=== PATIENT | female | born 1960 | race Caucasian/White ===

== ENCOUNTER 2016-05-04 17:03 | Emergency (ER) | payer BC, MEDICARE ==
[~2016-05-04] VITALS: Wt 95.3 kg
[~2016-05-04 17:03] MED LIST: ASPIRIN CHEWABL81 MG PO; ATORVASTATIN CA40 M1 PO; LEVAQUIN750 M1 PO; LEVOTHYROXIN0.075 M1 PO; LIPITOR40 MG PO; NITROSTAT0.4 MG SL; OMEPRAZOLE40 MG PO
[2016-05-04] MEDS ORDERED: FLUOXETINE HCL10 MG PO (17:11)
[2016-05-04 17:41] LABS: BASO % 0.4 % (0.0-1.0); EOS # 0.1 10*3/uL (0.0-0.4); EOS % 1.3 % (1.0-4.0); HEMATOCRIT 45.3 % (37.0-47.0); HEMOGLOBIN 14.7 g/dl (12.0-16.0); LYMPH # 1.7 10*3/uL (1.3-4.4); LYMPH % 23.4 % (27.0-41.0); MEAN CELL VOLUME 84.2 fl (81.0-99.0); MEAN CORPUSCULAR HGB 27.3 pg (27.0-31.0); MEAN CORPUSCULAR HGB CONC 32.5 g/dl (33.0-37.0); MEAN PLATELET VOLUME 10.4 fl (9.6-12.3); MONO # 0.6 10*3/uL (0.1-1.0); MONO % 8.5 % (3.0-9.0); NEUT # 4.9 10*3/uL (2.3-7.9); NEUT % 66.3 % (47.0-73.0); PLATELET COUNT AUTOMATED 257 10*3/uL (130-400); RED BLOOD COUNT 5.38 10*6/uL (4.10-5.10); RED CELL DISTRI WIDTH 13.5 % (0-14.5); WHITE BLOOD COUNT 7.5 10*3/uL (4.8-10.8)
[2016-05-04 18:01] LABS: ALBUMIN 3.7 gm/dl (3.1-4.5); BILIRUBIN, TOTAL 0.9 mg/dl (0.2-1.0); POTASSIUM 3.7 mmol/L (3.5-5.1)
[2016-05-04 19:38] LABS: LA>2 REFLEX 2 HR DRAW NOW
[2016-05-04 20:18] LABS: BILIRUBIN NEGATIVE (NEGATIVE); BLOOD TRACE-INTACT (NEGATIVE); CLARITY CLEAR (CLEAR); COLOR YELLOW (YELLOW); GLUCOSE NEGATIVE (NEGATIVE); KETONE NEGATIVE (NEGATIVE); LEUKO ESTERASE NEGATIVE (NEGATIVE); NITRITE NEGATIVE (NEGATIVE); PROTEIN NEGATIVE (NEGATIVE); UROBILINOGEN 0.2 E.U./dl (0.2-1.0)
[2016-05-04 20:40] LABS: BACTERIA 2+; RBC 0-2 rbc/hpf (0-2); URINE REFLEX COMMENT YES (NO)
[2016-05-04] MEDS ORDERED: BENTYL10 MG PO (20:47)
[2016-05-04] MEDS ORDERED: Zofran4 MG PO (20:47)
[2016-06-16] MEDS ORDERED: ZEGERID1 PK1 PO (08:39)
[2016-06-16] MEDS ORDERED: CLARITIN10 MG PO (12:20)
[2016-06-16] MEDS ORDERED: RANITIDINE HCL150 M1 PO (12:20)
[2016-06-17] MEDS ORDERED: LEVOTHYROXIN0.088 M1 PO ×2 (18:00→18:02)
[2016-06-18] MEDS ORDERED: VITAMIN D50000 I3 PO ×2 (13:59→14:42)
[2016-06-18] MEDS ORDERED: LEVAQUIN500 M2 PO (13:59)
[2016-06-18] MEDS ORDERED: PREDNISONE10 MG PO (13:59)
[2016-06-18] MEDS ORDERED: VENTOLIN H0.09 MG/AC INH (15:00)
== END 2016-05-04 21:02 | disposition home or self-care (01) ==
LOC: ED 17:03
PROVIDERS: Physician Assistant
DX: R11.2 Nausea with vomiting, unspecified (principal); R19.7 Diarrhea, unspecified; Z87.891 Personal history of nicotine dependence; Z90.49 Acquired absence of other specified parts of digestive tract; Z90.710 Acquired absence of both cervix and uterus; Z98.51 Tubal ligation status; Z98.890 Other specified postprocedural states; Z79.82 Long term (current) use of aspirin; Z88.0 Allergy status to penicillin; Z88.6 Allergy status to analgesic agent; Z88.5 Allergy status to narcotic agent

== ENCOUNTER → 2016-07-01 | Outpatient (CLI) | payer BC, MEDICARE ==
[~2016-07-01] MED LIST changes: +BENTYL10 MG PO; +CLARITIN10 MG PO; +FLUOXETINE HCL10 MG PO; +LEVAQUIN500 M2 PO; +LEVOTHYROXIN0.088 M1 PO; +PREDNISONE10 MG PO; +RANITIDINE HCL150 M1 PO; +VENTOLIN H0.09 MG/AC INH; +VITAMIN D50000 I3 PO; +ZEGERID1 PK1 PO; +Zofran4 MG PO
--- NOTE | ~2016-07-01 | PF ---
[place], [place] PULMONARY FUNCTION TEST [id number] UNIT #: [id number] ROOM: DOCTOR: CRESCENCIO LEDEZMA MD,NENA BIRTHDATE: [birth year] DOS: ORDERED BY: Dr. Joe Garcia. HISTORY: The patient recorded as a 56-year-old female, height of 63 inches, weight of 220 pounds with BMI of 39. The testing was done for assessment of symptoms of shortness of breath with nonproductive cough. Past tobacco use was noted, 1 pack of cigarettes per day for the past 35 years with the tobacco cessation noted for last 3 years. SPIROMETRY: Done without bronchodilator shows FVC of 3.42 liters at 105% predicted value normal. FEV1 recorded 2.55 liters, is 100% predicted value normal as well. Ratio of FEV1/FVC recorded as 74%. Flow volume loop was suggestive of mild obstructive airway pattern. LUNG VOLUME: Thoracic gas volume recorded as 87%, residual volume of 109%, total lung capacity 110%. Lung volumes were noted normal. The patient's lung diffusion recorded normal at 94%. The patient's airway resistance, passive conductance was noted normal; however, there was no postbronchodilator test. FINAL IMPRESSION: The patient was noted with normal spirometry, lung volumes, lung diffusion, air resistance, and passive conductance. NENA PRATHER MD CM:PFREPORT:PULMONARY FUNCTION TEST [id number] NENA LEDEZMA MD
== END | disposition home or self-care (01) ==
LOC: CP 10:33
DX: R06.02 Shortness of breath (principal)

== ENCOUNTER 2016-07-06 16:47 | Inpatient (IN) | payer BC, MEDICARE ==
[~2016-07-06] VITALS: Ht 160 cm; Wt 104.1 kg
--- NOTE | ~2016-07-06 | CON ---
[place], [place] REPORT OF CONSULTATION NAME[facility] [id number] UNIT #: [id number] ROOM: 415 DOCTOR: BERNIE WILLAMS MD BIRTHDATE: [birth year] DOS: 07/07/2016 CARDIOLOGY CONSULTATION REASON FOR CONSULTATION: Chest pain. HISTORY OF PRESENT ILLNESS: This patient is a 56-year-old woman who has a long history of atypical chest pain. She did have several admissions in the fall of 2015. A pharmacologic stress test was done on 01/17/2016. She had no EKG changes with the infusion of regadenoson. Perfusion images showed an ejection fraction of 68% and no ischemia. I reviewed the images and I agree with the initial interpretation. The patient states that she has had a long history of gastroesophageal reflux disease and Joe's esophagus. Last March, she did have endoscopy and was told that she has developed some dysplasia. She was recently seen by her poiser who is planning further workup of her gastroesophageal reflux including acid testing. The patient was driving her grandchildren home from school yesterday when she developed a tight sensation in her chest. This progressed and worsened. She pulled the car over, but her symptoms did not becca. She took sublingual nitroglycerin without any benefit. She stated that she developed nausea and vomited. She did not have diaphoresis or dyspnea and denied any palpitations. At that point, her grandson called 911. Emergency medical services arrived and gave her more nitroglycerin and aspirin. These did not relieve the pain to any great degree either; however, the pain did begin to improve, subsequently. It finally resolved on its own after about 45 minutes to an hour. She was brought to the Emergency Room where her electrocardiogram showed no acute changes. Serial cardiac biomarkers have all been normal. She has remained well since admission. PAST MEDICAL HISTORY: Includes: 1. Gastroesophageal reflux disease with Joe's esophagus. 2. 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 3. Hyperlipidemia. 4. Hypothyroidism. 5. Vitamin D deficiency. 6. History of tobacco abuse. The patient has been abstinent for several months. 7. Status post cholecystectomy when the patient was in her teens. 8. History of exploratory laparotomy and hysterectomy. 9. Status post lumpectomy of the right breast. 10. Status post thyroidectomy February 2015. 11. History of tubal ligation. MEDICATIONS PRIOR TO ADMISSION: Albuterol 2 puffs q.i.d. p.r.n., aspirin 81 mg daily, vitamin D 50,000 units weekly, fluoxetine 10 mg daily, levothyroxine 75 mcg daily, omeprazole with sodium bicarbonate (Zegerid) 20 mg daily, ranitidine 150 mg b.i.d. and nitroglycerin sublingually p.r.n. [place], [place] REPORT OF CONSULTATION NAME: ROBEL GARCIA UNIT #: [id number] ROOM: 415 DOCTOR: BERNIE WILLAMS MD BIRTHDATE: [birth year] ALLERGIES: THE PATIENT LISTS ALLERGIES TO PENICILLINS AND HYDROCODONE. FAMILY HISTORY: Her father at age 60 from myocardial infarction. There is a family history of stroke. Her mother has diabetes. REVIEW OF SYSTEMS: The patient denies diplopia or loss of vision. She denies lightheadedness or syncope. She denies focal weakness. She did have nausea and vomiting prior to admission. She denies fevers, chills, sweats or recent weight loss. In fact, she states that she has gained significant weight since her thyroidectomy a year and a half ago. She denies hemoptysis or hematemesis. She is recovering from pneumonia or bronchitis, which she had a month or so ago. She just finished a course of steroids for this. She denies change in bowel or bladder habits. She denies bleeding from any sites including urine and bowel. She denies any hot or swollen joints. She denies any heat or cold intolerance. She denies any polydipsia or polyuria. Denies any skin rashes. The remainder of the review of systems is negative except as noted above. SOCIAL HISTORY: The patient is a former smoker, but has been abstinent for several months. She does not consume alcohol or illegal drugs. PHYSICAL EXAMINATION: GENERAL: The patient is an overweight white female who is awake, alert and oriented. VITAL SIGNS: Pulse is 70 and regular; blood pressure is 120/60. She is afebrile. She weighs 104.1 kilograms with a body mass index of 40.6. HEENT: Normocephalic, atraumatic. Extraocular muscles are intact. Sclerae are clear. Pupils are equal, round and reactive to light. The oral mucosa is moist. Tongue is midline. NECK: Supple. She has no jugular distention. Carotids are full without bruits. She has no neck or supraclavicular masses and no thyromegaly. She does have a well-healed thyroidectomy scar. LUNGS: The respirations are unlabored. Chest is clear to auscultation and percussion. She had no presacral edema or chest wall tenderness. There were no wheezes or rales. CARDIOVASCULAR: Her heart had a regular rhythm without murmurs, rubs or gallops. The PMI was not displaced. There was no precordial heave, lift or thrill. I could not reproduce her pain by palpation of her chest or epigastrium. ABDOMEN: Obese, but otherwise benign, without masses, organomegaly, bruits or tenderness. There was no mass or rebound. EXTREMITIES: Showed no edema. Peripheral pulses were easily palpated in the feet bilaterally. LABORATORY DATA: I reviewed her electrocardiogram; it shows sinus rhythm and was a normal tracing. The patient did have a chest x-ray and CT angiogram of the chest, both of which were unremarkable. CBC shows a hemoglobin of 12.7, hematocrit of 39.8, there are 5700 white cells and 204,000 platelets. INR is 1.2. Sodium is 144, potassium 3.9, chloride 110, CO2 of 26, BUN 10, creatinine 0.94. Fasting sugar 125. Hemoglobin A1c is elevated at 7.3. Serial troponins [place], [place] REPORT OF CONSULTATION NAME: ROBEL GARCIA UNIT #: [id number] ROOM: 415 DOCTOR: BERNIE WILLAMS MD BIRTHDATE: [birth year] have all been unmeasurably low. Vitamin D level is low at 29.3. TSH is normal at 3.8. Total cholesterol is 171; LDL is 88, VLDL 28, HDL 55, triglycerides 140. IMPRESSIONS: 1. Atypical chest pain. The patient's pain came on at rest and was not relieved by nitroglycerin. She did not have any associated electrocardiographic changes and does not show any biochemical evidence for myocardial injury. She did have a stress test within the last 6 months, which was entirely normal. I think the likelihood of cardiac disease in the situation is extremely low. 2. Long history of gastroesophageal reflux with Joe's esophagus. The patient was told that she is having some esophageal dysplasia. 3. History of cigarette abuse. The patient is currently abstinent. 4. Hyperlipidemia, which appears to be well controlled. 6. Obesity. 7. Type 2 diabetes mellitus. PLAN: I do not think any further cardiac workup at this time would be fruitful. The patient does have further GI workup planned and I would proceed with that. Since that does appear to be a more likely cause for her current symptoms. No other cardiac workup is pending at this time. We will remain available to see her as needed. I thank the hospitalist group for asking our advice regarding her care. BERNIE WILLAMS MD CM:CONSTR:REPORT OF CONSULTATION 0859 07/07/16 1336 interface
[2016-07-06 16:49] VITALS: BP 141/81
[2016-07-06 17:13] LABS: BASO % 0.4 % (0.0-1.0); EOS # 0.2 10*3/uL (0.0-0.4); EOS % 2.1 % (1.0-4.0); HEMATOCRIT 39.1 % (37.0-47.0); LYMPH # 2.2 10*3/uL (1.3-4.4); LYMPH % 28.9 % (27.0-41.0); MEAN CELL VOLUME 81.8 fl (81.0-99.0); MEAN CORPUSCULAR HGB 27.2 pg (27.0-31.0); MEAN CORPUSCULAR HGB CONC 33.2 g/dl (33.0-37.0); MONO # 0.7 10*3/uL (0.1-1.0); NEUT # 4.5 10*3/uL (2.3-7.9); NEUT % 59.3 % (47.0-73.0); PLATELET COUNT AUTOMATED 188 10*3/uL (130-400); RED BLOOD COUNT 4.78 10*6/uL (4.10-5.10); RED CELL DISTRI WIDTH 14.4 % (0-14.5); WHITE BLOOD COUNT 7.6 10*3/uL (4.8-10.8)
[2016-07-06 17:15] VITALS: BP 137/77
[2016-07-06 17:29] LABS: ALBUMIN 3.1 gm/dl (3.1-4.5); ALKALINE PHOSPHATASE 89 U/L (45-117); BILIRUBIN, TOTAL 0.6 mg/dl (0.2-1.0); BUN 9 mg/dl (7-24); CARBON DIOXIDE 23 mmol/L (21-32); CHLORIDE 107 mmol/L (98-107); CPK 54 U/L (26-192); EST GLOM FILT AFRICAN AMERICAN > 60 ml/min; GLUCOSE 127 mg/dL (65-99); MAGNESIUM 2.3 mg/dL (1.5-2.1); POTASSIUM 3.9 mmol/L (3.5-5.1); SGOT/AST 20 IU/L (3-35); SGPT/ALT 53 U/L (12-78); SODIUM 141 mmol/L (136-145); TOTAL PROTEIN 6.8 gm/dL (6.4-8.2)
[2016-07-06 17:30] LABS: CKMB 0.8 ng/ml (0.5-3.6); TROPONIN I < 0.015 ng/ml (<0.045)
[2016-07-06 17:50] LABS: PROTHROMBIN TIME 10.5 SECONDS (9.0-12.4)
[2016-07-06 17:54] VITALS: BP 130/74
[2016-07-06 18:24] VITALS: BP 141/80
[2016-07-06 18:49] VITALS: BP 145/72
[2016-07-06 20:00] VITALS: BP 143/74
[2016-07-07] VITALS: BP 124/52
[2016-07-07 00:34] LABS: CPK 48 U/L (26-192)
[2016-07-07 00:40] LABS: CKMB < 0.5 ng/ml (0.5-3.6); TROPONIN I < 0.015 ng/ml (<0.045)
[2016-07-07 05:42] LABS: CKMB 0.5 ng/ml (0.5-3.6); CPK 62 U/L (26-192)
[2016-07-07 05:45] LABS: TROPONIN I < 0.015 ng/ml (<0.045)
[2016-07-07 05:53] LABS: BASO % 0.4 % (0.0-1.0); EOS # 0.2 10*3/uL (0.0-0.4); EOS % 3.2 % (1.0-4.0); HEMATOCRIT 39.8 % (37.0-47.0); HEMOGLOBIN 12.7 g/dl (12.0-16.0); LYMPH # 1.8 10*3/uL (1.3-4.4); LYMPH % 31.6 % (27.0-41.0); MEAN CELL VOLUME 84.1 fl (81.0-99.0); MEAN CORPUSCULAR HGB 26.8 pg (27.0-31.0); MEAN CORPUSCULAR HGB CONC 31.9 g/dl (33.0-37.0); MEAN PLATELET VOLUME 10.7 fl (9.6-12.3); MONO # 0.5 10*3/uL (0.1-1.0); MONO % 8.1 % (3.0-9.0); NEUT # 3.2 10*3/uL (2.3-7.9); NEUT % 56.7 % (47.0-73.0); PLATELET COUNT AUTOMATED 204 10*3/uL (130-400); RED BLOOD COUNT 4.73 10*6/uL (4.10-5.10); RED CELL DISTRI WIDTH 14.5 % (0-14.5); WHITE BLOOD COUNT 5.7 10*3/uL (4.8-10.8)
[2016-07-07 05:55] LABS: ALKALINE PHOSPHATASE 82 U/L (45-117); BUN 10 mg/dl (7-24); CARBON DIOXIDE 26 mmol/L (21-32); CHLORIDE 110 mmol/L (98-107); CHOLESTEROL 171 mg/dL (<200); EST GLOM FILT AFRICAN AMERICAN > 60 ml/min; GLUCOSE 125 mg/dL (65-99); HDL CHOLESTEROL 55 mg/dl (40-60); LDL CHOLESTEROL 88 mg/dL (9-159); MAGNESIUM 2.4 mg/dL (1.5-2.1); PHOSPHOROUS 2.6 mg/dL (2.5-4.9); POTASSIUM 3.9 mmol/L (3.5-5.1); SGOT/AST 22 IU/L (3-35); SGPT/ALT 49 U/L (12-78); SODIUM 144 mmol/L (136-145); TOTAL PROTEIN 6.6 gm/dL (6.4-8.2); TRIGLYCERIDES 140 mg/dl (<150); VLDL CHOLESTEROL 28 mg/dL (6-40)
[2016-07-07 05:57] LABS: HEMOGLOBIN A1c 7.3 % (4.8-5.6)
[2016-07-07 06:13] LABS: PROTHROMBIN TIME 10.5 SECONDS (9.0-12.4)
[2016-07-07 06:17] LABS: VITAMIN D, 25-HYDROXY 29.3 ng/mL (30-100)
[2016-07-07 06:18] LABS: FOLIC ACID 17.61 ng/mL (>5.38)
[2016-07-07 08:00] VITALS: BP 120/60
[2016-07-07] MEDS ORDERED: Synthroid,Levo75 MCG PO (10:33)
[2016-07-07 12:11] LABS: CKMB 0.6 ng/ml (0.5-3.6); CPK 48 U/L (26-192)
[2016-07-07 12:13] LABS: TROPONIN I < 0.015 ng/ml (<0.045)
== END 2016-07-07 12:30 | disposition home or self-care (01) | DRG 313 ==
LOC: ED 16:47 → 4E 18:01 → EDHOLD 18:01 → 4E 18:58
PROVIDERS: Emergency Medicine; Internal Medicine
DX: R07.89 Other chest pain (principal); E44.0 Moderate protein-calorie malnutrition; E83.41 Hypermagnesemia; Z68.41 Body mass index [BMI] 40.0-44.9, adult; K21.9 Gastro-esophageal reflux disease without esophagitis; E78.5 Hyperlipidemia, unspecified; E03.9 Hypothyroidism, unspecified; Z87.891 Personal history of nicotine dependence; Z88.5 Allergy status to narcotic agent; Z88.0 Allergy status to penicillin; E55.9 Vitamin D deficiency, unspecified; R73.9 Hyperglycemia, unspecified; E83.51 Hypocalcemia; K22.70 Barrett's esophagus without dysplasia

== ENCOUNTER 2016-11-04 00:19 | Inpatient (IN) | payer BC, MEDICARE ==
[~2016-11-04] VITALS: Ht 160 cm; Wt 98.9 kg
[2016-11-04] VITALS (12 sets, daily range): BP systolic 101–176; BP diastolic 54–95
--- NOTE | ~2016-11-04 | O ---
[place], [place] OPERATIVE NOTE [id number] UNIT #: [id number] ROOM: 503 [facility] BIRTH[facility]: [birth year] DOS: HISTORY OF PRESENT ILLNESS: A 56-year-old patient who presented with chief complaint of epigastric distress, dyspepsia and substernal chest pain. PAST MEDICAL HISTORY: Associated with history of nonspecific colitis, nausea, history of GERD, hypothyroidism, diabetes mellitus and hyperlipidemia. PAST SURGICAL HISTORY: Hysterectomy, lumpectomy, right breast, thyroidectomy, tubal ligation, cholecystectomy and exploratory laparotomy. SOCIAL HISTORY: Nonsmoker, nonalcohol consumer at the present time, stopped smoking 2 years ago. FAMILY HISTORY: Noncontributory. ALLERGIES: PENICILLIN, HYDROCODONE, VICODIN. MEDICATIONS: List reviewed. PROCEDURE: Today's procedure part of investigation is panendoscopy plus biopsy. PREMEDICATION: Versed and Diprivan. SCOPE: Olympus forward-viewing gastroscope Q10 video. REPORT: After putting the patient in the left lateral position and after application of lubricant to the scope, the scope was introduced. Thereafter, under direct visualization, I advanced through the length of the esophagus without difficulty. Evidence of reflux, esophageal ulcer, all the way to thoracic esophagus was identified. Linear ulcer was noticed. Gastric pouch was entered after passing through a hiatal hernia, which is approximately 3 cm. Gastritis was seen. Antrum was biopsied for H. pylori. Duodenal bulb, second and third part within normal limits. The patient was extubated after photographic series of the esophagus and tolerated the procedure well. IMPRESSION: Reflux, esophageal ulcers, hiatal hernia and gastritis. PLAN AND DISCUSSION: The patient has a history of diabetes mellitus; therefore, an element of dysmotility with gastroparesis could be involved. Therefore, addition of Reglan 5 mg 1 hour a.c. dinner is going to be started with Protonix 40 mg 1 tablet in the morning and Gaviscon Extra Strength 1 tablet at bedtime, antireflux measures with elevation of the head of the bed 6 inches all time and follow up as outpatient. We are going to organize a CT scan of the abdomen and pelvis with the ambiguous history of colitis, ruling out diverticulosis and ruling out underlying colitis. The patient has had a history of Dexilant intake and ending up with diarrhea, which could be side effect of the drug that has been stopped and Protonix is going to be substituted. I thank you very much indeed for your kind referral. [place], [place] OPERATIVE NOTE NAME: ROBEL GARCIA UNIT #: [id number] ROOM: [facility] DOCTOR: OLGA MATHIS,CHARLENE BIRTHDATE: [birth year] Sincerely, CHARLENE ESPINOZA MD CM:OPRECORD:OPERATIVE NOTE 1209 1348 CHARLENE ESPINOZA MD 11/04/16 1349 interface
[~2016-11-04 00:19] MED LIST changes: +Synthroid,Levo75 MCG PO
[2016-11-04 00:30] LABS: BASO % 0.5 % (0.0-1.0); EOS # 0.1 10*3/uL (0.0-0.4); EOS % 1.6 % (1.0-4.0); HEMATOCRIT 42.4 % (37.0-47.0); LYMPH # 2.2 10*3/uL (1.3-4.4); MEAN CELL VOLUME 79.4 fl (81.0-99.0); MEAN CORPUSCULAR HGB 26.2 pg (27.0-31.0); MEAN PLATELET VOLUME 10.4 fl (9.6-12.3); MONO # 0.8 10*3/uL (0.1-1.0); MONO % 9.5 % (3.0-9.0); NEUT # 4.8 10*3/uL (2.3-7.9); NEUT % 60.1 % (47.0-73.0); PLATELET COUNT AUTOMATED 314 10*3/uL (130-400); RED BLOOD COUNT 5.34 10*6/uL (4.10-5.10); RED CELL DISTRI WIDTH 14.1 % (0-14.5)
[2016-11-04 00:39] LABS: INTERNATIONAL NORM RATIO 1.1 (2.0-3.5); PROTHROMBIN TIME 11.5 SECONDS (9.0-12.4)
[2016-11-04 00:46] LABS: ALBUMIN 3.6 gm/dl (3.1-4.5); ALKALINE PHOSPHATASE 109 U/L (45-117); BILIRUBIN, TOTAL 0.6 mg/dl (0.2-1.0); BUN 6 mg/dl (7-24); CARBON DIOXIDE 28 mmol/L (21-32); CHLORIDE 100 mmol/L (98-107); EST GLOM FILT AFRICAN AMERICAN > 60 ml/min; GLUCOSE 188 mg/dL (65-99); MAGNESIUM 1.4 mg/dL (1.5-2.1); POTASSIUM 3.1 mmol/L (3.5-5.1); SGOT/AST 36 IU/L (3-35); SGPT/ALT 37 U/L (12-78); SODIUM 141 mmol/L (136-145); TOTAL PROTEIN 7.7 gm/dL (6.4-8.2)
[2016-11-04 00:47] LABS: TROPONIN I < 0.015 ng/ml (<0.045)
[2016-11-04] MEDS ORDERED: METFORMIN500 MG PO (01:07)
[2016-11-04 06:32] LABS: BASO % 0.3 % (0.0-1.0); EOS # 0.1 10*3/uL (0.0-0.4); HEMOGLOBIN 12.7 g/dl (12.0-16.0); LYMPH # 2.3 10*3/uL (1.3-4.4); MEAN CELL VOLUME 80.7 fl (81.0-99.0); MEAN CORPUSCULAR HGB 26.3 pg (27.0-31.0); MEAN CORPUSCULAR HGB CONC 32.6 g/dl (33.0-37.0); MEAN PLATELET VOLUME 10.2 fl (9.6-12.3); MONO # 0.6 10*3/uL (0.1-1.0); MONO % 9.5 % (3.0-9.0); NEUT # 3.1 10*3/uL (2.3-7.9); PLATELET COUNT AUTOMATED 269 10*3/uL (130-400); RED BLOOD COUNT 4.83 10*6/uL (4.10-5.10); WHITE BLOOD COUNT 6.1 10*3/uL (4.8-10.8)
[2016-11-04 06:58] LABS: INTERNATIONAL NORM RATIO 1.1 (2.0-3.5); PROTHROMBIN TIME 11.4 SECONDS (9.0-12.4)
[2016-11-04 07:01] LABS: ALBUMIN 3.2 gm/dl (3.1-4.5); BUN 7 mg/dl (7-24); CARBON DIOXIDE 29 mmol/L (21-32); CHLORIDE 100 mmol/L (98-107); EST GLOM FILT AFRICAN AMERICAN > 60 ml/min; GLUCOSE 174 mg/dL (65-99); PHOSPHOROUS 4.2 mg/dL (2.5-4.9); POTASSIUM 3.2 mmol/L (3.5-5.1); SGOT/AST 32 IU/L (3-35); SGPT/ALT 34 U/L (12-78); SODIUM 139 mmol/L (136-145); TOTAL PROTEIN 6.9 gm/dL (6.4-8.2)
[2016-11-04 07:08] LABS: ALKALINE PHOSPHATASE 100 U/L (45-117); BILIRUBIN, TOTAL 0.6 mg/dl (0.2-1.0)
[2016-11-04 07:22] LABS: HEMOGLOBIN A1c 7.5 % (4.8-5.6)
[2016-11-05] VITALS: BP 104/55
[2016-11-05 06:07] VITALS: BP 140/80
[2016-11-05 07:05] LABS: BASO % 0.4 % (0.0-1.0); EOS # 0.1 10*3/uL (0.0-0.4); EOS % 2.7 % (1.0-4.0); HEMATOCRIT 35.9 % (37.0-47.0); HEMOGLOBIN 11.3 g/dl (12.0-16.0); LYMPH # 2.1 10*3/uL (1.3-4.4); MEAN CORPUSCULAR HGB 26.8 pg (27.0-31.0); MEAN CORPUSCULAR HGB CONC 31.5 g/dl (33.0-37.0); MEAN PLATELET VOLUME 10.8 fl (9.6-12.3); MONO # 0.4 10*3/uL (0.1-1.0); MONO % 8.4 % (3.0-9.0); NEUT # 2.1 10*3/uL (2.3-7.9); NEUT % 43.3 % (47.0-73.0); PLATELET COUNT AUTOMATED 232 10*3/uL (130-400); RED BLOOD COUNT 4.22 10*6/uL (4.10-5.10); RED CELL DISTRI WIDTH 14.4 % (0-14.5); WHITE BLOOD COUNT 4.8 10*3/uL (4.8-10.8)
[2016-11-05 07:10] LABS: MEAN CELL VOLUME 85.1 fl (81.0-99.0)
[2016-11-05 07:26] LABS: BUN 8 mg/dl (7-24); CARBON DIOXIDE 29 mmol/L (21-32); CHLORIDE 110 mmol/L (98-107); EST GLOM FILT AFRICAN AMERICAN > 60 ml/min; GLUCOSE 119 mg/dL (65-99); POTASSIUM 4.3 mmol/L (3.5-5.1); SODIUM 147 mmol/L (136-145)
[2016-11-05 08:00] VITALS: BP 123/64
[2016-11-05] MEDS ORDERED: METOCLOPRAMIDE H5 M1 PO (10:48)
[2016-11-05] MEDS ORDERED: PANTOPRAZOLE SO40 MG PO (10:48)
[2016-11-05] MEDS ORDERED: GAVISCON 80 MG-1 CT1 PO (10:48)
== END 2016-11-05 12:28 | disposition home or self-care (01) | DRG 382 ==
LOC: ED 00:19 → EDHOLD 02:26 → 5E 02:26
PROVIDERS: Emergency Medicine Emergency Medical Services; Family Medicine; Internal Medicine Nephrology
PROC: 0DB68ZX Excision of Stomach, Via Natural or Artificial Opening Endoscopic, Diagnostic (ICD-10-PCS; principal; 2016-11-04)
DX: K22.10 Ulcer of esophagus without bleeding (principal); E11.65 Type 2 diabetes mellitus with hyperglycemia; K76.0 Fatty (change of) liver, not elsewhere classified; K29.70 Gastritis, unspecified, without bleeding; K21.0 Gastro-esophageal reflux disease with esophagitis; E03.9 Hypothyroidism, unspecified; R19.7 Diarrhea, unspecified; E78.5 Hyperlipidemia, unspecified; E87.6 Hypokalemia; K44.9 Diaphragmatic hernia without obstruction or gangrene; R74.0 Nonspecific elevation of levels of transaminase and lactic acid dehydrogenase [LDH]; E83.52 Hypercalcemia; E87.5 Hyperkalemia; E83.42 Hypomagnesemia; Z88.0 Allergy status to penicillin; Z88.8 Allergy status to other drugs, medicaments and biological substances; Z90.49 Acquired absence of other specified parts of digestive tract; Z90.710 Acquired absence of both cervix and uterus; Z79.899 Other long term (current) drug therapy; Z87.891 Personal history of nicotine dependence; Z82.49 Family history of ischemic heart disease and other diseases of the circulatory system; Z82.3 Family history of stroke; Z83.3 Family history of diabetes mellitus; I25.2 Old myocardial infarction; Z79.82 Long term (current) use of aspirin

== ENCOUNTER 2016-11-30 13:07 | Inpatient (IN) | payer BC, MEDICARE ==
[~2016-11-30] VITALS: Ht 160 cm; Wt 100.0 kg
[2016-11-30] VITALS (8 sets, daily range): BP systolic 137–220; BP diastolic 66–90
--- NOTE | ~2016-11-30 | ST ---
[place], [place] EXERCISE STRESS TEST REPORT NAME: ROBEL GARCIA [facility] #: [id number] UNIT #: [id number] ROOM: 524 DOCTOR: PHILLIP BRANTLEY MD BIRTHDATE: [birth year] DOS: 12/01/2016 LEXISCAN STRESS EKG REPORT REFERRING PHYSICIAN: ____ INDICATION: Anterior chest pain. The patient underwent standard protocol Lexiscan stress EKG. The patient's baseline EKG showed normal sinus rhythm, nonspecific ST-T wave changes with ____ heart rate of 64 and blood pressure 134/68. Peak heart rate was 80 with blood pressure 118/62. No chest pain, EKG changes or arrhythmias were noted. SUMMARY OF FINDINGS: Unremarkable Lexiscan stress EKG. Please see separate report for perfusion results. PHILLIP BRANTLEY MD CM:STRESS:EXERCISE STRESS TEST REPORT 1404 30 PHILLIP BRANTLEY MD
[~2016-11-30 13:07] MED LIST changes: +GAVISCON 80 MG-1 CT1 PO; +METFORMIN500 MG PO; +METOCLOPRAMIDE H5 M1 PO; +PANTOPRAZOLE SO40 MG PO
[2016-11-30 14:14] LABS: BASO % 0.5 % (0.0-1.0); EOS # 0.1 10*3/uL (0.0-0.4); EOS % 1.8 % (1.0-4.0); HEMATOCRIT 37.8 % (37.0-47.0); HEMOGLOBIN 12.1 g/dl (12.0-16.0); LYMPH # 1.9 10*3/uL (1.3-4.4); LYMPH % 34.1 % (27.0-41.0); MEAN CELL VOLUME 81.5 fl (81.0-99.0); MEAN CORPUSCULAR HGB 26.1 pg (27.0-31.0); MEAN PLATELET VOLUME 10.7 fl (9.6-12.3); MONO # 0.6 10*3/uL (0.1-1.0); MONO % 10.6 % (3.0-9.0); NEUT # 2.9 10*3/uL (2.3-7.9); NEUT % 52.8 % (47.0-73.0); PLATELET COUNT AUTOMATED 233 10*3/uL (130-400); RED BLOOD COUNT 4.64 10*6/uL (4.10-5.10); RED CELL DISTRI WIDTH 14.8 % (0-14.5); WHITE BLOOD COUNT 5.5 10*3/uL (4.8-10.8)
[2016-11-30 14:33] LABS: ALBUMIN 3.3 gm/dl (3.1-4.5); ALKALINE PHOSPHATASE 108 U/L (45-117); BILIRUBIN, TOTAL 0.6 mg/dl (0.2-1.0); BUN 7 mg/dl (7-24); CARBON DIOXIDE 28 mmol/L (21-32); CHLORIDE 103 mmol/L (98-107); EST GLOM FILT AFRICAN AMERICAN > 60 ml/min; GLUCOSE 220 mg/dL (65-99); POTASSIUM 3.5 mmol/L (3.5-5.1); SGOT/AST 44 IU/L (3-35); SGPT/ALT 34 U/L (12-78); SODIUM 138 mmol/L (136-145)
[2016-11-30 14:34] LABS: TROPONIN I < 0.015 ng/ml (<0.045)
[2016-11-30] MEDS ORDERED: LEVOXYL88 MCG PO (15:36)
[2016-12-01] VITALS: BP 107/50
[2016-12-01 06:00] LABS: BASO % 0.8 % (0.0-1.0); EOS # 0.2 10*3/uL (0.0-0.4); EOS % 4.5 % (1.0-4.0); HEMATOCRIT 37.8 % (37.0-47.0); HEMOGLOBIN 12.1 g/dl (12.0-16.0); LYMPH # 1.8 10*3/uL (1.3-4.4); LYMPH % 37.3 % (27.0-41.0); MEAN CELL VOLUME 82.7 fl (81.0-99.0); MEAN CORPUSCULAR HGB 26.5 pg (27.0-31.0); MEAN PLATELET VOLUME 10.9 fl (9.6-12.3); MONO # 0.4 10*3/uL (0.1-1.0); MONO % 7.8 % (3.0-9.0); NEUT # 2.4 10*3/uL (2.3-7.9); NEUT % 49.6 % (47.0-73.0); PLATELET COUNT AUTOMATED 220 10*3/uL (130-400); RED BLOOD COUNT 4.57 10*6/uL (4.10-5.10); RED CELL DISTRI WIDTH 15.1 % (0-14.5); WHITE BLOOD COUNT 4.9 10*3/uL (4.8-10.8)
[2016-12-01 06:33] LABS: BUN 8 mg/dl (7-24); CARBON DIOXIDE 28 mmol/L (21-32); CHLORIDE 107 mmol/L (98-107); EST GLOM FILT AFRICAN AMERICAN > 60 ml/min; GLUCOSE 146 mg/dL (65-99); INTERNATIONAL NORM RATIO 1.1 (2.0-3.5); PHOSPHOROUS 3.3 mg/dL (2.5-4.9); POTASSIUM 3.6 mmol/L (3.5-5.1); PROTHROMBIN TIME 11.3 SECONDS (9.0-12.4); SODIUM 143 mmol/L (136-145)
[2016-12-01 06:41] LABS: FREE T4 1.31 ng/dl (0.76-1.46); THYROID STIM HORMONE (HS) 0.426 uIU/ml (0.358-4.75)
[2016-12-01 07:16] LABS: FOLIC ACID 17.97 ng/mL (>5.38); VITAMIN D, 25-HYDROXY 40.4 ng/mL (30-100)
[2016-12-01 08:00] VITALS: BP 138/78
[2016-12-01 08:18] VITALS: BP 138/78
[2016-12-01 12:00] VITALS: BP 136/72
[2016-12-01] MEDS ORDERED: PRINIVIL10 MG PO (15:47)
[2016-12-01 16:00] VITALS: BP 136/66
== END 2016-12-01 16:31 | disposition home or self-care (01) | DRG 305 ==
LOC: ED 13:07 → 5E 14:40 → EDHOLD 14:40 → 5E 14:48
PROVIDERS: Internal Medicine; Nurse Practitioner Family
PROC: 4A02XM4 Measurement of Cardiac Total Activity, External Approach (ICD-10-PCS; principal; 2016-12-01)
DX: I16.1 Hypertensive emergency (principal); E87.2 Acidosis; E11.22 Type 2 diabetes mellitus with diabetic chronic kidney disease; K21.9 Gastro-esophageal reflux disease without esophagitis; E78.5 Hyperlipidemia, unspecified; N18.3 Chronic kidney disease, stage 3 (moderate); E03.9 Hypothyroidism, unspecified; E89.0 Postprocedural hypothyroidism; K22.70 Barrett's esophagus without dysplasia; E83.41 Hypermagnesemia; E83.52 Hypercalcemia; E11.65 Type 2 diabetes mellitus with hyperglycemia; Z82.49 Family history of ischemic heart disease and other diseases of the circulatory system; Z82.3 Family history of stroke; Z83.3 Family history of diabetes mellitus; Z88.0 Allergy status to penicillin; Z88.5 Allergy status to narcotic agent; Z79.84 Long term (current) use of oral hypoglycemic drugs

== ENCOUNTER 2016-12-07 09:14 | Emergency (ER) | payer BC, MEDICARE ==
[~2016-12-07] VITALS: Ht 160 cm; Wt 98.9 kg
[~2016-12-07 09:14] MED LIST changes: +LEVOXYL88 MCG PO; +PRINIVIL10 MG PO
[2016-12-07 09:38] LABS: BASO % 0.6 % (0.0-1.0); EOS # 0.1 10*3/uL (0.0-0.4); EOS % 2.4 % (1.0-4.0); HEMATOCRIT 37.8 % (37.0-47.0); LYMPH # 1.6 10*3/uL (1.3-4.4); LYMPH % 33.1 % (27.0-41.0); MEAN CELL VOLUME 82.4 fl (81.0-99.0); MEAN CORPUSCULAR HGB 26.1 pg (27.0-31.0); MEAN CORPUSCULAR HGB CONC 31.7 g/dl (33.0-37.0); MEAN PLATELET VOLUME 11.1 fl (9.6-12.3); MONO # 0.4 10*3/uL (0.1-1.0); MONO % 8.1 % (3.0-9.0); NEUT # 2.8 10*3/uL (2.3-7.9); NEUT % 55.6 % (47.0-73.0); PLATELET COUNT AUTOMATED 226 10*3/uL (130-400); RED BLOOD COUNT 4.59 10*6/uL (4.10-5.10); RED CELL DISTRI WIDTH 15.1 % (0-14.5)
[2016-12-07 09:47] LABS: ACT PARTIAL THROMBO TIME 25.8 SECONDS (20.8-31.5); INTERNATIONAL NORM RATIO 1.1 (2.0-3.5)
[2016-12-07 09:54] LABS: ALBUMIN 3.2 gm/dl (3.1-4.5); ALKALINE PHOSPHATASE 105 U/L (45-117); BUN 12 mg/dl (7-24); CHLORIDE 108 mmol/L (98-107); CKMB 0.7 ng/ml (0.5-3.6); CREATININE 0.95 mg/dL (0.55-1.02); LIPASE 197 U/L (73-393); POTASSIUM 3.9 mmol/L (3.5-5.1); SGOT/AST 43 IU/L (3-35); SGPT/ALT 33 U/L (12-78); SODIUM 139 mmol/L (136-145)
[2016-12-07 09:55] LABS: CPK 67 U/L (26-192); TROPONIN I < 0.015 ng/ml (<0.045)
[2016-12-07 12:48] LABS: CKMB 0.7 ng/ml (0.5-3.6)
[2016-12-07 12:50] LABS: TROPONIN I < 0.015 ng/ml (<0.045)
[2016-12-07] MEDS ORDERED: CYCLOBENZAPRINE5 M3 PO (13:00)
== END 2016-12-07 13:29 | disposition home or self-care (01) ==
LOC: ED 09:14
PROVIDERS: Nurse Practitioner Family
DX: M94.0 Chondrocostal junction syndrome [Tietze] (principal); K21.9 Gastro-esophageal reflux disease without esophagitis; E78.5 Hyperlipidemia, unspecified; I10 Essential (primary) hypertension; E03.9 Hypothyroidism, unspecified; E11.9 Type 2 diabetes mellitus without complications; Z88.0 Allergy status to penicillin; Z88.6 Allergy status to analgesic agent; Z88.8 Allergy status to other drugs, medicaments and biological substances; Z79.82 Long term (current) use of aspirin; Z79.899 Other long term (current) drug therapy; Z87.891 Personal history of nicotine dependence

== ENCOUNTER 2017-01-13 12:45 | Inpatient (IN) | payer BC, MEDICARE ==
[2017-01-13] VITALS (7 sets, daily range): BP systolic 132–187; BP diastolic 64–86
[~2017-01-13] VITALS: Ht 160 cm; Wt 100.0 kg
[~2017-01-13 12:45] MED LIST changes: +CYCLOBENZAPRINE5 M3 PO
[2017-01-13 13:19] LABS: BASO # 0.1 10*3/uL (0.0-0.1); BASO % 1.1 % (0.0-1.0); EOS # 0.2 10*3/uL (0.0-0.4); EOS % 3.6 % (1.0-4.0); HEMATOCRIT 38.2 % (37.0-47.0); HEMOGLOBIN 12.2 g/dl (12.0-16.0); LYMPH # 1.8 10*3/uL (1.3-4.4); LYMPH % 33.6 % (27.0-41.0); MEAN CELL VOLUME 83.2 fl (81.0-99.0); MEAN CORPUSCULAR HGB 26.6 pg (27.0-31.0); MEAN CORPUSCULAR HGB CONC 31.9 g/dl (33.0-37.0); MEAN PLATELET VOLUME 10.9 fl (9.6-12.3); MONO # 0.4 10*3/uL (0.1-1.0); MONO % 7.8 % (3.0-9.0); NEUT # 2.8 10*3/uL (2.3-7.9); NEUT % 53.7 % (47.0-73.0); PLATELET COUNT AUTOMATED 230 10*3/uL (130-400); RED BLOOD COUNT 4.59 10*6/uL (4.10-5.10); WHITE BLOOD COUNT 5.2 10*3/uL (4.8-10.8)
[2017-01-13 13:28] LABS: ACT PARTIAL THROMBO TIME 26.4 SECONDS (20.8-31.5); INTERNATIONAL NORM RATIO 1.1 (2.0-3.5)
[2017-01-13 13:39] LABS: ALBUMIN 3.2 gm/dl (3.1-4.5); ALKALINE PHOSPHATASE 101 U/L (45-117); BUN 10 mg/dl (7-24); CHLORIDE 107 mmol/L (98-107); CREATININE 1.05 mg/dL (0.55-1.02); POTASSIUM 4.4 mmol/L (3.5-5.1); SGPT/ALT 34 U/L (12-78); SODIUM 141 mmol/L (136-145)
[2017-01-13 13:40] LABS: SGOT/AST 48 IU/L (3-35)
[2017-01-13 13:41] LABS: TROPONIN I < 0.015 ng/ml (<0.045)
--- NOTE | 2017-01-13 15:46 | NUR ---
STOMACH PAIN LEVEL DOWN TO A 1 AFTER GI COCKTAIL.
--- NOTE | 2017-01-13 16:05 | NUR ---
REPORT FROM TATYANA RASHID AT THIS TIME.
--- NOTE | 2017-01-13 17:59 | NUR ---
REPORT GIVEN TO RAMON RN AT THIS TIME.
--- NOTE | 2017-01-13 18:03 | NUR ---
A 56, admitted to , under the services of CONNER Whittington DO with a diagnosis of CHEST PAIN AND PNEUMONITIS. Chief complaint is CHEST CONGESTION, SORE THROAT, COUGH.. Patient arrived via bed from ER. Monitor applied. Initial assessment completed. Vital signs taken and recorded. CONNER WHITTINGTON DO notified of admission to the unit. Orders received. See assessment for past medical history, medications and allergies. Patient and/or family oriented to unit. [facility] Clothing/patient valuable form completed. ASHKAN PORTILLO
[2017-01-13] MEDS ORDERED: PROTONIX40 MG PO (18:10)
--- NOTE | 2017-01-13 18:18 | NUR ---
RAMON RN AT BEDSIDE WITH PATIENT AT THIS TIME.
--- NOTE | 2017-01-13 18:43 | NUR ---
MED REC UP TO DATE PER PATIENT AND PHARMACY.
--- NOTE | 2017-01-13 18:43 | NUR ---
PATIENT REQUESTING FLU SHOT ON DISCHARGE.
[2017-01-14] VITALS: BP 129/61
--- NOTE | 2017-01-14 04:23 | NUR ---
PATIENT RESTING IN BED WITH EYES CLOSED. NO SIGNS OR SYMPTOMS OF DISTRESS NOTED. SLEPT WELL THROUGHOUT SHIFT. WILL CONTINUE TO MONITOR. CALL LIGHT IN REACH.
[2017-01-14 07:12] LABS: HEMATOCRIT 36.9 % (37.0-47.0); LYMPH # 0.7 10*3/uL (1.3-4.4); LYMPH % 15.3 % (27.0-41.0); MEAN CELL VOLUME 81.6 fl (81.0-99.0); MEAN CORPUSCULAR HGB 26.5 pg (27.0-31.0); MEAN CORPUSCULAR HGB CONC 32.5 g/dl (33.0-37.0); MEAN PLATELET VOLUME 11.1 fl (9.6-12.3); MONO # 0.1 10*3/uL (0.1-1.0); MONO % 1.1 % (3.0-9.0); NEUT # 3.6 10*3/uL (2.3-7.9); NEUT % 82.9 % (47.0-73.0); PLATELET COUNT AUTOMATED 223 10*3/uL (130-400); RED BLOOD COUNT 4.52 10*6/uL (4.10-5.10); RED CELL DISTRI WIDTH 14.6 % (0-14.5); WHITE BLOOD COUNT 4.4 10*3/uL (4.8-10.8)
[2017-01-14 07:20] LABS: ALKALINE PHOSPHATASE 101 U/L (45-117); BUN 13 mg/dl (7-24); CHLORIDE 106 mmol/L (98-107); CREATININE 0.92 mg/dL (0.55-1.02); MAGNESIUM 2.3 mg/dL (1.5-2.1); PHOSPHOROUS 1.7 mg/dL (2.5-4.9); POTASSIUM 4.1 mmol/L (3.5-5.1); SGOT/AST 42 IU/L (3-35); SGPT/ALT 35 U/L (12-78); SODIUM 137 mmol/L (136-145); TOTAL PROTEIN 7.1 gm/dL (6.4-8.2)
[2017-01-14 07:32] LABS: ACT PARTIAL THROMBO TIME 25.3 SECONDS (20.8-31.5); INTERNATIONAL NORM RATIO 1.1 (2.0-3.5)
[2017-01-14 08:00] VITALS: BP 119/60
--- NOTE | 2017-01-14 08:30 | NUR ---
Avionic Technician in to talk to patient. Patient states lives at HOME with HER . There are 0 steps in the home. Physician: DONATO FUNES Pharmacy: [facility] Home health services: NONE Patient's level of ADLs: INDEPENDENT Patient has working utilities: YES DME: NONE Follow-up physician's appointment after d/c: WILL BE MADE PRIOR TO DC Does patient want to access PORTAL?: Discharge plan HOME. FRAN KRAFT
[2017-01-14 08:43] LABS: VITAMIN D, 25-HYDROXY 35.8 ng/mL (30-100)
[2017-01-14] MEDS ORDERED: PREDNISONE10 MG PO (11:35)
[2017-01-14] MEDS ORDERED: DOXYCYCLINE100 M3 PO (11:35)
[2017-01-14] MEDS ORDERED: CARAFATE1 G1 PO (11:35)
--- NOTE | 2017-01-14 12:31 | NUR ---
DISCHARGE INSTRUCTIONS GIVEN AND PT VERBALIZED UNDERSTANDING FLU SHOT GIVEN
--- NOTE | 2017-01-14 13:00 | NUR ---
DC TO HOME
== END 2017-01-14 13:00 | disposition home or self-care (01) | DRG 391 ==
LOC: ED 12:45 → 4E 17:02 → EDHOLD 17:02 → 4E 17:19
PROVIDERS: Emergency Medicine; Internal Medicine; ADMIT Internal Medicine
DX: K21.9 Gastro-esophageal reflux disease without esophagitis (principal); J18.9 Pneumonia, unspecified organism; E87.2 Acidosis; K31.84 Gastroparesis; E11.65 Type 2 diabetes mellitus with hyperglycemia; E11.43 Type 2 diabetes mellitus with diabetic autonomic (poly)neuropathy; N18.3 Chronic kidney disease, stage 3 (moderate); K76.0 Fatty (change of) liver, not elsewhere classified; M94.0 Chondrocostal junction syndrome [Tietze]; Z88.0 Allergy status to penicillin; Z88.5 Allergy status to narcotic agent; Z88.9 Allergy status to unspecified drugs, medicaments and biological substances; E78.5 Hyperlipidemia, unspecified; I12.9 Hypertensive chronic kidney disease with stage 1 through stage 4 chronic kidney disease, or unspecified chronic kidney disease; Z90.49 Acquired absence of other specified parts of digestive tract; Z90.710 Acquired absence of both cervix and uterus; Z98.51 Tubal ligation status; E89.0 Postprocedural hypothyroidism; Z82.49 Family history of ischemic heart disease and other diseases of the circulatory system; Z82.3 Family history of stroke; Z83.3 Family history of diabetes mellitus; K44.9 Diaphragmatic hernia without obstruction or gangrene; K22.719 Barrett's esophagus with dysplasia, unspecified; Z79.4 Long term (current) use of insulin

== ENCOUNTER 2017-01-17 13:50 | Emergency (ER) | payer BC, MEDICARE ==
[~2017-01-17] VITALS: Ht 157.4 cm; Wt 99.8 kg
[~2017-01-17 13:50] MED LIST changes: +CARAFATE1 G1 PO; +DOXYCYCLINE100 M3 PO; +PROTONIX40 MG PO
[2017-01-17 14:27] LABS: ALKALINE PHOSPHATASE 122 U/L (45-117); BUN 15 mg/dl (7-24); CHLORIDE 98 mmol/L (98-107); CREATININE 1.21 mg/dL (0.55-1.02); MAGNESIUM 1.9 mg/dL (1.5-2.1); POTASSIUM 4.2 mmol/L (3.5-5.1); SGOT/AST 56 IU/L (3-35); SGPT/ALT 45 U/L (12-78); SODIUM 136 mmol/L (136-145); TOTAL PROTEIN 6.8 gm/dL (6.4-8.2)
[2017-01-17 14:29] LABS: TROPONIN I < 0.015 ng/ml (<0.045)
[2017-01-17 14:34] LABS: BASO % 0.4 % (0.0-1.0); EOS # 0.1 10*3/uL (0.0-0.4); EOS % 0.8 % (1.0-4.0); HEMOGLOBIN 12.5 g/dl (12.0-16.0); LYMPH # 2.9 10*3/uL (1.3-4.4); LYMPH % 35.4 % (27.0-41.0); MEAN CELL VOLUME 81.4 fl (81.0-99.0); MEAN CORPUSCULAR HGB 26.1 pg (27.0-31.0); MEAN CORPUSCULAR HGB CONC 32.1 g/dl (33.0-37.0); MEAN PLATELET VOLUME 10.8 fl (9.6-12.3); MONO # 0.8 10*3/uL (0.1-1.0); MONO % 9.5 % (3.0-9.0); NEUT # 4.4 10*3/uL (2.3-7.9); NEUT % 53.7 % (47.0-73.0); PLATELET COUNT AUTOMATED 240 10*3/uL (130-400); RED BLOOD COUNT 4.79 10*6/uL (4.10-5.10); RED CELL DISTRI WIDTH 14.6 % (0-14.5); WHITE BLOOD COUNT 8.3 10*3/uL (4.8-10.8)
[2017-01-17 14:42] LABS: ACT PARTIAL THROMBO TIME 23.3 SECONDS (20.8-31.5)
[2017-01-17 15:18] LABS: BILIRUBIN NEGATIVE (NEGATIVE); BLOOD NEGATIVE (NEGATIVE); CLARITY CLEAR (CLEAR); COLOR YELLOW (YELLOW); GLUCOSE NEGATIVE (NEGATIVE); KETONE NEGATIVE (NEGATIVE); LEUKO ESTERASE NEGATIVE (NEGATIVE); NITRITE NEGATIVE (NEGATIVE); PH 6.5 (5.0-9.0); SPECIFIC GRAVITY <= 1.005 (1.005-1.030); UROBILINOGEN 0.2 E.U./dl (0.2-1.0)
[2017-01-17 15:30] LABS: BACTERIA 4+; EPITHELIAL CELLS 0-2; RBC 0-2 rbc/hpf (0-2); WBC 0-2 wbc/hpf (0-5)
[2017-01-17] MEDS ORDERED: Fioricet 325 MG1 TAB PO (16:41)
== END 2017-01-17 16:53 | disposition home or self-care (01) ==
LOC: ED 13:50
PROVIDERS: Emergency Medicine
DX: M94.0 Chondrocostal junction syndrome [Tietze] (principal); N18.3 Chronic kidney disease, stage 3 (moderate); E11.22 Type 2 diabetes mellitus with diabetic chronic kidney disease; I12.9 Hypertensive chronic kidney disease with stage 1 through stage 4 chronic kidney disease, or unspecified chronic kidney disease; E03.9 Hypothyroidism, unspecified; E78.5 Hyperlipidemia, unspecified; K21.9 Gastro-esophageal reflux disease without esophagitis; Z88.0 Allergy status to penicillin; Z88.6 Allergy status to analgesic agent; Z79.899 Other long term (current) drug therapy; Z79.82 Long term (current) use of aspirin; Z88.8 Allergy status to other drugs, medicaments and biological substances

== ENCOUNTER 2017-01-29 15:06 | Inpatient (IN) | payer BC, MEDICARE ==
[~2017-01-29] VITALS: Ht 160 cm; Wt 100.5 kg
[~2017-01-29 15:06] MED LIST changes: +Fioricet 325 MG1 TAB PO
[2017-01-29 15:32] VITALS: BP 157/87
[2017-01-29 15:36] LABS: BASO % 0.5 % (0.0-1.0); EOS # 0.1 10*3/uL (0.0-0.4); EOS % 2.4 % (1.0-4.0); HEMATOCRIT 37.7 % (37.0-47.0); HEMOGLOBIN 12.4 g/dl (12.0-16.0); LYMPH % 33.5 % (27.0-41.0); MEAN CELL VOLUME 80.7 fl (81.0-99.0); MEAN CORPUSCULAR HGB 26.6 pg (27.0-31.0); MEAN CORPUSCULAR HGB CONC 32.9 g/dl (33.0-37.0); MEAN PLATELET VOLUME 11.2 fl (9.6-12.3); MONO # 0.4 10*3/uL (0.1-1.0); MONO % 7.2 % (3.0-9.0); NEUT # 3.3 10*3/uL (2.3-7.9); NEUT % 56.2 % (47.0-73.0); PLATELET COUNT AUTOMATED 219 10*3/uL (130-400); RED BLOOD COUNT 4.67 10*6/uL (4.10-5.10); RED CELL DISTRI WIDTH 15.1 % (0-14.5); WHITE BLOOD COUNT 5.8 10*3/uL (4.8-10.8)
[2017-01-29 15:51] LABS: ACT PARTIAL THROMBO TIME 25.6 SECONDS (20.8-31.5); INTERNATIONAL NORM RATIO 1.1 (2.0-3.5)
[2017-01-29 15:53] LABS: ALBUMIN 3.1 gm/dl (3.1-4.5); ALKALINE PHOSPHATASE 115 U/L (45-117); BUN 7 mg/dl (7-24); CHLORIDE 103 mmol/L (98-107); CREATININE 1.07 mg/dL (0.55-1.02); MAGNESIUM 1.9 mg/dL (1.5-2.1); POTASSIUM 3.6 mmol/L (3.5-5.1); SGOT/AST 35 IU/L (3-35); SGPT/ALT 35 U/L (12-78); SODIUM 138 mmol/L (136-145); TOTAL PROTEIN 7.3 gm/dL (6.4-8.2)
[2017-01-29 15:54] LABS: TROPONIN I < 0.015 ng/ml (<0.045)
[2017-01-29 19:16] VITALS: BP 155/74
[2017-01-29 19:40] VITALS: BP 144/76
--- NOTE | 2017-01-29 19:40 | NUR ---
A 56, admitted to , under the services of COREY Cloud DO with a diagnosis of INTRACTABLE EPIGASTRIC ABDOMINAL PAIN. Chief complaint is CHEST PAIN. Patient arrived via wheel chair from ER. Monitor applied. Initial assessment completed. Vital signs taken and recorded. COREY CLOUD DO notified of admission to the unit. Orders received. See assessment for past medical history, medications and allergies. Patient and/or family oriented to unit. [facility]. Clothing/patient valuable form completed. BROOKS LESTER A
[2017-01-29 19:45] VITALS: BP 144/76
--- NOTE | 2017-01-29 19:45 | NUR ---
MED. REC. COMPLETED VIA MEDICATIONS PT. BOUGHT IN FROM HOME.
[2017-01-30] VITALS: BP 137/74
--- NOTE | 2017-01-30 03:04 | NUR ---
PT. IS SLEEPING COMFORTABLY AT THIS TIME, NO SIGN OF DISTRESS NOTED. HOB IS ELEVATED, CALL LIGHT IN REACH. WILL CONTINUE TO MONITOR.
[2017-01-30 07:14] LABS: BASO % 0.6 % (0.0-1.0); EOS # 0.2 10*3/uL (0.0-0.4); EOS % 4.3 % (1.0-4.0); HEMATOCRIT 35.5 % (37.0-47.0); HEMOGLOBIN 11.2 g/dl (12.0-16.0); LYMPH # 2.1 10*3/uL (1.3-4.4); LYMPH % 38.9 % (27.0-41.0); MEAN CELL VOLUME 83.5 fl (81.0-99.0); MEAN CORPUSCULAR HGB 26.4 pg (27.0-31.0); MEAN CORPUSCULAR HGB CONC 31.5 g/dl (33.0-37.0); MEAN PLATELET VOLUME 10.8 fl (9.6-12.3); MONO # 0.4 10*3/uL (0.1-1.0); MONO % 7.5 % (3.0-9.0); NEUT # 2.6 10*3/uL (2.3-7.9); NEUT % 48.5 % (47.0-73.0); PLATELET COUNT AUTOMATED 203 10*3/uL (130-400); RED BLOOD COUNT 4.25 10*6/uL (4.10-5.10); RED CELL DISTRI WIDTH 15.2 % (0-14.5); WHITE BLOOD COUNT 5.3 10*3/uL (4.8-10.8)
[2017-01-30 07:53] LABS: BUN 9 mg/dl (7-24); CHLORIDE 110 mmol/L (98-107); CHOLESTEROL 163 mg/dL (<200); CREATININE 1.02 mg/dL (0.55-1.02); HDL CHOLESTEROL 31 mg/dl (40-60); IRON 41 ug/dL (50-170); LDL CHOLESTEROL 105 mg/dL (9-159); POTASSIUM 4.4 mmol/L (3.5-5.1); SODIUM 142 mmol/L (136-145); TOTAL IRON BINDING CAPACITY 328 ug/dl (250-450); TRIGLYCERIDES 135 mg/dl (<150); VLDL CHOLESTEROL 27 mg/dL (6-40)
[2017-01-30 08:00] VITALS: BP 146/62
[2017-01-30 08:08] LABS: ACT PARTIAL THROMBO TIME 25.6 SECONDS (20.8-31.5); INTERNATIONAL NORM RATIO 1.1 (2.0-3.5)
[2017-01-30 08:40] LABS: VITAMIN D, 25-HYDROXY 26.3 ng/mL (30-100)
[2017-01-30] MEDS ORDERED: METOCLOPRAMIDE H5 M1 PO (10:20)
[2017-01-30] MEDS ORDERED: PROTONIX40 MG PO (10:20)
--- NOTE | 2017-01-30 11:13 | NUR ---
DISCHARGE INFORMATION GIVEN TO PT AND SHE VERBALIZES GOOD UNDERSTANDING
== END 2017-01-30 11:13 | disposition home or self-care (01) | DRG 74 ==
LOC: ED 15:06 → 4E 18:48
PROVIDERS: Emergency Medicine; Internal Medicine; ADMIT Internal Medicine
DX: E11.43 Type 2 diabetes mellitus with diabetic autonomic (poly)neuropathy (principal); E11.22 Type 2 diabetes mellitus with diabetic chronic kidney disease; E44.0 Moderate protein-calorie malnutrition; N18.3 Chronic kidney disease, stage 3 (moderate); E11.65 Type 2 diabetes mellitus with hyperglycemia; K31.84 Gastroparesis; K21.9 Gastro-esophageal reflux disease without esophagitis; I12.9 Hypertensive chronic kidney disease with stage 1 through stage 4 chronic kidney disease, or unspecified chronic kidney disease; K44.9 Diaphragmatic hernia without obstruction or gangrene; K22.719 Barrett's esophagus with dysplasia, unspecified; E78.5 Hyperlipidemia, unspecified; E03.9 Hypothyroidism, unspecified; E55.9 Vitamin D deficiency, unspecified; D64.9 Anemia, unspecified; Z68.39 Body mass index [BMI] 39.0-39.9, adult

== ENCOUNTER 2017-02-15 07:48 | Emergency (ER) | payer BC, MEDICARE ==
[~2017-02-15] VITALS: Wt 98.9 kg
[2017-02-15 08:20] LABS: BASO % 0.6 % (0.0-1.0); EOS # 0.2 10*3/uL (0.0-0.4); HEMATOCRIT 36.6 % (37.0-47.0); HEMOGLOBIN 11.9 g/dl (12.0-16.0); LYMPH # 1.7 10*3/uL (1.3-4.4); LYMPH % 32.3 % (27.0-41.0); MEAN CELL VOLUME 80.3 fl (81.0-99.0); MEAN CORPUSCULAR HGB 26.1 pg (27.0-31.0); MEAN CORPUSCULAR HGB CONC 32.5 g/dl (33.0-37.0); MEAN PLATELET VOLUME 10.2 fl (9.6-12.3); MONO # 0.4 10*3/uL (0.1-1.0); MONO % 7.4 % (3.0-9.0); NEUT % 56.5 % (47.0-73.0); PLATELET COUNT AUTOMATED 216 10*3/uL (130-400); RED BLOOD COUNT 4.56 10*6/uL (4.10-5.10); RED CELL DISTRI WIDTH 14.6 % (0-14.5); WHITE BLOOD COUNT 5.3 10*3/uL (4.8-10.8)
[2017-02-15 08:28] LABS: ACT PARTIAL THROMBO TIME 26.3 SECONDS (20.8-31.5); INTERNATIONAL NORM RATIO 1.1 (2.0-3.5)
[2017-02-15 08:36] LABS: ALBUMIN 3.3 gm/dl (3.1-4.5); ALKALINE PHOSPHATASE 113 U/L (45-117); BUN 7 mg/dl (7-24); CHLORIDE 106 mmol/L (98-107); CREATININE 0.79 mg/dL (0.55-1.02); POTASSIUM 3.9 mmol/L (3.5-5.1); SGOT/AST 40 IU/L (3-35); SGPT/ALT 32 U/L (12-78); SODIUM 140 mmol/L (136-145); TOTAL PROTEIN 6.9 gm/dL (6.4-8.2)
[2017-02-15 08:39] LABS: TROPONIN I < 0.015 ng/ml (<0.045)
== END 2017-02-15 08:59 | disposition home or self-care (01) ==
LOC: ED 07:48
PROVIDERS: Emergency Medicine
DX: K21.0 Gastro-esophageal reflux disease with esophagitis (principal); K29.70 Gastritis, unspecified, without bleeding; I10 Essential (primary) hypertension; E78.5 Hyperlipidemia, unspecified; E03.9 Hypothyroidism, unspecified; E11.9 Type 2 diabetes mellitus without complications; E07.9 Disorder of thyroid, unspecified; N18.3 Chronic kidney disease, stage 3 (moderate); I12.9 Hypertensive chronic kidney disease with stage 1 through stage 4 chronic kidney disease, or unspecified chronic kidney disease; E11.22 Type 2 diabetes mellitus with diabetic chronic kidney disease; Z88.0 Allergy status to penicillin; Z88.6 Allergy status to analgesic agent; Z88.8 Allergy status to other drugs, medicaments and biological substances; Z79.82 Long term (current) use of aspirin; Z79.899 Other long term (current) drug therapy; Z79.4 Long term (current) use of insulin; Z87.891 Personal history of nicotine dependence

== ENCOUNTER 2017-02-28 14:53 | Inpatient (IN) | payer BC, MEDICARE ==
--- NOTE | 2017-02-27 22:50 | NUR ---
PT STATES THAT ZOFRAN EFFECTIVE AT THIS TIME, NO FURTHER EMESIS AND DENIES NAUSEA, PT STATES THAT SHE WOULD LIKE TO HAVE SOMETHING TO EAT OR DRINK AT LEAST CALL PLACED TO , DR. PRYOR STATES TO KEEP PT NPO, PT UPDATED
[~2017-02-28] VITALS: Ht 170.1 cm; Wt 99.0 kg
[2017-02-28] VITALS (8 sets, daily range): BP systolic 148–180; BP diastolic 67–87
--- NOTE | ~2017-02-28 | O ---
[place], [place] OPERATIVE NOTE NAME: ROBEL GARCIA UNIT #: [id number] ROOM: 505 DOCTOR: OLGA MATHISCHARLENE BIRTHDATE: [birth year] DOS: 03/01/2017 INDICATIONS: The patient has presented with dysphagia and anemia, undergoing investigation. Consultation has been dictated. PROCEDURE: Today's procedure part of investigation is panendoscopy plus biopsy and esophageal dilation. PREMEDICATION: Versed and Diprivan. SCOPE: Olympus forward-viewing gastroscope Q10 video. REPORT: After putting the patient in left lateral position and application of lubricant to the scope, the scope was introduced. Thereafter, under direct visualization, advanced through the length of the esophagus without difficulty. Joe's esophagus was noticed at distal esophagus. Gastric pouch was entered. Gastritis was seen. Duodenal bulb, second and third part within normal limits. Antral biopsy obtained. At this stage, a balloon size 20 was introduced into gastric pouch and orally extracted. Highest resistance at upper esophagus was experienced. At this stage, a bougie dilator was introduced into the esophagus to size 60 and the patient tolerates this procedure as well without any difficulty. The patient has been extubated and tolerated procedure well. IMPRESSION: Gastritis, benign esophageal stricture, status post balloon and bougie dilator of the esophagus. PLAN AND DISCUSSION: Regular to soft diet and clinical reassessment. Meanwhile, we are going to proceed with colonoscopic evaluation for anemia. COLONOSCOPY INDICATIONS: The patient has presented with anemia. The patient has had difficulty with colonic prep in the past and she has not been cleaned. PROCEDURE: Today's procedure part of investigation is colonoscopy. PREMEDICATION: Versed and Diprivan. SCOPE: Olympus folding colonoscope 10L video. REPORT: After putting the patient in left lateral position and application of lubricant to the scope, the scope was introduced. Thereafter, under direct visualization, advanced through the length of colon without difficulty. This is a mucosal vascularity carefully examined and it is all cleared to hepatic flexure. Beyond this area, there is a thick stool tinged and visualization absolutely impractical. The patient extubated, tolerated procedure well. IMPRESSION: Colonoscopic examination up to hepatic flexure within normal limit. Otherwise, solid stool in right colon. [place], [place] OPERATIVE NOTE NAME: ROBEL GARCIA UNIT #: [id number] ROOM: [facility] DOCTOR: OLGA MATHIS,CHARLENE BIRTHDATE: [birth year] PLAN: We are going to feed the patient, organize an outpatient 2 days colonic prep. CHARLENE ESPINOZA MD CM:OPRECORD:OPERATIVE NOTE 1401 1522 CHARLENE ESPINOZA MD 03/01/17 1523 interface
--- NOTE | ~2017-02-28 | CON ---
[place], [place] REPORT OF CONSULTATION [id number] UNIT #: [id number] ROOM: 505 DOCTOR: CHARLENE ESPINOZA MD BIRTHDATE: [birth year] DOS: 03/01/2017 HISTORY OF PRESENT ILLNESS: The patient is a 57-year-old who presented with chief complaint of dysphagia, difficulty to swallow. The patient has been on ranitidine, pantoprazole and Reglan at home. The patient is running anemic low microcytic indices. Her lactic acid was 2.0. Her INR was 1.1. Comprehensive metabolic panel, GFR greater than 60. Liver function tests essentially unremarkable except for AST of 45. Troponin was normal. CT scan of the chest, hiatal hernia, small wall thickening of the distal esophagus. Endoscopy was recommended. The H and H low at 11 and 35. Platelet count 205. Comprehensive metabolic panel within normal limits. PAST MEDICAL HISTORY: Associated with gastritis, chronic renal insufficiency, Joe esophagus, fatty liver, obesity, hiatal hernia, hypothyroidism, hypertension, hyperlipidemia, and diabetes mellitus. PAST SURGICAL HISTORY: Hemorrhoidectomy, hysterectomy, exploratory laparotomy, cholecystectomy, thyroidectomy, tubal ligation. SOCIAL HISTORY: Has stopped smoking 3 years ago. Nonalcohol consumer. ALLERGIES: ALBUTEROL, PENICILLIN, DEXILANT, AND VICODIN. MEDICATIONS: List has been reviewed. REVIEW OF SYSTEMS: HEENT: Denies double vision, blurred vision. RESPIRATORY: Denies shortness of breath. CARDIOVASCULAR: Denies acute chest pain. DIGESTIVE SYSTEM: Dysphagia to solid food, difficulty swallowing, anemia. PHYSICAL EXAMINATION: VITAL SIGNS: Obese patient, comfortable, nontoxic. HEENT: Head normocephalic, nontraumatic. Mouth and buccal mucosa benign. NECK: Supple, no thyromegaly, no cervical lymphadenopathy. CHEST: Symmetric anatomy, equal expansion. No wheeze, no rhonchi. HEART: Normal sinus rhythm, no gallop, no murmur. ABDOMEN: Soft. No hepato-organomegaly. Bowel sounds present. Mood borderline obesity and no rebound effect. EXTREMITIES: No cyanosis, no pedal edema. NEUROLOGIC: Alert, oriented to time, place, person. IMPRESSION: Borderline anemia, dysphagia. PLAN AND DISCUSSION: Endoscopic assessment of upper and lower tract. Other adjunctive diagnoses as outlined in paragraph past medical and surgical history. Workup in progress. [place], [place] REPORT OF CONSULTATION NAME: ROBEL GARCIA UNIT #: [id number] ROOM: 505 DOCTOR: OLGA MATHIS,CHARLENE BIRTHDATE: [birth year] CHARLENE ESPINOZA MD CM:CONSTR:REPORT OF CONSULTATION 1338 03/02/17 0055 interface
[2017-02-28 15:34] LABS: BASO % 0.8 % (0.0-1.0); EOS # 0.2 10*3/uL (0.0-0.4); EOS % 3.6 % (1.0-4.0); HEMATOCRIT 37.3 % (37.0-47.0); HEMOGLOBIN 11.9 g/dl (12.0-16.0); LYMPH # 1.8 10*3/uL (1.3-4.4); LYMPH % 33.6 % (27.0-41.0); MEAN CELL VOLUME 80.7 fl (81.0-99.0); MEAN CORPUSCULAR HGB 25.8 pg (27.0-31.0); MEAN CORPUSCULAR HGB CONC 31.9 g/dl (33.0-37.0); MEAN PLATELET VOLUME 10.3 fl (9.6-12.3); MONO # 0.5 10*3/uL (0.1-1.0); NEUT # 2.8 10*3/uL (2.3-7.9); NEUT % 52.6 % (47.0-73.0); PLATELET COUNT AUTOMATED 225 10*3/uL (130-400); RED BLOOD COUNT 4.62 10*6/uL (4.10-5.10); RED CELL DISTRI WIDTH 14.2 % (0-14.5); WHITE BLOOD COUNT 5.3 10*3/uL (4.8-10.8)
[2017-02-28 15:42] LABS: ACT PARTIAL THROMBO TIME 26.7 SECONDS (20.8-31.5); INTERNATIONAL NORM RATIO 1.1 (2.0-3.5)
--- NOTE | 2017-02-28 15:45 | NUR ---
PATIENT IS ALERT AND ORIENTED X3, STATES THAT SHE DID HAVE RELIEF FROM HER PAIN FOR A FEW MINUTES THEN THE PAIN RETURNED AGAIN, RESPIRATIONS ARE EASY AND NONLABORED, SKIN IS PINK, WARM, AND DRY, PATIENT IS RESTING IN BED, CALL LIGHT IN REACH OF THE PATIENT, CONTINUING TO MONITOR THE PATIENT. RACHID JOHNSON
[2017-02-28 15:50] LABS: ALBUMIN 3.3 gm/dl (3.1-4.5); ALKALINE PHOSPHATASE 105 U/L (45-117); BUN 7 mg/dl (7-24); CHLORIDE 107 mmol/L (98-107); LIPASE 149 U/L (73-393); POTASSIUM 4.3 mmol/L (3.5-5.1); SGOT/AST 45 IU/L (3-35); SGPT/ALT 34 U/L (12-78); SODIUM 142 mmol/L (136-145); TOTAL PROTEIN 7.1 gm/dL (6.4-8.2)
[2017-02-28 15:51] LABS: TROPONIN I < 0.015 ng/ml (<0.045)
--- NOTE | 2017-02-28 16:30 | NUR ---
PATIENT IS ALERT AND ORIENTED X3, SKIN IS PINK, WARM, AND DRY, RESPIRATIONS ARE EASY AND NONLABORED, PATIENT IS RESTING IN BED AND TALKING WITH , CALL LIGHT IN REACH OF THE PATIENT, CONTINUING TO MONITOR THE PATIENT. RACHID JOHNSON
--- NOTE | 2017-02-28 17:05 | NUR ---
PATIENT TAKEN TO ROOM 505-2 PLACED IN THE BED AND ON THE MONITOR, CARE TRANSFERRED TO DEVON WYLIE RN. RACHID JOHNSON
--- NOTE | 2017-02-28 17:10 | NUR ---
A 57, admitted to , under the services of DILLON Dillard DO with a diagnosis of ABDOMINAL PAIN. Chief complaint is ABDOMINAL PAIN NAUSEA. Patient arrived via stretcher from ER. Monitor applied. Initial assessment completed. Vital signs taken and recorded. DILLON DILLARD DO notified of admission to the unit. Orders received. See assessment for past medical history, medications and allergies. Patient and/or family oriented to unit. [facility] reviewed. Clothing/patient valuable form completed. BERTHA MORLEY
--- NOTE | 2017-02-28 17:21 | NUR ---
ORDER FOR DILAUDID GIVEN TO ME BY DR CULLEN.
[2017-02-28] MEDS ORDERED: REGLAN5 MG PO (17:56)
--- NOTE | 2017-02-28 17:59 | NUR ---
MED REC UPDATED BY CALLING PATIENTS PHARMACY AND BY ASKING PATIENT
--- NOTE | 2017-02-28 18:08 | NUR ---
PHYSICIAN WAS NOTIFIED OF DR. ESPINOZA CONSULT. RESPONSE OF NOTIFICATION WAS OK CALL ME TOMORROW WITH RESULTS OF CT.. DEVON WYLIE A
--- NOTE | 2017-02-28 21:45 | NUR ---
PT HAD CT SCAN, UPON RETURNING PT HAD EMESIS X 1, ADMINISTERED ZOFRAN PRN PER ORDERS WILL MONITOR
[2017-03-01] VITALS (9 sets, daily range): BP systolic 115–152; BP diastolic 53–79
--- NOTE | 2017-03-01 01:57 | NUR ---
PT RESTING IN BED WITH EYES CLOSED RESPS EASY AND NONLABORED CALL LIGHT WITH IN REACH
[2017-03-01 06:24] LABS: BASO % 0.4 % (0.0-1.0); EOS # 0.2 10*3/uL (0.0-0.4); EOS % 3.5 % (1.0-4.0); HEMATOCRIT 35.1 % (37.0-47.0); HEMOGLOBIN 11.4 g/dl (12.0-16.0); LYMPH # 1.9 10*3/uL (1.3-4.4); LYMPH % 41.3 % (27.0-41.0); MEAN CELL VOLUME 80.9 fl (81.0-99.0); MEAN CORPUSCULAR HGB 26.3 pg (27.0-31.0); MEAN CORPUSCULAR HGB CONC 32.5 g/dl (33.0-37.0); MEAN PLATELET VOLUME 11.1 fl (9.6-12.3); MONO # 0.5 10*3/uL (0.1-1.0); MONO % 10.2 % (3.0-9.0); NEUT % 44.6 % (47.0-73.0); PLATELET COUNT AUTOMATED 205 10*3/uL (130-400); RED BLOOD COUNT 4.34 10*6/uL (4.10-5.10); RED CELL DISTRI WIDTH 14.3 % (0-14.5); WHITE BLOOD COUNT 4.5 10*3/uL (4.8-10.8)
[2017-03-01 06:53] LABS: ALBUMIN 2.9 gm/dl (3.1-4.5); ALKALINE PHOSPHATASE 90 U/L (45-117); BUN 7 mg/dl (7-24); CHLORIDE 109 mmol/L (98-107); CHOLESTEROL 160 mg/dL (<200); CREATININE 0.83 mg/dL (0.55-1.02); FREE T4 1.32 ng/dl (0.76-1.46); HDL CHOLESTEROL 31 mg/dl (40-60); LDL CHOLESTEROL 108 mg/dL (9-159); PHOSPHOROUS 2.9 mg/dL (2.5-4.9); POTASSIUM 3.9 mmol/L (3.5-5.1); SGOT/AST 43 IU/L (3-35); SGPT/ALT 30 U/L (12-78); SODIUM 143 mmol/L (136-145); TOTAL PROTEIN 6.3 gm/dL (6.4-8.2); TRIGLYCERIDES 107 mg/dl (<150); VLDL CHOLESTEROL 21 mg/dL (6-40)
[2017-03-01 06:58] LABS: THYROID STIM HORMONE (HS) 0.196 uIU/ml (0.358-4.75)
[2017-03-01 07:05] LABS: INTERNATIONAL NORM RATIO 1.1 (2.0-3.5)
--- NOTE | 2017-03-01 08:30 | NUR ---
Mail Carriers Supervisor in to talk to patient. Patient states lives at HOME with HER . There are 0 steps in the home. Physician: DR FUNES [facility] Patient's level of ADLs: INDEPENDENT Patient has working utilities: YES DME: NONE Follow-up physician's appointment after d/c: WILL BE MADE PRIOR TO DC Does patient want to access PORTAL?: Discharge plan HOME. FRAN KRAFT
--- NOTE | 2017-03-01 10:11 | NUR ---
GIVEN FLEETS AND SOAP SUDS ENEMAS UNTIL CLEAR FOR COLONOSCOPY.
--- NOTE | 2017-03-01 12:52 | NUR ---
TAKEN FOR EGD AND COLO TO OR.
[2017-03-01 18:24] LABS: CKMB 1.1 ng/ml (0.5-3.6); CPK 60 U/L (26-192)
[2017-03-01 18:25] LABS: TROPONIN I < 0.015 ng/ml (<0.045)
--- NOTE | 2017-03-01 19:14 | NUR ---
PATIENT MEDICATED WITH IV ZOFRAN FOR C/O NAUSEA AND VOMITING. WILL MONITOR EFFECTIVENESS. CALL LIGHT LEFT IN REACH.
[2017-03-02] VITALS: BP 121/65
--- NOTE | 2017-03-02 03:59 | NUR ---
PATIENT ASLEEP IN BED AT THIS TIME. RESPIRATIONS EASY. NO S/S OF DISTRESS NOTED. ON ROOM AIR. WILL MONITOR. CALL LIGHT LEFT WITHIN REACH.
[2017-03-02 08:00] VITALS: BP 147/75
[2017-03-02 12:00] VITALS: BP 105/59
--- NOTE | 2017-03-02 17:00 | NUR ---
Discharge instructions reviewed with patient/family. Patient receptive and verbalizes understanding. Follow-up care arranged. Written instructions given to patient/family. CARTER HI
== END 2017-03-02 17:00 | disposition home or self-care (01) | DRG 382 ==
LOC: ED 14:53 → EDHOLD 16:16 → 5E 16:16
PROVIDERS: Emergency Medicine; Hospitalist; Internal Medicine; ADMIT Internal Medicine
PROC: 0D718ZZ Dilation of Upper Esophagus, Via Natural or Artificial Opening Endoscopic (ICD-10-PCS; principal; 2017-03-01)
PROC: 0DJD8ZZ Inspection of Lower Intestinal Tract, Via Natural or Artificial Opening Endoscopic (ICD-10-PCS; principal; 2017-03-01)
PROC: 0DB68ZX Excision of Stomach, Via Natural or Artificial Opening Endoscopic, Diagnostic (ICD-10-PCS; principal; 2017-03-01)
DX: K22.719 Barrett's esophagus with dysplasia, unspecified (principal); E11.22 Type 2 diabetes mellitus with diabetic chronic kidney disease; K31.84 Gastroparesis; E11.43 Type 2 diabetes mellitus with diabetic autonomic (poly)neuropathy; K76.0 Fatty (change of) liver, not elsewhere classified; N18.3 Chronic kidney disease, stage 3 (moderate); E11.65 Type 2 diabetes mellitus with hyperglycemia; K44.9 Diaphragmatic hernia without obstruction or gangrene; I12.9 Hypertensive chronic kidney disease with stage 1 through stage 4 chronic kidney disease, or unspecified chronic kidney disease; E78.5 Hyperlipidemia, unspecified; E55.9 Vitamin D deficiency, unspecified; E89.0 Postprocedural hypothyroidism; K21.0 Gastro-esophageal reflux disease with esophagitis; K29.70 Gastritis, unspecified, without bleeding; D64.9 Anemia, unspecified; Z88.0 Allergy status to penicillin; Z88.8 Allergy status to other drugs, medicaments and biological substances; Z79.82 Long term (current) use of aspirin; Z79.4 Long term (current) use of insulin; Z79.84 Long term (current) use of oral hypoglycemic drugs; Z79.899 Other long term (current) drug therapy; Z90.49 Acquired absence of other specified parts of digestive tract; Z98.51 Tubal ligation status; Z90.710 Acquired absence of both cervix and uterus; Z87.891 Personal history of nicotine dependence; Z82.49 Family history of ischemic heart disease and other diseases of the circulatory system; Z82.3 Family history of stroke; Z83.3 Family history of diabetes mellitus

== ENCOUNTER → 2017-03-17 | Outpatient (CLI) | payer BC, MEDICARE ==
[~2017-03-17] MED LIST changes: +REGLAN5 MG PO
== END | disposition home or self-care (01) ==
LOC: RAD 07:54
DX: K46.9 Unspecified abdominal hernia without obstruction or gangrene (principal); K21.9 Gastro-esophageal reflux disease without esophagitis

== ENCOUNTER 2017-05-08 23:27 | Inpatient (IN) | payer BC, MEDICARE ==
[~2017-05-08] VITALS: Ht 160 cm; Wt 98.9 kg
--- NOTE | ~2017-05-08 | O ---
[place], [place] OPERATIVE NOTE NAME: ROBEL GARCIA UNIT #: [id number] ROOM: 411 DOCTOR: OLGA MATHISCHARLENE BIRTHDATE: [birth year] DOS: 05/10/2017 GASTROSCOPY INDICATIONS: This is a 57-year-old patient who presented with chief complaint of GI bleed, undergoing investigation. PROCEDURE: Today's procedure part of investigation is panendoscopy and colonoscopy. PREMEDICATION: Versed and Diprivan. SCOPE: Olympus forward-viewing gastroscope Q10 video. REPORT: After putting the patient in left lateral position and application of lubricant to the scope, the scope was introduced. Thereafter, under direct visualization, advanced through the length of esophagus without difficulty. Gastric pouch was entered. Distal esophagitis, long segment Joe esophagus was noticed. Biopsy was obtained. Small hiatal hernia was noticed. Gastric pouch entered. Gastritis of mild degree noticed. Antral biopsy obtained. Duodenal bulb, second and third part within normal limits. The patient extubated and tolerated procedure well. IMPRESSION: Distal esophagitis, long segment Joe esophagus, status post biopsy, small hiatal hernia, gastritis and status post biopsy. PLAN AND DISCUSSION: We are going to continue with Protonix 40 mg daily. We will proceed with colonoscopy today. COLONOSCOPY INDICATIONS: The patient has presented with lower GI bleed, signifies abdominal pain as well. The patient has been already studied her indices are microcytic. She has had CT scan with contrast done, no acute findings has been noticed. Main organs are within normal limits. PROCEDURE: Today's procedure is part of investigation is colonoscopy. PREMEDICATION: Versed and Diprivan. SCOPE: Olympus folding colonoscope 10L video. REPORT: After putting the patient in left lateral position and application of lubricant to the scope, the scope was introduced. Thereafter, under direct visualization, I advanced the length of colon without difficulty. No pathology was noticed. There is no evidence of ischemia, small hemorrhoid identified. Air was suctioned out. The patient was extubated, tolerated the procedure well. IMPRESSION: Normal colonoscopic examination. Small hemorrhoid, otherwise that is the only cause for her lower GI bleed. She can be fed today and can be [place], [place] OPERATIVE NOTE NAME: ROBEL GARCIA UNIT #: [id number] ROOM: 411 DOCTOR: OLGA MATHIS,HCARLENE BIRTHDATE: [birth year] discharged and followed up as outpatient. Apparently, she is having plans for gastric bypass. Endoscopy report also is going to be available for future reference. CHARLENE ESPINOZA MD CM:OPRECORD:OPERATIVE NOTE [id number] CHARLENE ESPINOZA MD 05/10/17 1519 interface
--- NOTE | ~2017-05-08 | CON ---
[place], [place] REPORT OF CONSULTATION NAME: ROBEL GARCIA UNIT #: [id number] ROOM: 411 DOCTOR: CHARLENE ESPINOZA MD BIRTHDATE: [birth year] DOS: 05/10/2017 HISTORY OF PRESENT ILLNESS: The patient is a 57-year-old who has presented with copious lower GI bleed and has been concerned. Abdominal pain has been also associated with also epigastric distress. The patient has been a candidate for gastric bypass as well and there is a concern of such. Her H and H at the time of admission 12 and 37, microcytic indices. Comprehensive metabolic panel, GFR normal. Liver function tests normal. INR was 1.0. She is only on aspirin. The urine was nonactive. Troponin was negative. Comprehensive metabolic panel was reassessed. Electrolytes remain balanced. Troponin was negative. Again, hemoglobin A1c 7.1. CT scan of the abdomen and pelvis was reassessed, no acute intra-abdominal pathology identified. PAST MEDICAL HISTORY: Associated obesity, GERD, gastroparesis, chronic renal insufficiency, Joe esophagus, hypertension, hypothyroidism, diabetes. PAST SURGICAL HISTORY: Status hemorrhoidectomy, exploratory laparotomy, cholecystectomy, lumpectomy, thyroidectomy, tubal ligation. SOCIAL HISTORY: Nonsmoker, nonalcohol consumer at the present time. FAMILY HISTORY: Coronary artery disease. ALLERGIES: ALBUTEROL, PENICILLIN, DEXILANT, AND HYDROCODONE. MEDICATION: List has been reviewed, offending medication has been aspirin. Otherwise, she has been on pantoprazole and ranitidine. REVIEW OF SYSTEMS: HEENT: Denies double vision, blurred vision. RESPIRATORY: Denies acute shortness of breath. CARDIOVASCULAR: Denies acute chest pain. DIGESTIVE SYSTEM: Lower GI bleeding. PHYSICAL EXAMINATION: VITAL SIGNS: Stable. HEENT: Head normocephalic, nontraumatic. Eyes: Pupils round, reactive. Sclerae nonicteric. Mouth and buccal mucosa benign. NECK: Supple, no thyromegaly, no cervical lymphadenopathy. CHEST: Symmetric anatomy, equal expansion. No wheeze, no rhonchi. HEART: Normal sinus rhythm, no gallop, no murmur. ABDOMEN: Soft. No hepato-organomegaly. Obese. Tender in lower quadrant, particularly. No intra-abdominal organs can be palpated. EXTREMITIES: No cyanosis, no pedal edema. NEUROLOGICAL: Alert and oriented to time, place, and person. IMPRESSION AND PLAN: Microcytic indices, anemia, lower GI bleed. Concerned about obesity and gastric bypass has been scheduled for the patient. Cardiology clearance in progress. CT scan of the abdomen was noticed, which is without acute finding or mention about ischemic colitis. We are going to organize a [place], [place] REPORT OF CONSULTATION NAME: RADHAROBEL Kassandra UNIT #: [id number] ROOM: 411 DOCTOR: CHARLENE ESPINOZA MD BIRTHDATE: [birth year] colonoscopy today, possible EGD. CHARLENE ESPINOZA MD CM:CONSTR:REPORT OF CONSULTATION 1412 05/10/17 1625 interface
[2017-05-09] VITALS (9 sets, daily range): BP systolic 122–160; BP diastolic 51–80
[2017-05-09 01:28] LABS: BASO % 0.7 % (0.0-1.0); EOS # 0.5 10*3/uL (0.0-0.4); EOS % 7.7 % (1.0-4.0); HEMATOCRIT 37.2 % (37.0-47.0); HEMOGLOBIN 12.1 g/dl (12.0-16.0); LYMPH % 34.1 % (27.0-41.0); MEAN CELL VOLUME 80.7 fl (81.0-99.0); MEAN CORPUSCULAR HGB 26.2 pg (27.0-31.0); MEAN CORPUSCULAR HGB CONC 32.5 g/dl (33.0-37.0); MEAN PLATELET VOLUME 10.7 fl (9.6-12.3); MONO # 0.5 10*3/uL (0.1-1.0); MONO % 9.1 % (3.0-9.0); NEUT # 2.8 10*3/uL (2.3-7.9); NEUT % 48.2 % (47.0-73.0); PLATELET COUNT AUTOMATED 219 10*3/uL (130-400); RED BLOOD COUNT 4.61 10*6/uL (4.10-5.10); RED CELL DISTRI WIDTH 15.5 % (0-14.5); WHITE BLOOD COUNT 5.8 10*3/uL (4.8-10.8)
[2017-05-09 01:52] LABS: ALBUMIN 3.3 gm/dl (3.1-4.5); ALKALINE PHOSPHATASE 116 U/L (45-117); BUN 11 mg/dl (7-24); CHLORIDE 105 mmol/L (98-107); CREATININE 0.88 mg/dL (0.55-1.02); LIPASE 181 U/L (73-393); POTASSIUM 3.8 mmol/L (3.5-5.1); SGOT/AST 40 IU/L (3-35); SGPT/ALT 38 U/L (12-78); SODIUM 140 mmol/L (136-145); TOTAL PROTEIN 6.9 gm/dL (6.4-8.2)
[2017-05-09 01:54] LABS: BILIRUBIN 1+ (NEGATIVE); BLOOD NEGATIVE (NEGATIVE); CLARITY SL CLOUDY (CLEAR); COLOR YELLOW (YELLOW); GLUCOSE NEGATIVE (NEGATIVE); KETONE 1+ (NEGATIVE); LEUKO ESTERASE NEGATIVE (NEGATIVE); NITRITE NEGATIVE (NEGATIVE); PH 5.5 (5.0-9.0); SPECIFIC GRAVITY >= 1.030 (1.005-1.030)
[2017-05-09 01:58] LABS: ACT PARTIAL THROMBO TIME 26.5 SECONDS (20.8-31.5)
[2017-05-09 02:07] LABS: CALCIUM OXALATE CRYSTALS 2+; URIC ACID CRYSTALS 1+
[2017-05-09] MEDS ORDERED: CYCLOBENZAPRINE5 M3 PO (03:13)
[2017-05-09] MEDS ORDERED: ONDANSETRON4 M1 PO (03:15)
[2017-05-09 06:00] LABS: BASO % 0.7 % (0.0-1.0); EOS # 0.5 10*3/uL (0.0-0.4); EOS % 8.1 % (1.0-4.0); HEMATOCRIT 36.2 % (37.0-47.0); HEMOGLOBIN 11.4 g/dl (12.0-16.0); LYMPH # 1.9 10*3/uL (1.3-4.4); LYMPH % 33.3 % (27.0-41.0); MEAN CELL VOLUME 81.3 fl (81.0-99.0); MEAN CORPUSCULAR HGB 25.6 pg (27.0-31.0); MEAN CORPUSCULAR HGB CONC 31.5 g/dl (33.0-37.0); MEAN PLATELET VOLUME 11.3 fl (9.6-12.3); MONO # 0.4 10*3/uL (0.1-1.0); MONO % 6.7 % (3.0-9.0); NEUT # 2.9 10*3/uL (2.3-7.9); PLATELET COUNT AUTOMATED 213 10*3/uL (130-400); RED BLOOD COUNT 4.45 10*6/uL (4.10-5.10); RED CELL DISTRI WIDTH 15.6 % (0-14.5); WHITE BLOOD COUNT 5.7 10*3/uL (4.8-10.8)
[2017-05-09 06:02] LABS: ALKALINE PHOSPHATASE 109 U/L (45-117); BUN 10 mg/dl (7-24); CHLORIDE 111 mmol/L (98-107); CHOLESTEROL 161 mg/dL (<200); CREATININE 0.86 mg/dL (0.55-1.02); HDL CHOLESTEROL 31 mg/dl (40-60); LDL CHOLESTEROL 105 mg/dL (9-159); PHOSPHOROUS 2.9 mg/dL (2.5-4.9); POTASSIUM 3.9 mmol/L (3.5-5.1); SGOT/AST 55 IU/L (3-35); SGPT/ALT 40 U/L (12-78); SODIUM 147 mmol/L (136-145); TOTAL PROTEIN 6.3 gm/dL (6.4-8.2); TRIGLYCERIDES 127 mg/dl (<150); VLDL CHOLESTEROL 25 mg/dL (6-40)
[2017-05-09 06:07] LABS: THYROID STIM HORMONE (HS) 0.305 uIU/ml (0.358-4.75)
[2017-05-09 06:12] LABS: TROPONIN I < 0.015 ng/ml (<0.045)
[2017-05-09 06:14] LABS: INTERNATIONAL NORM RATIO 1.1 (2.0-3.5)
[2017-05-09] MEDS ORDERED: PROTONIX40 MG PO (07:40)
[2017-05-09 09:06] LABS: VITAMIN D, 25-HYDROXY 24.3 ng/mL (30-100)
[2017-05-09 17:19] LABS: BASO % 0.5 % (0.0-1.0); EOS # 0.4 10*3/uL (0.0-0.4); HEMOGLOBIN 11.1 g/dl (12.0-16.0); LYMPH # 1.4 10*3/uL (1.3-4.4); LYMPH % 34.8 % (27.0-41.0); MEAN CELL VOLUME 82.9 fl (81.0-99.0); MEAN CORPUSCULAR HGB 25.6 pg (27.0-31.0); MEAN CORPUSCULAR HGB CONC 30.8 g/dl (33.0-37.0); MEAN PLATELET VOLUME 10.8 fl (9.6-12.3); MONO # 0.3 10*3/uL (0.1-1.0); NEUT # 1.8 10*3/uL (2.3-7.9); NEUT % 45.7 % (47.0-73.0); PLATELET COUNT AUTOMATED 201 10*3/uL (130-400); RED BLOOD COUNT 4.34 10*6/uL (4.10-5.10); RED CELL DISTRI WIDTH 15.6 % (0-14.5)
[2017-05-10] VITALS (10 sets, daily range): BP systolic 118–157; BP diastolic 56–78
[2017-05-10 06:33] LABS: BUN 7 mg/dl (7-24); CHLORIDE 115 mmol/L (98-107); CREATININE 0.85 mg/dL (0.55-1.02); POTASSIUM 4.6 mmol/L (3.5-5.1); SODIUM 149 mmol/L (136-145)
[2017-05-10 06:45] LABS: BASO % 0.9 % (0.0-1.0); EOS # 0.4 10*3/uL (0.0-0.4); EOS % 9.7 % (1.0-4.0); HEMATOCRIT 34.2 % (37.0-47.0); HEMOGLOBIN 10.5 g/dl (12.0-16.0); LYMPH # 1.9 10*3/uL (1.3-4.4); MEAN CELL VOLUME 82.4 fl (81.0-99.0); MEAN CORPUSCULAR HGB 25.3 pg (27.0-31.0); MEAN CORPUSCULAR HGB CONC 30.7 g/dl (33.0-37.0); MEAN PLATELET VOLUME 11.6 fl (9.6-12.3); MONO # 0.4 10*3/uL (0.1-1.0); MONO % 8.4 % (3.0-9.0); NEUT # 1.8 10*3/uL (2.3-7.9); NEUT % 39.8 % (47.0-73.0); PLATELET COUNT AUTOMATED 184 10*3/uL (130-400); RED BLOOD COUNT 4.15 10*6/uL (4.10-5.10); RED CELL DISTRI WIDTH 15.8 % (0-14.5); WHITE BLOOD COUNT 4.5 10*3/uL (4.8-10.8)
[2017-05-11] VITALS: BP 105/42
[2017-05-11 05:53] LABS: BUN 7 mg/dl (7-24); CHLORIDE 113 mmol/L (98-107); CREATININE 0.74 mg/dL (0.55-1.02)
[2017-05-11 06:13] LABS: SODIUM 146 mmol/L (136-145)
[2017-05-11 06:18] LABS: POTASSIUM 3.5 mmol/L (3.5-5.1)
[2017-05-11 06:36] LABS: BASO % 0.3 % (0.0-1.0); EOS # 0.2 10*3/uL (0.0-0.4); EOS % 3.2 % (1.0-4.0); HEMATOCRIT 34.4 % (37.0-47.0); HEMOGLOBIN 10.7 g/dl (12.0-16.0); LYMPH # 2.1 10*3/uL (1.3-4.4); LYMPH % 28.2 % (27.0-41.0); MEAN CELL VOLUME 82.1 fl (81.0-99.0); MEAN CORPUSCULAR HGB 25.5 pg (27.0-31.0); MEAN CORPUSCULAR HGB CONC 31.1 g/dl (33.0-37.0); MEAN PLATELET VOLUME 11.6 fl (9.6-12.3); MONO # 0.5 10*3/uL (0.1-1.0); MONO % 6.2 % (3.0-9.0); NEUT # 4.6 10*3/uL (2.3-7.9); NEUT % 61.8 % (47.0-73.0); PLATELET COUNT AUTOMATED 185 10*3/uL (130-400); RED BLOOD COUNT 4.19 10*6/uL (4.10-5.10); RED CELL DISTRI WIDTH 15.9 % (0-14.5); WHITE BLOOD COUNT 7.4 10*3/uL (4.8-10.8)
[2017-05-11 08:00] VITALS: BP 120/68
[2017-05-11] MEDS ORDERED: VITAMIN D-32000 UNIT PO (10:19)
[2017-05-11] MEDS ORDERED: FAMOTIDINE20 M1 PO (11:01)
[2017-05-11] MEDS ORDERED: PANTOPRAZOLE SO40 MG PO (11:01)
[2017-05-11] MEDS ORDERED: Synthroid,Levo88 MCG PO (11:01)
[2017-05-11] MEDS ORDERED: Anusol Hc,Anuco25 MG R (11:01)
[2017-05-11] MEDS ORDERED: Carafate1 GM/10 ML PO (11:01)
== END 2017-05-11 10:40 | disposition home or self-care (01) | DRG 378 ==
LOC: ED 23:27 → EDHOLD 05-09 02:54 → 4E 05-09 02:54
PROVIDERS: Emergency Medicine Emergency Medical Services; Hospitalist; Internal Medicine; Internal Medicine Gastroenterology
PROC: 0DB68ZX Excision of Stomach, Via Natural or Artificial Opening Endoscopic, Diagnostic (ICD-10-PCS; principal; 2017-05-10)
PROC: 0DJD8ZZ Inspection of Lower Intestinal Tract, Via Natural or Artificial Opening Endoscopic (ICD-10-PCS; principal; 2017-05-10)
DX: K29.71 Gastritis, unspecified, with bleeding (principal); E87.0 Hyperosmolality and hypernatremia; E44.0 Moderate protein-calorie malnutrition; K31.84 Gastroparesis; E66.01 Morbid (severe) obesity due to excess calories; E11.65 Type 2 diabetes mellitus with hyperglycemia; E87.8 Other disorders of electrolyte and fluid balance, not elsewhere classified; N18.3 Chronic kidney disease, stage 3 (moderate); K22.70 Barrett's esophagus without dysplasia; R07.89 Other chest pain; K21.9 Gastro-esophageal reflux disease without esophagitis; K44.9 Diaphragmatic hernia without obstruction or gangrene; E03.9 Hypothyroidism, unspecified; I12.9 Hypertensive chronic kidney disease with stage 1 through stage 4 chronic kidney disease, or unspecified chronic kidney disease; E55.9 Vitamin D deficiency, unspecified; K64.9 Unspecified hemorrhoids; Z88.5 Allergy status to narcotic agent; Z88.0 Allergy status to penicillin; Z68.38 Body mass index [BMI] 38.0-38.9, adult; Z88.8 Allergy status to other drugs, medicaments and biological substances; Z79.82 Long term (current) use of aspirin; Z79.899 Other long term (current) drug therapy

== ENCOUNTER 2017-08-03 12:19 | Inpatient (IN) | payer BC, MEDICARE ==
[~2017-08-03] VITALS: Ht 160 cm; Wt 94.9 kg
--- NOTE | ~2017-08-03 | CON ---
[place], [place] REPORT OF CONSULTATION NAME: [id number] UNIT #: [id number] ROOM: 515 DOCTOR: BERNIE WILLAMS MD BIRTHDATE: [birth year] DOS: 08/04/2017 REASON FOR CONSULTATION: Chest pain. HISTORY OF PRESENT ILLNESS: This is one of several admissions to hospital for the patient who is a 57-year-old woman with a history of obesity along with Joe's esophagus, gastroesophageal reflux disease and recurrent chest pain. She does have risk factors for coronary disease including hypertension, type 2 diabetes mellitus and a family history of heart disease as well as remote history of cigarette abuse. She states that on this occasion she had burning substernal chest pain continuously for about 3 days. Last evening while lying down, she developed a sharp pain in her chest, which radiated into her neck, shoulders and upper back. Nothing that she could do would make the pain better and it was associated with dyspnea as well as vomiting x 3. She came into the Emergency Room where she was given a GI cocktail with improvement in her symptoms. Since she has been here, she has had 2 EKGs that have been normal. She has had a series of troponins that have all been normal. PAST MEDICAL HISTORY: Includes 1. Gastroesophageal reflux disease with Joe's esophagus. 2. 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 3. Hyperlipidemia. 4. Hypothyroidism. 5. Vitamin D deficiency. 6. History of tobacco abuse. The patient has been abstinent since 2014. 7. Status post cholecystectomy when the patient was in her teens. 8. History of exploratory laparotomy and hysterectomy. 9. Status post lumpectomy of the right breast. 10. Status post thyroidectomy, February 2015. 11. History of tubal ligation. 12. Morbid obesity. The patient is to have bariatric surgery on 10/12/2017 in [place]. MEDICATIONS: Prior to admission: Aspirin 81 mg per day, calcium carbonate 2 tabs q. 6 hours. p.r.n., cyclobenzaprine 10 mg daily, fluoxetine 10 mg daily, levothyroxine 88 mcg daily, metformin 500 mg b.i.d., metoclopramide 5 mg daily p.r.n. nausea, pantoprazole 40 mg daily, ranitidine 150 mg b.i.d., simvastatin 40 mg at bedtime and nitroglycerin sublingually p.r.n. ALLERGIES: She lists allergies to PENICILLINS, ALBUTEROL, DEXILANT and VICODIN. REVIEW OF SYSTEMS: The patient denies diplopia or loss of vision. She denies focal weakness. She denies lightheadedness or syncope. She had nausea and vomiting. She denies any hemoptysis or hematemesis at this time. She denies change in bowel or bladder status. She denies hematuria or hematochezia. She denies any skin rashes or swollen joints. She denies polydipsia or polyuria. She denies heat or cold intolerance. The remainder of the review of systems is negative except as noted above. FAMILY HISTORY: Her father in his 60s from a heart attack. [place], [place] REPORT OF CONSULTATION NAME: ROBEL GARCIA UNIT #: [id number] ROOM: [facility] DOCTOR: BERNIE WILLAMS MD BIRTHDATE: [birth year] SOCIAL HISTORY: The patient is and lives with her . She had been a smoker, but quit in 2018. She does not consume significant amounts of alcohol. PHYSICAL EXAMINATION: GENERAL: The patient is an overweight white female who is awake, alert and oriented. VITAL SIGNS: Pulse is 70 and regular, blood pressure is 105/52. She is afebrile. She weighs 94.8 kg and has a body mass index of 37.1. HEENT: Normocephalic and atraumatic. Extraocular muscles are intact. Sclerae are clear. Pupils equal, round and react to light. The oral mucosa is moist. Tongue is midline. NECK: Supple. She has no jugular distention. Carotids are full. She has no bruit. She has no neck or supraclavicular masses and no thyromegaly. LUNGS: Respirations are unlabored. Her chest is clear to auscultation and percussion. There is no presacral edema or chest wall tenderness. CARDIOVASCULAR: Heart has a regular rhythm. There is no murmur, rub or gallop. The PMI is not displaced. There is no precordial heave, lift or thrill. ABDOMEN: Soft and normally active. She does have mild tenderness in the epigastrium, but this does not fully reproduce her pain. She has no mass or rebound. EXTREMITIES: Showed no clubbing, cyanosis or edema. Peripheral pulses were full. There were no palpable cords or Homans sign. LABORATORY DATA: I reviewed her electrocardiograms, they showed sinus rhythm with left atrial enlargement, but were otherwise normal. Serial troponins have been normal. Laboratory studies on admission did show an elevated calcium level at 13.4, repeat was 10.2, but in the setting of a low albumin at 2.8. Hypercalcemia is a consideration. IMPRESSION: 1. Atypical chest pain. This is almost certainly gastrointestinal in origin. At this point, there is no evidence for an acute coronary syndrome. The patient did have a pharmacologic stress test within the last year that was normal and low risk. She has no EKG changes and no elevation in troponin despite prolonged symptoms. I think that further cardiac workup at this point is unlikely to be fruitful and I would direct my efforts at her gastrointestinal tract. 2. Hypercalcemia. This may be contributing to her gastrointestinal symptoms. Further evaluation is appropriate and will be deferred to her primary service. 3. Morbid obesity. 4. Type 2 diabetes mellitus. 5. Essential hypertension. PLAN: No further cardiac workup is planned at this time. We will remain available to see her as needed and we thank the hospitalist physicians for asking our advice regarding her care. [place], [place] REPORT OF CONSULTATION NAME: ROBEL GARCIA Kassandra UNIT #: [id number] ROOM: [facility] DOCTOR: BERNIE WILLAMS MD BIRTHDATE: [birth year] BERNIE WILLAMS MD CM:CONSTR:REPORT OF CONSULTATION 1541 08/04/17 1620 interface
[~2017-08-03 12:19] MED LIST changes: +Anusol Hc,Anuco25 MG R; +Carafate1 GM/10 ML PO; +FAMOTIDINE20 M1 PO; +ONDANSETRON4 M1 PO; +Synthroid,Levo88 MCG PO; +VITAMIN D-32000 UNIT PO
[2017-08-03 12:20] VITALS: BP 177/83
[2017-08-03] MEDS ORDERED: METFORMIN500 MG PO (12:28)
[2017-08-03] MEDS ORDERED: REGLAN5 MG PO (12:29)
[2017-08-03] MEDS ORDERED: SIMVASTATIN40 MG PO (12:30)
[2017-08-03 13:09] LABS: BASO % 0.5 % (0.0-1.0); EOS % 0.6 % (1.0-4.0); HEMATOCRIT 38.9 % (37.0-47.0); HEMOGLOBIN 12.2 g/dl (12.0-16.0); LYMPH # 1.1 10*3/uL (1.3-4.4); LYMPH % 16.9 % (27.0-41.0); MEAN CELL VOLUME 82.6 fl (81.0-99.0); MEAN CORPUSCULAR HGB 25.9 pg (27.0-31.0); MEAN CORPUSCULAR HGB CONC 31.4 g/dl (33.0-37.0); MEAN PLATELET VOLUME 11.6 fl (9.6-12.3); MONO # 0.6 10*3/uL (0.1-1.0); NEUT # 4.5 10*3/uL (2.3-7.9); PLATELET COUNT AUTOMATED 185 10*3/uL (130-400); RED BLOOD COUNT 4.71 10*6/uL (4.10-5.10); RED CELL DISTRI WIDTH 15.2 % (0-14.5); WHITE BLOOD COUNT 6.3 10*3/uL (4.8-10.8)
[2017-08-03 13:28] LABS: ALBUMIN 3.4 gm/dl (3.1-4.5); ALKALINE PHOSPHATASE 108 U/L (45-117); BUN 7 mg/dl (7-24); CHLORIDE 102 mmol/L (98-107); POTASSIUM 3.6 mmol/L (3.5-5.1); SGOT/AST 37 IU/L (3-35); SGPT/ALT 31 U/L (12-78); SODIUM 139 mmol/L (136-145)
[2017-08-03 13:38] LABS: TROPONIN I < 0.015 ng/ml (<0.045)
[2017-08-03 13:56] VITALS: BP 166/72
[2017-08-03 15:04] VITALS: BP 148/72
[2017-08-03 16:00] VITALS: BP 134/64
[2017-08-03] MEDS ORDERED: PROTONIX40 MG PO (17:03)
[2017-08-03] MEDS ORDERED: CYCLOBENZAPRINE10 MG PO (17:04)
[2017-08-03] MEDS ORDERED: TUMS300 MG PO (17:05)
[2017-08-03 17:07] LABS: PHOSPHOROUS 4.3 mg/dL (2.5-4.9)
[2017-08-03 20:00] VITALS: BP 138/57
[2017-08-04] VITALS: BP 116/54
[2017-08-04 06:49] LABS: BASO % 0.5 % (0.0-1.0); EOS # 0.2 10*3/uL (0.0-0.4); EOS % 5.6 % (1.0-4.0); HEMATOCRIT 34.8 % (37.0-47.0); HEMOGLOBIN 10.7 g/dl (12.0-16.0); LYMPH # 1.7 10*3/uL (1.3-4.4); LYMPH % 41.6 % (27.0-41.0); MEAN CELL VOLUME 83.3 fl (81.0-99.0); MEAN CORPUSCULAR HGB 25.6 pg (27.0-31.0); MEAN CORPUSCULAR HGB CONC 30.7 g/dl (33.0-37.0); MEAN PLATELET VOLUME 11.3 fl (9.6-12.3); MONO # 0.4 10*3/uL (0.1-1.0); MONO % 10.3 % (3.0-9.0); NEUT # 1.7 10*3/uL (2.3-7.9); NEUT % 41.8 % (47.0-73.0); PLATELET COUNT AUTOMATED 167 10*3/uL (130-400); RED BLOOD COUNT 4.18 10*6/uL (4.10-5.10); RED CELL DISTRI WIDTH 15.3 % (0-14.5); WHITE BLOOD COUNT 4.1 10*3/uL (4.8-10.8)
[2017-08-04 07:08] LABS: ALBUMIN 2.8 gm/dl (3.1-4.5); BUN 7 mg/dl (7-24); CHLORIDE 108 mmol/L (98-107); CHOLESTEROL 87 mg/dL (<200); CREATININE 1.02 mg/dL (0.55-1.02); PHOSPHOROUS 3.2 mg/dL (2.5-4.9); POTASSIUM 3.6 mmol/L (3.5-5.1); SGOT/AST 28 IU/L (3-35); SGPT/ALT 27 U/L (12-78); SODIUM 143 mmol/L (136-145); TRIGLYCERIDES 86 mg/dl (<150); VLDL CHOLESTEROL 17 mg/dL (6-40)
[2017-08-04 07:15] LABS: ALKALINE PHOSPHATASE 93 U/L (45-117); FREE T4 1.28 ng/dl (0.76-1.46); HDL CHOLESTEROL 25 mg/dl (40-60); LDL CHOLESTEROL 45 mg/dL (9-159); THYROID STIM HORMONE (HS) 0.043 uIU/ml (0.358-4.75)
[2017-08-04 08:00] VITALS: BP 105/52
[2017-08-04 09:50] LABS: VITAMIN D, 25-HYDROXY 47.7 ng/mL (30-100)
[2017-08-04 12:00] VITALS: BP 112/62
== END 2017-08-04 16:05 | disposition home or self-care (01) | DRG 313 ==
LOC: ED 12:19 → EDHOLD 16:05 → 5E 16:05
PROVIDERS: Emergency Medicine; Registered Nurse
DX: R07.89 Other chest pain (principal); N17.0 Acute kidney failure with tubular necrosis; K21.9 Gastro-esophageal reflux disease without esophagitis; E83.52 Hypercalcemia; E11.65 Type 2 diabetes mellitus with hyperglycemia; E78.2 Mixed hyperlipidemia; E55.9 Vitamin D deficiency, unspecified; E11.22 Type 2 diabetes mellitus with diabetic chronic kidney disease; N18.3 Chronic kidney disease, stage 3 (moderate); E03.9 Hypothyroidism, unspecified; D64.9 Anemia, unspecified; E66.01 Morbid (severe) obesity due to excess calories; K22.719 Barrett's esophagus with dysplasia, unspecified; Z88.0 Allergy status to penicillin; Z88.8 Allergy status to other drugs, medicaments and biological substances; Z79.82 Long term (current) use of aspirin; Z79.84 Long term (current) use of oral hypoglycemic drugs; Z79.899 Other long term (current) drug therapy; Z68.37 Body mass index [BMI] 37.0-37.9, adult; Z90.49 Acquired absence of other specified parts of digestive tract; Z90.710 Acquired absence of both cervix and uterus; Z98.51 Tubal ligation status; Z87.891 Personal history of nicotine dependence; Z82.3 Family history of stroke; Z82.49 Family history of ischemic heart disease and other diseases of the circulatory system; Z83.3 Family history of diabetes mellitus

== ENCOUNTER 2017-12-14 18:20 | Emergency (ER) | payer BC, MEDICARE ==
[~2017-12-14] VITALS: Ht 170.1 cm; Wt 79.4 kg
[~2017-12-14 18:20] MED LIST changes: +CYCLOBENZAPRINE10 MG PO; +SIMVASTATIN40 MG PO; +TUMS300 MG PO
[2017-12-14 19:05] LABS: BASO % 0.7 % (0.0-1.0); EOS # 0.2 10*3/uL (0.0-0.4); EOS % 4.2 % (1.0-4.0); HEMATOCRIT 35.9 % (37.0-47.0); HEMOGLOBIN 11.2 g/dl (12.0-16.0); LYMPH # 1.8 10*3/uL (1.3-4.4); LYMPH % 38.7 % (27.0-41.0); MEAN CELL VOLUME 83.5 fl (81.0-99.0); MEAN CORPUSCULAR HGB CONC 31.2 g/dl (33.0-37.0); MEAN PLATELET VOLUME 12.2 fl (9.6-12.3); MONO # 0.4 10*3/uL (0.1-1.0); MONO % 9.2 % (3.0-9.0); NEUT # 2.1 10*3/uL (2.3-7.9); PLATELET COUNT AUTOMATED 154 10*3/uL (130-400); RED CELL DISTRI WIDTH 17.2 % (0-14.5); WHITE BLOOD COUNT 4.6 10*3/uL (4.8-10.8)
[2017-12-14 19:20] LABS: ALBUMIN 2.9 gm/dl (3.1-4.5); ALKALINE PHOSPHATASE 120 U/L (45-117); BUN 9 mg/dl (7-24); CHLORIDE 113 mmol/L (98-107); CREATININE 0.79 mg/dL (0.55-1.02); LIPASE 79 U/L (73-393); POTASSIUM 3.9 mmol/L (3.5-5.1); SGOT/AST 46 IU/L (3-35); SGPT/ALT 30 U/L (12-78); SODIUM 144 mmol/L (136-145); TOTAL PROTEIN 6.1 gm/dL (6.4-8.2)
[2017-12-14 19:21] LABS: BILIRUBIN 1+ (NEGATIVE); BLOOD NEGATIVE (NEGATIVE); CLARITY CLEAR (CLEAR); COLOR YELLOW (YELLOW); GLUCOSE TRACE (NEGATIVE); KETONE TRACE (NEGATIVE); LEUKO ESTERASE 2+ (NEGATIVE); NITRITE NEGATIVE (NEGATIVE); UROBILINOGEN >= 8.0 E.U./dl (0.2-1.0)
[2017-12-14 19:27] LABS: BACTERIA 2+; MUCOUS TRACE; RBC 0-2 rbc/hpf (0-2); WBC TNTC wbc/hpf (0-5)
[2017-12-14] MEDS ORDERED: TYLENOL325 M1 PO (21:34)
== END 2017-12-14 21:25 | disposition home or self-care (01) ==
LOC: ED 18:20
PROVIDERS: Nurse Practitioner Family
DX: R10.13 Epigastric pain (principal); I13.10 Hypertensive heart and chronic kidney disease without heart failure, with stage 1 through stage 4 chronic kidney disease, or unspecified chronic kidney disease; E11.22 Type 2 diabetes mellitus with diabetic chronic kidney disease; N18.3 Chronic kidney disease, stage 3 (moderate); K21.9 Gastro-esophageal reflux disease without esophagitis; E78.5 Hyperlipidemia, unspecified; E03.9 Hypothyroidism, unspecified; E66.9 Obesity, unspecified; Z88.0 Allergy status to penicillin; Z88.8 Allergy status to other drugs, medicaments and biological substances; Z79.82 Long term (current) use of aspirin; Z79.899 Other long term (current) drug therapy; Z90.49 Acquired absence of other specified parts of digestive tract; Z90.710 Acquired absence of both cervix and uterus; Z98.890 Other specified postprocedural states; Z87.891 Personal history of nicotine dependence

== ENCOUNTER 2018-03-04 21:53 | Inpatient (IN) | payer BC, MEDICARE ==
[~2018-03-04] VITALS: Ht 160 cm; Wt 86.7 kg
--- NOTE | ~2018-03-04 | EKG ---
[place], [place] ELECTROCARDIOGRAM REPORT NAME: ROBEL GARCIA UNIT #: [id number] ROOM: 528 DOCTOR: TAE DRAFT REPORT BIRTHDATE: [birth year] [facility] Test Date: 2018-03-04 Test Time: 22:33:49 Pat Name: ROBEL GARCIA Department: 5E Room: 528 Gender: F Operations Support Coordinator: Adonis Zamora : 1960 Requested By: MODESTA PSENCE Order Number: [id number] Reading MD: Lori Gusman MD Measurements Intervals [place] Rate: 66 P: 50 [place]: 136 QRS: 36 QRSD: 103 T: 30 QT: 454 QTc: 476 Interpretive Statements Sinus rhythm No previous ECG available for comparison Electronically Signed On 03-08-2018 11:08:43 PST by Lori Gusman MD CM:EKGRPT:ELECTROCARDIOGRAM REPORT [id number] MODESTA SPENCE MD EPIPHANY DRAFT REPORT MODESTA SPENCE MD
--- NOTE | ~2018-03-04 | CON ---
[place], [place] REPORT OF CONSULTATION [id number] UNIT #: [id number] ROOM: 528 DOCTOR: CHARLENE ESPINOZA MD BIRTHDATE: [birth year] DOS: 03/06/2018 GASTROENDOSCOPIC CONSULTATION REPORT HISTORY OF PRESENT ILLNESS: This is a 58-year-old patient who has presented with a chief complaint of GI bleed, nausea, vomiting, status post gastric bypass recently, also blood in the rectum. At the time that she was admitted, her H and H was 11 and 35 with white blood cells 6.6, lactic acid 1.7, INR 1.2. Comprehensive metabolic panel, GFR greater than 60, electrolytes imbalance. Liver function tests, AST of 43, alkaline phosphatase of 176, lipase 136. Troponin within normal limits. Chest x-ray was reviewed, no acute process. CT scan of the abdomen and pelvis was undertaken, no evidence of acute inflammatory process identified. CBC with differential is within normal limits. INR 1.2. Comprehensive metabolic panel last set continues with low grade abnormal LFTs. CBC with differential, drop in H and H only mild at 10 and 34. PAST MEDICAL HISTORY: Joe's esophagus, GERD, gastroparesis, hepatic steatosis, hiatal hernia, borderline anemia, rectal bleed, splenomegaly, diabetes mellitus, all have been recognized. PAST SURGICAL HISTORY: Status post gastric bypass, cholecystectomy, exploratory laparotomy, hemorrhoidectomy, hysterectomy, thyroidectomy, tubal ligation. SOCIAL HISTORY: Past nicotine dependent, 3 years, quit. Nonalcohol consumer. FAMILY HISTORY: Noncontributory. ALLERGIES: PENICILLIN PRODUCTS, DEXILANT, AND HYDROCODONE. MEDICATIONS: List at home includes pantoprazole and simvastatin as well as levothyroxine and fluoxetine. REVIEW OF SYSTEMS: HEENT: Denies double vision or blurred vision. RESPIRATORY: Denies shortness of breath. CARDIOVASCULAR: Denies acute chest pain. DIGESTIVE SYSTEM: GI bleed. PHYSICAL EXAMINATION: VITAL SIGNS: Stable. HEENT: Head is normocephalic, nontraumatic. Eyes: Pupils are round and reactive. Sclerae are nonicteric. Mouth and buccal mucosa benign. NECK: Supple. No thyromegaly, no cervical lymphadenopathy. CHEST: Symmetric anatomy, equal expansion. No wheeze, no rhonchi. HEART: Normal sinus rhythm. No gallop, no murmur. ABDOMEN: Soft. No hepato-organomegaly. Bowel sounds present. No pulsatile mass. No rebound tenderness. EXTREMITIES: No cyanosis, no pedal edema. NEUROLOGIC: Alert, oriented to time, place and person. [place], [place] REPORT OF CONSULTATION NAME: ROBEL GARCIA UNIT #: [id number] ROOM: 528 DOCTOR: CHARLENE ESPINOZA MD BIRTHDATE: [birth year] IMPRESSION: 1. Gastrointestinal bleed, etiology to be defined, status post gastric bypass. 2. Abnormal liver function tests, steatosis of the liver, ruling out influence from statin for abnormal liver function tests. 3. Other adjunctive diagnoses as outlined in past medical and surgical history, including abdominal pain undefined, Joe's esophagus, hypertension, hypothyroidism, borderline anemia, splenomegaly, fatty steatosis of the liver, diabetes mellitus, rectal bleed, all have been recognized. PLAN AND DISCUSSION: We are going to consider EGD and colonoscopy and clinical reassessment. Thank you. CHARLENE ESPINOZA MD CM:CONSTR:REPORT OF CONSULTATION 0951 03/06/18 1000 interface
--- NOTE | ~2018-03-04 | O ---
[place], [place] OPERATIVE NOTE NAME: ROBEL GARCIA UNIT #: [id number] ROOM: 528 DOCTOR: OLGA MATHISCHARLENE BIRTHDATE: [birth year] DOS: 03/06/2018 GASTROENDOSCOPIC REPORT INDICATIONS: A 58-year-old who presented with nausea, vomiting, blood in stool, abdominal pain complaint, status post gastric bypass recently. PROCEDURE: Today's procedure part of investigation is panendoscopy flexible sigmoidoscopy. PREMEDICATION: Propofol. SCOPE: Olympus forward-viewing gastroscope Q10 video. REPORT: After putting the patient in left lateral position and application of lubricant to the scope, the scope was introduced. Thereafter, under direct visualization, advanced through the length of esophagus without difficulty. Long segment Joe's esophagus was identified, photographed and biopsied. Gastric pouch was entered, gastric bypass configuration was noticed. There is no anastomotic ulcer, patent enteric site was noticed. No blood in the upper GI was appreciated. The scope was withdrawn. The patient extubated, tolerated the procedure well. IMPRESSION: Status post gastric bypass configuration, long segment Joe's status post biopsy. PLAN AND DISCUSSION: Omeprazole 20 mg 1 every day, would suffice. We are going to proceed with a flexible sigmoidoscopy due to the bleeding complaint. INDICATION: The patient has presented with a course of diarrhea and blood in the stool clots. OPERATION: Today's procedure part of investigation is flexible sigmoidoscopy. PREMEDICATION: Propofol. SCOPE: Olympus forward-viewing colonoscope 10L video. REPORT: After putting the patient in the left lateral position and after application of lubricant to rectal pouch and digital examination, scope was introduced. Thereafter, under direct visualization, advanced through the length of rectum and sigmoid colon an approximately 50 cm. We had to stop, solid food was noticed. There was no evidence of ischemia. There was no blood in the rectum, a small hemorrhoid was noticed. Air was suctioned out. The patient was extubated, tolerated the procedure well. IMPRESSION: Rectal bleed, most likely secondary to hemorrhoid. PLAN AND DISCUSSION: We are going to feed the patient. The patient has fatty [place], [place] OPERATIVE NOTE NAME: ROBEL GARCIA UNIT #: [id number] ROOM: 528 DOCTOR: OLGA MATHIS,CHARLENE BIRTHDATE: [birth year] steatosis of the liver, abnormal LFTs. I would recommend withholding statins for about a month and repeat LFTs and office visit with us in GI Clinic as outpatient. Thank you very much indeed. CHARLENE ESPINOZA MD CM:OPRECORD:OPERATIVE NOTE 1023 1142 CHARLENE ESPINOZA MD 03/06/18 1142 interface
[~2018-03-04 21:53] MED LIST changes: +TYLENOL325 M1 PO
[2018-03-04 23:09] LABS: BASO % 0.6 % (0.0-1.0); EOS # 0.2 10*3/uL (0.0-0.4); EOS % 3.2 % (1.0-4.0); HEMATOCRIT 35.4 % (37.0-47.0); HEMOGLOBIN 11.3 g/dl (12.0-16.0); LYMPH # 2.1 10*3/uL (1.3-4.4); LYMPH % 32.1 % (27.0-41.0); MEAN CELL VOLUME 85.1 fl (81.0-99.0); MEAN CORPUSCULAR HGB 27.2 pg (27.0-31.0); MEAN CORPUSCULAR HGB CONC 31.9 g/dl (33.0-37.0); MEAN PLATELET VOLUME 11.4 fl (9.6-12.3); MONO # 0.8 10*3/uL (0.1-1.0); MONO % 12.3 % (3.0-9.0); NEUT # 3.4 10*3/uL (2.3-7.9); NEUT % 51.6 % (47.0-73.0); PLATELET COUNT AUTOMATED 193 10*3/uL (130-400); RED BLOOD COUNT 4.16 10*6/uL (4.10-5.10); RED CELL DISTRI WIDTH 15.6 % (0-14.5); WHITE BLOOD COUNT 6.6 10*3/uL (4.8-10.8)
[2018-03-04 23:19] LABS: ACT PARTIAL THROMBO TIME 27.6 SECONDS (20.8-31.5); INTERNATIONAL NORM RATIO 1.2 (2.0-3.5)
[2018-03-04 23:21] VITALS: BP 141/66
[2018-03-04 23:25] LABS: ALBUMIN 2.9 gm/dl (3.1-4.5); ALKALINE PHOSPHATASE 176 U/L (45-117); BUN 8 mg/dl (7-24); CHLORIDE 111 mmol/L (98-107); CREATININE 0.73 mg/dL (0.55-1.02); LIPASE 136 U/L (73-393); SGOT/AST 43 IU/L (3-35); SGPT/ALT 29 U/L (12-78); SODIUM 142 mmol/L (136-145); TOTAL PROTEIN 6.8 gm/dL (6.4-8.2)
[2018-03-04 23:26] LABS: TROPONIN I < 0.015 ng/ml (<0.045)
[2018-03-05 01:30] VITALS: BP 161/71
[2018-03-05 01:57] VITALS: BP 152/78
[2018-03-05 06:20] LABS: BASO % 0.6 % (0.0-1.0); EOS # 0.2 10*3/uL (0.0-0.4); HEMATOCRIT 32.4 % (37.0-47.0); HEMOGLOBIN 10.1 g/dl (12.0-16.0); LYMPH # 1.8 10*3/uL (1.3-4.4); LYMPH % 35.5 % (27.0-41.0); MEAN CELL VOLUME 86.2 fl (81.0-99.0); MEAN CORPUSCULAR HGB 26.9 pg (27.0-31.0); MEAN CORPUSCULAR HGB CONC 31.2 g/dl (33.0-37.0); MEAN PLATELET VOLUME 11.3 fl (9.6-12.3); MONO # 0.4 10*3/uL (0.1-1.0); MONO % 8.8 % (3.0-9.0); NEUT # 2.6 10*3/uL (2.3-7.9); NEUT % 50.9 % (47.0-73.0); PLATELET COUNT AUTOMATED 151 10*3/uL (130-400); RED BLOOD COUNT 3.76 10*6/uL (4.10-5.10); RED CELL DISTRI WIDTH 15.6 % (0-14.5)
[2018-03-05 06:26] LABS: INTERNATIONAL NORM RATIO 1.2 (2.0-3.5)
[2018-03-05 06:35] LABS: ALBUMIN 2.5 gm/dl (3.1-4.5); ALKALINE PHOSPHATASE 141 U/L (45-117); BUN 8 mg/dl (7-24); CHLORIDE 114 mmol/L (98-107); CHOLESTEROL 77 mg/dL (<200); CREATININE 0.66 mg/dL (0.55-1.02); FREE T4 1.01 ng/dl (0.76-1.46); HDL CHOLESTEROL 18 mg/dl (40-60); LDL CHOLESTEROL 47 mg/dL (9-159); POTASSIUM 3.6 mmol/L (3.5-5.1); SGOT/AST 50 IU/L (3-35); SGPT/ALT 26 U/L (12-78); SODIUM 145 mmol/L (136-145); TOTAL PROTEIN 5.8 gm/dL (6.4-8.2); TRIGLYCERIDES 61 mg/dl (<150); VLDL CHOLESTEROL 12 mg/dL (6-40)
[2018-03-05 08:12] LABS: VITAMIN D, 25-HYDROXY 48.7 ng/mL (30-100)
[2018-03-05 12:00] VITALS: BP 140/63
[2018-03-05 16:00] VITALS: BP 149/73
[2018-03-05 20:00] VITALS: BP 136/57
[2018-03-06] VITALS (8 sets, daily range): BP systolic 126–149; BP diastolic 50–71
[2018-03-06 06:22] LABS: BASO % 0.5 % (0.0-1.0); EOS # 0.2 10*3/uL (0.0-0.4); EOS % 5.3 % (1.0-4.0); HEMATOCRIT 34.4 % (37.0-47.0); HEMOGLOBIN 10.6 g/dl (12.0-16.0); LYMPH # 1.7 10*3/uL (1.3-4.4); LYMPH % 44.1 % (27.0-41.0); MEAN CELL VOLUME 86.4 fl (81.0-99.0); MEAN CORPUSCULAR HGB 26.6 pg (27.0-31.0); MEAN CORPUSCULAR HGB CONC 30.8 g/dl (33.0-37.0); MEAN PLATELET VOLUME 11.6 fl (9.6-12.3); MONO # 0.4 10*3/uL (0.1-1.0); MONO % 9.2 % (3.0-9.0); NEUT # 1.6 10*3/uL (2.3-7.9); NEUT % 40.9 % (47.0-73.0); PLATELET COUNT AUTOMATED 161 10*3/uL (130-400); RED BLOOD COUNT 3.98 10*6/uL (4.10-5.10); RED CELL DISTRI WIDTH 15.7 % (0-14.5); WHITE BLOOD COUNT 3.8 10*3/uL (4.8-10.8)
[2018-03-06 06:51] LABS: ALBUMIN 2.6 gm/dl (3.1-4.5); ALKALINE PHOSPHATASE 139 U/L (45-117); BUN 5 mg/dl (7-24); CHLORIDE 111 mmol/L (98-107); POTASSIUM 3.7 mmol/L (3.5-5.1); SGOT/AST 47 IU/L (3-35); SGPT/ALT 27 U/L (12-78); SODIUM 143 mmol/L (136-145); TOTAL PROTEIN 5.9 gm/dL (6.4-8.2)
[2018-03-07] VITALS: BP 129/58
[2018-03-07 06:15] LABS: BASO % 0.7 % (0.0-1.0); EOS # 0.2 10*3/uL (0.0-0.4); EOS % 4.5 % (1.0-4.0); HEMATOCRIT 32.6 % (37.0-47.0); HEMOGLOBIN 10.4 g/dl (12.0-16.0); LYMPH # 1.9 10*3/uL (1.3-4.4); LYMPH % 43.3 % (27.0-41.0); MEAN CELL VOLUME 85.8 fl (81.0-99.0); MEAN CORPUSCULAR HGB 27.4 pg (27.0-31.0); MEAN CORPUSCULAR HGB CONC 31.9 g/dl (33.0-37.0); MONO # 0.4 10*3/uL (0.1-1.0); MONO % 9.5 % (3.0-9.0); NEUT # 1.8 10*3/uL (2.3-7.9); NEUT % 41.8 % (47.0-73.0); PLATELET COUNT AUTOMATED 149 10*3/uL (130-400); RED CELL DISTRI WIDTH 15.5 % (0-14.5); WHITE BLOOD COUNT 4.4 10*3/uL (4.8-10.8)
[2018-03-07 06:38] LABS: ALBUMIN 2.5 gm/dl (3.1-4.5); ALKALINE PHOSPHATASE 141 U/L (45-117); BUN 6 mg/dl (7-24); CHLORIDE 111 mmol/L (98-107); CREATININE 0.76 mg/dL (0.55-1.02); POTASSIUM 3.7 mmol/L (3.5-5.1); SGOT/AST 45 IU/L (3-35); SGPT/ALT 27 U/L (12-78); SODIUM 143 mmol/L (136-145); TOTAL PROTEIN 5.8 gm/dL (6.4-8.2)
[2018-03-07] MEDS ORDERED: PROTONIX40 MG PO (10:33)
[2018-03-07] MEDS ORDERED: Synthroid,Levo88 MCG PO (10:36)
[2018-03-07] MEDS ORDERED: Zofran4 MG SL (10:37)
== END 2018-03-07 11:15 | disposition home or self-care (01) | DRG 393 ==
LOC: ED 21:53 → 5E 03-05 00:42 → EDHOLD 03-05 00:42 → 5E 03-05 00:57
PROVIDERS: Emergency Medicine Emergency Medical Services; Family Medicine; Internal Medicine; Internal Medicine Gastroenterology
PROC: 0DJD8ZZ Inspection of Lower Intestinal Tract, Via Natural or Artificial Opening Endoscopic (ICD-10-PCS; principal; 2018-03-06)
PROC: 0DB58ZX Excision of Esophagus, Via Natural or Artificial Opening Endoscopic, Diagnostic (ICD-10-PCS; principal; 2018-03-06)
DX: K64.9 Unspecified hemorrhoids (principal); K29.51 Unspecified chronic gastritis with bleeding; E44.0 Moderate protein-calorie malnutrition; D68.59 Other primary thrombophilia; D68.9 Coagulation defect, unspecified; N18.3 Chronic kidney disease, stage 3 (moderate); K31.84 Gastroparesis; K21.9 Gastro-esophageal reflux disease without esophagitis; E78.5 Hyperlipidemia, unspecified; I12.9 Hypertensive chronic kidney disease with stage 1 through stage 4 chronic kidney disease, or unspecified chronic kidney disease; E66.9 Obesity, unspecified; E11.22 Type 2 diabetes mellitus with diabetic chronic kidney disease; E11.43 Type 2 diabetes mellitus with diabetic autonomic (poly)neuropathy; E89.0 Postprocedural hypothyroidism; E87.8 Other disorders of electrolyte and fluid balance, not elsewhere classified; R16.1 Splenomegaly, not elsewhere classified; K76.0 Fatty (change of) liver, not elsewhere classified; R19.7 Diarrhea, unspecified; E11.65 Type 2 diabetes mellitus with hyperglycemia; D64.9 Anemia, unspecified; E55.9 Vitamin D deficiency, unspecified; K22.70 Barrett's esophagus without dysplasia; Z98.84 Bariatric surgery status; Z88.0 Allergy status to penicillin; Z88.6 Allergy status to analgesic agent; Z88.8 Allergy status to other drugs, medicaments and biological substances; Z90.49 Acquired absence of other specified parts of digestive tract; Z98.51 Tubal ligation status; Z90.710 Acquired absence of both cervix and uterus; Z87.891 Personal history of nicotine dependence; Z82.49 Family history of ischemic heart disease and other diseases of the circulatory system; Z83.3 Family history of diabetes mellitus; Z82.3 Family history of stroke; Z79.899 Other long term (current) drug therapy; Z68.33 Body mass index [BMI] 33.0-33.9, adult

== ENCOUNTER 2018-04-04 00:52 | Inpatient (IN) | payer BC, MEDICARE ==
[~2018-04-04] VITALS: Ht 160 cm; Wt 86.0 kg
--- NOTE | ~2018-04-04 | EKG ---
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
[~2018-04-04 00:52] MED LIST changes: +Zofran4 MG SL
[2018-04-04 00:55] VITALS: BP 134/43
[2018-04-04 01:19] LABS: BASO % 0.6 % (0.0-1.0); EOS # 0.3 10*3/uL (0.0-0.4); EOS % 4.6 % (1.0-4.0); HEMOGLOBIN 11.1 g/dl (12.0-16.0); LYMPH % 36.6 % (27.0-41.0); MEAN CORPUSCULAR HGB 26.9 pg (27.0-31.0); MEAN CORPUSCULAR HGB CONC 31.7 g/dl (33.0-37.0); MEAN PLATELET VOLUME 11.4 fl (9.6-12.3); MONO # 0.5 10*3/uL (0.1-1.0); MONO % 9.8 % (3.0-9.0); NEUT # 2.6 10*3/uL (2.3-7.9); NEUT % 48.2 % (47.0-73.0); PLATELET COUNT AUTOMATED 187 10*3/uL (130-400); RED BLOOD COUNT 4.12 10*6/uL (4.10-5.10); RED CELL DISTRI WIDTH 15.3 % (0-14.5); WHITE BLOOD COUNT 5.4 10*3/uL (4.8-10.8)
[2018-04-04 01:29] LABS: ACT PARTIAL THROMBO TIME 26.7 SECONDS (20.8-31.5); INTERNATIONAL NORM RATIO 1.2 (2.0-3.5)
[2018-04-04 01:36] LABS: ALBUMIN 2.9 gm/dl (3.1-4.5); ALKALINE PHOSPHATASE 184 U/L (45-117); BUN 8 mg/dl (7-24); CHLORIDE 109 mmol/L (98-107); CREATININE 0.79 mg/dL (0.55-1.02); POTASSIUM 3.8 mmol/L (3.5-5.1); SGOT/AST 50 IU/L (3-35); SGPT/ALT 32 U/L (12-78); SODIUM 140 mmol/L (136-145); TOTAL PROTEIN 6.9 gm/dL (6.4-8.2)
[2018-04-04 01:37] LABS: TROPONIN I < 0.015 ng/ml (<0.045)
[2018-04-04 02:50] VITALS: BP 129/62
[2018-04-04 04:03] VITALS: BP 129/62
[2018-04-04 12:00] VITALS: BP 122/86
[2018-04-04 16:00] VITALS: BP 118/53
[2018-04-04 16:33] LABS: BASO % 0.9 % (0.0-1.0); EOS # 0.2 10*3/uL (0.0-0.4); EOS % 3.5 % (1.0-4.0); HEMATOCRIT 33.6 % (37.0-47.0); HEMOGLOBIN 10.5 g/dl (12.0-16.0); LYMPH # 1.8 10*3/uL (1.3-4.4); LYMPH % 41.7 % (27.0-41.0); MEAN CELL VOLUME 85.5 fl (81.0-99.0); MEAN CORPUSCULAR HGB 26.7 pg (27.0-31.0); MEAN CORPUSCULAR HGB CONC 31.3 g/dl (33.0-37.0); MEAN PLATELET VOLUME 11.5 fl (9.6-12.3); MONO # 0.4 10*3/uL (0.1-1.0); MONO % 10.1 % (3.0-9.0); NEUT # 1.9 10*3/uL (2.3-7.9); NEUT % 43.8 % (47.0-73.0); PLATELET COUNT AUTOMATED 168 10*3/uL (130-400); RED BLOOD COUNT 3.93 10*6/uL (4.10-5.10); RED CELL DISTRI WIDTH 15.1 % (0-14.5); WHITE BLOOD COUNT 4.3 10*3/uL (4.8-10.8)
[2018-04-04 20:00] VITALS: BP 126/47
[2018-04-05] VITALS: BP 100/41
[2018-04-05 06:03] LABS: BASO % 0.5 % (0.0-1.0); EOS # 0.2 10*3/uL (0.0-0.4); EOS % 5.2 % (1.0-4.0); HEMATOCRIT 33.8 % (37.0-47.0); HEMOGLOBIN 10.4 g/dl (12.0-16.0); LYMPH # 1.7 10*3/uL (1.3-4.4); MEAN CORPUSCULAR HGB 26.5 pg (27.0-31.0); MEAN CORPUSCULAR HGB CONC 30.8 g/dl (33.0-37.0); MEAN PLATELET VOLUME 11.8 fl (9.6-12.3); MONO # 0.4 10*3/uL (0.1-1.0); MONO % 9.9 % (3.0-9.0); NEUT # 1.6 10*3/uL (2.3-7.9); NEUT % 41.4 % (47.0-73.0); PLATELET COUNT AUTOMATED 161 10*3/uL (130-400); RED BLOOD COUNT 3.93 10*6/uL (4.10-5.10); RED CELL DISTRI WIDTH 15.2 % (0-14.5); WHITE BLOOD COUNT 3.8 10*3/uL (4.8-10.8)
[2018-04-05 06:10] LABS: ALBUMIN 2.5 gm/dl (3.1-4.5); ALKALINE PHOSPHATASE 146 U/L (45-117); BUN 6 mg/dl (7-24); CHLORIDE 112 mmol/L (98-107); CHOLESTEROL 102 mg/dL (<200); FREE T4 0.91 ng/dl (0.76-1.46); HDL CHOLESTEROL 17 mg/dl (40-60); LDL CHOLESTEROL 71 mg/dL (9-159); PHOSPHOROUS 3.5 mg/dL (2.5-4.9); SGOT/AST 46 IU/L (3-35); SGPT/ALT 29 U/L (12-78); SODIUM 146 mmol/L (136-145); TRIGLYCERIDES 71 mg/dl (<150); VLDL CHOLESTEROL 14 mg/dL (6-40)
[2018-04-05 06:34] LABS: ACT PARTIAL THROMBO TIME 27.9 SECONDS (20.8-31.5); INTERNATIONAL NORM RATIO 1.2 (2.0-3.5)
[2018-04-05 08:04] LABS: VITAMIN D, 25-HYDROXY 49.6 ng/mL (30-100)
== END 2018-04-05 10:26 | disposition home or self-care (01) | DRG 378 ==
LOC: ED 00:52 → EDHOLD 02:10 → 4E 03:05
PROVIDERS: Family Medicine; Internal Medicine; Student in an Organized Health Care Education/Training Program
DX: K29.51 Unspecified chronic gastritis with bleeding (principal); E44.0 Moderate protein-calorie malnutrition; K64.9 Unspecified hemorrhoids; E87.8 Other disorders of electrolyte and fluid balance, not elsewhere classified; K31.84 Gastroparesis; K21.9 Gastro-esophageal reflux disease without esophagitis; E78.5 Hyperlipidemia, unspecified; E11.65 Type 2 diabetes mellitus with hyperglycemia; K22.719 Barrett's esophagus with dysplasia, unspecified; I10 Essential (primary) hypertension; E55.9 Vitamin D deficiency, unspecified; E03.9 Hypothyroidism, unspecified; K76.0 Fatty (change of) liver, not elsewhere classified; R74.0 Nonspecific elevation of levels of transaminase and lactic acid dehydrogenase [LDH]; E66.9 Obesity, unspecified; Z68.33 Body mass index [BMI] 33.0-33.9, adult; Z88.0 Allergy status to penicillin; Z88.6 Allergy status to analgesic agent; Z88.8 Allergy status to other drugs, medicaments and biological substances; Z98.84 Bariatric surgery status; Z90.49 Acquired absence of other specified parts of digestive tract; Z90.710 Acquired absence of both cervix and uterus; Z98.51 Tubal ligation status; Z87.891 Personal history of nicotine dependence; Z82.49 Family history of ischemic heart disease and other diseases of the circulatory system; Z82.3 Family history of stroke; Z83.3 Family history of diabetes mellitus; Z79.899 Other long term (current) drug therapy

== ENCOUNTER 2018-06-14 20:04 | Inpatient (IN) | payer OTHER, MEDICARE ==
[~2018-06-14] VITALS: Ht 160 cm; Wt 84.9 kg
--- NOTE | ~2018-06-14 | EKG ---
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
--- NOTE | ~2018-06-14 | CON ---
[place], [place] REPORT OF CONSULTATION [id number] UNIT #: [id number] ROOM: 530 DOCTOR: TOM ESPINOZA MDVALEWOOD BIRTHDATE: [birth year] DOS: 06/15/2018 HISTORY OF PRESENT ILLNESS: The patient is a 58-year-old who has presented with atypical chest pain. She has undergone investigation. Cardiologic workup is being cleared. The patient has had solid food breakfast. The patient is with history of gastric bypass, needs an endoscopic assessment of upper tract to rule out GI contribution to her atypical chest pain. PAST MEDICAL HISTORY: Gastroenteritis, epigastric distress, gastroparesis, hepatic steatosis, hypothyroidism, splenomegaly, GERD. PAST SURGICAL HISTORY: Cholecystectomy, endoscopies, exploratory laparotomies, gastric bypass in October 2017, hysterectomy, hemorrhoidectomy, thyroidectomy, tubal ligation. SOCIAL HISTORY: Nonsmoker, nonalcohol consumer. FAMILY HISTORY: Noncontributory. ALLERGIES: PENICILLIN, ALBUTEROL, DEXILANT, AND VICODIN. MEDICATIONS: Reviewed. REVIEW OF SYSTEMS: HEENT: Denies double vision, blurred vision. RESPIRATORY: Denies shortness of breath. CARDIOVASCULAR: Denies chest pain. DIGESTIVE SYSTEM: Gross abdominal pain, epigastric pain, subxiphoid pain. PHYSICAL EXAMINATION: VITAL SIGNS: Stable, nontoxic patient with expression of pain in subxiphoid mostly. HEENT: Head is normocephalic, nontraumatic. Mouth and buccal mucosa benign. NECK: Supple. No thyromegaly. No cervical lymphadenopathy. CHEST: Symmetric anatomy, equal expansion. No wheeze, no rhonchi. HEART: Normal sinus rhythm. No gallop, no murmur. ABDOMEN: Soft. No hepato-organomegaly. Bowel sounds present. Nonspecific epigastric pain. Bowel sounds present. EXTREMITIES: No cyanosis. No pedal edema. NEUROLOGIC: Alert and oriented to time, place, and person. IMPRESSION: Atypical chest pain, status post gastric bypass, ruling out gastric anastomotic ulceration post-bypass. DIAGNOSTIC DATA: Labs reviewed. Records reviewed. Latest CBC, white blood cell 3.5, H and H of 9 and 31 with platelet of 145. Comprehensive metabolic panel with GFR greater than 60. Electrolytes are balanced. Liver function test is borderline normal. PLAN AND DISCUSSION: Awaiting further cardiologic assessment including cardiac [place], [place] REPORT OF CONSULTATION NAME: ROBEL GARCIA UNIT #: [id number] ROOM: 530 DOCTOR: OLGA MATHIS,CHARLENE BIRTHDATE: [birth year] monitoring to complete study and then we will consider EGD on Wednesday morning. OTHER ADJUNCTIVE DIAGNOSES: Splenomegaly and hepatic steatosis recognized. CHARLENE ESPINOZA MD CM:CONSTR:REPORT OF CONSULTATION 1310 06/16/18 0310 interface
--- NOTE | ~2018-06-14 | O ---
[place], [place] OPERATIVE NOTE [facility]: [id number] UNIT #: [id number] ROOM: 530 DOCTOR: CHARLENE ESPINOZA MD BIRTHDATE: [birth year] DOS: 06/17/2018 GASTROENDOSCOPIC REPORT INDICATIONS: This patient has presented with atypical chest pain, cardiologic workup has been negative. The patient with a relevant history of gastric bypass surgery. PROCEDURE: Today's procedure part of investigation is panendoscopy plus biopsy. PREMEDICATION: Propofol. SCOPE: Olympus forward-viewing gastroscope Q10 video. REPORT: After putting the patient in left lateral position and application of lubricant to the scope, the scope was introduced. Thereafter, under direct visualization, advanced through the length of esophagus without difficulty. Long segment Joe esophagus was noticed. Biopsy obtained. Hiatal hernia seen. Gastric pouch was entered. There is evidence of gastric bypass, anastomotic site appears to be benign. There is no stricture. There is no ulceration. The patient extubated after photographic series. She tolerated the procedure well. IMPRESSION: Long segment Joe's esophagus, esophagitis, status post biopsy, hiatal hernia, gastric bypass configuration. PLAN AND DISCUSSION: Protonix 40 mg 1 q. a.m., Gaviscon Extra Strength 1 q. bedtime, antireflux measures with elevation of the head of the bed 10 inches, GERD diet. Follow up as outpatient. CHARLENE ESPINOZA MD CM:OPRECORD:OPERATIVE NOTE 1505 [id number] CHARLENE ESPINOZA MD 06/17/18 1610 interface
--- NOTE | ~2018-06-14 | EKG ---
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
--- NOTE | ~2018-06-14 | EKG ---
[place], [place] ELECTROCARDIOGRAM REPORT NAME: ROBEL GARCIA UNIT #: [id number] ROOM: 530 DOCTOR: TAE DRAFT REPORT BIRTHDATE: [address] [facility] Test Date: 2018-06-15 Test Time: 02:12:54 Pat Name: ROBEL GARCIA Department: Room: [facility] Gender: F Head Host/Hostess: Purvi Kwan : 1960 Requested By: MICKEY DIETRICH Order Number: [id number] Reading MD: Amy Gallagher MD Measurements Intervals [place] Rate: 64 P: 63 MS: 139 QRS: 60 QRSD: 108 T: 55 QT: 480 QTc: 496 Interpretive Statements Sinus rhythm Borderline prolonged QT interval Baseline wander in lead(s) I,II,aVR,aVF,V1,V2,V3 Compared to ECG 04/04/2018 01:24:05 No significant changes Electronically Signed On 06-15-2018 14:01:14 PST by Amy Gallagher MD CM:EKGRPT:ELECTROCARDIOGRAM REPORT 0212 [id number] MICKEY NIX DRAFT REPORT MICKEY DIETRICH DO
[2018-06-14 20:15] VITALS: BP 148/71
[2018-06-14 20:22] LABS: BASO % 0.3 % (0.0-1.0); EOS # 0.1 10*3/uL (0.0-0.4); EOS % 3.4 % (1.0-4.0); HEMATOCRIT 34.1 % (37.0-47.0); HEMOGLOBIN 10.4 g/dl (12.0-16.0); LYMPH # 1.3 10*3/uL (1.3-4.4); LYMPH % 36.5 % (27.0-41.0); MEAN CELL VOLUME 84.6 fl (81.0-99.0); MEAN CORPUSCULAR HGB 25.8 pg (27.0-31.0); MEAN CORPUSCULAR HGB CONC 30.5 g/dl (33.0-37.0); MEAN PLATELET VOLUME 11.9 fl (9.6-12.3); MONO # 0.2 10*3/uL (0.1-1.0); MONO % 6.5 % (3.0-9.0); NEUT # 1.9 10*3/uL (2.3-7.9); PLATELET COUNT AUTOMATED 166 10*3/uL (130-400); RED BLOOD COUNT 4.03 10*6/uL (4.10-5.10); RED CELL DISTRI WIDTH 16.2 % (0-14.5); WHITE BLOOD COUNT 3.6 10*3/uL (4.8-10.8)
[2018-06-14 20:32] LABS: ACT PARTIAL THROMBO TIME 29.4 SECONDS (20.8-31.5); INTERNATIONAL NORM RATIO 1.3 (2.0-3.5)
[2018-06-14 20:45] VITALS: BP 153/60
[2018-06-14 20:51] LABS: ALBUMIN 2.9 gm/dl (3.1-4.5); ALKALINE PHOSPHATASE 182 U/L (45-117); BUN 8 mg/dl (7-24); CHLORIDE 108 mmol/L (98-107); CREATININE 0.93 mg/dL (0.55-1.02); POTASSIUM 3.6 mmol/L (3.5-5.1); SGOT/AST 41 IU/L (3-35); SGPT/ALT 28 U/L (12-78); SODIUM 141 mmol/L (136-145); TOTAL PROTEIN 6.4 gm/dL (6.4-8.2)
[2018-06-14 20:55] LABS: TROPONIN I < 0.015 ng/ml (<0.045)
[2018-06-14 21:09] LABS: BILIRUBIN NEGATIVE (NEGATIVE); BLOOD NEGATIVE (NEGATIVE); CLARITY CLEAR (CLEAR); COLOR YELLOW (YELLOW); GLUCOSE 3+ (NEGATIVE); KETONE NEGATIVE (NEGATIVE); NITRITE NEGATIVE (NEGATIVE); SPECIFIC GRAVITY 1.025 (1.005-1.030)
[2018-06-14 21:15] VITALS: BP 140/55
[2018-06-14 21:16] LABS: LEUKO ESTERASE 2+ (NEGATIVE)
[2018-06-14 21:18] LABS: BACTERIA 1+; CALCIUM OXALATE CRYSTALS 1+; WBC 21-30 wbc/hpf (0-5)
[2018-06-14 23:35] VITALS: BP 155/58
--- NOTE | 2018-06-14 23:35 | NUR ---
A 58, admitted to , under the services of COREY Cloud DO with a diagnosis of ESOPHAGITIS/CHEST PAIN. Chief complaint is CHEST PAIN. Patient arrived via wheel chair from ER. Monitor applied. Initial assessment completed. Vital signs taken and recorded. COREY CLOUD DO notified of admission to the unit. Orders received. See assessment for past medical history, medications and allergies. Patient and/or family oriented to unit. [facility] visitation policy reviewed. Clothing/patient valuable form completed. GRANT SHAVER
[2018-06-15] VITALS: BP 155/58
--- NOTE | 2018-06-15 00:42 | NUR ---
DR. WASHINGTON NOTIFIED THAT PATIENT'S MED REQ IS UP TO DATE.
--- NOTE | 2018-06-15 05:59 | NUR ---
DR. BRANTLEY'S ANSWERING SERVICE NOTIFIED OF CONSULT FOR ATYPICAL CHEST PAIN.
[2018-06-15 06:37] LABS: BASO % 0.3 % (0.0-1.0); EOS # 0.2 10*3/uL (0.0-0.4); EOS % 4.5 % (1.0-4.0); HEMATOCRIT 31.9 % (37.0-47.0); HEMOGLOBIN 9.7 g/dl (12.0-16.0); LYMPH # 1.2 10*3/uL (1.3-4.4); LYMPH % 34.8 % (27.0-41.0); MEAN CELL VOLUME 82.6 fl (81.0-99.0); MEAN CORPUSCULAR HGB 25.1 pg (27.0-31.0); MEAN CORPUSCULAR HGB CONC 30.4 g/dl (33.0-37.0); MEAN PLATELET VOLUME 11.4 fl (9.6-12.3); MONO # 0.3 10*3/uL (0.1-1.0); MONO % 9.6 % (3.0-9.0); NEUT # 1.8 10*3/uL (2.3-7.9); NEUT % 50.8 % (47.0-73.0); PLATELET COUNT AUTOMATED 145 10*3/uL (130-400); RED BLOOD COUNT 3.86 10*6/uL (4.10-5.10); RED CELL DISTRI WIDTH 16.3 % (0-14.5); WHITE BLOOD COUNT 3.5 10*3/uL (4.8-10.8)
[2018-06-15 07:00] LABS: ALBUMIN 2.6 gm/dl (3.1-4.5); ALKALINE PHOSPHATASE 159 U/L (45-117); BUN 7 mg/dl (7-24); CHLORIDE 112 mmol/L (98-107); CHOLESTEROL 89 mg/dL (<200); CREATININE 0.67 mg/dL (0.55-1.02); HDL CHOLESTEROL 20 mg/dl (40-60); LDL CHOLESTEROL 57 mg/dL (9-159); PHOSPHOROUS 3.2 mg/dL (2.5-4.9); POTASSIUM 3.6 mmol/L (3.5-5.1); SGOT/AST 36 IU/L (3-35); SGPT/ALT 23 U/L (12-78); SODIUM 145 mmol/L (136-145); TRIGLYCERIDES 62 mg/dl (<150); VLDL CHOLESTEROL 12 mg/dL (6-40)
[2018-06-15 07:07] LABS: FREE T4 1.28 ng/dl (0.76-1.46); THYROID STIM HORMONE (HS) 0.552 uIU/ml (0.358-4.75)
[2018-06-15 07:32] LABS: VITAMIN D, 25-HYDROXY 59.2 ng/mL (30-100)
[2018-06-15 08:00] VITALS: BP 138/64
--- NOTE | 2018-06-15 08:58 | NUR ---
Spoke with Dr. Lee regarding consult for epigastric pain with history of gastric bypass and hiatal repair. We reviewed patients labs and history. Physician to follow up at bedside.
[2018-06-15 12:00] VITALS: BP 138/60
--- NOTE | 2018-06-15 12:01 | NUR ---
Spring Forger in to talk to patient. Patient states lives at HOME with . There are SEVERAL steps in the home. Physician: MARIN Pharmacy: [facility] Home health services: NONE Patient's level of ADLs: INDEPENDENT Patient has working utilities: YES DME: NONE Follow-up physician's appointment after d/c: WILL BE MADE BY HOSPITALIST NURSE DIRECTOR ON DISCHARGE Does patient want to access PORTAL?: NO Discharge plan PT STATES SHE LIVES AT HOME WITH HER AND IS INDEPENDENT IN HER CARE. DENIES ANY HOME NEEDS ON DISCAHRGE. PT STATES SHE WOULD LIKE TO HAVE PAPERS FOR LIVING WILL. WILL TAKE PAPERS TO HER. WILL CONTINUE TO FOLLOW. STATES HE WILL TAKE HER HOME ON DISCHARGE.. BERTHA MORLEY
--- NOTE | 2018-06-15 12:28 | NUR ---
Spoke with Dr. Gallagehr regarding patients stress test. Since patient is currently having EGD test will be tomorrow. See new orders.
--- NOTE | 2018-06-15 12:52 | NUR ---
LIVING WILL AND POA PAPERS GIVEN TO PT AND ASSISTED HER IN FILLING THEM OUT. COPY PLACED ON CHART AND PT GIVEN ORIGINALS.
--- NOTE | 2018-06-15 12:59 | NUR ---
Per Dr. Lee unable to perform EGD today. Test will be performed on Wednesday. See new orders.
--- NOTE | 2018-06-15 14:00 | NUR ---
INFORMED CONSENT OBTIANED FOR A STANDARD STRESS TEST WITH DR. REYES. RESTING EKG NSR WITH A HT RT OF 63 AND A BP OF 128/64 AND A STANDING HT RT OF 67 WITH A BP OF 102/62. PT COMPLETED 5:00 MINUTES OF A DANIE PROTOCOL WITH COMPLETION OF 2:00 MINUTES OF STAGE II AT 2.5 MPH AND A 12% GRADE. REACHED A PEAK HT RT OF 140 WHICH IS 87% OF PREDICTED MAX WITH A PEAK BP OF 158/50. TESTING TERMINATED DUE TO FATIGUE. HAS AN AVERAGE EXERCISE TOLERANCE. IMPRESSION NEGATIVE. LAST RECOVERY HT RT OF 97 WITH A BP OF 120/60. PT TAKEN BACK TO HER ROOM IN STABLE CONDITION.
[2018-06-15 16:00] VITALS: BP 121/89
[2018-06-15 20:00] VITALS: BP 131/60
[2018-06-16] VITALS: BP 126/62
--- NOTE | 2018-06-16 00:15 | NUR ---
24 HR chart check completed.
[2018-06-16 08:00] VITALS: BP 120/52
[2018-06-16 12:00] VITALS: BP 117/58
--- NOTE | 2018-06-16 14:00 | NUR ---
PT BIN PACKER REMOVED PER PHYSICIAN ORDERS. PT NOW MED SURG. PT CURRENTLY WEARING 30 DAY HOLTER MONITOR ORDERED BY CARIOLOGIST. NO COMPLAINTS VOICED BY PT AT THIS TIME. PT PLEASANT, ALERT AND ORIENTED. ALL NEEDS MET AT THIS TIME. CALL LIGHT IN REACH.
[2018-06-16 16:00] VITALS: BP 130/59
--- NOTE | 2018-06-16 18:23 | NUR ---
PT CONCERNED ABOUT IV SITE TO RIGHT ANTECUBITAL. IV SITE FLUSHING WITH NO PAIN AND HAS EXCELLENT BLOOD RETURN. PT OFFERED NEW IV SITE PLACEMENT BUT DECLINES. CURRENT IV SITE DRESSING C/D/I. NO OTHER CONCERNS AT THIS TIME. CALL LIGHT IN REACH.
[2018-06-16 20:00] VITALS: BP 119/56
--- NOTE | 2018-06-16 20:15 | NUR ---
24 HR chart check completed.
--- NOTE | 2018-06-16 20:30 | NUR ---
RESTING IN BED VISITING WITH . NO DISTRESS NOTED. RESPIRATIONS EASY. LUNGS DIMINISHED, CLEAR. PULSE OX 98% RA. TRACE BLE EDEMA. OFFERED AND EDUCATED REGARDING TEDS, DECLINED STATING SHE IS RECEIVING SC LOVENOX. CALL LIGHT WITHIN REACH. NO VOICED COMPLAINTS
--- NOTE | 2018-06-16 21:48 | NUR ---
REQUESTED AND RECEIVED TYLENOL PER PRN ORDER FOR COMPLAINTS OF HEADACHE RATING A 6. CALL LIGHT WITHIN REACH. WILL MONITOR FOR EFFECTIVENESS
--- NOTE | 2018-06-16 23:00 | NUR ---
MEDS EFFECTIVE. RESTING WITH EYES CLOSED. RESPIRATIONS EASY. CALL LIGHT WITHIN REACH
[2018-06-17] VITALS (7 sets, daily range): BP systolic 101–143; BP diastolic 46–64
--- NOTE | 2018-06-17 00:30 | NUR ---
SLEEPING. RESPIRATIONS EASY. VSS. CALL LIGHT WITHIN REACH
--- NOTE | 2018-06-17 06:00 | NUR ---
SLEPT THROUGHOUT NIGHT WITH NO DISTRESS NOTED. RESPIRATIONS EASY. NO C/O CHEST PAIN. CALL LIGHT WITHIN REACH. NO VOICED COMPLAINTS THIS SHIFT. NPO STATUS FOR TESTING
[2018-06-17 06:41] LABS: BASO % 0.5 % (0.0-1.0); EOS # 0.2 10*3/uL (0.0-0.4); EOS % 4.4 % (1.0-4.0); HEMATOCRIT 32.8 % (37.0-47.0); LYMPH # 1.4 10*3/uL (1.3-4.4); LYMPH % 36.7 % (27.0-41.0); MEAN CELL VOLUME 82.6 fl (81.0-99.0); MEAN CORPUSCULAR HGB 25.2 pg (27.0-31.0); MEAN CORPUSCULAR HGB CONC 30.5 g/dl (33.0-37.0); MEAN PLATELET VOLUME 11.3 fl (9.6-12.3); MONO # 0.4 10*3/uL (0.1-1.0); MONO % 11.5 % (3.0-9.0); NEUT # 1.8 10*3/uL (2.3-7.9); NEUT % 46.6 % (47.0-73.0); PLATELET COUNT AUTOMATED 155 10*3/uL (130-400); RED BLOOD COUNT 3.97 10*6/uL (4.10-5.10); RED CELL DISTRI WIDTH 16.4 % (0-14.5); WHITE BLOOD COUNT 3.8 10*3/uL (4.8-10.8)
[2018-06-17 07:06] LABS: BUN 8 mg/dl (7-24); CHLORIDE 112 mmol/L (98-107); POTASSIUM 3.9 mmol/L (3.5-5.1); SODIUM 145 mmol/L (136-145)
[2018-06-17 07:09] LABS: CREATININE 0.72 mg/dL (0.55-1.02)
[2018-06-17 07:16] LABS: INTERNATIONAL NORM RATIO 1.2 (2.0-3.5)
--- NOTE | 2018-06-17 07:45 | NUR ---
SPOKE WITH DR ESPINOZA REGARDING PT EGD TODAY. PHYSICIAN STATES THAT PT IS NOT CURRENTLY ON SURGERY LIST AND ADVISES THIS NURSE TO CALL SURGERY IN ORDER TO HAVE HER PUT ON SCHEDULE.
--- NOTE | 2018-06-17 07:50 | NUR ---
SPOKE WITH NURSE IN SURGERY, PT ADDED TO SURGERY SCHEDULE FOR TODAY WITH DR ESPINOZA.
--- NOTE | 2018-06-17 08:00 | NUR ---
REVIEWED SURGERY PACKET WITH PT THIS AM, NO S/S OF DISTRESS VOICED. PT DENIES CHEST PAIN. ASSESSMENT COMPLETE. RESPIRATIONS EASY AND UNLABORED. AT BEDSIDE, PT CURRENTLY WAITING TO BE TAKEN DOWN FOR EGD WITH DR ESPINOZA. CALL LIGHT IN REACH.
--- NOTE | 2018-06-17 10:00 | NUR ---
CURRENTLY HOLDING PT MEDICATIONS DUE TO PT BEING NPO FOR EGD TODAY. WILL CATCH PT UP ON MEDICATION WHEN SHE RETURNS FROM EGD. PT AWARE.
--- NOTE | 2018-06-17 11:38 | NUR ---
PT CONTINUES TO DENY HOME NEEDS ON DISCHARGE. HAVING A EGD TODAY. WILL CONTINUE TO FOLLOW.
--- NOTE | 2018-06-17 15:41 | NUR ---
SPOKE WITH DR ESPINOZA REGARDING PT PROCEDURE. NEW ORDERS RECEIVED FOR GERD DIET, PROTONIX 40 MG PO EVERY MORNING, GAVISCON EXTRA STRENGTH EVERY NIGHT AT BEDTIME. WILL NOITFY PT AND UPDATE MED REC AT THIS TIME.
[2018-06-17] MEDS ORDERED: GAVISCON ES TA1 EACH PO (17:16)
--- NOTE | 2018-06-17 18:01 | NUR ---
Discharge instructions reviewed with patient/family. Patient receptive and verbalizes understanding. Follow-up care arranged. Written instructions given to patient/family. ASHKAN PALOMINO
[2018-08-05] MEDS ORDERED: CARAFATE1 GM PO (14:57)
[2018-08-05] MEDS ORDERED: ZANTAC 150150 MG PO (14:58)
[2018-08-05] MEDS ORDERED: MULTIVITAMIN PO (14:59)
[2018-08-05] MEDS ORDERED: PROVENTIL HFA6.7 GM INH (15:00)
[2018-08-05] MEDS ORDERED: NITROSTAT0.3 M1 SL (15:01)
[2018-08-09] MEDS ORDERED: Anusol Hc,Anuco25 MG R (10:51)
[2018-08-09] MEDS ORDERED: AUGMENTIN 875875 MG PO (10:51)
[2018-08-09] MEDS ORDERED: CIPRO500 MG PO (11:59)
[2018-09-26] MEDS ORDERED: COLACE100 MG PO (12:14)
[2018-09-26] MEDS ORDERED: NORCO 5-325 TA1 EACH PO (12:14)
[2018-11-20] MEDS ORDERED: CYCLOBENZAPRINE10 MG PO (14:42)
[2018-11-20] MEDS ORDERED: TYLENOL325 M1 PO (14:42)
[2018-11-20] MEDS ORDERED: MEDROL DOSEPAK4 MG PO (14:42)
== END 2018-06-17 18:01 | disposition home or self-care (01) | DRG 391 ==
LOC: ED 20:04 → 5E 22:35 → EDHOLD 22:35 → 5E 22:41
PROVIDERS: Internal Medicine; Physician Assistant; Student in an Organized Health Care Education/Training Program; ADMIT Internal Medicine
PROC: 4A02XM4 Measurement of Cardiac Total Activity, External Approach (ICD-10-PCS; principal; 2018-06-15)
PROC: 0DB58ZX Excision of Esophagus, Via Natural or Artificial Opening Endoscopic, Diagnostic (ICD-10-PCS; 2018-06-17)
PROC: 0DB68ZX Excision of Stomach, Via Natural or Artificial Opening Endoscopic, Diagnostic (ICD-10-PCS; 2018-06-17)
DX: K20.9 Esophagitis, unspecified (principal); E43 Unspecified severe protein-calorie malnutrition; K21.9 Gastro-esophageal reflux disease without esophagitis; E78.00 Pure hypercholesterolemia, unspecified; F32.9 Major depressive disorder, single episode, unspecified; E03.9 Hypothyroidism, unspecified; K76.0 Fatty (change of) liver, not elsewhere classified; E87.8 Other disorders of electrolyte and fluid balance, not elsewhere classified; R74.0 Nonspecific elevation of levels of transaminase and lactic acid dehydrogenase [LDH]; R81 Glycosuria; R82.71 Bacteriuria; R00.0 Tachycardia, unspecified; K52.9 Noninfective gastroenteritis and colitis, unspecified; R16.1 Splenomegaly, not elsewhere classified; R07.89 Other chest pain; E05.00 Thyrotoxicosis with diffuse goiter without thyrotoxic crisis or storm; K44.9 Diaphragmatic hernia without obstruction or gangrene; K29.70 Gastritis, unspecified, without bleeding; K22.70 Barrett's esophagus without dysplasia; Z86.718 Personal history of other venous thrombosis and embolism; Z87.891 Personal history of nicotine dependence; Z98.84 Bariatric surgery status; Z82.49 Family history of ischemic heart disease and other diseases of the circulatory system; Z88.0 Allergy status to penicillin; Z88.5 Allergy status to narcotic agent; Z88.9 Allergy status to unspecified drugs, medicaments and biological substances; Z90.49 Acquired absence of other specified parts of digestive tract; Z90.710 Acquired absence of both cervix and uterus; Z98.51 Tubal ligation status; Z82.3 Family history of stroke; Z83.3 Family history of diabetes mellitus; Z68.33 Body mass index [BMI] 33.0-33.9, adult

== ENCOUNTER 2018-08-30 17:54 | Emergency (ER) | payer OTHER, MEDICARE ==
[~2018-08-30] VITALS: Ht 160 cm; Wt 79.4 kg
[~2018-08-30 17:54] MED LIST changes: +AUGMENTIN 875875 MG PO; +CARAFATE1 GM PO; +CIPRO500 MG PO; +GAVISCON ES TA1 EACH PO; +MULTIVITAMIN PO; +NITROSTAT0.3 M1 SL; +PROVENTIL HFA6.7 GM INH; +ZANTAC 150150 MG PO
[2018-08-30 18:32] LABS: BASO % 0.5 % (0.0-1.0); EOS # 0.2 10*3/uL (0.0-0.4); EOS % 4.1 % (1.0-4.0); HEMATOCRIT 33.4 % (37.0-47.0); HEMOGLOBIN 10.2 g/dl (12.0-16.0); LYMPH # 1.2 10*3/uL (1.3-4.4); MEAN CELL VOLUME 83.1 fl (81.0-99.0); MEAN CORPUSCULAR HGB 25.4 pg (27.0-31.0); MEAN CORPUSCULAR HGB CONC 30.5 g/dl (33.0-37.0); MEAN PLATELET VOLUME 11.2 fl (9.6-12.3); MONO # 0.5 10*3/uL (0.1-1.0); MONO % 12.5 % (3.0-9.0); NEUT # 1.8 10*3/uL (2.3-7.9); NEUT % 49.9 % (47.0-73.0); PLATELET COUNT AUTOMATED 156 10*3/uL (130-400); RED BLOOD COUNT 4.02 10*6/uL (4.10-5.10); RED CELL DISTRI WIDTH 17.5 % (0-14.5); WHITE BLOOD COUNT 3.7 10*3/uL (4.8-10.8)
[2018-08-30 18:46] LABS: INTERNATIONAL NORM RATIO 1.2 (2.0-3.5)
[2018-08-30 18:46] LABS: ALKALINE PHOSPHATASE 167 U/L (45-117); BUN 8 mg/dl (7-24); CHLORIDE 110 mmol/L (98-107); CREATININE 0.77 mg/dL (0.55-1.02); POTASSIUM 3.9 mmol/L (3.5-5.1); SGOT/AST 40 IU/L (3-35); SGPT/ALT 28 U/L (12-78); SODIUM 141 mmol/L (136-145); TOTAL PROTEIN 6.5 gm/dL (6.4-8.2)
[2018-08-30] MEDS ORDERED: ANUSOL-HC25 MG R (20:13)
[2018-09-26] MEDS ORDERED: COLACE100 MG PO (12:14)
[2018-09-26] MEDS ORDERED: NORCO 5-325 TA1 EACH PO (12:14)
[2018-11-20] MEDS ORDERED: TYLENOL325 M1 PO (14:42)
[2018-11-20] MEDS ORDERED: MEDROL DOSEPAK4 MG PO (14:42)
[2018-11-20] MEDS ORDERED: CYCLOBENZAPRINE10 MG PO (14:42)
== END 2018-08-30 20:24 | disposition home or self-care (01) ==
LOC: ED 17:54
PROVIDERS: Nurse Practitioner Family
DX: K64.9 Unspecified hemorrhoids (principal); K21.9 Gastro-esophageal reflux disease without esophagitis; Z88.0 Allergy status to penicillin; Z88.8 Allergy status to other drugs, medicaments and biological substances; Z88.6 Allergy status to analgesic agent; Z79.899 Other long term (current) drug therapy; Z79.2 Long term (current) use of antibiotics; Z90.49 Acquired absence of other specified parts of digestive tract; Z90.710 Acquired absence of both cervix and uterus; Z87.891 Personal history of nicotine dependence

== ENCOUNTER 2018-09-21 10:03 | Emergency (ER) | payer OTHER, MEDICARE ==
[~2018-09-21] VITALS: Ht 160 cm; Wt 77.1 kg
[~2018-09-21 10:03] MED LIST changes: +ANUSOL-HC25 MG R
[2018-09-21 10:42] LABS: BASO % 0.5 % (0.0-1.0); EOS # 0.2 10*3/uL (0.0-0.4); EOS % 4.5 % (1.0-4.0); HEMATOCRIT 34.8 % (37.0-47.0); HEMOGLOBIN 10.7 g/dl (12.0-16.0); LYMPH # 1.5 10*3/uL (1.3-4.4); LYMPH % 37.5 % (27.0-41.0); MEAN CELL VOLUME 81.9 fl (81.0-99.0); MEAN CORPUSCULAR HGB 25.2 pg (27.0-31.0); MEAN CORPUSCULAR HGB CONC 30.7 g/dl (33.0-37.0); MEAN PLATELET VOLUME 10.6 fl (9.6-12.3); MONO # 0.4 10*3/uL (0.1-1.0); MONO % 9.3 % (3.0-9.0); NEUT # 1.9 10*3/uL (2.3-7.9); NEUT % 47.9 % (47.0-73.0); PLATELET COUNT AUTOMATED 178 10*3/uL (130-400); RED BLOOD COUNT 4.25 10*6/uL (4.10-5.10); RED CELL DISTRI WIDTH 17.4 % (0-14.5)
[2018-09-21 10:52] LABS: INTERNATIONAL NORM RATIO 1.1 (2.0-3.5)
[2018-09-21 10:56] LABS: ALKALINE PHOSPHATASE 181 U/L (45-117); BUN 9 mg/dl (7-24); CHLORIDE 113 mmol/L (98-107); CREATININE 0.85 mg/dL (0.55-1.02); SGOT/AST 38 IU/L (3-35); SGPT/ALT 33 U/L (12-78); SODIUM 144 mmol/L (136-145); TOTAL PROTEIN 6.8 gm/dL (6.4-8.2)
[2018-09-21 11:24] LABS: BILIRUBIN NEGATIVE (NEGATIVE); BLOOD NEGATIVE (NEGATIVE); CLARITY SL CLOUDY (CLEAR); COLOR YELLOW (YELLOW); GLUCOSE NEGATIVE (NEGATIVE); KETONE NEGATIVE (NEGATIVE); LEUKO ESTERASE NEGATIVE (NEGATIVE); NITRITE NEGATIVE (NEGATIVE); UROBILINOGEN 0.2 E.U./dl (0.2-1.0)
[2018-09-21 11:55] LABS: BACTERIA TRACE
[2018-09-26] MEDS ORDERED: NORCO 5-325 TA1 EACH PO (12:14)
[2018-09-26] MEDS ORDERED: COLACE100 MG PO (12:14)
[2018-11-20] MEDS ORDERED: MEDROL DOSEPAK4 MG PO (14:42)
[2018-11-20] MEDS ORDERED: TYLENOL325 M1 PO (14:42)
[2018-11-20] MEDS ORDERED: CYCLOBENZAPRINE10 MG PO (14:42)
== END 2018-09-21 14:04 | disposition home or self-care (01) ==
LOC: ED 10:03
PROVIDERS: Nurse Practitioner Family
DX: K64.9 Unspecified hemorrhoids (principal); K21.9 Gastro-esophageal reflux disease without esophagitis; E11.9 Type 2 diabetes mellitus without complications; Z90.49 Acquired absence of other specified parts of digestive tract; Z98.890 Other specified postprocedural states; Z79.899 Other long term (current) drug therapy; Z88.0 Allergy status to penicillin; Z88.5 Allergy status to narcotic agent; Z88.8 Allergy status to other drugs, medicaments and biological substances

== ENCOUNTER 2019-01-19 20:36 | Inpatient (IN) | payer OTHER, MEDICARE ==
[~2019-01-19] VITALS: Ht 160 cm; Wt 79.2 kg
[~2019-01-19 20:36] MED LIST changes: +COLACE100 MG PO; +MEDROL DOSEPAK4 MG PO; +NORCO 5-325 TA1 EACH PO
[2019-01-19 20:40] VITALS: BP 166/58
--- NOTE | 2019-01-19 20:42 | NUR ---
[facility] COMPLAINT OF MUCSLE CRAMPS.
[2019-01-19 21:15] LABS: BASO % 0.4 % (0.0-1.0); EOS # 0.2 10*3/uL (0.0-0.4); HEMATOCRIT 32.3 % (37.0-47.0); HEMOGLOBIN 9.9 g/dl (12.0-16.0); LYMPH # 1.6 10*3/uL (1.3-4.4); LYMPH % 31.1 % (27.0-41.0); MEAN CELL VOLUME 80.1 fl (81.0-99.0); MEAN CORPUSCULAR HGB 24.6 pg (27.0-31.0); MEAN CORPUSCULAR HGB CONC 30.7 g/dl (33.0-37.0); MEAN PLATELET VOLUME 10.9 fl (9.6-12.3); MONO # 0.7 10*3/uL (0.1-1.0); MONO % 12.9 % (3.0-9.0); NEUT # 2.6 10*3/uL (2.3-7.9); NEUT % 52.4 % (47.0-73.0); PLATELET COUNT AUTOMATED 175 10*3/uL (130-400); RED BLOOD COUNT 4.03 10*6/uL (4.10-5.10); RED CELL DISTRI WIDTH 17.2 % (0-14.5)
--- NOTE | 2019-01-19 21:31 | NUR ---
RESTING QUIETLY WITH AT BEDSIDE. BLE REMAIN OUTSTRETCHED AND NO OBVIOUS DISTRESS NOTED. SIDE RAIL X 1 AND CALL LIGHT WITHIN REACH. WILL CONTINUE TO MONITOR.
[2019-01-19 21:32] LABS: ALKALINE PHOSPHATASE 172 U/L (45-117); BUN 11 mg/dl (7-24); CHLORIDE 113 mmol/L (98-107); CREATININE 0.77 mg/dL (0.55-1.02); POTASSIUM 3.9 mmol/L (3.5-5.1); SGOT/AST 33 IU/L (3-35); SGPT/ALT 22 U/L (12-78); SODIUM 142 mmol/L (136-145); TOTAL PROTEIN 6.4 gm/dL (6.4-8.2)
[2019-01-19 21:34] LABS: TROPONIN I < 0.015 ng/ml (<0.045)
[2019-01-19 21:52] VITALS: BP 109/40
--- NOTE | 2019-01-19 21:53 | NUR ---
UPDATED AND PAIN REMAINS TOLERABLE. AWAITING REMAINDER OF RESULTS. WILL MONITOR.
[2019-01-19 21:54] LABS: ACT PARTIAL THROMBO TIME 27.7 SECONDS (20.0-32.1); INTERNATIONAL NORM RATIO 1.2 (2.0-3.5)
--- NOTE | 2019-01-19 22:59 | NUR ---
AMBULATROY TO THE BATHROOM AND BACK WITH SUPERVISION. TOLERATED WELL. UPDATED AND DENIES ANY NEEDS AT THIS TIME. SIGNIFICANT OTHER REMAINS AT THE BEDSIDE.
[2019-01-20 00:49] VITALS: BP 103/42
--- NOTE | 2019-01-20 00:52 | NUR ---
PT BEING ADMITTED NOW. RESIDENT Jeanmarie. SEEING PT AT THIS TIME. NO C/O--LUCIUS CHINO RN
[2019-01-20 01:00] VITALS: BP 125/52
--- NOTE | 2019-01-20 01:00 | NUR ---
A 58, admitted to , under the services of DILLON Dillard DO with a diagnosis of chest pain in adult. Chief complaint is C/OINITIALLY CAME INTO ER LOBBY IN POSITION IN WHEELCHAIR CRYING OUT WITH C/O "CHARLEY HORSE CRAMPS" IN BOTH LEGS. THEN SHE HAD CHEST PAIN RATED "5" ACROSS HER CHEST.. Patient arrived via stretcher from ER. Monitor applied. Initial assessment completed. Vital signs taken and recorded. DILLON DILLARD DO notified of admission to the unit. Orders received. See assessment for past medical history, medications and allergies. Patient and/or family oriented to unit. [facility] visitation policy reviewed. Clothing/patient valuable form completed. BERNABE BAKER J
[2019-01-20] MEDS ORDERED: IRON325 M1 PO (01:38)
[2019-01-20] MEDS ORDERED: PANTOPRAZOLE SO40 MG PO (01:39)
[2019-01-20] MEDS ORDERED: METOPROLOL SUCC25 M2 PO (01:41)
[2019-01-20 06:49] LABS: BASO % 0.6 % (0.0-1.0); EOS # 0.1 10*3/uL (0.0-0.4); EOS % 3.7 % (1.0-4.0); HEMOGLOBIN 9.2 g/dl (12.0-16.0); LYMPH # 1.6 10*3/uL (1.3-4.4); LYMPH % 46.2 % (27.0-41.0); MEAN CELL VOLUME 80.4 fl (81.0-99.0); MEAN CORPUSCULAR HGB 24.7 pg (27.0-31.0); MEAN CORPUSCULAR HGB CONC 30.7 g/dl (33.0-37.0); MEAN PLATELET VOLUME 11.9 fl (9.6-12.3); MONO # 0.3 10*3/uL (0.1-1.0); NEUT # 1.4 10*3/uL (2.3-7.9); NEUT % 40.2 % (47.0-73.0); PLATELET COUNT AUTOMATED 165 10*3/uL (130-400); RED BLOOD COUNT 3.73 10*6/uL (4.10-5.10); RED CELL DISTRI WIDTH 17.3 % (0-14.5); WHITE BLOOD COUNT 3.6 10*3/uL (4.8-10.8)
[2019-01-20 07:15] LABS: ALBUMIN 2.6 gm/dl (3.1-4.5); ALKALINE PHOSPHATASE 143 U/L (45-117); BUN 9 mg/dl (7-24); CHLORIDE 114 mmol/L (98-107); PHOSPHOROUS 3.6 mg/dL (2.5-4.9); POTASSIUM 3.7 mmol/L (3.5-5.1); SGOT/AST 48 IU/L (3-35); SGPT/ALT 25 U/L (12-78); SODIUM 144 mmol/L (136-145); TOTAL PROTEIN 5.5 gm/dL (6.4-8.2)
[2019-01-20 07:24] LABS: THYROID STIM HORMONE (HS) 0.291 uIU/ml (0.358-4.75)
[2019-01-20 08:32] LABS: VITAMIN D, 25-HYDROXY 42.2 ng/mL (30-100)
--- NOTE | 2019-01-20 10:06 | NUR ---
Discharge instructions reviewed with patient/family. Patient receptive and verbalizes understanding. Follow-up care arranged. Written instructions given to patient/family. TRACY VAUGHN
== END 2019-01-20 10:06 | disposition home or self-care (01) | DRG 313 ==
LOC: ED 20:36 → EDHOLD 01-20 00:26 → 5E 01-20 00:26 → EDHOLD 01-20 00:27 → 5E 01-20 00:38
PROVIDERS: Emergency Medicine Emergency Medical Services; Internal Medicine; ADMIT Internal Medicine
DX: R07.89 Other chest pain (principal); E43 Unspecified severe protein-calorie malnutrition; R65.10 Systemic inflammatory response syndrome (SIRS) of non-infectious origin without acute organ dysfunction; F32.9 Major depressive disorder, single episode, unspecified; R79.89 Other specified abnormal findings of blood chemistry; D50.9 Iron deficiency anemia, unspecified; R74.8 Abnormal levels of other serum enzymes; E87.8 Other disorders of electrolyte and fluid balance, not elsewhere classified; E83.41 Hypermagnesemia; R00.0 Tachycardia, unspecified; M79.651 Pain in right thigh; M79.652 Pain in left thigh; R00.1 Bradycardia, unspecified; D72.819 Decreased white blood cell count, unspecified; R73.9 Hyperglycemia, unspecified; K21.9 Gastro-esophageal reflux disease without esophagitis; E03.9 Hypothyroidism, unspecified; K44.9 Diaphragmatic hernia without obstruction or gangrene; Z98.84 Bariatric surgery status; Z90.49 Acquired absence of other specified parts of digestive tract; Z90.710 Acquired absence of both cervix and uterus; Z98.51 Tubal ligation status; Z88.0 Allergy status to penicillin; Z88.8 Allergy status to other drugs, medicaments and biological substances; Z87.891 Personal history of nicotine dependence; Z82.49 Family history of ischemic heart disease and other diseases of the circulatory system; Z83.3 Family history of diabetes mellitus; Z82.3 Family history of stroke; Z68.30 Body mass index [BMI] 30.0-30.9, adult

== ENCOUNTER 2019-02-05 14:52 | Inpatient (IN) | payer OTHER, MEDICARE ==
[~2019-02-05] VITALS: Ht 160 cm; Wt 80.8 kg
[~2019-02-05 14:52] MED LIST changes: +IRON325 M1 PO; +METOPROLOL SUCC25 M2 PO
[2019-02-05 14:54] VITALS: BP 138/61
--- NOTE | 2019-02-05 15:41 | NUR ---
toradol and zofran given by Mayra RASHID
[2019-02-05 15:58] LABS: BASO % 0.6 % (0.0-1.0); EOS # 0.1 10*3/uL (0.0-0.4); EOS % 2.3 % (1.0-4.0); HEMATOCRIT 33.5 % (37.0-47.0); HEMOGLOBIN 10.2 g/dl (12.0-16.0); LYMPH # 2.1 10*3/uL (1.3-4.4); LYMPH % 42.7 % (27.0-41.0); MEAN CELL VOLUME 82.5 fl (81.0-99.0); MEAN CORPUSCULAR HGB 25.1 pg (27.0-31.0); MEAN CORPUSCULAR HGB CONC 30.4 g/dl (33.0-37.0); MEAN PLATELET VOLUME 10.9 fl (9.6-12.3); MONO # 0.6 10*3/uL (0.1-1.0); MONO % 11.8 % (3.0-9.0); NEUT % 42.4 % (47.0-73.0); PLATELET COUNT AUTOMATED 181 10*3/uL (130-400); RED BLOOD COUNT 4.06 10*6/uL (4.10-5.10); RED CELL DISTRI WIDTH 18.6 % (0-14.5); WHITE BLOOD COUNT 4.8 10*3/uL (4.8-10.8)
[2019-02-05 16:04] LABS: BILIRUBIN NEGATIVE (NEGATIVE); BLOOD NEGATIVE (NEGATIVE); CLARITY CLEAR (CLEAR); COLOR YELLOW (YELLOW); GLUCOSE NEGATIVE (NEGATIVE); KETONE TRACE (NEGATIVE); LEUKO ESTERASE NEGATIVE (NEGATIVE); NITRITE NEGATIVE (NEGATIVE)
[2019-02-05 16:10] LABS: ACT PARTIAL THROMBO TIME 27.9 SECONDS (20.0-32.1); INTERNATIONAL NORM RATIO 1.2 (2.0-3.5)
[2019-02-05 16:11] LABS: EPITHELIAL CELLS 0-2
[2019-02-05 16:14] LABS: ALKALINE PHOSPHATASE 143 U/L (45-117); BUN 11 mg/dl (7-24); CHLORIDE 113 mmol/L (98-107); CREATININE 0.79 mg/dL (0.55-1.02); LIPASE 104 U/L (73-393); POTASSIUM 3.5 mmol/L (3.5-5.1); SGOT/AST 37 IU/L (3-35); SGPT/ALT 24 U/L (12-78); SODIUM 142 mmol/L (136-145); TOTAL PROTEIN 6.4 gm/dL (6.4-8.2)
[2019-02-05 16:15] LABS: TROPONIN I < 0.015 ng/ml (<0.045)
--- NOTE | 2019-02-05 18:25 | NUR ---
DIVYAEINT STATES THAT SHE IS UNABLE TO TAKE ASPIRIN DUE TO GASTRIC BYPASS THAT SHE HAS HAD. Dina MILLER.
[2019-02-05 18:34] VITALS: BP 159/66
[2019-02-05 19:30] VITALS: BP 149/62
[2019-02-05] MEDS ORDERED: TYLENOL EXTRA500 MG PO (19:50)
--- NOTE | 2019-02-05 19:50 | NUR ---
MED REC COMPLETED WITH PATIENT ALERT AND ORIENTED TO PERSON PLACE AND TIME
[2019-02-05 20:00] VITALS: BP 149/62
[2019-02-05 22:30] VITALS: BP 140/71
[2019-02-06] VITALS: BP 120/55
[2019-02-06 06:45] VITALS: BP 147/55
--- NOTE | 2019-02-06 07:25 | NUR ---
IV PHENERGAN INFUSION INITIATED VIA SYRINGE INFUSION PUMP. WILL MONITOR EFFECTIVENESS. BEDSIDE SHIFT REPORT GIVEN TO AM SHIFT RN.
[2019-02-06 07:29] LABS: ALBUMIN 2.6 gm/dl (3.1-4.5); ALKALINE PHOSPHATASE 127 U/L (45-117); BUN 10 mg/dl (7-24); CHLORIDE 114 mmol/L (98-107); CHOLESTEROL 91 mg/dL (<200); CREATININE 0.81 mg/dL (0.55-1.02); HDL CHOLESTEROL 22 mg/dl (40-60); LDL CHOLESTEROL 59 mg/dL (9-159); PHOSPHOROUS 3.4 mg/dL (2.5-4.9); POTASSIUM 4.1 mmol/L (3.5-5.1); SGOT/AST 77 IU/L (3-35); SGPT/ALT 34 U/L (12-78); SODIUM 145 mmol/L (136-145); TOTAL PROTEIN 5.4 gm/dL (6.4-8.2); TRIGLYCERIDES 48 mg/dl (<150); VLDL CHOLESTEROL 10 mg/dL (6-40)
[2019-02-06 07:31] LABS: FREE T4 1.04 ng/dl (0.76-1.46)
--- NOTE | 2019-02-06 07:40 | NUR ---
NOTIFIED OF PATIENT C/O NAUSEA/VOMITING UNRELIEVED BY ZOFRAN. ALSO DISCUSSED PAIN MEDICATION GIVEN FOR R SIDED CHEST PAIN & PT'S C/O COUGH/SOB AFTER "COUGHING FIT." PT STATES SHE CANNOT HAVE ALBUTEROL THROUGH A NEBULIZER, BUT DOES TAKE AN INHALER AT HOME. NEW ORDERS RECEIVED FOR 12.5 MG IV PHENERGAN X1 DOSE NOW. ALSO INSTRUCTED TO ORDER HOME ALBUTEROL INHALER. PT'S INHALER TO BE SENT TO PHARMACY TO BE LABELED FOR USE.
[2019-02-06 07:50] LABS: BASO % 0.8 % (0.0-1.0); EOS # 0.1 10*3/uL (0.0-0.4); EOS % 4.3 % (1.0-4.0); HEMATOCRIT 30.9 % (37.0-47.0); HEMOGLOBIN 9.3 g/dl (12.0-16.0); LYMPH % 37.1 % (27.0-41.0); MEAN CELL VOLUME 83.5 fl (81.0-99.0); MEAN CORPUSCULAR HGB 25.1 pg (27.0-31.0); MEAN CORPUSCULAR HGB CONC 30.1 g/dl (33.0-37.0); MEAN PLATELET VOLUME 10.9 fl (9.6-12.3); MONO # 0.3 10*3/uL (0.1-1.0); MONO % 10.9 % (3.0-9.0); NEUT # 1.2 10*3/uL (2.3-7.9); NEUT % 46.9 % (47.0-73.0); RED CELL DISTRI WIDTH 18.7 % (0-14.5); WHITE BLOOD COUNT 2.6 10*3/uL (4.8-10.8)
[2019-02-06 08:00] VITALS: BP 122/40
[2019-02-06 08:14] LABS: PLATELET COUNT AUTOMATED 116 10*3/uL (130-400)
--- NOTE | 2019-02-06 08:46 | NUR ---
PT RESTING COMFORTABLY, DENIES ANY PAIN OR NAUSEA AT THIS TIME. EARLIER MEDICATIONS EFFECTIVE.
--- NOTE | 2019-02-06 09:00 | NUR ---
Night [address] Magistrate in to talk to patient. Patient states lives at home with . There are few steps in the home. Physician: mary Pharmacy: [facility] Home health services: none Patient's level of ADLs: INDEPENDENT Patient has working utilities: all working DME: none Follow-up physician's appointment after d/c: will be made by hospitalist nurse director upon discharge Does patient want to access PORTAL?: no Discharge plan discussed with patient, she states she lives at home with , is independent in adls and ambulation, she states she will return home when medically stable and denies any home needs, case management will follow. GILMA FRAIRE
--- NOTE | 2019-02-06 10:47 | NUR ---
SIMONE BHANDARI MADE AWARE OF NEW CONSULT.
[2019-02-06 12:00] VITALS: BP 120/48
--- NOTE | 2019-02-06 13:27 | NUR ---
MEDICATED WITH MORPHINE PER PRN ORDER FOR COMPLAINTS OF 6/10 RIGHT SIDED CHEST PAIN. WILL MONITOR FOR EFFECTIVENESS.
--- NOTE | 2019-02-06 13:28 | NUR ---
DR REYES IN TO SEE PT AT THIS TIME.
--- NOTE | 2019-02-06 14:50 | NUR ---
PT RESTING, EARLIER MORPHINE EFFECTIVE.
[2019-02-06 16:00] VITALS: BP 118/52
--- NOTE | 2019-02-06 18:31 | NUR ---
PATIENT C/O CHEST PAIN 10/19 MEDICATED WITH MORPHINE 2MG ORDERED IV.
--- NOTE | 2019-02-06 19:34 | NUR ---
ALBUTEROL INHALER RETURNED TO PT PER REQUEST FROM [facility]. PT EDUCATED NOT TO USE INHALER ON OWN. PT ENCOURAGED TO USE CALL LIGHT & CALL RN IF INHALER USE IS NEEDED. PT VERBALIZES UNDERSTANDING. PT AWAKE IN BED. DENIES ANY PAIN AT PRESENT TIME. NO NAUSEA/VOMITING EITHER. WILL CONTINUE TO MONITOR. CALL LIGHT LEFT IN REACH.
[2019-02-06 20:00] VITALS: BP 125/51
--- NOTE | 2019-02-06 23:04 | NUR ---
PT DENIES ANY NEEDS AT THIS TIME.
[2019-02-07] VITALS: BP 124/54
[2019-02-07 07:08] LABS: HEMATOCRIT 30.6 % (37.0-47.0); HEMOGLOBIN 9.3 g/dl (12.0-16.0); MEAN CELL VOLUME 82.9 fl (81.0-99.0); MEAN CORPUSCULAR HGB 25.2 pg (27.0-31.0); MEAN CORPUSCULAR HGB CONC 30.4 g/dl (33.0-37.0); MEAN PLATELET VOLUME 12.1 fl (9.6-12.3); PLATELET COUNT AUTOMATED 129 10*3/uL (130-400); RED BLOOD COUNT 3.69 10*6/uL (4.10-5.10); RED CELL DISTRI WIDTH 18.9 % (0-14.5); WHITE BLOOD COUNT 2.9 10*3/uL (4.8-10.8)
[2019-02-07 07:33] LABS: BUN 9 mg/dl (7-24); CHLORIDE 114 mmol/L (98-107); CREATININE 0.83 mg/dL (0.55-1.02); POTASSIUM 4.2 mmol/L (3.5-5.1); SODIUM 147 mmol/L (136-145)
[2019-02-07 08:00] VITALS: BP 132/56
[2019-02-07 08:54] LABS: ATYPICAL LYMPHS 1 % (0-0); BASOPHILS 1 % (0-1); TOTAL CELLS COUNTED 100 #CELLS
[2019-02-07 08:55] LABS: PLATELET SUFFICIENCY LOW (NORMAL)
--- NOTE | 2019-02-07 09:00 | NUR ---
Coil Winder Strap in to talk to patient. Patient states lives at home with alone. There are few steps in the home. Physician: noe wisdom [facility]: [facility] Home health services: none Patient's level of ADLs: INDEPENDENT Patient has working utilities: all working DME: none Follow-up physician's appointment after d/c: will be made by hospitalist nurse director upon discharge Does patient want to access PORTAL?: no Discharge plan discussed with patient, she lives at home alone, she states she is independent in adls and ambulation, drives, she states she will return home when medically stable and denies any home needs. GILMA FRAIRE
--- NOTE | 2019-02-07 10:45 | NUR ---
DISCHARGED TO HOME.
== END 2019-02-07 10:45 | disposition home or self-care (01) | DRG 391 ==
LOC: ED 14:52 → EDHOLD 18:23 → 4E 18:23
PROVIDERS: Family Medicine; Internal Medicine; Physician Assistant; ADMIT Internal Medicine
DX: K21.9 Gastro-esophageal reflux disease without esophagitis (principal); E43 Unspecified severe protein-calorie malnutrition; D61.818 Other pancytopenia; K31.84 Gastroparesis; F32.9 Major depressive disorder, single episode, unspecified; K22.70 Barrett's esophagus without dysplasia; D69.6 Thrombocytopenia, unspecified; K76.0 Fatty (change of) liver, not elsewhere classified; E66.9 Obesity, unspecified; F41.9 Anxiety disorder, unspecified; I10 Essential (primary) hypertension; E03.9 Hypothyroidism, unspecified; E89.0 Postprocedural hypothyroidism; E87.8 Other disorders of electrolyte and fluid balance, not elsewhere classified; E78.5 Hyperlipidemia, unspecified; Z88.0 Allergy status to penicillin; Z88.8 Allergy status to other drugs, medicaments and biological substances; Z79.899 Other long term (current) drug therapy; Z98.84 Bariatric surgery status; Z90.49 Acquired absence of other specified parts of digestive tract; Z90.710 Acquired absence of both cervix and uterus; Z87.891 Personal history of nicotine dependence; Z82.49 Family history of ischemic heart disease and other diseases of the circulatory system; Z83.3 Family history of diabetes mellitus; Z82.3 Family history of stroke; Z98.51 Tubal ligation status; K44.9 Diaphragmatic hernia without obstruction or gangrene; Z86.19 Personal history of other infectious and parasitic diseases; Z68.31 Body mass index [BMI] 31.0-31.9, adult

== ENCOUNTER 2019-02-10 20:21 | Emergency (ER) | payer OTHER, MEDICARE ==
[~2019-02-10 20:21] MED LIST changes: +TYLENOL EXTRA500 MG PO
[2019-02-10 21:23] LABS: BASO % 0.7 % (0.0-1.0); EOS # 0.1 10*3/uL (0.0-0.4); EOS % 3.1 % (1.0-4.0); HEMATOCRIT 30.8 % (37.0-47.0); HEMOGLOBIN 9.3 g/dl (12.0-16.0); LYMPH % 34.9 % (27.0-41.0); MEAN CELL VOLUME 81.7 fl (81.0-99.0); MEAN CORPUSCULAR HGB 24.7 pg (27.0-31.0); MEAN CORPUSCULAR HGB CONC 30.2 g/dl (33.0-37.0); MEAN PLATELET VOLUME 10.2 fl (9.6-12.3); MONO # 0.4 10*3/uL (0.1-1.0); MONO % 12.9 % (3.0-9.0); NEUT # 1.4 10*3/uL (2.3-7.9); NEUT % 48.4 % (47.0-73.0); PLATELET COUNT AUTOMATED 122 10*3/uL (130-400); RED BLOOD COUNT 3.77 10*6/uL (4.10-5.10); RED CELL DISTRI WIDTH 18.6 % (0-14.5)
[2019-02-10 21:38] LABS: ALKALINE PHOSPHATASE 137 U/L (45-117); BUN 9 mg/dl (7-24); CHLORIDE 113 mmol/L (98-107); CREATININE 0.81 mg/dL (0.55-1.02); POTASSIUM 3.8 mmol/L (3.5-5.1); SGOT/AST 37 IU/L (3-35); SGPT/ALT 24 U/L (12-78); SODIUM 143 mmol/L (136-145); TOTAL PROTEIN 6.1 gm/dL (6.4-8.2)
[2019-02-10 22:12] LABS: IRON 23 ug/dL (50-170); TOTAL IRON BINDING CAPACITY 330 ug/dl (250-450)
[2019-02-10] MEDS ORDERED: CYCLOBENZAPRINE10 MG PO (22:15)
== END 2019-02-10 22:09 | disposition home or self-care (01) ==
LOC: ED 20:21
PROVIDERS: Emergency Medicine
DX: R25.2 Cramp and spasm (principal); D61.818 Other pancytopenia; E78.5 Hyperlipidemia, unspecified; K21.9 Gastro-esophageal reflux disease without esophagitis; I25.2 Old myocardial infarction; E78.00 Pure hypercholesterolemia, unspecified; E66.9 Obesity, unspecified; Z88.0 Allergy status to penicillin; Z88.8 Allergy status to other drugs, medicaments and biological substances; Z79.899 Other long term (current) drug therapy; Z87.891 Personal history of nicotine dependence; Z68.30 Body mass index [BMI] 30.0-30.9, adult

== ENCOUNTER → 2019-02-15 | Outpatient (CLI) | payer OTHER, MEDICARE | END | disposition home or self-care (01) | LOC: RESCLI 00:38 | DX: D72.819 Decreased white blood cell count, unspecified (principal); D64.9 Anemia, unspecified; R22.2 Localized swelling, mass and lump, trunk; R07.89 Other chest pain; Z79.899 Other long term (current) drug therapy; Z88.0 Allergy status to penicillin; Z88.8 Allergy status to other drugs, medicaments and biological substances ==

== ENCOUNTER 2019-03-02 20:35 | Emergency (ER) | payer OTHER, MEDICARE ==
[~2019-03-02] VITALS: Ht 160 cm; Wt 76.7 kg
--- NOTE | ~2019-03-02 | EKG ---
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
[2019-03-02 21:37] LABS: BASO % 0.8 % (0.0-1.0); EOS # 0.2 10*3/uL (0.0-0.4); EOS % 3.8 % (1.0-4.0); HEMATOCRIT 33.4 % (37.0-47.0); HEMOGLOBIN 10.1 g/dl (12.0-16.0); LYMPH # 1.5 10*3/uL (1.3-4.4); LYMPH % 37.5 % (27.0-41.0); MEAN CELL VOLUME 82.3 fl (81.0-99.0); MEAN CORPUSCULAR HGB 24.9 pg (27.0-31.0); MEAN CORPUSCULAR HGB CONC 30.2 g/dl (33.0-37.0); MEAN PLATELET VOLUME 11.1 fl (9.6-12.3); MONO # 0.4 10*3/uL (0.1-1.0); MONO % 9.4 % (3.0-9.0); NEUT # 1.9 10*3/uL (2.3-7.9); NEUT % 48.2 % (47.0-73.0); PLATELET COUNT AUTOMATED 154 10*3/uL (130-400); RED BLOOD COUNT 4.06 10*6/uL (4.10-5.10); RED CELL DISTRI WIDTH 18.6 % (0-14.5)
[2019-03-02 21:46] LABS: INTERNATIONAL NORM RATIO 1.2 (2.0-3.5)
[2019-03-02 21:56] LABS: ALKALINE PHOSPHATASE 139 U/L (45-117); BUN 8 mg/dl (7-24); CHLORIDE 116 mmol/L (98-107); LIPASE 55 U/L (73-393); POTASSIUM 3.7 mmol/L (3.5-5.1); SGOT/AST 38 IU/L (3-35); SGPT/ALT 25 U/L (12-78); SODIUM 143 mmol/L (136-145); TOTAL PROTEIN 6.3 gm/dL (6.4-8.2); TROPONIN I < 0.015 ng/ml (<0.045)
[2019-03-02 22:14] LABS: BILIRUBIN NEGATIVE (NEGATIVE); BLOOD NEGATIVE (NEGATIVE); CLARITY CLEAR (CLEAR); COLOR YELLOW (YELLOW); GLUCOSE NEGATIVE (NEGATIVE); KETONE NEGATIVE (NEGATIVE); LEUKO ESTERASE NEGATIVE (NEGATIVE); NITRITE NEGATIVE (NEGATIVE); SPECIFIC GRAVITY <= 1.005 (1.005-1.030); UROBILINOGEN 0.2 E.U./dl (0.2-1.0)
[2019-03-02 22:22] LABS: BACTERIA TRACE; EPITHELIAL CELLS 0-2; RBC 0-2 rbc/hpf (0-2); WBC 0-2 wbc/hpf (0-5)
== END 2019-03-02 23:54 | disposition home or self-care (01) ==
LOC: ED 20:35
PROVIDERS: Emergency Medicine
DX: R53.83 Other fatigue (principal); R53.1 Weakness; R07.9 Chest pain, unspecified; I25.2 Old myocardial infarction; E78.00 Pure hypercholesterolemia, unspecified; K21.9 Gastro-esophageal reflux disease without esophagitis; E03.9 Hypothyroidism, unspecified; E66.9 Obesity, unspecified; Z88.0 Allergy status to penicillin; Z88.8 Allergy status to other drugs, medicaments and biological substances; Z79.899 Other long term (current) drug therapy; Z68.30 Body mass index [BMI] 30.0-30.9, adult; Z90.710 Acquired absence of both cervix and uterus; Z90.49 Acquired absence of other specified parts of digestive tract; Z87.891 Personal history of nicotine dependence

== ENCOUNTER 2019-04-08 14:42 | Emergency (ER) | payer OTHER, MEDICARE ==
[~2019-04-08] VITALS: Ht 160 cm; Wt 75.7 kg
[2019-04-08] MEDS ORDERED: LEVOTHYROXINE112 MCG PO (15:01)
[2019-04-08 15:56] LABS: BASO % 0.7 % (0.0-1.0); EOS # 0.2 10*3/uL (0.0-0.4); EOS % 3.6 % (1.0-4.0); HEMOGLOBIN 9.8 g/dl (12.0-16.0); LYMPH % 45.7 % (27.0-41.0); MEAN CELL VOLUME 82.5 fl (81.0-99.0); MEAN CORPUSCULAR HGB 24.5 pg (27.0-31.0); MEAN CORPUSCULAR HGB CONC 29.7 g/dl (33.0-37.0); MEAN PLATELET VOLUME 11.5 fl (9.6-12.3); MONO # 0.4 10*3/uL (0.1-1.0); MONO % 9.3 % (3.0-9.0); NEUT # 1.8 10*3/uL (2.3-7.9); NEUT % 40.7 % (47.0-73.0); PLATELET COUNT AUTOMATED 163 10*3/uL (130-400); RED CELL DISTRI WIDTH 17.5 % (0-14.5); WHITE BLOOD COUNT 4.4 10*3/uL (4.8-10.8)
[2019-04-08 16:14] LABS: ALBUMIN 3.2 gm/dl (3.1-4.5); ALKALINE PHOSPHATASE 127 U/L (45-117); BUN 14 mg/dl (7-24); CHLORIDE 114 mmol/L (98-107); CREATININE 0.84 mg/dL (0.55-1.02); POTASSIUM 3.7 mmol/L (3.5-5.1); SGOT/AST 27 IU/L (3-35); SGPT/ALT 25 U/L (12-78); SODIUM 144 mmol/L (136-145); TOTAL PROTEIN 6.7 gm/dL (6.4-8.2)
== END 2019-04-08 18:15 | disposition home or self-care (01) ==
LOC: ED 14:42
PROVIDERS: Physician Assistant
DX: R51 Headache (principal); R11.0 Nausea; R53.1 Weakness; K21.9 Gastro-esophageal reflux disease without esophagitis; I25.2 Old myocardial infarction; E78.00 Pure hypercholesterolemia, unspecified; Z88.0 Allergy status to penicillin; Z88.8 Allergy status to other drugs, medicaments and biological substances; Z79.899 Other long term (current) drug therapy; Z90.49 Acquired absence of other specified parts of digestive tract; Z90.710 Acquired absence of both cervix and uterus; Z87.891 Personal history of nicotine dependence

== ENCOUNTER 2019-05-12 19:05 | Emergency (ER) | payer OTHER, MEDICARE ==
[~2019-05-12] VITALS: Ht 160 cm; Wt 77.1 kg
[~2019-05-12 19:05] MED LIST changes: +LEVOTHYROXINE112 MCG PO
[2019-05-12 20:56] LABS: BASO % 0.5 % (0.0-1.0); EOS # 0.1 10*3/uL (0.0-0.4); EOS % 3.4 % (1.0-4.0); HEMATOCRIT 30.7 % (37.0-47.0); HEMOGLOBIN 9.2 g/dl (12.0-16.0); LYMPH # 1.7 10*3/uL (1.3-4.4); LYMPH % 41.9 % (27.0-41.0); MEAN CELL VOLUME 79.3 fl (81.0-99.0); MEAN CORPUSCULAR HGB 23.8 pg (27.0-31.0); MEAN PLATELET VOLUME 11.7 fl (9.6-12.3); MONO # 0.4 10*3/uL (0.1-1.0); MONO % 10.8 % (3.0-9.0); NEUT # 1.8 10*3/uL (2.3-7.9); NEUT % 43.4 % (47.0-73.0); PLATELET COUNT AUTOMATED 174 10*3/uL (130-400); RED BLOOD COUNT 3.87 10*6/uL (4.10-5.10); RED CELL DISTRI WIDTH 16.5 % (0-14.5); WHITE BLOOD COUNT 4.1 10*3/uL (4.8-10.8)
[2019-05-12 21:10] LABS: ACT PARTIAL THROMBO TIME 27.2 SECONDS (20.0-32.1); INTERNATIONAL NORM RATIO 1.2 (2.0-3.5)
[2019-05-12 21:13] LABS: ALBUMIN 3.3 gm/dl (3.1-4.5); ALKALINE PHOSPHATASE 128 U/L (45-117); BUN 11 mg/dl (7-24); CHLORIDE 113 mmol/L (98-107); CREATININE 0.81 mg/dL (0.55-1.02); LIPASE 128 U/L (73-393); POTASSIUM 3.5 mmol/L (3.5-5.1); SGOT/AST 24 IU/L (3-35); SGPT/ALT 24 U/L (12-78); SODIUM 141 mmol/L (136-145); TOTAL PROTEIN 6.7 gm/dL (6.4-8.2)
[2019-05-12 21:14] LABS: TROPONIN I < 0.015 ng/ml (<0.045)
[2019-05-13] MEDS ORDERED: PREDNISONE20 M1 PO (16:46)
== END 2019-05-12 23:45 | disposition home or self-care (01) ==
LOC: ED 19:05
PROVIDERS: Physician Assistant
DX: R07.89 Other chest pain (principal); R22.2 Localized swelling, mass and lump, trunk; K21.9 Gastro-esophageal reflux disease without esophagitis; I25.2 Old myocardial infarction; E78.00 Pure hypercholesterolemia, unspecified; F17.200 Nicotine dependence, unspecified, uncomplicated; Z88.0 Allergy status to penicillin; Z88.6 Allergy status to analgesic agent; Z88.8 Allergy status to other drugs, medicaments and biological substances; Z79.899 Other long term (current) drug therapy

== ENCOUNTER 2019-06-01 15:19 | Emergency (ER) | payer OTHER, MEDICARE ==
[~2019-06-01] VITALS: Ht 160 cm; Wt 75.8 kg
[2019-06-01 16:12] LABS: BASO % 0.8 % (0.0-1.0); EOS # 0.1 10*3/uL (0.0-0.4); EOS % 3.8 % (1.0-4.0); HEMOGLOBIN 9.1 g/dl (12.0-16.0); LYMPH # 1.3 10*3/uL (1.3-4.4); MEAN CELL VOLUME 79.9 fl (81.0-99.0); MEAN CORPUSCULAR HGB 23.5 pg (27.0-31.0); MEAN CORPUSCULAR HGB CONC 29.4 g/dl (33.0-37.0); MEAN PLATELET VOLUME 10.7 fl (9.6-12.3); MONO # 0.4 10*3/uL (0.1-1.0); MONO % 10.9 % (3.0-9.0); NEUT # 1.8 10*3/uL (2.3-7.9); NEUT % 48.2 % (47.0-73.0); PLATELET COUNT AUTOMATED 156 10*3/uL (130-400); RED BLOOD COUNT 3.88 10*6/uL (4.10-5.10); RED CELL DISTRI WIDTH 17.2 % (0-14.5); WHITE BLOOD COUNT 3.7 10*3/uL (4.8-10.8)
[2019-06-01 16:22] LABS: ACT PARTIAL THROMBO TIME 26.2 SECONDS (20.0-32.1); INTERNATIONAL NORM RATIO 1.1 (2.0-3.5)
[2019-06-01 16:28] LABS: ALBUMIN 3.2 gm/dl (3.1-4.5); ALKALINE PHOSPHATASE 139 U/L (45-117); BUN 16 mg/dl (7-24); CHLORIDE 115 mmol/L (98-107); CREATININE 0.82 mg/dL (0.55-1.02); POTASSIUM 3.6 mmol/L (3.5-5.1); SGOT/AST 27 IU/L (3-35); SGPT/ALT 28 U/L (12-78); SODIUM 146 mmol/L (136-145); TOTAL PROTEIN 6.5 gm/dL (6.4-8.2); TROPONIN I < 0.015 ng/ml (<0.045)
== END 2019-06-01 19:23 | disposition home or self-care (01) ==
LOC: ED 15:19
PROVIDERS: Emergency Medicine
DX: K21.9 Gastro-esophageal reflux disease without esophagitis (principal); R10.13 Epigastric pain; R07.89 Other chest pain; M25.511 Pain in right shoulder; E03.9 Hypothyroidism, unspecified; E66.9 Obesity, unspecified; Z79.899 Other long term (current) drug therapy; Z88.0 Allergy status to penicillin; Z88.6 Allergy status to analgesic agent; Z88.8 Allergy status to other drugs, medicaments and biological substances; Z98.84 Bariatric surgery status; Z87.891 Personal history of nicotine dependence; Z68.34 Body mass index [BMI] 34.0-34.9, adult

== ENCOUNTER → 2019-06-01 | Outpatient (CLI) | payer OTHER, MEDICARE ==
[~2019-06-01] MED LIST changes: +PREDNISONE20 M1 PO
[2019-06-02 07:08] LABS: AFP TUMOR MARKER 002253 5.5 ng/mL (0.0-8.3); HEP B CORE AB TOTAL 006718 Negative (Negative); HEPATITIS B SURFACE AB 006395 Non Reactive (.); HEPATITIS B SURFACE AG Negative (Negative); HEPATITIS C AB <0.1 (0.0-0.9)
== END | disposition home or self-care (01) ==
LOC: LAB 15:41
PROVIDERS: Internal Medicine Gastroenterology
DX: Z11.59 Encounter for screening for other viral diseases (principal); K74.60 Unspecified cirrhosis of liver; K21.9 Gastro-esophageal reflux disease without esophagitis; K76.0 Fatty (change of) liver, not elsewhere classified; R13.10 Dysphagia, unspecified

== ENCOUNTER 2019-06-16 11:42 | Emergency (ER) | payer OTHER, MEDICARE ==
[~2019-06-16] VITALS: Ht 160 cm; Wt 79.8 kg
[2019-06-16 12:17] LABS: BASO % 0.6 % (0.0-1.0); EOS # 0.1 10*3/uL (0.0-0.4); EOS % 1.5 % (1.0-4.0); HEMATOCRIT 31.2 % (37.0-47.0); LYMPH # 0.8 10*3/uL (1.3-4.4); LYMPH % 22.7 % (27.0-41.0); MEAN CORPUSCULAR HGB 23.1 pg (27.0-31.0); MEAN CORPUSCULAR HGB CONC 28.8 g/dl (33.0-37.0); MEAN PLATELET VOLUME 10.4 fl (9.6-12.3); MONO # 0.3 10*3/uL (0.1-1.0); MONO % 9.4 % (3.0-9.0); NEUT # 2.2 10*3/uL (2.3-7.9); NEUT % 65.5 % (47.0-73.0); PLATELET COUNT AUTOMATED 178 10*3/uL (130-400); RED CELL DISTRI WIDTH 17.8 % (0-14.5); WHITE BLOOD COUNT 3.3 10*3/uL (4.8-10.8)
[2019-06-16 12:27] LABS: ACT PARTIAL THROMBO TIME 26.8 SECONDS (20.0-32.1); INTERNATIONAL NORM RATIO 1.2 (2.0-3.5)
[2019-06-16 12:35] LABS: ALBUMIN 3.1 gm/dl (3.1-4.5); ALKALINE PHOSPHATASE 142 U/L (45-117); BUN 12 mg/dl (7-24); CHLORIDE 113 mmol/L (98-107); CREATININE 0.78 mg/dL (0.55-1.02); POTASSIUM 3.6 mmol/L (3.5-5.1); SGOT/AST 30 IU/L (3-35); SGPT/ALT 25 U/L (12-78); SODIUM 143 mmol/L (136-145); TOTAL PROTEIN 6.3 gm/dL (6.4-8.2)
[2019-06-16 12:36] LABS: TROPONIN I < 0.015 ng/ml (<0.045)
[2019-06-16] MEDS ORDERED: CARAFATE1 GM/10 ML PO (15:27)
[2019-06-16] MEDS ORDERED: KEPPRA500 MG PO (15:28)
== END 2019-06-16 15:36 | disposition home or self-care (01) ==
LOC: ED 11:42
PROVIDERS: Emergency Medicine
DX: K29.70 Gastritis, unspecified, without bleeding (principal); R07.9 Chest pain, unspecified; R06.02 Shortness of breath; K21.9 Gastro-esophageal reflux disease without esophagitis; E78.5 Hyperlipidemia, unspecified; F17.200 Nicotine dependence, unspecified, uncomplicated; Z88.0 Allergy status to penicillin; Z88.8 Allergy status to other drugs, medicaments and biological substances; Z88.6 Allergy status to analgesic agent; Z79.899 Other long term (current) drug therapy

== ENCOUNTER 2019-07-25 14:15 | Emergency (ER) | payer BC, MEDICARE ==
[~2019-07-25] VITALS: Ht 160 cm; Wt 80.5 kg
[~2019-07-25 14:15] MED LIST changes: +CARAFATE1 GM/10 ML PO; +KEPPRA500 MG PO
[2019-07-25 14:44] LABS: BASO % 0.4 % (0.0-1.0); EOS # 0.1 10*3/uL (0.0-0.4); EOS % 2.9 % (1.0-4.0); HEMATOCRIT 39.3 % (37.0-47.0); LYMPH # 1.6 10*3/uL (1.3-4.4); MEAN CELL VOLUME 84.7 fl (81.0-99.0); MEAN CORPUSCULAR HGB 26.1 pg (27.0-31.0); MEAN CORPUSCULAR HGB CONC 30.8 g/dl (33.0-37.0); MONO # 0.5 10*3/uL (0.1-1.0); MONO % 11.9 % (3.0-9.0); NEUT # 2.2 10*3/uL (2.3-7.9); NEUT % 48.6 % (47.0-73.0); PLATELET COUNT AUTOMATED 119 10*3/uL (130-400); RED BLOOD COUNT 4.64 10*6/uL (4.10-5.10); RED CELL DISTRI WIDTH 23.9 % (0-14.5); WHITE BLOOD COUNT 4.5 10*3/uL (4.8-10.8)
[2019-07-25 14:52] LABS: ACT PARTIAL THROMBO TIME 28.5 SECONDS (20.0-32.1); INTERNATIONAL NORM RATIO 1.1 (2.0-3.5)
[2019-07-25 14:59] LABS: ALBUMIN 3.2 gm/dl (3.1-4.5); ALKALINE PHOSPHATASE 150 U/L (45-117); BUN 9 mg/dl (7-24); CHLORIDE 113 mmol/L (98-107); POTASSIUM 4.2 mmol/L (3.5-5.1); SGOT/AST 34 IU/L (3-35); SGPT/ALT 29 U/L (12-78); SODIUM 142 mmol/L (136-145); TOTAL PROTEIN 6.6 gm/dL (6.4-8.2)
[2019-07-25 15:01] LABS: TROPONIN I < 0.015 ng/ml (<0.045)
== END 2019-07-25 18:17 | disposition home or self-care (01) ==
LOC: ED 14:15
PROVIDERS: Emergency Medicine
DX: K21.9 Gastro-esophageal reflux disease without esophagitis (principal); I25.2 Old myocardial infarction; E78.00 Pure hypercholesterolemia, unspecified; F41.9 Anxiety disorder, unspecified; Z88.0 Allergy status to penicillin; Z88.8 Allergy status to other drugs, medicaments and biological substances; Z79.899 Other long term (current) drug therapy; Z90.49 Acquired absence of other specified parts of digestive tract

== ENCOUNTER 2019-10-20 15:17 | Inpatient (IN) | payer BC, MEDICARE ==
[~2019-10-20] VITALS: Ht 162.5 cm; Wt 74.8 kg
[2019-10-20 15:25] VITALS: BP 163/67
[2019-10-20 15:40] LABS: BASO % 0.9 % (0.0-1.0); EOS # 0.2 10*3/uL (0.0-0.4); EOS % 4.7 % (1.0-4.0); HEMATOCRIT 37.7 % (37.0-47.0); LYMPH # 1.4 10*3/uL (1.3-4.4); LYMPH % 39.8 % (27.0-41.0); MEAN CELL VOLUME 88.3 fl (81.0-99.0); MEAN CORPUSCULAR HGB 29.3 pg (27.0-31.0); MEAN CORPUSCULAR HGB CONC 33.2 g/dl (33.0-37.0); MEAN PLATELET VOLUME 11.1 fl (9.6-12.3); MONO # 0.4 10*3/uL (0.1-1.0); MONO % 10.2 % (3.0-9.0); NEUT # 1.5 10*3/uL (2.3-7.9); NEUT % 44.4 % (47.0-73.0); PLATELET COUNT AUTOMATED 143 10*3/uL (130-400); RED BLOOD COUNT 4.27 10*6/uL (4.10-5.10); RED CELL DISTRI WIDTH 15.9 % (0-14.5); WHITE BLOOD COUNT 3.4 10*3/uL (4.8-10.8)
[2019-10-20 15:48] VITALS: BP 148/60
[2019-10-20 15:50] LABS: ACT PARTIAL THROMBO TIME 29.7 SECONDS (20.0-32.1); INTERNATIONAL NORM RATIO 1.2 (2.0-3.5)
[2019-10-20 15:56] LABS: ALBUMIN 3.1 gm/dl (3.1-4.5); ALKALINE PHOSPHATASE 156 U/L (45-117); BUN 9 mg/dl (7-24); CHLORIDE 113 mmol/L (98-107); CREATININE 0.93 mg/dL (0.55-1.02); POTASSIUM 3.5 mmol/L (3.5-5.1); SGOT/AST 33 IU/L (3-35); SGPT/ALT 30 U/L (12-78); SODIUM 143 mmol/L (136-145); TOTAL PROTEIN 6.4 gm/dL (6.4-8.2)
[2019-10-20 15:57] LABS: TROPONIN I < 0.015 ng/ml (<0.045)
[2019-10-20 16:31] VITALS: BP 136/64
[2019-10-20 17:41] VITALS: BP 116/68
[2019-10-20 17:50] VITALS: BP 148/46
--- NOTE | 2019-10-20 17:50 | NUR ---
A 59, admitted to 5E, under the services of CONNER Whittington DO with a diagnosis of CHEST PAIN. Chief complaint is CHEST PAIN. Patient arrived via stretcher from ER. Monitor applied. Initial assessment completed. Vital signs taken and recorded. CONNER WHITTINGTON DO notified of admission to the unit. Orders received. See assessment for past medical history, medications and allergies. Patient and/or family oriented to unit. [facility] visitation policy reviewed. Clothing/patient valuable form completed. TAO BEAVERS
[2019-10-20] MEDS ORDERED: HEARTBURN RELIE20 MG PO (18:01)
[2019-10-20] MEDS ORDERED: CARTIA XT120 MG PO (18:28)
--- NOTE | 2019-10-20 18:30 | NUR ---
DR. BRANTLEY'S ANSWERING SERVICE NOTIFIED OF CONSULT.
[2019-10-20 20:00] VITALS: BP 147/61
--- NOTE | 2019-10-20 20:21 | NUR ---
MEDICATED WITH IV MORPHINE ORDERED PER PT REQUEST FOR C/O EPIGASTRIC PAIN RATED 6/10 THAT WRAPS TO RIGHT FLANK.
--- NOTE | 2019-10-20 21:30 | NUR ---
MEDICATION EFFECTIVE FOR PAIN PT IS RESTING SOUNDLY W/ NO DISTRESS NOTED.
[2019-10-21] VITALS: BP 131/56
--- NOTE | 2019-10-21 02:41 | NUR ---
MEDICATED WITH IV MORPHINE ORDERED PER PT REQUEST FOR C/O PAIN TO EPIGASTRIC AREA RATED 4/10.
--- NOTE | 2019-10-21 03:23 | NUR ---
ENTIRE/24 HR chart check completed.
--- NOTE | 2019-10-21 03:50 | NUR ---
MEDICATION EFFECTIVE FOR PAIN.
[2019-10-21 06:33] LABS: BASO % 0.6 % (0.0-1.0); EOS # 0.2 10*3/uL (0.0-0.4); EOS % 5.2 % (1.0-4.0); HEMATOCRIT 36.4 % (37.0-47.0); LYMPH # 1.2 10*3/uL (1.3-4.4); MEAN CELL VOLUME 88.3 fl (81.0-99.0); MEAN CORPUSCULAR HGB 28.6 pg (27.0-31.0); MEAN CORPUSCULAR HGB CONC 32.4 g/dl (33.0-37.0); MEAN PLATELET VOLUME 11.3 fl (9.6-12.3); MONO # 0.3 10*3/uL (0.1-1.0); NEUT # 1.7 10*3/uL (2.3-7.9); NEUT % 49.2 % (47.0-73.0); PLATELET COUNT AUTOMATED 124 10*3/uL (130-400); RED BLOOD COUNT 4.12 10*6/uL (4.10-5.10); RED CELL DISTRI WIDTH 15.6 % (0-14.5); WHITE BLOOD COUNT 3.4 10*3/uL (4.8-10.8)
[2019-10-21 06:52] LABS: ALBUMIN 2.8 gm/dl (3.1-4.5); ALKALINE PHOSPHATASE 166 U/L (45-117); BUN 9 mg/dl (7-24); CHLORIDE 112 mmol/L (98-107); CHOLESTEROL 106 mg/dL (<200); CREATININE 0.79 mg/dL (0.55-1.02); HDL CHOLESTEROL 33 mg/dl (40-60); LDL CHOLESTEROL 64 mg/dL (9-159); POTASSIUM 3.8 mmol/L (3.5-5.1); SGOT/AST 80 IU/L (3-35); SGPT/ALT 43 U/L (12-78); SODIUM 143 mmol/L (136-145); TOTAL PROTEIN 5.8 gm/dL (6.4-8.2); TRIGLYCERIDES 45 mg/dl (<150); VLDL CHOLESTEROL 9 mg/dL (6-40)
--- NOTE | 2019-10-21 08:00 | NUR ---
IN TO ROOM. PATIENT AWAKE, ALERT AND ORIENTED. PT C/O OF SOME CHEST PAIN. WHEN ASKED TO SHOW ME WHERE THE PAIN IS LOCATED, PT INDICATES THE EPIGASTRIC REGION. RESPIRATIONS ARE EASY AND REGULAR ON ROOM AIR. NO SOB NOTED. PT REPOSITIONS SELF AND IS ENCOURAGED TO DO SO. BED IN LOWEST LOCKED POSITION AND CALL LIGHT WITHIN REACH. WILL CONTINUE TO MONITOR.
--- NOTE | 2019-10-21 08:48 | NUR ---
PT COMPLAINS OF CHEST PAIN RATED AT AN 8. PRN MORPHINE ADMINISTERED AT THIS TIME. WILL MONITOR FOR EFFECTIVENESS.
--- NOTE | 2019-10-21 09:47 | NUR ---
Patient Centered Care Specialist in to talk to patient. Patient states lives at home with and son. There are no steps in the home. Physician: meron jones [facility] [place] health services: none Patient's level of ADLs: INDEPENDENT Patient has working utilities: all working DME: none Follow-up physician's appointment after d/c: will be made by hospitalist nurse director upon discharge Does patient want to access PORTAL?: no Discharge plan discussed with patient, she states she lives at home with her and son, she is independent in adls and ambulation drives she states she will return home when medically stable and denies any home needs, case management will follow. GILMA FRAIRE
--- NOTE | 2019-10-21 09:48 | NUR ---
PT RATES PAIN AT THIS TIME A 4. PRN MORPHINE CONSIDERED EFFECTIVE.
[2019-10-21 12:00] VITALS: BP 140/57
--- NOTE | 2019-10-21 13:44 | NUR ---
PT CALLED THIS NURSE INTO ROOM, SHE STATES HER BLOOD SUGAR FEELS LIKE IT'S DROPPING. PT CURRENTLY NPO FOR CTA. BSG CHECKED WITH RESULT OF 52. DR MARY NOTIFIED ORDERS RECEIVED.
[2019-10-21 16:00] VITALS: BP 133/62
--- NOTE | 2019-10-21 19:29 | NUR ---
24 HR chart check completed.
[2019-10-21 20:00] VITALS: BP 122/49
--- NOTE | 2019-10-21 20:00 | NUR ---
Patient resting quietly with no c/o discomfort. Respirations easy and regular. Vital signs stable. No overt distress. HA GOODE
--- NOTE | 2019-10-21 22:17 | NUR ---
MEDICATED WITH IV MORPHINE ORDERED PER PT REQUEST FOR COMPLAINTS OF EPIGASTRIC PAIN RATED AT 8/10.
--- NOTE | 2019-10-21 23:09 | NUR ---
MEDICATION EFFECTIVE FOR PAIN.
[2019-10-22] VITALS: BP 116/54
--- NOTE | 2019-10-22 04:20 | NUR ---
Patient resting quietly with no c/o discomfort. Respirations easy and regular. Vital signs stable. No overt distress. HA GOODE
[2019-10-22 08:00] VITALS: BP 128/50
--- NOTE | 2019-10-22 08:40 | NUR ---
PT RESTING IN BED/ SEE SHIFT ASSESSMENT. WILL MONITOR
--- NOTE | 2019-10-22 09:10 | NUR ---
PT REQUESTED AND GIVEN MORPHINE FOR C/O EPIGASTRIC PAIN . PT RATES PAIN 5/10 WILL MONITOR
--- NOTE | 2019-10-22 10:00 | NUR ---
PT STATES THAT MORPHINE HELPED WILL MONITOR
[2019-10-22 12:00] VITALS: BP 107/48
--- NOTE | 2019-10-22 14:58 | NUR ---
PT REQUESTED AND GIVEN MORPHINE FOR C/O EPIGASTRIC PAIN PT RATES PAIN 5/10 WILL MONITOR
--- NOTE | 2019-10-22 15:03 | NUR ---
PT REQUESTED AND GIVEN VENTOLIN INHALER FOR C/O COUGH, SOB WILL MONITOR
--- NOTE | 2019-10-22 15:45 | NUR ---
MORPHINE HELPED PER PT WILL MONITOR
[2019-10-22 16:00] VITALS: BP 121/66
--- NOTE | 2019-10-22 19:48 | NUR ---
PATIENT RESTING IN BED WITH NO NEEDS MADE. DENIES CHEST PAIN AT THIS TIME. BED IN LOWEST POSITION, CALL LIGHT IN REACH
[2019-10-22 20:00] VITALS: BP 111/50
--- NOTE | 2019-10-22 22:14 | NUR ---
MEDICATED WITH PRN MORPHINE FOR C/O CHEST PAIN D/T COUGHING. WILL MONITOR
--- NOTE | 2019-10-22 22:15 | NUR ---
VENTOLIN INHALER GIVEN AT THIS TIME PER ORDER FOR C/O COUGHING.
--- NOTE | 2019-10-22 22:23 | NUR ---
PATIENT VERBALIZED THAT INHALER WAS EFFECTIVE FOR COUGHING
--- NOTE | 2019-10-22 23:14 | NUR ---
MEDICATION EFFECTIVE PER PATIENT
[2019-10-23] VITALS: BP 121/55
--- NOTE | 2019-10-23 02:45 | NUR ---
24 HR chart check completed.
--- NOTE | 2019-10-23 07:49 | NUR ---
PT RESTING IN BED. NO DISTRESS NOTED. WILL MONITOR
[2019-10-23 08:00] VITALS: BP 124/60
--- NOTE | 2019-10-23 09:17 | NUR ---
OT NOTE Occupational therapy order received and chart reviewed. Patient out of room at testing this AM. Will follow up when available for an OT evaluation. Thank you. Cornelia Moore, OTR/L
--- NOTE | 2019-10-23 09:20 | NUR ---
PHYSICAL THERAPY Alexandro received chart reviewed pt unavailable at this time for for tests, ECHO and Stress test, will follow July Orr PT
--- NOTE | 2019-10-23 10:10 | NUR ---
INFORMED CONSENT SIGNED FOR LEXISCAN STRESS TEST WITH DR. REYES. RESTING EKG SINUS BRADYCARDIA, HR 43, BP 122/58. PULSE OX 97% AND LUNGS CLEAR BILATERALLY. COMPLETED ONE MINUTE OF LEXISCAN PROTOCOL RECEIVING LEXISCAN 0.4MG OVER 10 SEC[address] NO ARRHYTHMI[address] OR [address] CHANGES NOTED. PT C/O FEELING WARM AND SOB. LAST RECOVERY HR 64, BP 98/54. WAITING NUCLEAR SCANNING IN STABLE CONDITION.
[2019-10-23 12:00] VITALS: BP 132/74
--- NOTE | 2019-10-23 12:21 | NUR ---
PT REQUESTED AND GIVEN MORPHINE FOR C/O EPIGASTRIC PAIN PT RATES PAIN 5/10 WILL MONITOR
--- NOTE | 2019-10-23 13:00 | NUR ---
MORPHINE HELPED WILL MONITOR
--- NOTE | 2019-10-23 14:15 | NUR ---
OT NOTE Occupational therapy order received and OT screening completed this date on the fifth floor. Patient reported she is independent with ADLs, tranfers, functional mobility, and drives. She was feeling "much better" this afternoon. She lives at home with her son and family, 3-4 step entry with a HR, all one level, tub/shower. Patient reported "I stay active because I feel better." Patient demonstrated I ADLs, functional bed, chair, and toilet transfers, and functional mobility. No further OT indicated at this time. Patient notified of d/c from OT and was agreeable with no further questions/concerns. Thank you for the referral. Cornelia Moore, OTR/L
--- NOTE | 2019-10-23 14:42 | NUR ---
Physical Therapy evaluation completed on 5th floor with full evaluation to follow. No skilled PT intervention indicatated at this time, recomend discharge to home with family support and MD f/u per instructions. Thank you for this referral. July Orr PT
[2019-10-23 18:00] VITALS: BP 134/61
--- NOTE | 2019-10-23 18:39 | NUR ---
Discharge instructions reviewed with patient/family. Patient receptive and verbalizes understanding. Follow-up care arranged. Written instructions given to patient/family. ISIDRO HOPKINS
== END 2019-10-23 18:39 | disposition home or self-care (01) | DRG 381 ==
LOC: ED 15:17 → EDHOLD 17:08 → 5E 17:08
PROVIDERS: Emergency Medicine; Student in an Organized Health Care Education/Training Program; ADMIT Internal Medicine
PROC: 4A02XM4 Measurement of Cardiac Total Activity, External Approach (ICD-10-PCS; principal; 2019-10-23)
PROC: 3E073KZ Introduction of Other Diagnostic Substance into Coronary Artery, Percutaneous Approach (ICD-10-PCS; principal; 2019-10-23)
DX: K22.70 Barrett's esophagus without dysplasia (principal); E44.0 Moderate protein-calorie malnutrition; R17 Unspecified jaundice; E87.8 Other disorders of electrolyte and fluid balance, not elsewhere classified; R73.9 Hyperglycemia, unspecified; E78.5 Hyperlipidemia, unspecified; K21.9 Gastro-esophageal reflux disease without esophagitis; E66.3 Overweight; Z68.28 Body mass index [BMI] 28.0-28.9, adult; J43.9 Emphysema, unspecified; D69.6 Thrombocytopenia, unspecified; R74.0 Nonspecific elevation of levels of transaminase and lactic acid dehydrogenase [LDH]; I10 Essential (primary) hypertension; F32.9 Major depressive disorder, single episode, unspecified; E89.0 Postprocedural hypothyroidism; D72.819 Decreased white blood cell count, unspecified; Z90.49 Acquired absence of other specified parts of digestive tract; Z90.710 Acquired absence of both cervix and uterus; Z98.51 Tubal ligation status; Z98.84 Bariatric surgery status; Z87.891 Personal history of nicotine dependence; Z83.3 Family history of diabetes mellitus; Z82.49 Family history of ischemic heart disease and other diseases of the circulatory system; Z82.3 Family history of stroke; Z88.0 Allergy status to penicillin; Z88.6 Allergy status to analgesic agent; Z79.899 Other long term (current) drug therapy

== ENCOUNTER 2020-01-21 01:10 | Emergency (ER) | payer BC, MEDICARE ==
[~2020-01-21] VITALS: Ht 160 cm; Wt 74.8 kg
[~2020-01-21 01:10] MED LIST changes: +CARTIA XT120 MG PO; +HEARTBURN RELIE20 MG PO
== END 2020-01-21 04:03 | disposition home or self-care (01) ==
LOC: ED 01:10
DX: S00.83XA Contusion of other part of head, initial encounter (principal); Z88.0 Allergy status to penicillin; Z88.8 Allergy status to other drugs, medicaments and biological substances; Z79.899 Other long term (current) drug therapy; X58.XXXA Exposure to other specified factors, initial encounter; Y93.89 Activity, other specified; Y92.89 Other specified places as the place of occurrence of the external cause; Y99.8 Other external cause status

== ENCOUNTER 2020-02-08 15:42 | Emergency (ER) | payer BC, MEDICARE ==
[~2020-02-08] VITALS: Ht 160 cm; Wt 71.2 kg
[2020-02-08] MEDS ORDERED: METHOCARBAMOL500 M1 PO ×2 (16:28)
[2020-02-08] MEDS ORDERED: MEDROL DOSEPAK4 MG PO ×2 (16:28)
== END 2020-02-08 16:32 | disposition home or self-care (01) ==
LOC: ED 15:42
DX: M54.5 Low back pain (principal); G89.29 Other chronic pain; K21.9 Gastro-esophageal reflux disease without esophagitis; I25.2 Old myocardial infarction; E78.00 Pure hypercholesterolemia, unspecified; F41.9 Anxiety disorder, unspecified; Z88.0 Allergy status to penicillin; Z88.8 Allergy status to other drugs, medicaments and biological substances; Z79.899 Other long term (current) drug therapy

== ENCOUNTER 2020-02-09 22:43 | Emergency (ER) | payer BC, MEDICARE ==
[~2020-02-09] VITALS: Ht 160 cm; Wt 70.8 kg
[~2020-02-09 22:43] MED LIST changes: +METHOCARBAMOL500 M1 PO
[2020-02-10] MEDS ORDERED: PERCOCET 5-3251 EACH PO ×2 (00:28)
== END 2020-02-10 00:29 | disposition home or self-care (01) ==
LOC: ED 22:43
DX: M54.5 Low back pain (principal); K21.9 Gastro-esophageal reflux disease without esophagitis; I25.2 Old myocardial infarction; E78.00 Pure hypercholesterolemia, unspecified; Z88.0 Allergy status to penicillin; Z88.8 Allergy status to other drugs, medicaments and biological substances; Z79.899 Other long term (current) drug therapy

== ENCOUNTER 2020-02-25 11:07 | Emergency (ER) | payer BC, MEDICARE ==
[~2020-02-25] VITALS: Ht 160 cm; Wt 72.6 kg
[~2020-02-25 11:07] MED LIST changes: +PERCOCET 5-3251 EACH PO
[2020-02-25] MEDS ORDERED: NEURONTIN300 MG PO (11:42)
[2020-02-25] MEDS ORDERED: MEDROL DOSEPAK4 MG PO ×2 (11:42)
== END 2020-02-25 11:19 | disposition home or self-care (01) ==
LOC: ED 11:07
DX: M54.16 Radiculopathy, lumbar region (principal); Z88.0 Allergy status to penicillin; Z88.6 Allergy status to analgesic agent; Z88.8 Allergy status to other drugs, medicaments and biological substances; Z79.899 Other long term (current) drug therapy; Z87.891 Personal history of nicotine dependence

== ENCOUNTER 2020-02-26 02:41 | Emergency (ER) | payer BC, MEDICARE ==
[~2020-02-26] VITALS: Wt 72.6 kg
[~2020-02-26 02:41] MED LIST changes: +NEURONTIN300 MG PO
== END 2020-02-26 05:18 | disposition home or self-care (01) ==
LOC: ED 02:41
DX: S29.019A Strain of muscle and tendon of unspecified wall of thorax, initial encounter (principal); S39.012A Strain of muscle, fascia and tendon of lower back, initial encounter; K21.9 Gastro-esophageal reflux disease without esophagitis; E03.9 Hypothyroidism, unspecified; Z88.0 Allergy status to penicillin; Z88.6 Allergy status to analgesic agent; Z88.8 Allergy status to other drugs, medicaments and biological substances; Z79.899 Other long term (current) drug therapy; Z87.891 Personal history of nicotine dependence; W18.39XA Other fall on same level, initial encounter; Y93.89 Activity, other specified; Y92.89 Other specified places as the place of occurrence of the external cause; Y99.8 Other external cause status

== ENCOUNTER 2020-03-03 18:23 | Emergency (ER) | payer BC, MEDICARE ==
[~2020-03-03] VITALS: Ht 160 cm; Wt 70.8 kg
== END 2020-03-03 20:41 | disposition left against medical advice (07) ==
LOC: ED 18:23
DX: R11.2 Nausea with vomiting, unspecified (principal); R19.7 Diarrhea, unspecified; R06.02 Shortness of breath; Z53.21 Procedure and treatment not carried out due to patient leaving prior to being seen by health care provider

== ENCOUNTER 2020-03-11 15:41 | Emergency (ER) | payer BC, MEDICARE ==
[~2020-03-11] VITALS: Ht 160 cm; Wt 70.8 kg
[2020-03-11 16:57] LABS: BASO % 0.3 % (0.0-1.0); HEMATOCRIT 39.8 % (37.0-47.0); LYMPH # 0.6 10*3/uL (1.3-4.4); LYMPH % 18.9 % (27.0-41.0); MEAN CORPUSCULAR HGB 28.4 pg (27.0-31.0); MEAN CORPUSCULAR HGB CONC 31.9 g/dl (33.0-37.0); MEAN PLATELET VOLUME 11.2 fl (9.6-12.3); MONO # 0.1 10*3/uL (0.1-1.0); MONO % 4.8 % (3.0-9.0); NEUT # 2.2 10*3/uL (2.3-7.9); PLATELET COUNT AUTOMATED 141 10*3/uL (130-400); RED BLOOD COUNT 4.47 10*6/uL (4.10-5.10); RED CELL DISTRI WIDTH 15.3 % (0-14.5); WHITE BLOOD COUNT 2.9 10*3/uL (4.8-10.8)
[2020-03-11 16:59] LABS: BILIRUBIN Negative (Negative); BLOOD Trace-Lysed (Negative); CLARITY Clear (Clear); COLOR Yellow (Yellow); GLUCOSE Negative (Negative); KETONE Trace (Negative); LEUKO ESTERASE Trace (Negative); NITRITE Negative (Negative)
[2020-03-11 17:08] LABS: ACT PARTIAL THROMBO TIME 26.5 SECONDS (20.0-32.1); INTERNATIONAL NORM RATIO 1.1 (2.0-3.5)
[2020-03-11 17:11] LABS: CALCIUM OXALATE CRYSTALS 1+; WBC 0-2 wbc/hpf (0-5)
[2020-03-11 17:17] LABS: ALBUMIN 2.9 gm/dl (3.1-4.5); BUN 6 mg/dl (7-24); CHLORIDE 113 mmol/L (98-107); CREATININE 0.82 mg/dL (0.55-1.02); LIPASE 73 U/L (73-393); POTASSIUM 3.6 mmol/L (3.5-5.1); SGOT/AST 56 IU/L (3-35); SGPT/ALT 41 U/L (12-78); SODIUM 144 mmol/L (136-145)
[2020-03-11 17:19] LABS: ALKALINE PHOSPHATASE 135 U/L (45-117); TOTAL PROTEIN 6.2 gm/dL (6.4-8.2)
[2020-03-11 17:21] LABS: TROPONIN I < 0.015 ng/ml (<0.045)
[2020-03-11] MEDS ORDERED: CIPRO500 MG PO (19:07)
== END 2020-03-11 19:12 | disposition home or self-care (01) ==
LOC: ED 15:41
PROVIDERS: Emergency Medicine
DX: U07.1 COVID-19 (principal); R30.0 Dysuria; R35.0 Frequency of micturition; Z88.0 Allergy status to penicillin; Z88.8 Allergy status to other drugs, medicaments and biological substances; Z79.899 Other long term (current) drug therapy; Z98.84 Bariatric surgery status; Z90.49 Acquired absence of other specified parts of digestive tract; Z90.711 Acquired absence of uterus with remaining cervical stump; Z98.890 Other specified postprocedural states; Z98.51 Tubal ligation status; Z87.891 Personal history of nicotine dependence

== ENCOUNTER 2020-03-14 23:40 | Emergency (ER) | payer BC, MEDICARE ==
[~2020-03-14] VITALS: Ht 165.1 cm; Wt 68.0 kg
[2020-03-15 00:17] LABS: BASO % 0.3 % (0.0-1.0); EOS % 0.9 % (1.0-4.0); HEMATOCRIT 37.1 % (37.0-47.0); LYMPH # 1.3 10*3/uL (1.3-4.4); LYMPH % 39.8 % (27.0-41.0); MEAN CELL VOLUME 86.7 fl (81.0-99.0); MEAN CORPUSCULAR HGB CONC 32.3 g/dl (33.0-37.0); MEAN PLATELET VOLUME 10.7 fl (9.6-12.3); MONO # 0.3 10*3/uL (0.1-1.0); NEUT # 1.6 10*3/uL (2.3-7.9); NEUT % 49.7 % (47.0-73.0); PLATELET COUNT AUTOMATED 113 10*3/uL (130-400); RED BLOOD COUNT 4.28 10*6/uL (4.10-5.10); WHITE BLOOD COUNT 3.2 10*3/uL (4.8-10.8)
[2020-03-15 00:33] LABS: ALBUMIN 2.6 gm/dl (3.1-4.5); ALKALINE PHOSPHATASE 122 U/L (45-117); BUN 8 mg/dl (7-24); CHLORIDE 114 mmol/L (98-107); CREATININE 0.92 mg/dL (0.55-1.02); POTASSIUM 3.3 mmol/L (3.5-5.1); SGOT/AST 43 IU/L (3-35); SGPT/ALT 37 U/L (12-78); SODIUM 145 mmol/L (136-145); TOTAL PROTEIN 5.8 gm/dL (6.4-8.2)
[2020-03-15] MEDS ORDERED: ZITHROMAX250 MG PO (00:43)
[2020-03-15] MEDS ORDERED: DECADRON4 M2 PO (00:54)
== END 2020-03-15 01:50 | disposition home or self-care (01) ==
LOC: ED 23:40
PROVIDERS: Nurse Practitioner Family
DX: U07.1 COVID-19 (principal); Z88.0 Allergy status to penicillin; Z88.8 Allergy status to other drugs, medicaments and biological substances; Z79.899 Other long term (current) drug therapy

== ENCOUNTER 2020-03-18 10:31 | Emergency (ER) | payer BC, MEDICARE ==
[~2020-03-18] VITALS: Wt 70.3 kg
[~2020-03-18 10:31] MED LIST changes: +DECADRON4 M2 PO; +ZITHROMAX250 MG PO
[2020-03-18 10:57] LABS: BASO % 0.1 % (0.0-1.0); EOS % 0.1 % (1.0-4.0); HEMATOCRIT 38.2 % (37.0-47.0); LYMPH % 28.8 % (27.0-41.0); MEAN CELL VOLUME 88.4 fl (81.0-99.0); MEAN CORPUSCULAR HGB 28.7 pg (27.0-31.0); MEAN CORPUSCULAR HGB CONC 32.5 g/dl (33.0-37.0); MEAN PLATELET VOLUME 10.5 fl (9.6-12.3); MONO # 0.6 10*3/uL (0.1-1.0); MONO % 9.1 % (3.0-9.0); NEUT # 4.2 10*3/uL (2.3-7.9); NEUT % 61.5 % (47.0-73.0); PLATELET COUNT AUTOMATED 166 10*3/uL (130-400); RED BLOOD COUNT 4.32 10*6/uL (4.10-5.10); RED CELL DISTRI WIDTH 14.9 % (0-14.5); WHITE BLOOD COUNT 6.8 10*3/uL (4.8-10.8)
[2020-03-18 11:27] LABS: ALBUMIN 2.8 gm/dl (3.1-4.5); ALKALINE PHOSPHATASE 122 U/L (45-117); BUN 10 mg/dl (7-24); CHLORIDE 112 mmol/L (98-107); CREATININE 0.83 mg/dL (0.55-1.02); LIPASE 107 U/L (73-393); POTASSIUM 3.5 mmol/L (3.5-5.1); SGOT/AST 36 IU/L (3-35); SGPT/ALT 38 U/L (12-78); SODIUM 144 mmol/L (136-145); TOTAL PROTEIN 6.3 gm/dL (6.4-8.2)
[2020-03-18 11:35] LABS: TROPONIN I < 0.015 ng/ml (<0.045)
[2020-03-18 11:51] LABS: BILIRUBIN Negative (Negative); BLOOD 1+ (Negative); CLARITY Clear (Clear); COLOR Yellow (Yellow); GLUCOSE Negative (Negative); KETONE Negative (Negative); LEUKO ESTERASE Trace (Negative); NITRITE Negative (Negative)
[2020-03-18 12:08] LABS: BACTERIA 1+; CALCIUM OXALATE CRYSTALS 3+; RBC 31-40 rbc/hpf (0-2)
[2020-03-18] MEDS ORDERED: ULTRAM50 MG PO (13:52)
[2020-03-18] MEDS ORDERED: FLOMAX0.4 MG PO (13:52)
[2020-03-18] MEDS ORDERED: ZITHROMAX250 MG PO (13:52)
== END 2020-03-18 14:15 | disposition home or self-care (01) ==
LOC: ED 10:31
PROVIDERS: Nurse Practitioner Family
DX: N13.2 Hydronephrosis with renal and ureteral calculous obstruction (principal); K21.9 Gastro-esophageal reflux disease without esophagitis; I25.2 Old myocardial infarction; E78.00 Pure hypercholesterolemia, unspecified; F41.9 Anxiety disorder, unspecified; J45.909 Unspecified asthma, uncomplicated; Z88.0 Allergy status to penicillin; Z88.8 Allergy status to other drugs, medicaments and biological substances; Z79.2 Long term (current) use of antibiotics; Z79.899 Other long term (current) drug therapy; Z98.84 Bariatric surgery status; Z90.49 Acquired absence of other specified parts of digestive tract; Z90.710 Acquired absence of both cervix and uterus; Z98.51 Tubal ligation status; Z90.89 Acquired absence of other organs; Z87.891 Personal history of nicotine dependence

== ENCOUNTER 2020-04-18 19:37 | Emergency (ER) | payer BC, MEDICARE ==
[~2020-04-18] VITALS: Ht 160 cm; Wt 68.0 kg
[~2020-04-18 19:37] MED LIST changes: +FLOMAX0.4 MG PO; +ULTRAM50 MG PO
[2020-04-18 20:13] LABS: BASO % 0.7 % (0.0-1.0); EOS # 0.3 10*3/uL (0.0-0.4); EOS % 5.7 % (1.0-4.0); HEMATOCRIT 38.1 % (37.0-47.0); LYMPH # 1.5 10*3/uL (1.3-4.4); MEAN CELL VOLUME 90.7 fl (81.0-99.0); MEAN CORPUSCULAR HGB 28.8 pg (27.0-31.0); MEAN CORPUSCULAR HGB CONC 31.8 g/dl (33.0-37.0); MEAN PLATELET VOLUME 11.1 fl (9.6-12.3); MONO # 0.4 10*3/uL (0.1-1.0); MONO % 9.5 % (3.0-9.0); NEUT # 2.3 10*3/uL (2.3-7.9); NEUT % 49.9 % (47.0-73.0); PLATELET COUNT AUTOMATED 155 10*3/uL (130-400); RED CELL DISTRI WIDTH 15.1 % (0-14.5); WHITE BLOOD COUNT 4.5 10*3/uL (4.8-10.8)
[2020-04-18 20:25] LABS: BUN 11 mg/dl (7-24); CHLORIDE 112 mmol/L (98-107); POTASSIUM 3.9 mmol/L (3.5-5.1); SODIUM 143 mmol/L (136-145)
[2020-04-18 20:41] LABS: BILIRUBIN Negative (Negative); BLOOD Negative (Negative); CLARITY Clear (Clear); COLOR Yellow (Yellow); GLUCOSE Negative (Negative); KETONE Negative (Negative); LEUKO ESTERASE Negative (Negative); NITRITE Negative (Negative); PH 6.5 (4.5-8.0); SPECIFIC GRAVITY 1.015 (1.001-1.030)
[2020-04-18 20:53] LABS: BACTERIA TRACE; EPITHELIAL CELLS 0-2; WBC 0-2 wbc/hpf (0-5)
[2020-04-18 20:54] LABS: CALCIUM OXALATE CRYSTALS Trace
== END 2020-04-18 22:45 | disposition home or self-care (01) ==
LOC: ED 19:37
PROVIDERS: Internal Medicine
DX: N13.30 Unspecified hydronephrosis (principal); Z88.0 Allergy status to penicillin; Z88.8 Allergy status to other drugs, medicaments and biological substances; Z88.6 Allergy status to analgesic agent; Z79.899 Other long term (current) drug therapy; Z87.891 Personal history of nicotine dependence

== ENCOUNTER 2020-10-12 01:01 | Emergency (ER) | payer OTHER, MEDICARE ==
[~2020-10-12] VITALS: Ht 160 cm; Wt 71.3 kg
[2020-10-12 01:21] LABS: BASO % 0.7 % (0.0-1.0); EOS # 0.1 10*3/uL (0.0-0.4); EOS % 3.5 % (1.0-4.0); MEAN CELL VOLUME 75.7 fl (81.0-99.0); MEAN CORPUSCULAR HGB 22.5 pg (27.0-31.0); MEAN CORPUSCULAR HGB CONC 29.7 g/dl (33.0-37.0); MEAN PLATELET VOLUME 10.7 fl (9.6-12.3); MONO # 0.4 10*3/uL (0.1-1.0); MONO % 12.6 % (3.0-9.0); NEUT # 1.4 10*3/uL (2.3-7.9); NEUT % 48.2 % (47.0-73.0); PLATELET COUNT AUTOMATED 114 10*3/uL (130-400); RED BLOOD COUNT 4.23 10*6/uL (4.10-5.10); RED CELL DISTRI WIDTH 19.2 % (0-14.5); WHITE BLOOD COUNT 2.9 10*3/uL (4.8-10.8)
[2020-10-12 01:36] LABS: ALBUMIN 3.1 gm/dl (3.1-4.5); ALKALINE PHOSPHATASE 161 U/L (45-117); BUN 10 mg/dl (7-24); CHLORIDE 117 mmol/L (98-107); CREATININE 0.66 mg/dL (0.55-1.02); POTASSIUM 3.8 mmol/L (3.5-5.1); SGOT/AST 32 IU/L (3-35); SGPT/ALT 23 U/L (12-78); SODIUM 142 mmol/L (136-145); TOTAL PROTEIN 6.2 gm/dL (6.4-8.2)
[2020-10-12 01:39] LABS: TROPONIN I < 0.015 ng/ml (<0.045)
== END 2020-10-12 05:09 | disposition home or self-care (01) ==
LOC: ED 01:01
PROVIDERS: Internal Medicine
DX: D61.818 Other pancytopenia (principal); R07.89 Other chest pain; M79.604 Pain in right leg; M79.605 Pain in left leg; R11.0 Nausea; Z88.0 Allergy status to penicillin; Z88.8 Allergy status to other drugs, medicaments and biological substances; Z88.6 Allergy status to analgesic agent; Z79.899 Other long term (current) drug therapy; Z79.2 Long term (current) use of antibiotics; Z98.84 Bariatric surgery status; Z90.49 Acquired absence of other specified parts of digestive tract; Z90.711 Acquired absence of uterus with remaining cervical stump; Z90.89 Acquired absence of other organs; Z98.51 Tubal ligation status; Z87.891 Personal history of nicotine dependence

== ENCOUNTER 2021-03-09 17:10 | Emergency (ER) | payer OTHER, MEDICARE ==
[~2021-03-09] VITALS: Ht 160 cm; Wt 68.5 kg
== END 2021-03-09 19:48 | disposition home or self-care (01) ==
LOC: ED 17:10
DX: S66.911A Strain of unspecified muscle, fascia and tendon at wrist and hand level, right hand, initial encounter (principal); Z88.0 Allergy status to penicillin; Z88.8 Allergy status to other drugs, medicaments and biological substances; Z79.899 Other long term (current) drug therapy; Z87.891 Personal history of nicotine dependence; W23.0XXA Caught, crushed, jammed, or pinched between moving objects, initial encounter; Y93.89 Activity, other specified; Y92.89 Other specified places as the place of occurrence of the external cause; Y99.8 Other external cause status

== ENCOUNTER 2021-04-06 20:33 | Emergency (ER) | payer OTHER, MEDICARE ==
[~2021-04-06] VITALS: Ht 160 cm; Wt 68.9 kg
[2021-04-07 00:10] LABS: BASO % 0.7 % (0.0-1.0); EOS # 0.1 10*3/uL (0.0-0.4); EOS % 4.4 % (1.0-4.0); HEMATOCRIT 35.9 % (37.0-47.0); LYMPH # 1.2 10*3/uL (1.3-4.4); LYMPH % 39.6 % (27.0-41.0); MEAN CELL VOLUME 92.1 fl (81.0-99.0); MEAN CORPUSCULAR HGB 29.7 pg (27.0-31.0); MEAN CORPUSCULAR HGB CONC 32.3 g/dl (33.0-37.0); MEAN PLATELET VOLUME 10.5 fl (9.6-12.3); MONO # 0.3 10*3/uL (0.1-1.0); MONO % 9.1 % (3.0-9.0); NEUT # 1.4 10*3/uL (2.3-7.9); NEUT % 46.2 % (47.0-73.0); PLATELET COUNT AUTOMATED 110 10*3/uL (130-400); RED CELL DISTRI WIDTH 14.6 % (0-14.5)
[2021-04-07 00:26] LABS: ALBUMIN 2.8 gm/dl (3.1-4.5); ALKALINE PHOSPHATASE 184 U/L (45-117); BUN 12 mg/dl (7-24); CHLORIDE 115 mmol/L (98-107); POTASSIUM 3.9 mmol/L (3.5-5.1); SGOT/AST 46 IU/L (3-35); SGPT/ALT 37 U/L (12-78); SODIUM 145 mmol/L (136-145); TOTAL PROTEIN 6.3 gm/dL (6.4-8.2)
== END 2021-04-07 01:40 | disposition home or self-care (01) ==
LOC: ED 20:33
PROVIDERS: Internal Medicine
DX: D61.818 Other pancytopenia (principal); E44.0 Moderate protein-calorie malnutrition; R79.89 Other specified abnormal findings of blood chemistry

== ENCOUNTER 2021-05-17 19:01 | Emergency (ER) | payer OTHER, MEDICARE ==
[~2021-05-17] VITALS: Wt 69.4 kg
[2021-05-17 20:11] LABS: BASO % 0.5 % (0.0-1.0); EOS # 0.1 10*3/uL (0.0-0.4); EOS % 3.1 % (1.0-4.0); HEMATOCRIT 38.6 % (37.0-47.0); LYMPH # 1.5 10*3/uL (1.3-4.4); MEAN CELL VOLUME 89.6 fl (81.0-99.0); MEAN CORPUSCULAR HGB 30.2 pg (27.0-31.0); MEAN CORPUSCULAR HGB CONC 33.7 g/dl (33.0-37.0); MEAN PLATELET VOLUME 10.2 fl (9.6-12.3); MONO # 0.4 10*3/uL (0.1-1.0); NEUT # 1.9 10*3/uL (2.3-7.9); NEUT % 48.1 % (47.0-73.0); PLATELET COUNT AUTOMATED 112 10*3/uL (130-400); RED BLOOD COUNT 4.31 10*6/uL (4.10-5.10); RED CELL DISTRI WIDTH 14.5 % (0-14.5); WHITE BLOOD COUNT 3.9 10*3/uL (4.8-10.8)
[2021-05-17 20:23] LABS: INTERNATIONAL NORM RATIO 1.3 (2.0-3.5)
[2021-05-17 20:27] LABS: ALBUMIN 2.9 gm/dl (3.1-4.5); ALKALINE PHOSPHATASE 155 U/L (45-117); BUN 9 mg/dl (7-24); CHLORIDE 116 mmol/L (98-107); CREATININE 0.69 mg/dL (0.55-1.02); LIPASE 107 U/L (73-393); POTASSIUM 3.6 mmol/L (3.5-5.1); SGOT/AST 57 IU/L (3-35); SGPT/ALT 45 U/L (12-78); SODIUM 145 mmol/L (136-145); TOTAL PROTEIN 6.4 gm/dL (6.4-8.2)
[2021-05-18] MEDS ORDERED: HYDROCODONE-AC1 EAC1 PO (00:32)
== END 2021-05-18 01:15 | disposition home or self-care (01) ==
LOC: ED 19:01
PROVIDERS: Emergency Medicine
DX: K83.8 Other specified diseases of biliary tract (principal); K21.9 Gastro-esophageal reflux disease without esophagitis; E03.9 Hypothyroidism, unspecified; Z88.0 Allergy status to penicillin; Z88.8 Allergy status to other drugs, medicaments and biological substances; Z88.6 Allergy status to analgesic agent; Z79.899 Other long term (current) drug therapy; Z98.890 Other specified postprocedural states; Z90.710 Acquired absence of both cervix and uterus; Z98.51 Tubal ligation status; Z87.891 Personal history of nicotine dependence

== ENCOUNTER 2022-01-13 21:51 | Emergency (ER) | payer OTHER, MEDICARE ==
[~2022-01-13] VITALS: Ht 160 cm; Wt 66.7 kg
[~2022-01-13 21:51] MED LIST changes: +HYDROCODONE-AC1 EAC1 PO
[2022-01-14] MEDS ORDERED: METHOCARBAMOL500 M1 PO (00:51)
== END 2022-01-14 01:25 | disposition home or self-care (01) ==
LOC: ED 21:51
DX: S16.1XXA Strain of muscle, fascia and tendon at neck level, initial encounter (principal); S20.211A Contusion of right front wall of thorax, initial encounter; Z88.0 Allergy status to penicillin; Z88.8 Allergy status to other drugs, medicaments and biological substances; Z79.899 Other long term (current) drug therapy; Z90.49 Acquired absence of other specified parts of digestive tract; Z90.89 Acquired absence of other organs; Z98.51 Tubal ligation status; Z98.890 Other specified postprocedural states; Z87.891 Personal history of nicotine dependence; W18.39XA Other fall on same level, initial encounter; Y93.89 Activity, other specified; Y92.89 Other specified places as the place of occurrence of the external cause; Y99.8 Other external cause status

== ENCOUNTER 2022-03-01 14:52 | Emergency (ER) | payer MEDICARE ==
[~2022-03-01] VITALS: Ht 165.1 cm; Wt 66.2 kg
[2022-03-01] MEDS ORDERED: REGLAN10 M1 PO (17:14)
== END 2022-03-01 17:26 | disposition home or self-care (01) ==
LOC: ED 14:52
DX: G43.909 Migraine, unspecified, not intractable, without status migrainosus (principal); R11.2 Nausea with vomiting, unspecified; Z88.0 Allergy status to penicillin; Z88.8 Allergy status to other drugs, medicaments and biological substances; Z88.6 Allergy status to analgesic agent; Z79.899 Other long term (current) drug therapy; Z98.84 Bariatric surgery status; Z90.49 Acquired absence of other specified parts of digestive tract; Z90.710 Acquired absence of both cervix and uterus; Z98.51 Tubal ligation status; Z87.891 Personal history of nicotine dependence

== ENCOUNTER 2022-04-04 22:31 | Emergency (ER) | payer MEDICARE ==
[~2022-04-04] VITALS: Ht 160 cm; Wt 74.6 kg
[~2022-04-04 22:31] MED LIST changes: +REGLAN10 M1 PO
[2022-04-05 02:04] LABS: BILIRUBIN Negative (Negative); BLOOD Negative (Negative); CLARITY Clear (Clear); COLOR Yellow (Yellow); GLUCOSE Negative (Negative); KETONE Negative (Negative); LEUKO ESTERASE 2+ (Negative); NITRITE Negative (Negative); UROBILINOGEN 0.2 E.U./dl (0.0-1.0)
[2022-04-05 02:19] LABS: BACTERIA 1+; CALCIUM OXALATE CRYSTALS 1+; MUCOUS 1+
[2022-04-05] MEDS ORDERED: ORPHENADRINE E100 MG PO (03:37)
[2022-04-09] MEDS ORDERED: LEVOFLOXACIN500 MG PO (10:17)
== END 2022-04-05 03:58 | disposition home or self-care (01) ==
LOC: ED 22:31
PROVIDERS: Emergency Medicine
DX: S39.012A Strain of muscle, fascia and tendon of lower back, initial encounter (principal); S29.012A Strain of muscle and tendon of back wall of thorax, initial encounter; K21.9 Gastro-esophageal reflux disease without esophagitis; E03.9 Hypothyroidism, unspecified; Z88.0 Allergy status to penicillin; Z88.8 Allergy status to other drugs, medicaments and biological substances; Z79.899 Other long term (current) drug therapy; Z90.49 Acquired absence of other specified parts of digestive tract; Z90.710 Acquired absence of both cervix and uterus; Z98.890 Other specified postprocedural states; Z98.51 Tubal ligation status; Z90.89 Acquired absence of other organs; Z87.891 Personal history of nicotine dependence; W10.8XXA Fall (on) (from) other stairs and steps, initial encounter; Y93.89 Activity, other specified; Y92.89 Other specified places as the place of occurrence of the external cause; Y99.8 Other external cause status

== ENCOUNTER 2022-05-05 21:24 | Emergency (ER) | payer OTHER ==
[~2022-05-05] VITALS: Ht 160 cm; Wt 68.0 kg
[~2022-05-05 21:24] MED LIST changes: +LEVOFLOXACIN500 MG PO; +ORPHENADRINE E100 MG PO
[2022-05-05 22:16] LABS: BASO % 0.9 % (0.0-1.0); EOS # 0.1 10*3/uL (0.0-0.4); EOS % 4.2 % (1.0-4.0); HEMATOCRIT 35.9 % (37.0-47.0); LYMPH # 1.1 10*3/uL (1.3-4.4); MEAN CELL VOLUME 90.9 fl (81.0-99.0); MEAN CORPUSCULAR HGB 29.9 pg (27.0-31.0); MEAN CORPUSCULAR HGB CONC 32.9 g/dl (33.0-37.0); MONO # 0.4 10*3/uL (0.1-1.0); NEUT # 1.7 10*3/uL (2.3-7.9); NEUT % 49.6 % (47.0-73.0); PLATELET COUNT AUTOMATED 101 10*3/uL (130-400); RED BLOOD COUNT 3.95 10*6/uL (4.10-5.10); RED CELL DISTRI WIDTH 14.4 % (0-14.5); WHITE BLOOD COUNT 3.3 10*3/uL (4.8-10.8)
[2022-05-05 22:20] LABS: ALKALINE PHOSPHATASE 160 U/L (46-116); BUN 10 mg/dl (9-23); CHLORIDE 112 mmol/L (98-107); POTASSIUM 3.9 mmol/L (3.4-5.1); SGPT/ALT 25 U/L (10-49); TOTAL PROTEIN 5.6 gm/dL (6.0-8.0)
[2022-05-05 22:27] LABS: BILIRUBIN Negative (Negative); BLOOD Negative (Negative); CLARITY Clear (Clear); COLOR Yellow (Yellow); GLUCOSE 3+ (Negative); KETONE Trace (Negative); LEUKO ESTERASE Negative (Negative); NITRITE Negative (Negative); PH 5.5 (4.5-8.0); SPECIFIC GRAVITY >= 1.030 (1.001-1.030)
[2022-05-05 22:50] LABS: BACTERIA TRACE
== END 2022-05-05 23:20 | disposition home or self-care (01) ==
LOC: ED 21:24
PROVIDERS: Nurse Practitioner Family
DX: M79.7 Fibromyalgia (principal); I25.10 Atherosclerotic heart disease of native coronary artery without angina pectoris; I10 Essential (primary) hypertension; K21.9 Gastro-esophageal reflux disease without esophagitis; Z88.0 Allergy status to penicillin; Z88.8 Allergy status to other drugs, medicaments and biological substances; Z79.899 Other long term (current) drug therapy; Z90.49 Acquired absence of other specified parts of digestive tract; Z90.710 Acquired absence of both cervix and uterus; Z98.51 Tubal ligation status; Z98.890 Other specified postprocedural states; Z87.891 Personal history of nicotine dependence

== ENCOUNTER 2022-05-27 19:39 | Emergency (ER) | payer OTHER ==
[~2022-05-27] VITALS: Ht 162.5 cm; Wt 70.3 kg
[2022-05-27 20:30] LABS: BASO % 0.7 % (0.0-1.0); EOS # 0.1 10*3/uL (0.0-0.4); EOS % 3.1 % (1.0-4.0); HEMATOCRIT 37.5 % (37.0-47.0); LYMPH % 23.9 % (27.0-41.0); MEAN CELL VOLUME 90.6 fl (81.0-99.0); MEAN CORPUSCULAR HGB 30.2 pg (27.0-31.0); MEAN CORPUSCULAR HGB CONC 33.3 g/dl (33.0-37.0); MEAN PLATELET VOLUME 10.9 fl (9.6-12.3); MONO # 0.6 10*3/uL (0.1-1.0); MONO % 13.3 % (3.0-9.0); NEUT # 2.4 10*3/uL (2.3-7.9); NEUT % 58.8 % (47.0-73.0); PLATELET COUNT AUTOMATED 121 10*3/uL (130-400); RED BLOOD COUNT 4.14 10*6/uL (4.10-5.10); RED CELL DISTRI WIDTH 14.2 % (0-14.5); WHITE BLOOD COUNT 4.2 10*3/uL (4.8-10.8)
[2022-05-27 20:41] LABS: BUN 12 mg/dl (9-23); CHLORIDE 105 mmol/L (98-107); POTASSIUM 4.2 mmol/L (3.4-5.1)
[2022-05-27] MEDS ORDERED: PREDNISONE20 M1 PO (22:35)
[2022-05-27] MEDS ORDERED: METHOCARBAMOL500 M1 PO (22:35)
== END 2022-05-27 22:52 | disposition home or self-care (01) ==
LOC: ED 19:39
PROVIDERS: Internal Medicine
DX: M51.26 Other intervertebral disc displacement, lumbar region (principal); K45.8 Other specified abdominal hernia without obstruction or gangrene; M54.41 Lumbago with sciatica, right side; M54.42 Lumbago with sciatica, left side; Z88.0 Allergy status to penicillin; Z88.8 Allergy status to other drugs, medicaments and biological substances; Z98.890 Other specified postprocedural states; Z90.49 Acquired absence of other specified parts of digestive tract; Z90.710 Acquired absence of both cervix and uterus; Z98.51 Tubal ligation status; Z90.11 Acquired absence of right breast and nipple; F41.9 Anxiety disorder, unspecified; J45.909 Unspecified asthma, uncomplicated

== ENCOUNTER 2022-08-07 23:58 | Emergency (ER) | payer OTHER ==
[~2022-08-07] VITALS: Wt 72.1 kg
[2022-08-08 00:24] LABS: BASO % 0.6 % (0.0-1.0); EOS # 0.2 10*3/uL (0.0-0.4); EOS % 4.7 % (1.0-4.0); HEMATOCRIT 39.1 % (37.0-47.0); LYMPH # 1.4 10*3/uL (1.3-4.4); LYMPH % 28.7 % (27.0-41.0); MEAN CELL VOLUME 89.9 fl (81.0-99.0); MEAN CORPUSCULAR HGB 30.1 pg (27.0-31.0); MEAN CORPUSCULAR HGB CONC 33.5 g/dl (33.0-37.0); MONO # 0.6 10*3/uL (0.1-1.0); MONO % 11.7 % (3.0-9.0); NEUT # 2.6 10*3/uL (2.3-7.9); NEUT % 53.9 % (47.0-73.0); PLATELET COUNT AUTOMATED 143 10*3/uL (130-400); RED BLOOD COUNT 4.35 10*6/uL (4.10-5.10); RED CELL DISTRI WIDTH 14.2 % (0-14.5); WHITE BLOOD COUNT 4.9 10*3/uL (4.8-10.8)
[2022-08-08 00:45] LABS: ALKALINE PHOSPHATASE 158 U/L (46-116); BUN 9 mg/dl (9-23); CHLORIDE 113 mmol/L (98-107); POTASSIUM 3.4 mmol/L (3.4-5.1); SGPT/ALT 18 U/L (10-49); TOTAL PROTEIN 6.1 gm/dL (6.0-8.0)
[2022-08-08] MEDS ORDERED: PREDNISONE20 M1 PO (02:51)
== END 2022-08-08 02:55 | disposition home or self-care (01) ==
LOC: ED 23:58
PROVIDERS: Internal Medicine
DX: R07.89 Other chest pain (principal); E44.1 Mild protein-calorie malnutrition; Z68.1 Body mass index [BMI] 19.9 or less, adult; J70.0 Acute pulmonary manifestations due to radiation; R00.1 Bradycardia, unspecified; K21.9 Gastro-esophageal reflux disease without esophagitis; I25.2 Old myocardial infarction; E78.00 Pure hypercholesterolemia, unspecified; F41.9 Anxiety disorder, unspecified; M79.7 Fibromyalgia; Z88.0 Allergy status to penicillin; Z88.6 Allergy status to analgesic agent; Z88.8 Allergy status to other drugs, medicaments and biological substances; Z90.49 Acquired absence of other specified parts of digestive tract; Z90.710 Acquired absence of both cervix and uterus; Z90.11 Acquired absence of right breast and nipple; Z98.51 Tubal ligation status; Z98.890 Other specified postprocedural states; Z72.0 Tobacco use

== ENCOUNTER 2022-09-28 16:36 | Emergency (ER) | payer OTHER ==
[~2022-09-28] VITALS: Ht 160 cm; Wt 72.6 kg
[2022-09-28] MEDS ORDERED: GOOD NEIGHBOR L10 MG PO (16:48)
[2022-09-28] MEDS ORDERED: LEVOTHYROXINE100 MC1 PO (16:50)
[2022-09-28] MEDS ORDERED: PANTOPRAZOLE SO40 MG PO (17:14)
[2022-09-28] MEDS ORDERED: TOPROL XL25 MG PO (17:17)
[2022-09-28 17:38] LABS: BASO % 0.8 % (0.0-1.0); EOS # 0.1 10*3/uL (0.0-0.4); EOS % 3.6 % (1.0-4.0); HEMATOCRIT 35.6 % (37.0-47.0); LYMPH # 1.4 10*3/uL (1.3-4.4); LYMPH % 38.6 % (27.0-41.0); MEAN CELL VOLUME 89.9 fl (81.0-99.0); MEAN CORPUSCULAR HGB 30.6 pg (27.0-31.0); MEAN PLATELET VOLUME 11.2 fl (9.6-12.3); MONO # 0.4 10*3/uL (0.1-1.0); MONO % 11.3 % (3.0-9.0); NEUT # 1.7 10*3/uL (2.3-7.9); NEUT % 45.7 % (47.0-73.0); PLATELET COUNT AUTOMATED 124 10*3/uL (130-400); RED BLOOD COUNT 3.96 10*6/uL (4.10-5.10); RED CELL DISTRI WIDTH 14.5 % (0-14.5); WHITE BLOOD COUNT 3.6 10*3/uL (4.8-10.8)
[2022-09-28 18:06] LABS: ALKALINE PHOSPHATASE 131 U/L (46-116); BUN 12 mg/dl (9-23); CHLORIDE 115 mmol/L (98-107); LIPASE 38 U/L (12-53); POTASSIUM 3.9 mmol/L (3.4-5.1); SGPT/ALT 24 U/L (10-49); TOTAL PROTEIN 5.7 gm/dL (6.0-8.0)
[2022-09-28] MEDS ORDERED: ONDANSETRON4 MG SL (19:13)
== END 2022-09-28 19:14 | disposition home or self-care (01) ==
LOC: ED 16:36
PROVIDERS: Nurse Practitioner Family
DX: R11.2 Nausea with vomiting, unspecified (principal); K74.60 Unspecified cirrhosis of liver; K74.69 Other cirrhosis of liver; K21.9 Gastro-esophageal reflux disease without esophagitis; I25.2 Old myocardial infarction; E78.00 Pure hypercholesterolemia, unspecified; F41.9 Anxiety disorder, unspecified; J45.909 Unspecified asthma, uncomplicated; M79.7 Fibromyalgia; Z88.0 Allergy status to penicillin; Z88.6 Allergy status to analgesic agent; Z88.8 Allergy status to other drugs, medicaments and biological substances; Z90.49 Acquired absence of other specified parts of digestive tract; Z90.710 Acquired absence of both cervix and uterus; Z90.11 Acquired absence of right breast and nipple; Z98.51 Tubal ligation status

== ENCOUNTER 2022-10-21 18:25 | Emergency (ER) | payer OTHER ==
[~2022-10-21] VITALS: Ht 160 cm; Wt 73.0 kg
[~2022-10-21 18:25] MED LIST changes: +GOOD NEIGHBOR L10 MG PO; +LEVOTHYROXINE100 MC1 PO; +ONDANSETRON4 MG SL; +TOPROL XL25 MG PO
[2022-10-21 20:51] LABS: BASO % 0.3 % (0.0-1.0); EOS # 0.1 10*3/uL (0.0-0.4); EOS % 3.8 % (1.0-4.0); HEMATOCRIT 37.3 % (37.0-47.0); LYMPH # 1.1 10*3/uL (1.3-4.4); LYMPH % 30.6 % (27.0-41.0); MEAN CELL VOLUME 90.8 fl (81.0-99.0); MEAN CORPUSCULAR HGB 30.2 pg (27.0-31.0); MEAN CORPUSCULAR HGB CONC 33.2 g/dl (33.0-37.0); MONO # 0.5 10*3/uL (0.1-1.0); MONO % 13.1 % (3.0-9.0); NEUT # 1.8 10*3/uL (2.3-7.9); NEUT % 52.2 % (47.0-73.0); PLATELET COUNT AUTOMATED 120 10*3/uL (130-400); RED BLOOD COUNT 4.11 10*6/uL (4.10-5.10); RED CELL DISTRI WIDTH 14.2 % (0-14.5); WHITE BLOOD COUNT 3.4 10*3/uL (4.8-10.8)
[2022-10-21 20:53] LABS: BILIRUBIN Negative (Negative); BLOOD Negative (Negative); CLARITY Clear (Clear); COLOR Yellow (Yellow); GLUCOSE Negative (Negative); KETONE Negative (Negative); LEUKO ESTERASE Negative (Negative); NITRITE Negative (Negative); PH 6.5 (4.5-8.0); SPECIFIC GRAVITY <= 1.005 (1.001-1.030); UROBILINOGEN 0.2 E.U./dl (0.0-1.0)
[2022-10-21 21:06] LABS: EPITHELIAL CELLS 0-2; WBC 0-2 wbc/hpf (0-5)
[2022-10-21 21:15] LABS: ALKALINE PHOSPHATASE 150 U/L (46-116); BUN 10 mg/dl (9-23); CHLORIDE 111 mmol/L (98-107); LIPASE 45 U/L (12-53); POTASSIUM 3.9 mmol/L (3.4-5.1); SGPT/ALT 25 U/L (10-49); TOTAL PROTEIN 6.3 gm/dL (6.0-8.0)
== END 2022-10-22 17:46 | disposition short-term general hospital (02) ==
LOC: ED 18:25
PROVIDERS: Physician Assistant
DX: K31.89 Other diseases of stomach and duodenum (principal); K83.8 Other specified diseases of biliary tract; R10.84 Generalized abdominal pain; K21.9 Gastro-esophageal reflux disease without esophagitis; I25.2 Old myocardial infarction; E78.00 Pure hypercholesterolemia, unspecified; F41.9 Anxiety disorder, unspecified; J45.909 Unspecified asthma, uncomplicated; Z88.0 Allergy status to penicillin; Z88.6 Allergy status to analgesic agent; Z88.8 Allergy status to other drugs, medicaments and biological substances; Z90.49 Acquired absence of other specified parts of digestive tract; Z98.890 Other specified postprocedural states; Z90.710 Acquired absence of both cervix and uterus; Z98.51 Tubal ligation status

== ENCOUNTER 2022-11-04 20:07 | Inpatient (IN) | payer OTHER ==
[~2022-11-04] VITALS: Ht 160 cm; Wt 72.3 kg
[2022-11-04 20:07] VITALS: BP 146/71
[2022-11-04 20:17] VITALS: BP 146/71
[2022-11-04 20:28] LABS: BASO % 0.4 % (0.0-1.0); EOS # 0.1 10*3/uL (0.0-0.4); EOS % 3.6 % (1.0-4.0); HEMATOCRIT 35.9 % (37.0-47.0); LYMPH # 0.8 10*3/uL (1.3-4.4); LYMPH % 28.5 % (27.0-41.0); MEAN CELL VOLUME 89.8 fl (81.0-99.0); MEAN CORPUSCULAR HGB 29.8 pg (27.0-31.0); MEAN CORPUSCULAR HGB CONC 33.1 g/dl (33.0-37.0); MEAN PLATELET VOLUME 10.8 fl (9.6-12.3); MONO # 0.4 10*3/uL (0.1-1.0); MONO % 13.7 % (3.0-9.0); NEUT # 1.5 10*3/uL (2.3-7.9); NEUT % 53.4 % (47.0-73.0); PLATELET COUNT AUTOMATED 130 10*3/uL (130-400); RED CELL DISTRI WIDTH 14.2 % (0-14.5); WHITE BLOOD COUNT 2.8 10*3/uL (4.8-10.8)
[2022-11-04 20:40] LABS: ACT PARTIAL THROMBO TIME 30.8 SECONDS (20.0-32.1); INTERNATIONAL NORM RATIO 1.3 (2.0-3.5)
[2022-11-04 20:52] LABS: ALKALINE PHOSPHATASE 126 U/L (46-116); BUN 9 mg/dl (9-23); CHLORIDE 114 mmol/L (98-107); POTASSIUM 3.3 mmol/L (3.4-5.1); SGPT/ALT 23 U/L (10-49); TOTAL PROTEIN 5.7 gm/dL (6.0-8.0)
[2022-11-04 22:34] VITALS: BP 141/51
[2022-11-04 23:35] VITALS: BP 128/52
[2022-11-05 01:00] VITALS: BP 153/58
[2022-11-05] MEDS ORDERED: CLARITHROMYCIN500 MG PO (01:21)
[2022-11-05 05:40] VITALS: BP 152/59
[2022-11-05 06:14] LABS: BASO % 0.3 % (0.0-1.0); EOS # 0.1 10*3/uL (0.0-0.4); EOS % 4.5 % (1.0-4.0); LYMPH # 1.1 10*3/uL (1.3-4.4); LYMPH % 37.8 % (27.0-41.0); MEAN CORPUSCULAR HGB CONC 32.1 g/dl (33.0-37.0); MEAN PLATELET VOLUME 11.1 fl (9.6-12.3); MONO # 0.3 10*3/uL (0.1-1.0); MONO % 11.1 % (3.0-9.0); NEUT # 1.3 10*3/uL (2.3-7.9); PLATELET COUNT AUTOMATED 117 10*3/uL (130-400); RED BLOOD COUNT 3.63 10*6/uL (4.10-5.10); RED CELL DISTRI WIDTH 14.5 % (0-14.5); WHITE BLOOD COUNT 2.9 10*3/uL (4.8-10.8)
[2022-11-05 06:17] LABS: ALKALINE PHOSPHATASE 108 U/L (46-116); BUN 10 mg/dl (9-23); CHLORIDE 115 mmol/L (98-107); CHOLESTEROL 87 mg/dL (<200); FREE T4 0.73 ng/dl (0.89-1.76); LDL CHOLESTEROL 56 mg/dL (9-159); POTASSIUM 4.7 mmol/L (3.4-5.1); SGPT/ALT 19 U/L (10-49); TOTAL PROTEIN 5.2 gm/dL (6.0-8.0); TRIGLYCERIDES 35 mg/dl (<150)
[2022-11-05 06:42] LABS: MEAN CELL VOLUME 93.7 fl (81.0-99.0)
[2022-11-05 06:53] LABS: VITAMIN D, 25-HYDROXY 35.2 ng/mL (30-100)
[2022-11-05 08:00] VITALS: BP 124/46
[2022-11-05 08:10] VITALS: BP 124/46
[2022-11-05 16:00] VITALS: BP 118/58
[2022-11-05 18:20] LABS: BILIRUBIN Negative (Negative); BLOOD Negative (Negative); CLARITY Clear (Clear); COLOR Dark Yellow (Yellow); GLUCOSE 2+ (Negative); KETONE Trace (Negative); LEUKO ESTERASE 1+ (Negative); NITRITE Negative (Negative); PH 5.5 (4.5-8.0); SPECIFIC GRAVITY >= 1.030 (1.001-1.030)
[2022-11-05 18:48] LABS: RBC 0-2 rbc/hpf (0-2); WBC 31-40 wbc/hpf (0-5)
[2022-11-05 18:49] LABS: BACTERIA 2+; CALCIUM OXALATE CRYSTALS 2+
[2022-11-05 20:00] VITALS: BP 107/43; BP 146/77
[2022-11-06] VITALS: BP 98/44
[2022-11-06 06:19] LABS: BASO % 0.4 % (0.0-1.0); EOS # 0.2 10*3/uL (0.0-0.4); HEMATOCRIT 34.7 % (37.0-47.0); LYMPH % 41.4 % (27.0-41.0); MEAN CELL VOLUME 91.3 fl (81.0-99.0); MEAN CORPUSCULAR HGB CONC 32.9 g/dl (33.0-37.0); MEAN PLATELET VOLUME 11.4 fl (9.6-12.3); MONO # 0.3 10*3/uL (0.1-1.0); NEUT # 1.1 10*3/uL (2.3-7.9); NEUT % 42.2 % (47.0-73.0); PLATELET COUNT AUTOMATED 122 10*3/uL (130-400); RED CELL DISTRI WIDTH 14.6 % (0-14.5); WHITE BLOOD COUNT 2.5 10*3/uL (4.8-10.8)
[2022-11-06 06:25] LABS: BUN 10 mg/dl (9-23); CHLORIDE 112 mmol/L (98-107); POTASSIUM 4.8 mmol/L (3.4-5.1)
[2022-11-06 08:00] VITALS: BP 108/46
[2022-11-06 09:50] VITALS: BP 131/55
[2022-11-06 12:00] VITALS: BP 131/57
[2022-11-06 16:00] VITALS: BP 87/33
[2022-11-06] MEDS ORDERED: ATORVASTATIN CA40 M1 PO (16:04)
[2022-11-06] MEDS ORDERED: ASPIRIN CHILDRE81 MG PO (16:04)
[2022-11-06] MEDS ORDERED: LISINOPRIL5 MG PO (16:04)
[2022-11-06 16:49] VITALS: BP 110/40
[2022-11-13] MEDS ORDERED: SYMB80 INH (03:56)
[2022-11-13] MEDS ORDERED: METRONIDAZOLE500 M1 PO (03:58)
== END 2022-11-06 17:10 | disposition home or self-care (01) | DRG 205 ==
LOC: ED 20:07 → EDHOLD 11-05 00:14 → 4E 11-05 00:38
PROVIDERS: Internal Medicine; Student in an Organized Health Care Education/Training Program; ADMIT Internal Medicine; ATTEND Internal Medicine
PROC: 4A02XM4 Measurement of Cardiac Total Activity, External Approach (ICD-10-PCS; principal; 2022-11-05)
PROC: 3E073KZ Introduction of Other Diagnostic Substance into Coronary Artery, Percutaneous Approach (ICD-10-PCS; 2022-11-05)
DX: M94.0 Chondrocostal junction syndrome [Tietze] (principal); E43 Unspecified severe protein-calorie malnutrition; I50.32 Chronic diastolic (congestive) heart failure; D61.818 Other pancytopenia; E89.0 Postprocedural hypothyroidism; E87.6 Hypokalemia; D72.819 Decreased white blood cell count, unspecified; K21.9 Gastro-esophageal reflux disease without esophagitis; F32.A Depression, unspecified; E78.5 Hyperlipidemia, unspecified; R74.01 Elevation of levels of liver transaminase levels; E87.8 Other disorders of electrolyte and fluid balance, not elsewhere classified; R73.9 Hyperglycemia, unspecified; K22.719 Barrett's esophagus with dysplasia, unspecified; K31.84 Gastroparesis; R73.03 Prediabetes; K21.00 Gastro-esophageal reflux disease with esophagitis, without bleeding; M79.7 Fibromyalgia; K74.60 Unspecified cirrhosis of liver; Z88.6 Allergy status to analgesic agent; Z88.0 Allergy status to penicillin; Z88.8 Allergy status to other drugs, medicaments and biological substances; Z90.49 Acquired absence of other specified parts of digestive tract; Z87.442 Personal history of urinary calculi; Z87.891 Personal history of nicotine dependence; Z90.710 Acquired absence of both cervix and uterus; Z98.51 Tubal ligation status; Z82.49 Family history of ischemic heart disease and other diseases of the circulatory system; Z83.3 Family history of diabetes mellitus; Z82.3 Family history of stroke; Z86.16 Personal history of COVID-19; Z68.28 Body mass index [BMI] 28.0-28.9, adult

== ENCOUNTER 2023-01-17 02:08 | Emergency (ER) | payer OTHER ==
[~2023-01-17] VITALS: Ht 160 cm; Wt 76.2 kg
[~2023-01-17 02:08] MED LIST changes: +ASPIRIN CHILDRE81 MG PO; +CLARITHROMYCIN500 MG PO; +GLUCOSE2 GM PO; +LISINOPRIL5 MG PO; +METRONIDAZOLE500 M1 PO; +SYMB80 INH
[2023-01-17 02:35] LABS: BASO % 0.3 % (0.0-1.0); EOS # 0.1 10*3/uL (0.0-0.4); EOS % 0.8 % (1.0-4.0); HEMATOCRIT 34.6 % (37.0-47.0); LYMPH # 1.3 10*3/uL (1.3-4.4); LYMPH % 22.4 % (27.0-41.0); MEAN CELL VOLUME 83.8 fl (81.0-99.0); MEAN CORPUSCULAR HGB 26.6 pg (27.0-31.0); MEAN CORPUSCULAR HGB CONC 31.8 g/dl (33.0-37.0); MEAN PLATELET VOLUME 10.8 fl (9.6-12.3); MONO # 0.7 10*3/uL (0.1-1.0); MONO % 12.3 % (3.0-9.0); NEUT # 3.8 10*3/uL (2.3-7.9); PLATELET COUNT AUTOMATED 194 10*3/uL (130-400); RED BLOOD COUNT 4.13 10*6/uL (4.10-5.10); RED CELL DISTRI WIDTH 21.1 % (0-14.5); WHITE BLOOD COUNT 5.9 10*3/uL (4.8-10.8)
[2023-01-17 02:45] LABS: ACT PARTIAL THROMBO TIME 28.3 SECONDS (20.0-32.1); INTERNATIONAL NORM RATIO 1.5 (2.0-3.5)
[2023-01-17 03:01] LABS: ALKALINE PHOSPHATASE 183 U/L (46-116); BUN 13 mg/dl (9-23); CHLORIDE 103 mmol/L (98-107); POTASSIUM 2.6 mmol/L (3.4-5.1); SGPT/ALT 76 U/L (10-49)
[2023-01-17] MEDS ORDERED: MIDODRINE HCL10 MG PO (20:40)
[2023-01-17] MEDS ORDERED: COLCHICINE0.6 M2 PO (20:54)
[2023-01-17] MEDS ORDERED: IPRATROPIU0.2 MG/1 M NEB (21:14)
[2023-01-17] MEDS ORDERED: ATORVASTATIN CA40 M1 PO (21:15)
[2023-01-17] MEDS ORDERED: CLOPIDOGREL75 MG PO (21:17)
[2023-01-17] MEDS ORDERED: Lopressor25 MG PO (21:31)
[2023-01-17] MEDS ORDERED: DOCUSATE SOD100 MG PO (21:39)
[2023-01-17] MEDS ORDERED: PYRIDOXINE HCL25 MG PO (22:09)
[2023-01-17] MEDS ORDERED: NATURE'S BLEND F1 MG PO (22:10)
== END 2023-01-19 00:46 | disposition short-term general hospital (02) ==
LOC: ED 02:08
PROVIDERS: Internal Medicine
DX: K76.6 Portal hypertension (principal); I31.39 Other pericardial effusion (noninflammatory); K21.9 Gastro-esophageal reflux disease without esophagitis; I25.2 Old myocardial infarction; E78.00 Pure hypercholesterolemia, unspecified; F41.9 Anxiety disorder, unspecified; J45.909 Unspecified asthma, uncomplicated; M79.7 Fibromyalgia; Z88.0 Allergy status to penicillin; Z88.6 Allergy status to analgesic agent; Z88.8 Allergy status to other drugs, medicaments and biological substances; Z90.49 Acquired absence of other specified parts of digestive tract; Z90.710 Acquired absence of both cervix and uterus; Z90.11 Acquired absence of right breast and nipple; Z98.51 Tubal ligation status; Z98.890 Other specified postprocedural states

== ENCOUNTER 2023-01-26 16:25 | Emergency (ER) | payer OTHER ==
[~2023-01-26] VITALS: Ht 160 cm; Wt 72.6 kg
[~2023-01-26 16:25] MED LIST changes: +CLOPIDOGREL75 MG PO; +COLCHICINE0.6 M2 PO; +DOCUSATE SOD100 MG PO; +IPRATROPIU0.2 MG/1 M NEB; +Lopressor25 MG PO; +MIDODRINE HCL10 MG PO; +NATURE'S BLEND F1 MG PO; +PYRIDOXINE HCL25 MG PO
[2023-01-26 17:02] LABS: BASO % 0.2 % (0.0-1.0); EOS # 0.1 10*3/uL (0.0-0.4); EOS % 1.2 % (1.0-4.0); HEMATOCRIT 31.7 % (37.0-47.0); LYMPH # 1.1 10*3/uL (1.3-4.4); LYMPH % 26.2 % (27.0-41.0); MEAN CELL VOLUME 85.2 fl (81.0-99.0); MEAN CORPUSCULAR HGB 26.9 pg (27.0-31.0); MEAN CORPUSCULAR HGB CONC 31.5 g/dl (33.0-37.0); MONO # 0.8 10*3/uL (0.1-1.0); MONO % 18.2 % (3.0-9.0); NEUT # 2.2 10*3/uL (2.3-7.9); NEUT % 54.2 % (47.0-73.0); PLATELET COUNT AUTOMATED 178 10*3/uL (130-400); RED BLOOD COUNT 3.72 10*6/uL (4.10-5.10); RED CELL DISTRI WIDTH 22.5 % (0-14.5); WHITE BLOOD COUNT 4.1 10*3/uL (4.8-10.8)
[2023-01-26 17:21] LABS: BUN 10 mg/dl (9-23); CHLORIDE 101 mmol/L (98-107); POTASSIUM 2.6 mmol/L (3.4-5.1)
[2023-01-26] MEDS ORDERED: WEEKLY-D1250 MCG PO (17:44)
[2023-01-26] MEDS ORDERED: FLUOROMETHOLONE5 ML OPH (17:46)
[2023-01-26] MEDS ORDERED: FUROSEMIDE40 MG PO (17:47)
[2023-01-26] MEDS ORDERED: SENNA8.6 MG PO (17:48)
[2023-01-26] MEDS ORDERED: CARAFATE1 GM/10 ML PO (17:49)
[2023-01-26] MEDS ORDERED: URSODIOL300 M1 PO (17:50)
[2023-01-26] MEDS ORDERED: MIRALAX119 GM PO (17:52)
[2023-01-26] MEDS ORDERED: KLOR-CON M1010 ME1 PO (17:53)
[2023-01-26] MEDS ORDERED: PROMETHAZINE12.5 M3 PO (17:54)
[2023-01-26] MEDS ORDERED: CIPRO500 MG PO (18:22)
[2023-01-26] MEDS ORDERED: METRONIDAZOLE500 M1 PO (18:22)
== END 2023-01-26 19:16 | disposition home or self-care (01) ==
LOC: ED 16:25
PROVIDERS: Physician Assistant Medical
DX: K52.9 Noninfective gastroenteritis and colitis, unspecified (principal); M54.2 Cervicalgia; M25.551 Pain in right hip; M54.9 Dorsalgia, unspecified; R11.10 Vomiting, unspecified; K21.9 Gastro-esophageal reflux disease without esophagitis; I25.2 Old myocardial infarction; E78.00 Pure hypercholesterolemia, unspecified; F41.9 Anxiety disorder, unspecified; J45.909 Unspecified asthma, uncomplicated; M79.7 Fibromyalgia; Z88.0 Allergy status to penicillin; Z88.8 Allergy status to other drugs, medicaments and biological substances; Z88.6 Allergy status to analgesic agent; Z90.49 Acquired absence of other specified parts of digestive tract; Z98.890 Other specified postprocedural states; Z90.710 Acquired absence of both cervix and uterus; Z98.51 Tubal ligation status; Z90.11 Acquired absence of right breast and nipple

== ENCOUNTER 2023-02-01 18:56 | Emergency (ER) | payer OTHER ==
[~2023-02-01 18:56] MED LIST changes: +FLUOROMETHOLONE5 ML OPH; +FUROSEMIDE40 MG PO; +KLOR-CON M1010 ME1 PO; +MIRALAX119 GM PO; +PROMETHAZINE12.5 M3 PO; +SENNA8.6 MG PO; +URSODIOL300 M1 PO; +WEEKLY-D1250 MCG PO
== END 2023-02-01 19:46 | disposition left against medical advice (07) ==
LOC: ED 18:56
DX: R19.00 Intra-abdominal and pelvic swelling, mass and lump, unspecified site (principal); Z88.0 Allergy status to penicillin; Z88.6 Allergy status to analgesic agent; Z88.8 Allergy status to other drugs, medicaments and biological substances; Z53.21 Procedure and treatment not carried out due to patient leaving prior to being seen by health care provider

== ENCOUNTER 2023-02-24 23:09 | Emergency (ER) | payer OTHER ==
[~2023-02-24] VITALS: Ht 160 cm; Wt 62.6 kg
[~2023-02-24 23:09] MED LIST changes: +ALDACTONE25 M1 PO; +ALDACTONE50 M1 PO; +BUMETANIDE1 MG PO; +DICYCLOMINE HYD10 MG PO; +OMEPRAZOLE MAGN20 MG PO
[2023-02-24 23:44] LABS: BASO % 0.3 % (0.0-1.0); EOS # 0.1 10*3/uL (0.0-0.4); EOS % 3.7 % (1.0-4.0); HEMATOCRIT 31.5 % (37.0-47.0); LYMPH # 0.9 10*3/uL (1.3-4.4); LYMPH % 24.8 % (27.0-41.0); MEAN CORPUSCULAR HGB 27.1 pg (27.0-31.0); MEAN CORPUSCULAR HGB CONC 30.8 g/dl (33.0-37.0); MEAN PLATELET VOLUME 10.3 fl (9.6-12.3); MONO # 0.5 10*3/uL (0.1-1.0); NEUT # 2.2 10*3/uL (2.3-7.9); NEUT % 58.9 % (47.0-73.0); PLATELET COUNT AUTOMATED 156 10*3/uL (130-400); RED BLOOD COUNT 3.58 10*6/uL (4.10-5.10); RED CELL DISTRI WIDTH 22.5 % (0-14.5); WHITE BLOOD COUNT 3.8 10*3/uL (4.8-10.8)
[2023-02-25 00:07] LABS: ALKALINE PHOSPHATASE 143 U/L (46-116); BUN 7 mg/dl (9-23); CHLORIDE 111 mmol/L (98-107); LIPASE 32 U/L (12-53); POTASSIUM 3.5 mmol/L (3.4-5.1); SGPT/ALT 30 U/L (5-49); TOTAL PROTEIN 5.8 gm/dL (6.0-8.0)
== END 2023-02-25 01:40 | disposition home or self-care (01) ==
LOC: ED 23:09
PROVIDERS: Internal Medicine
DX: R10.11 Right upper quadrant pain (principal); G89.29 Other chronic pain; K74.60 Unspecified cirrhosis of liver; R79.89 Other specified abnormal findings of blood chemistry; D72.819 Decreased white blood cell count, unspecified; E44.0 Moderate protein-calorie malnutrition; Z68.1 Body mass index [BMI] 19.9 or less, adult; D64.9 Anemia, unspecified; I31.39 Other pericardial effusion (noninflammatory); K21.9 Gastro-esophageal reflux disease without esophagitis; I25.2 Old myocardial infarction; E78.00 Pure hypercholesterolemia, unspecified; F41.9 Anxiety disorder, unspecified; J45.909 Unspecified asthma, uncomplicated; M79.7 Fibromyalgia; Z88.0 Allergy status to penicillin; Z88.6 Allergy status to analgesic agent; Z88.8 Allergy status to other drugs, medicaments and biological substances; Z90.49 Acquired absence of other specified parts of digestive tract; Z98.890 Other specified postprocedural states; Z90.710 Acquired absence of both cervix and uterus; Z98.51 Tubal ligation status

== ENCOUNTER 2023-03-19 20:49 | Emergency (ER) | payer OTHER ==
[~2023-03-19] VITALS: Ht 160 cm; Wt 62.1 kg
[2023-03-19 22:05] LABS: BASO % 0.7 % (0.0-1.0); EOS # 0.2 10*3/uL (0.0-0.4); EOS % 4.9 % (1.0-4.0); HEMATOCRIT 31.8 % (37.0-47.0); LYMPH # 1.4 10*3/uL (1.3-4.4); LYMPH % 32.1 % (27.0-41.0); MEAN CELL VOLUME 84.4 fl (81.0-99.0); MEAN CORPUSCULAR HGB 26.5 pg (27.0-31.0); MEAN CORPUSCULAR HGB CONC 31.4 g/dl (33.0-37.0); MEAN PLATELET VOLUME 9.9 fl (9.6-12.3); MONO # 0.5 10*3/uL (0.1-1.0); MONO % 12.6 % (3.0-9.0); NEUT # 2.1 10*3/uL (2.3-7.9); NEUT % 48.5 % (47.0-73.0); PLATELET COUNT AUTOMATED 188 10*3/uL (130-400); RED BLOOD COUNT 3.77 10*6/uL (4.10-5.10); RED CELL DISTRI WIDTH 17.8 % (0-14.5); WHITE BLOOD COUNT 4.3 10*3/uL (4.8-10.8)
[2023-03-19 22:19] LABS: ACT PARTIAL THROMBO TIME 27.3 SECONDS (20.0-32.1)
[2023-03-19 22:21] LABS: LIPASE 28 U/L (12-53)
[2023-03-19 22:22] LABS: ALKALINE PHOSPHATASE 154 U/L (46-116); BUN 8 mg/dl (9-23); CHLORIDE 110 mmol/L (98-107); POTASSIUM 3.3 mmol/L (3.4-5.1); SGPT/ALT 35 U/L (5-49); TOTAL PROTEIN 5.7 gm/dL (6.0-8.0)
[2023-03-20 00:56] LABS: BILIRUBIN Negative (Negative); BLOOD Negative (Negative); CLARITY Clear (Clear); COLOR Yellow (Yellow); GLUCOSE Negative (Negative); KETONE Trace (Negative); NITRITE Negative (Negative); PH 5.5 (4.5-8.0); SPECIFIC GRAVITY >= 1.030 (1.001-1.030); UROBILINOGEN 0.2 E.U./dl (0.0-1.0)
[2023-03-20 01:06] LABS: BACTERIA 1+; LEUKO ESTERASE Trace (Negative); WBC 16-20 wbc/hpf (0-5)
[2023-03-20] MEDS ORDERED: CIPRO500 MG PO (01:43)
== END 2023-03-20 01:48 | disposition home or self-care (01) ==
LOC: ED 20:49
PROVIDERS: Internal Medicine; Nurse Practitioner
DX: N39.0 Urinary tract infection, site not specified (principal); R07.81 Pleurodynia; K21.9 Gastro-esophageal reflux disease without esophagitis; I25.2 Old myocardial infarction; E78.00 Pure hypercholesterolemia, unspecified; F41.9 Anxiety disorder, unspecified; J45.909 Unspecified asthma, uncomplicated; M79.7 Fibromyalgia; Z88.0 Allergy status to penicillin; Z88.6 Allergy status to analgesic agent; Z88.8 Allergy status to other drugs, medicaments and biological substances; Z90.49 Acquired absence of other specified parts of digestive tract; Z98.890 Other specified postprocedural states; Z90.710 Acquired absence of both cervix and uterus; Z98.51 Tubal ligation status

== ENCOUNTER 2023-04-01 21:33 | Emergency (ER) | payer OTHER ==
[~2023-04-01] VITALS: Ht 160 cm; Wt 65.3 kg
[2023-04-02] MEDS ORDERED: METHOCARBAMOL500 M1 PO (02:40)
[2023-04-02] MEDS ORDERED: PREDNISONE20 M1 PO (02:40)
== END 2023-04-02 02:46 | disposition home or self-care (01) ==
LOC: ED 21:33
DX: S29.012A Strain of muscle and tendon of back wall of thorax, initial encounter (principal); K21.9 Gastro-esophageal reflux disease without esophagitis; I25.2 Old myocardial infarction; E78.00 Pure hypercholesterolemia, unspecified; F41.9 Anxiety disorder, unspecified; J45.909 Unspecified asthma, uncomplicated; M79.7 Fibromyalgia; Z88.0 Allergy status to penicillin; Z88.6 Allergy status to analgesic agent; Z88.8 Allergy status to other drugs, medicaments and biological substances; Z90.49 Acquired absence of other specified parts of digestive tract; Z98.890 Other specified postprocedural states; Z90.710 Acquired absence of both cervix and uterus; Z90.11 Acquired absence of right breast and nipple; Z98.51 Tubal ligation status; X58.XXXA Exposure to other specified factors, initial encounter; Y93.89 Activity, other specified; Y92.009 Unspecified place in unspecified non-institutional (private) residence as the place of occurrence of the external cause; Y99.8 Other external cause status

== ENCOUNTER 2023-04-07 20:40 | Emergency (ER) | payer OTHER ==
[~2023-04-07] VITALS: Ht 160 cm; Wt 63.5 kg
[2023-04-08 00:14] LABS: BASO % 0.3 % (0.0-1.0); EOS # 0.1 10*3/uL (0.0-0.4); EOS % 3.8 % (1.0-4.0); HEMATOCRIT 32.7 % (37.0-47.0); LYMPH % 34.2 % (27.0-41.0); MEAN CELL VOLUME 85.2 fl (81.0-99.0); MEAN CORPUSCULAR HGB CONC 29.4 g/dl (33.0-37.0); MEAN PLATELET VOLUME 11.4 fl (9.6-12.3); MONO # 0.4 10*3/uL (0.1-1.0); MONO % 13.4 % (3.0-9.0); NEUT # 1.4 10*3/uL (2.3-7.9); PLATELET COUNT AUTOMATED 150 10*3/uL (130-400); RED BLOOD COUNT 3.84 10*6/uL (4.10-5.10); RED CELL DISTRI WIDTH 16.7 % (0-14.5); WHITE BLOOD COUNT 2.9 10*3/uL (4.8-10.8)
[2023-04-08 00:28] LABS: ACT PARTIAL THROMBO TIME 25.9 SECONDS (20.0-32.1)
[2023-04-08 00:37] LABS: ALKALINE PHOSPHATASE 133 U/L (46-116); BUN 10 mg/dl (9-23); CHLORIDE 114 mmol/L (98-107); LIPASE 29 U/L (12-53); POTASSIUM 3.7 mmol/L (3.4-5.1); SGPT/ALT 64 U/L (5-49); TOTAL PROTEIN 5.8 gm/dL (6.0-8.0)
[2023-04-08 03:47] LABS: BILIRUBIN Negative (Negative); BLOOD Negative (Negative); CLARITY Clear (Clear); COLOR Yellow (Yellow); GLUCOSE Negative (Negative); KETONE Negative (Negative); LEUKO ESTERASE Trace (Negative); NITRITE Negative (Negative); SPECIFIC GRAVITY >= 1.030 (1.001-1.030)
== END 2023-04-08 06:11 | disposition left against medical advice (07) ==
LOC: ED 20:40
PROVIDERS: Internal Medicine
DX: R07.89 Other chest pain (principal); R53.1 Weakness; K21.9 Gastro-esophageal reflux disease without esophagitis; I25.2 Old myocardial infarction; E78.00 Pure hypercholesterolemia, unspecified; F41.9 Anxiety disorder, unspecified; M79.7 Fibromyalgia; J45.909 Unspecified asthma, uncomplicated; Z53.29 Procedure and treatment not carried out because of patient's decision for other reasons; Z88.0 Allergy status to penicillin; Z88.6 Allergy status to analgesic agent; Z88.8 Allergy status to other drugs, medicaments and biological substances; Z90.49 Acquired absence of other specified parts of digestive tract; Z90.710 Acquired absence of both cervix and uterus; Z98.51 Tubal ligation status; Z98.890 Other specified postprocedural states; Z90.11 Acquired absence of right breast and nipple

== ENCOUNTER 2023-04-19 21:14 | Emergency (ER) | payer SELFPAY ==
[~2023-04-19] VITALS: Ht 160 cm; Wt 63.5 kg
[2023-04-20 04:09] LABS: EOS # 0.1 10*3/uL (0.0-0.4); EOS % 3.7 % (1.0-4.0); LYMPH # 1.1 10*3/uL (1.3-4.4); LYMPH % 35.9 % (27.0-41.0); MEAN CELL VOLUME 85.2 fl (81.0-99.0); MEAN CORPUSCULAR HGB 24.8 pg (27.0-31.0); MEAN CORPUSCULAR HGB CONC 29.1 g/dl (33.0-37.0); MONO # 0.3 10*3/uL (0.1-1.0); MONO % 10.6 % (3.0-9.0); NEUT # 1.5 10*3/uL (2.3-7.9); NEUT % 48.5 % (47.0-73.0); PLATELET COUNT AUTOMATED 147 10*3/uL (130-400); RED BLOOD COUNT 3.99 10*6/uL (4.10-5.10); RED CELL DISTRI WIDTH 17.6 % (0-14.5)
[2023-04-20 04:19] LABS: ACT PARTIAL THROMBO TIME 27.2 SECONDS (20.0-32.1)
[2023-04-20 04:30] LABS: ALKALINE PHOSPHATASE 141 U/L (46-116); BUN 10 mg/dl (9-23); CHLORIDE 113 mmol/L (98-107); LIPASE 36 U/L (12-53); POTASSIUM 3.7 mmol/L (3.4-5.1); SGPT/ALT 24 U/L (5-49)
[2023-04-20] MEDS ORDERED: PREDNISONE50 MG PO (04:44)
== END 2023-04-20 04:47 | disposition home or self-care (01) ==
LOC: ED 21:14
PROVIDERS: Internal Medicine
DX: B34.9 Viral infection, unspecified (principal); K21.9 Gastro-esophageal reflux disease without esophagitis; I25.2 Old myocardial infarction; E78.00 Pure hypercholesterolemia, unspecified; F41.9 Anxiety disorder, unspecified; M79.7 Fibromyalgia; R10.2 Pelvic and perineal pain; J45.909 Unspecified asthma, uncomplicated; Z88.0 Allergy status to penicillin; Z88.8 Allergy status to other drugs, medicaments and biological substances; Z88.6 Allergy status to analgesic agent; Z90.49 Acquired absence of other specified parts of digestive tract; Z98.890 Other specified postprocedural states; Z90.710 Acquired absence of both cervix and uterus; Z98.51 Tubal ligation status; Z90.11 Acquired absence of right breast and nipple

== ENCOUNTER 2023-08-09 17:52 | Emergency (ER) | payer MEDICARE ==
[~2023-08-09] VITALS: Ht 160 cm; Wt 65.8 kg
[~2023-08-09 17:52] MED LIST changes: +PREDNISONE50 MG PO
[2023-08-09 18:18] LABS: BASO % 0.3 % (0.0-1.0); EOS # 0.2 10*3/uL (0.0-0.4); EOS % 2.5 % (1.0-4.0); MEAN CORPUSCULAR HGB 24.5 pg (27.0-31.0); MEAN CORPUSCULAR HGB CONC 29.5 g/dl (33.0-37.0); MEAN PLATELET VOLUME 10.3 fl (9.6-12.3); MONO # 0.7 10*3/uL (0.1-1.0); MONO % 11.1 % (3.0-9.0); NEUT # 4.1 10*3/uL (2.3-7.9); NEUT % 68.8 % (47.0-73.0); PLATELET COUNT AUTOMATED 166 10*3/uL (130-400); RED BLOOD COUNT 4.58 10*6/uL (4.10-5.10); RED CELL DISTRI WIDTH 23.5 % (0-14.5)
[2023-08-09 18:40] LABS: ALKALINE PHOSPHATASE 130 U/L (46-116); BUN 15 mg/dl (9-23); CHLORIDE 112 mmol/L (98-107); POTASSIUM 3.6 mmol/L (3.4-5.1); SGPT/ALT 23 U/L (5-49)
[2023-08-09] MEDS ORDERED: SODIUM CHLORIDE 0.9% 1,000 ML IV ONE (18:50)
[2023-08-09] MEDS ORDERED: B121000 MCG/1 IM (19:45)
[2023-08-09] MEDS ORDERED: Ondansetron Hydrochloride 4 MG/2 ML VIAL IV ONE (19:55)
[2023-08-11] MEDS ORDERED: POTASSIUM CHLO20 ME4 PO (22:49)
[2023-08-11] MEDS ORDERED: IMDUR SA30 MG PO (22:50)
[2023-08-11] MEDS ORDERED: PROZAC10 MG PO (22:52)
[2023-08-12] MEDS ORDERED: FAMOTIDINE20 M1 PO (00:22)
== END 2023-08-09 22:35 | disposition home or self-care (01) ==
LOC: ED 17:52
PROVIDERS: Nurse Practitioner Family
DX: R07.89 Other chest pain (principal); R53.83 Other fatigue; R53.1 Weakness; K21.9 Gastro-esophageal reflux disease without esophagitis; I25.2 Old myocardial infarction; E78.00 Pure hypercholesterolemia, unspecified; F41.9 Anxiety disorder, unspecified; M79.7 Fibromyalgia; Z88.0 Allergy status to penicillin; Z88.6 Allergy status to analgesic agent; Z88.8 Allergy status to other drugs, medicaments and biological substances; Z90.49 Acquired absence of other specified parts of digestive tract; Z90.710 Acquired absence of both cervix and uterus; Z90.11 Acquired absence of right breast and nipple; Z98.51 Tubal ligation status; Z98.890 Other specified postprocedural states

== ENCOUNTER 2023-10-31 19:48 | Emergency (ER) | payer OTHER ==
[~2023-10-31] VITALS: Ht 160 cm; Wt 66.7 kg
[~2023-10-31 19:48] MED LIST changes: +B121000 MCG/1 IM; +IMDUR SA30 MG PO; +LACTULOSE10 GM/153 PO; +LEVOTHYROXINE125 MCG PO; +POTASSIUM CHLO20 ME4 PO; +PROZAC10 MG PO
[2023-10-31] MEDS ORDERED: LORazepam 0.5 MG TAB PO ONE (20:20)
[2023-10-31 20:42] LABS: BILIRUBIN Negative (Negative); BLOOD Negative (Negative); CLARITY Clear (Clear); COLOR Yellow (Yellow); GLUCOSE 3+ (Negative); KETONE Negative (Negative); LEUKO ESTERASE Negative (Negative); NITRITE Negative (Negative); SPECIFIC GRAVITY 1.025 (1.001-1.030); UROBILINOGEN 0.2 E.U./dl (0.0-1.0)
[2023-10-31 20:42] LABS: EOS # 0.1 10*3/uL (0.0-0.4); EOS % 1.5 % (1.0-4.0); LYMPH # 0.8 10*3/uL (1.3-4.4); LYMPH % 19.3 % (27.0-41.0); MEAN CORPUSCULAR HGB 25.6 pg (27.0-31.0); MEAN CORPUSCULAR HGB CONC 29.7 g/dl (33.0-37.0); MEAN PLATELET VOLUME 10.4 fl (9.6-12.3); MONO # 0.5 10*3/uL (0.1-1.0); MONO % 11.6 % (3.0-9.0); NEUT # 2.6 10*3/uL (2.3-7.9); NEUT % 67.1 % (47.0-73.0); PLATELET COUNT AUTOMATED 140 10*3/uL (130-400); RED BLOOD COUNT 4.07 10*6/uL (4.10-5.10); RED CELL DISTRI WIDTH 17.1 % (0-14.5); WHITE BLOOD COUNT 3.9 10*3/uL (4.8-10.8)
[2023-10-31 21:06] LABS: BUN 10 mg/dl (9-23); CHLORIDE 107 mmol/L (98-107); POTASSIUM 3.3 mmol/L (3.4-5.1)
[2023-10-31 21:08] LABS: ACT PARTIAL THROMBO TIME 24.6 SECONDS (20.0-32.1)
[2023-10-31 21:25] LABS: MUCOUS 1+; YEAST 1+
[2023-10-31] MEDS ORDERED: HYDROXYZINE PAM25 M1 PO (22:58)
== END 2023-10-31 23:09 | disposition home or self-care (01) ==
LOC: ED 19:48
PROVIDERS: Physician Assistant Medical
DX: S09.8XXA Other specified injuries of head, initial encounter (principal); F41.9 Anxiety disorder, unspecified; I11.0 Hypertensive heart disease with heart failure; I50.9 Heart failure, unspecified; F32.A Depression, unspecified; M79.7 Fibromyalgia; E11.9 Type 2 diabetes mellitus without complications; K21.9 Gastro-esophageal reflux disease without esophagitis; I25.2 Old myocardial infarction; E78.00 Pure hypercholesterolemia, unspecified; Z88.0 Allergy status to penicillin; Z88.6 Allergy status to analgesic agent; Z88.8 Allergy status to other drugs, medicaments and biological substances; Z90.49 Acquired absence of other specified parts of digestive tract; Z98.890 Other specified postprocedural states; Z90.710 Acquired absence of both cervix and uterus; Z98.51 Tubal ligation status; Z90.11 Acquired absence of right breast and nipple; Z95.5 Presence of coronary angioplasty implant and graft; Z72.0 Tobacco use; W01.190A Fall on same level from slipping, tripping and stumbling with subsequent striking against furniture, initial encounter; Y93.89 Activity, other specified; Y92.89 Other specified places as the place of occurrence of the external cause; Y99.8 Other external cause status

== ENCOUNTER 2023-11-21 22:15 | Emergency (ER) | payer OTHER ==
[~2023-11-21] VITALS: Ht 160 cm; Wt 63.5 kg
[~2023-11-21 22:15] MED LIST changes: +HYDROXYZINE PAM25 M1 PO; +SPIRONOLACTONE50 M1 PO
[2023-11-21] MEDS ORDERED: MEPERIDINE HYDROCHLORIDE 25 MG/1 ML VIAL IM ONE (23:00)
[2023-11-21] MEDS ORDERED: Promethazine Hydrochloride 25 MG/ML VIAL IM ONE (23:00)
== END 2023-11-21 23:35 | disposition home or self-care (01) ==
LOC: ED 22:15
DX: G89.29 Other chronic pain (principal); M06.9 Rheumatoid arthritis, unspecified; K21.9 Gastro-esophageal reflux disease without esophagitis; I25.2 Old myocardial infarction; F41.9 Anxiety disorder, unspecified; E78.00 Pure hypercholesterolemia, unspecified; M79.7 Fibromyalgia; J45.909 Unspecified asthma, uncomplicated; Z88.0 Allergy status to penicillin; Z88.6 Allergy status to analgesic agent; Z88.8 Allergy status to other drugs, medicaments and biological substances; Z90.49 Acquired absence of other specified parts of digestive tract; Z98.890 Other specified postprocedural states; Z90.710 Acquired absence of both cervix and uterus; Z90.11 Acquired absence of right breast and nipple; Z98.51 Tubal ligation status; Z95.5 Presence of coronary angioplasty implant and graft

== ENCOUNTER 2023-11-26 16:39 | Emergency (ER) | payer OTHER ==
[~2023-11-26] VITALS: Ht 160 cm; Wt 64.4 kg
[2023-11-26] MEDS ORDERED: MEPERIDINE HYDROCHLORIDE 25 MG/1 ML VIAL IM ONE (17:30)
[2023-11-26] MEDS ORDERED: Promethazine Hydrochloride 25 MG/ML VIAL IM ONE (17:30)
== END 2023-11-26 17:39 | disposition home or self-care (01) ==
LOC: ED 16:39
DX: G89.29 Other chronic pain (principal); M79.10 Myalgia, unspecified site; E78.00 Pure hypercholesterolemia, unspecified; F32.A Depression, unspecified; I10 Essential (primary) hypertension; K21.9 Gastro-esophageal reflux disease without esophagitis; E03.9 Hypothyroidism, unspecified; Z87.442 Personal history of urinary calculi; D64.9 Anemia, unspecified; E11.9 Type 2 diabetes mellitus without complications; I25.2 Old myocardial infarction; F41.9 Anxiety disorder, unspecified; J45.909 Unspecified asthma, uncomplicated; Z88.0 Allergy status to penicillin; Z88.6 Allergy status to analgesic agent; Z88.8 Allergy status to other drugs, medicaments and biological substances; Z90.49 Acquired absence of other specified parts of digestive tract; Z98.890 Other specified postprocedural states; Z90.710 Acquired absence of both cervix and uterus; Z98.51 Tubal ligation status; Z90.11 Acquired absence of right breast and nipple; Z95.5 Presence of coronary angioplasty implant and graft

== ENCOUNTER 2023-12-01 20:34 | Emergency (ER) | payer OTHER ==
[~2023-12-01] VITALS: Ht 160 cm; Wt 64.4 kg
[2023-12-01] MEDS ORDERED: Promethazine Hydrochloride 25 MG/ML VIAL IM ONE (21:00)
[2023-12-01] MEDS ORDERED: HYDROmorphONE Hydrochloride 0.5 MG/0.5 ML SYRINGE IM ONE (21:00)
[2023-12-01] MEDS ORDERED: ZANAFLEX4 MG PO (22:21)
[2023-12-02] MEDS ORDERED: FLONASE ALLERG9.9 ML NAS (20:27)
[2023-12-02] MEDS ORDERED: B121000 MCG/1 IM (20:29)
== END 2023-12-01 22:38 | disposition home or self-care (01) ==
LOC: ED 20:34
DX: S39.012A Strain of muscle, fascia and tendon of lower back, initial encounter (principal); S20.212A Contusion of left front wall of thorax, initial encounter; I10 Essential (primary) hypertension; M79.7 Fibromyalgia; E03.9 Hypothyroidism, unspecified; K21.9 Gastro-esophageal reflux disease without esophagitis; I25.10 Atherosclerotic heart disease of native coronary artery without angina pectoris; I25.2 Old myocardial infarction; F41.9 Anxiety disorder, unspecified; E78.00 Pure hypercholesterolemia, unspecified; J45.909 Unspecified asthma, uncomplicated; Z88.0 Allergy status to penicillin; Z88.6 Allergy status to analgesic agent; Z88.8 Allergy status to other drugs, medicaments and biological substances; Z90.49 Acquired absence of other specified parts of digestive tract; Z98.890 Other specified postprocedural states; Z90.710 Acquired absence of both cervix and uterus; Z90.11 Acquired absence of right breast and nipple; Z98.51 Tubal ligation status; Z95.5 Presence of coronary angioplasty implant and graft; W01.0XXA Fall on same level from slipping, tripping and stumbling without subsequent striking against object, initial encounter; Y93.89 Activity, other specified; Y92.009 Unspecified place in unspecified non-institutional (private) residence as the place of occurrence of the external cause; Y99.8 Other external cause status

== ENCOUNTER 2023-12-07 21:33 | Emergency (ER) | payer OTHER ==
[~2023-12-07] VITALS: Ht 160 cm; Wt 65.8 kg
[~2023-12-07 21:33] MED LIST changes: +FLONASE ALLERG9.9 ML NAS; +LACTULOSE20 GM/30 M PO; +XIFAXAN550 MG PO; +ZANAFLEX4 MG PO
[2023-12-07] MEDS ORDERED: Promethazine Hydrochloride 25 MG/ML VIAL IM ONE (22:05)
[2023-12-07] MEDS ORDERED: MEPERIDINE HYDROCHLORIDE 25 MG/1 ML VIAL IM ONE (22:05)
== END 2023-12-07 22:22 | disposition home or self-care (01) ==
LOC: ED 21:33
DX: G89.4 Chronic pain syndrome (principal); K21.9 Gastro-esophageal reflux disease without esophagitis; I25.2 Old myocardial infarction; F41.9 Anxiety disorder, unspecified; E78.00 Pure hypercholesterolemia, unspecified; J45.909 Unspecified asthma, uncomplicated; F90.9 Attention-deficit hyperactivity disorder, unspecified type; Z88.0 Allergy status to penicillin; Z88.6 Allergy status to analgesic agent; Z88.8 Allergy status to other drugs, medicaments and biological substances; Z90.49 Acquired absence of other specified parts of digestive tract; Z98.890 Other specified postprocedural states; Z90.710 Acquired absence of both cervix and uterus; Z98.51 Tubal ligation status; Z95.5 Presence of coronary angioplasty implant and graft

== ENCOUNTER 2023-12-09 19:29 | Emergency (ER) | payer OTHER ==
[~2023-12-09] VITALS: Wt 65.8 kg
[2023-12-09 21:06] LABS: BASO % 0.7 % (0.0-1.0); EOS # 0.1 10*3/uL (0.0-0.4); EOS % 4.7 % (1.0-4.0); HEMATOCRIT 31.6 % (37.0-47.0); LYMPH # 0.8 10*3/uL (1.3-4.4); LYMPH % 27.8 % (27.0-41.0); MEAN CELL VOLUME 83.8 fl (81.0-99.0); MEAN CORPUSCULAR HGB 25.2 pg (27.0-31.0); MEAN CORPUSCULAR HGB CONC 30.1 g/dl (33.0-37.0); MEAN PLATELET VOLUME 10.7 fl (9.6-12.3); MONO # 0.4 10*3/uL (0.1-1.0); MONO % 14.7 % (3.0-9.0); NEUT # 1.6 10*3/uL (2.3-7.9); NEUT % 52.1 % (47.0-73.0); PLATELET COUNT AUTOMATED 128 10*3/uL (130-400); RED BLOOD COUNT 3.77 10*6/uL (4.10-5.10); RED CELL DISTRI WIDTH 17.4 % (0-14.5)
[2023-12-09 21:17] LABS: ACT PARTIAL THROMBO TIME 26.3 SECONDS (20.0-32.1)
[2023-12-09 21:28] LABS: ALKALINE PHOSPHATASE 139 U/L (46-116); BUN 9 mg/dl (9-23); CHLORIDE 109 mmol/L (98-107); LIPASE 29 U/L (12-53); POTASSIUM 3.7 mmol/L (3.4-5.1); SGPT/ALT 36 U/L (5-49); TOTAL PROTEIN 5.4 gm/dL (6.0-8.0)
[2023-12-09] MEDS ORDERED: IOHEXOL 350 MG/ML 100 ML VIAL IV ONE (21:50)
[2023-12-09] MEDS ORDERED: SODIUM CHLORIDE 0.9% 100 ML BAG IV ONE (21:50)
[2023-12-09] MEDS ORDERED: HYDROmorphONE Hydrochloride 0.5 MG/0.5 ML SYRINGE IV ONE (23:00)
== END 2023-12-10 00:15 | disposition home or self-care (01) ==
LOC: ED 19:29
PROVIDERS: Internal Medicine
DX: R79.1 Abnormal coagulation profile (principal); K21.9 Gastro-esophageal reflux disease without esophagitis; I25.2 Old myocardial infarction; F41.9 Anxiety disorder, unspecified; E78.00 Pure hypercholesterolemia, unspecified; J45.909 Unspecified asthma, uncomplicated; M79.7 Fibromyalgia; Z88.0 Allergy status to penicillin; Z88.6 Allergy status to analgesic agent; Z88.8 Allergy status to other drugs, medicaments and biological substances; Z90.49 Acquired absence of other specified parts of digestive tract; Z98.890 Other specified postprocedural states; Z90.710 Acquired absence of both cervix and uterus; Z98.51 Tubal ligation status; Z95.5 Presence of coronary angioplasty implant and graft

== ENCOUNTER 2023-12-13 00:55 | Emergency (ER) | payer OTHER ==
[~2023-12-13] VITALS: Ht 160 cm; Wt 65.8 kg
[2023-12-13] MEDS ORDERED: MEPERIDINE HYDROCHLORIDE 25 MG/1 ML VIAL IM ONE (01:20)
[2023-12-13] MEDS ORDERED: Promethazine Hydrochloride 25 MG/ML VIAL IM ONE (01:20)
== END 2023-12-13 01:28 | disposition home or self-care (01) ==
LOC: ED 00:55
DX: G89.4 Chronic pain syndrome (principal); K21.9 Gastro-esophageal reflux disease without esophagitis; I25.2 Old myocardial infarction; F41.9 Anxiety disorder, unspecified; E78.00 Pure hypercholesterolemia, unspecified; J45.909 Unspecified asthma, uncomplicated; M79.7 Fibromyalgia; Z88.0 Allergy status to penicillin; Z88.6 Allergy status to analgesic agent; Z88.8 Allergy status to other drugs, medicaments and biological substances; Z90.49 Acquired absence of other specified parts of digestive tract; Z98.890 Other specified postprocedural states; Z90.710 Acquired absence of both cervix and uterus; Z90.89 Acquired absence of other organs; Z98.51 Tubal ligation status; Z95.5 Presence of coronary angioplasty implant and graft

== ENCOUNTER 2023-12-14 17:34 | Emergency (ER) | payer OTHER ==
[~2023-12-14] VITALS: Ht 160 cm; Wt 65.8 kg
[2023-12-14] MEDS ORDERED: Promethazine Hydrochloride 25 MG/ML VIAL IM ONE (19:15)
[2023-12-14] MEDS ORDERED: MEPERIDINE HYDROCHLORIDE 25 MG/1 ML VIAL IM ONE (19:15)
== END 2023-12-14 19:26 | disposition home or self-care (01) ==
LOC: ED 17:34
DX: G89.4 Chronic pain syndrome (principal); K21.9 Gastro-esophageal reflux disease without esophagitis; I25.2 Old myocardial infarction; F41.9 Anxiety disorder, unspecified; E78.00 Pure hypercholesterolemia, unspecified; M79.7 Fibromyalgia; J45.909 Unspecified asthma, uncomplicated; Z88.0 Allergy status to penicillin; Z88.6 Allergy status to analgesic agent; Z88.8 Allergy status to other drugs, medicaments and biological substances; Z90.49 Acquired absence of other specified parts of digestive tract; Z98.890 Other specified postprocedural states; Z90.710 Acquired absence of both cervix and uterus; Z98.51 Tubal ligation status; Z95.5 Presence of coronary angioplasty implant and graft; Z72.0 Tobacco use

== ENCOUNTER 2023-12-18 22:30 | Emergency (ER) | payer OTHER ==
[~2023-12-18] VITALS: Ht 160 cm; Wt 68.0 kg
== END 2023-12-18 23:06 | disposition home or self-care (01) ==
LOC: ED 22:30
DX: G89.29 Other chronic pain (principal); K21.9 Gastro-esophageal reflux disease without esophagitis; I25.2 Old myocardial infarction; F41.9 Anxiety disorder, unspecified; E78.00 Pure hypercholesterolemia, unspecified; M79.7 Fibromyalgia; J45.909 Unspecified asthma, uncomplicated; Z88.0 Allergy status to penicillin; Z88.6 Allergy status to analgesic agent; Z88.8 Allergy status to other drugs, medicaments and biological substances; Z90.49 Acquired absence of other specified parts of digestive tract; Z98.890 Other specified postprocedural states; Z98.51 Tubal ligation status; Z90.710 Acquired absence of both cervix and uterus; Z95.5 Presence of coronary angioplasty implant and graft

== ENCOUNTER 2023-12-19 14:28 | Inpatient (IN) | payer OTHER ==
[~2023-12-19] VITALS: Ht 167.6 cm; Wt 72.6 kg
[2023-12-19 14:55] VITALS: BP 132/72
[2023-12-19 15:07] LABS: EOS # 0.1 10*3/uL (0.0-0.4); EOS % 3.9 % (1.0-4.0); HEMATOCRIT 35.1 % (37.0-47.0); LYMPH # 0.8 10*3/uL (1.3-4.4); LYMPH % 27.1 % (27.0-41.0); MEAN CELL VOLUME 81.8 fl (81.0-99.0); MEAN CORPUSCULAR HGB 24.7 pg (27.0-31.0); MEAN CORPUSCULAR HGB CONC 30.2 g/dl (33.0-37.0); MONO # 0.5 10*3/uL (0.1-1.0); MONO % 14.5 % (3.0-9.0); NEUT # 1.7 10*3/uL (2.3-7.9); NEUT % 53.2 % (47.0-73.0); PLATELET COUNT AUTOMATED 175 10*3/uL (130-400); RED BLOOD COUNT 4.29 10*6/uL (4.10-5.10); RED CELL DISTRI WIDTH 17.2 % (0-14.5); WHITE BLOOD COUNT 3.1 10*3/uL (4.8-10.8)
[2023-12-19 15:18] LABS: ACT PARTIAL THROMBO TIME 28.2 SECONDS (20.0-32.1)
[2023-12-19 15:29] LABS: ALKALINE PHOSPHATASE 154 U/L (46-116); BUN 9 mg/dl (9-23); CHLORIDE 107 mmol/L (98-107); POTASSIUM 3.3 mmol/L (3.4-5.1); SGPT/ALT 36 U/L (5-49)
[2023-12-19] MEDS ORDERED: POTASSIUM CHLORIDE 20 MEQ TAB PO ONE (16:10)
[2023-12-19 16:22] VITALS: BP 128/68
[2023-12-19] MEDS ORDERED: METOPROLOL SUCCINATE XR 25 MG TAB PO ONE (16:30)
[2023-12-19] MEDS ORDERED: ASPIRIN 325 MG TAB PO ONE (16:30)
[2023-12-19] MEDS ORDERED: Acetaminophen/Hydrocodone 5 MG/325 MG TABLET PO PRN (16:35)
[2023-12-19] MEDS ORDERED: TEMAZEPAM 15 MG CAP PO PRN (16:35)
[2023-12-19] MEDS ORDERED: ACETAMINOPHEN 325 MG TAB PO PRN (16:35)
[2023-12-19] MEDS ORDERED: Ondansetron Hydrochloride 4 MG/2 ML VIAL IV PRN (16:35)
[2023-12-19] MEDS ORDERED: BISACODYL 5 MG TAB PO PRN (16:35)
[2023-12-19] MEDS ORDERED: Magnesium Hydroxide 30 ML UDC PO PRN (16:35)
[2023-12-19] MEDS ORDERED: SODIUM CHLORIDE 0.9% 100 ML BAG IV ONE (17:50)
[2023-12-19] MEDS ORDERED: IOHEXOL 350 MG/ML 100 ML VIAL IV ONE (17:50)
[2023-12-19 20:29] VITALS: BP 122/54
[2023-12-20 01:12] VITALS: BP 121/62
[2023-12-20] MEDS ORDERED: Pantoprazole Sodium 40 MG VIAL IV SCH (06:00)
[2023-12-20 06:22] LABS: BASO % 0.7 % (0.0-1.0); EOS # 0.2 10*3/uL (0.0-0.4); EOS % 6.1 % (1.0-4.0); LYMPH # 0.9 10*3/uL (1.3-4.4); LYMPH % 31.1 % (27.0-41.0); MEAN CELL VOLUME 82.5 fl (81.0-99.0); MEAN CORPUSCULAR HGB 24.8 pg (27.0-31.0); MEAN PLATELET VOLUME 11.2 fl (9.6-12.3); MONO # 0.4 10*3/uL (0.1-1.0); MONO % 12.3 % (3.0-9.0); NEUT # 1.5 10*3/uL (2.3-7.9); NEUT % 49.5 % (47.0-73.0); PLATELET COUNT AUTOMATED 151 10*3/uL (130-400); RED CELL DISTRI WIDTH 17.2 % (0-14.5); WHITE BLOOD COUNT 2.9 10*3/uL (4.8-10.8)
[2023-12-20 06:58] VITALS: BP 129/50
[2023-12-20 07:14] LABS: ALKALINE PHOSPHATASE 136 U/L (46-116); BUN 9 mg/dl (9-23); CHLORIDE 109 mmol/L (98-107); POTASSIUM 4.1 mmol/L (3.4-5.1); SGPT/ALT 31 U/L (5-49); TOTAL PROTEIN 5.2 gm/dL (6.0-8.0)
[2023-12-20 08:00] VITALS: BP 133/56
[2023-12-20] MEDS ORDERED: Enoxaparin Sodium 40 MG/0.4 ML SYR SC SCH (10:00)
[2023-12-20 12:00] VITALS: BP 113/44
[2023-12-20] MEDS ORDERED: IMDUR SA30 MG PO (14:02)
[2023-12-21] MEDS ORDERED: ISOSORBIDE MONONITRATE 30 MG TAB PO SCH (10:00)
== END 2023-12-20 15:26 | disposition home or self-care (01) | DRG 205 ==
LOC: ED 14:28 → EDHOLD 16:13
PROVIDERS: Nurse Practitioner Family; Student in an Organized Health Care Education/Training Program; ADMIT Internal Medicine; ATTEND Internal Medicine
DX: M94.0 Chondrocostal junction syndrome [Tietze] (principal); E43 Unspecified severe protein-calorie malnutrition; I50.32 Chronic diastolic (congestive) heart failure; E87.6 Hypokalemia; D64.9 Anemia, unspecified; E88.09 Other disorders of plasma-protein metabolism, not elsewhere classified; G89.4 Chronic pain syndrome; R74.01 Elevation of levels of liver transaminase levels; I11.0 Hypertensive heart disease with heart failure; K21.9 Gastro-esophageal reflux disease without esophagitis; E11.65 Type 2 diabetes mellitus with hyperglycemia; E03.9 Hypothyroidism, unspecified; I45.10 Unspecified right bundle-branch block; Z98.51 Tubal ligation status; Z90.710 Acquired absence of both cervix and uterus; Z87.891 Personal history of nicotine dependence; Z82.49 Family history of ischemic heart disease and other diseases of the circulatory system; Z82.3 Family history of stroke; Z88.0 Allergy status to penicillin; Z88.6 Allergy status to analgesic agent; Z88.1 Allergy status to other antibiotic agents; Z88.8 Allergy status to other drugs, medicaments and biological substances; Z79.82 Long term (current) use of aspirin; Z79.899 Other long term (current) drug therapy

== ENCOUNTER 2023-12-31 23:20 | Inpatient (IN) | payer OTHER ==
[~2023-12-31] VITALS: Ht 167.6 cm; Wt 68.0 kg
[2023-12-31 23:31] VITALS: BP 106/52
[2024-01-01] VITALS (17 sets, daily range): BP systolic 80–128; BP diastolic 32–60
[2024-01-01] MEDS ORDERED: SODIUM CHLORIDE 0.9% 500 ML IV ONE ×2 (00:05→09:35)
[2024-01-01 00:28] LABS: BASO % 0.6 % (0.0-1.0); EOS # 0.2 10*3/uL (0.0-0.4); EOS % 5.1 % (1.0-4.0); HEMATOCRIT 27.7 % (37.0-47.0); LYMPH # 0.8 10*3/uL (1.3-4.4); LYMPH % 23.7 % (27.0-41.0); MEAN CELL VOLUME 81.2 fl (81.0-99.0); MEAN CORPUSCULAR HGB 24.6 pg (27.0-31.0); MEAN CORPUSCULAR HGB CONC 30.3 g/dl (33.0-37.0); MEAN PLATELET VOLUME 11.2 fl (9.6-12.3); MONO # 0.5 10*3/uL (0.1-1.0); MONO % 13.5 % (3.0-9.0); NEUT # 1.9 10*3/uL (2.3-7.9); NEUT % 56.8 % (47.0-73.0); PLATELET COUNT AUTOMATED 114 10*3/uL (130-400); RED BLOOD COUNT 3.41 10*6/uL (4.10-5.10); RED CELL DISTRI WIDTH 17.3 % (0-14.5); WHITE BLOOD COUNT 3.3 10*3/uL (4.8-10.8)
[2024-01-01 00:40] LABS: BUN 9 mg/dl (9-23); CHLORIDE 108 mmol/L (98-107); POTASSIUM 3.6 mmol/L (3.4-5.1)
[2024-01-01] MEDS ORDERED: SODIUM CHLORIDE 0.9% 1,000 ML IV ONE (03:10)
[2024-01-01] MEDS ORDERED: VENT7GM INH (03:51)
[2024-01-01] MEDS ORDERED: CARAFATE1 G1 PO (03:54)
[2024-01-01] MEDS ORDERED: SYMB80 INH (04:00)
[2024-01-01 06:38] LABS: BASO % 0.8 % (0.0-1.0); EOS # 0.1 10*3/uL (0.0-0.4); EOS % 5.4 % (1.0-4.0); LYMPH # 0.8 10*3/uL (1.3-4.4); LYMPH % 31.9 % (27.0-41.0); MEAN CELL VOLUME 80.9 fl (81.0-99.0); MEAN CORPUSCULAR HGB 24.6 pg (27.0-31.0); MEAN CORPUSCULAR HGB CONC 30.4 g/dl (33.0-37.0); MEAN PLATELET VOLUME 11.1 fl (9.6-12.3); MONO # 0.3 10*3/uL (0.1-1.0); MONO % 13.1 % (3.0-9.0); NEUT # 1.3 10*3/uL (2.3-7.9); NEUT % 48.8 % (47.0-73.0); PLATELET COUNT AUTOMATED 104 10*3/uL (130-400); RED BLOOD COUNT 3.46 10*6/uL (4.10-5.10); RED CELL DISTRI WIDTH 17.3 % (0-14.5); WHITE BLOOD COUNT 2.6 10*3/uL (4.8-10.8)
[2024-01-01 07:15] LABS: ALKALINE PHOSPHATASE 117 U/L (46-116); BUN 7 mg/dl (9-23); CHLORIDE 113 mmol/L (98-107); POTASSIUM 3.6 mmol/L (3.4-5.1); SGPT/ALT 22 U/L (5-49); TOTAL PROTEIN 4.5 gm/dL (6.0-8.0)
[2024-01-01] MEDS ORDERED: Midodrine Hydrochloride 5 MG TAB PO SCH (08:00)
[2024-01-01] MEDS ORDERED: Clopidogrel Hydrogen Sulfate 75 MG TAB PO SCH (10:00)
[2024-01-01] MEDS ORDERED: ASPIRIN ENTERIC COATED 81 MG TAB PO SCH (10:00)
[2024-01-01] MEDS ORDERED: Enoxaparin Sodium 40 MG/0.4 ML SYR SC SCH (10:00)
[2024-01-01] MEDS ORDERED: SUCRALFATE 1 GM TAB PO SCH (16:30)
[2024-01-01] MEDS ORDERED: OXYCODONE HCL (IR) 5 MG TAB PO PRN (17:10)
[2024-01-01] MEDS ORDERED: RIFAXIMIN 550 MG TAB PO SCH (22:00)
[2024-01-02] VITALS: BP 100/40; BP 98/35
[2024-01-02 01:31] LABS: BILIRUBIN Negative (Negative); BLOOD Negative (Negative); CLARITY Clear (Clear); COLOR Yellow (Yellow); GLUCOSE Negative (Negative); KETONE Negative (Negative); LEUKO ESTERASE Trace (Negative); NITRITE Negative (Negative); SPECIFIC GRAVITY <= 1.005 (1.001-1.030); UROBILINOGEN 0.2 E.U./dl (0.0-1.0)
[2024-01-02 01:52] LABS: BACTERIA 1+; MUCOUS 1+; RBC 0-2 rbc/hpf (0-2)
[2024-01-02] MEDS ORDERED: Levothyroxine Sodium 125 MCG TAB PO SCH (06:00)
[2024-01-02] MEDS ORDERED: Pantoprazole Sodium 40 MG TAB PO SCH (06:00)
[2024-01-02 06:06] LABS: MEAN CELL VOLUME 82.8 fl (81.0-99.0); MEAN CORPUSCULAR HGB 24.5 pg (27.0-31.0); MEAN CORPUSCULAR HGB CONC 29.6 g/dl (33.0-37.0); MEAN PLATELET VOLUME 11.8 fl (9.6-12.3); PLATELET COUNT AUTOMATED 100 10*3/uL (130-400); RED BLOOD COUNT 3.26 10*6/uL (4.10-5.10); RED CELL DISTRI WIDTH 17.4 % (0-14.5); WHITE BLOOD COUNT 2.2 10*3/uL (4.8-10.8)
[2024-01-02 06:11] LABS: BUN 7 mg/dl (9-23); CHLORIDE 116 mmol/L (98-107); MANUAL DIFF REFLEX YES; POTASSIUM 3.9 mmol/L (3.4-5.1)
[2024-01-02 07:01] LABS: ATYPICAL LYMPHS 1 % (0-0); BASOPHILS 1 % (0-1); TOTAL CELLS COUNTED 100 #CELLS
[2024-01-02 07:02] LABS: ACANTHOCYTES FEW; BURR CELLS MODERATE; OVALOCYTES FEW; PLATELET SUFFICIENCY LOW (NORMAL); POLYCHROMASIA SLIGHT; SCHISTOCYTES FEW
[2024-01-02 08:00] VITALS: BP 104/44
[2024-01-02] MEDS ORDERED: SODIUM CHLORIDE 0.9% 10 ML VIAL IV SCH (09:55)
[2024-01-02] MEDS ORDERED: ATORVASTATIN CALCIUM 40 MG TABLET PO SCH (10:00)
[2024-01-02 11:36] VITALS: BP 100/48
[2024-01-02] MEDS ORDERED: Albuterol Sulfate 2.5 MG/3 ML VIAL NEB PRN (13:10)
[2024-01-02 16:00] VITALS: BP 102/50
[2024-01-02 16:59] VITALS: BP 102/48
[2024-01-02 20:00] VITALS: BP 111/48
[2024-01-03] VITALS: BP 100/31
[2024-01-03 06:15] LABS: BUN 10 mg/dl (9-23); CHLORIDE 115 mmol/L (98-107); POTASSIUM 3.8 mmol/L (3.4-5.1)
[2024-01-03 06:28] LABS: BASO % 0.9 % (0.0-1.0); EOS # 0.2 10*3/uL (0.0-0.4); EOS % 6.6 % (1.0-4.0); LYMPH # 0.7 10*3/uL (1.3-4.4); LYMPH % 32.6 % (27.0-41.0); MEAN CELL VOLUME 83.3 fl (81.0-99.0); MEAN CORPUSCULAR HGB 24.4 pg (27.0-31.0); MEAN CORPUSCULAR HGB CONC 29.3 g/dl (33.0-37.0); MEAN PLATELET VOLUME 10.9 fl (9.6-12.3); MONO # 0.3 10*3/uL (0.1-1.0); MONO % 11.9 % (3.0-9.0); NEUT # 1.1 10*3/uL (2.3-7.9); NEUT % 47.6 % (47.0-73.0); PLATELET COUNT AUTOMATED 102 10*3/uL (130-400); RED BLOOD COUNT 3.36 10*6/uL (4.10-5.10); RED CELL DISTRI WIDTH 17.4 % (0-14.5); WHITE BLOOD COUNT 2.3 10*3/uL (4.8-10.8)
[2024-01-03 08:00] VITALS: BP 108/41
[2024-01-03 12:00] VITALS: BP 110/33
[2024-01-03] MEDS ORDERED: BUMETANIDE1 MG PO (14:24)
[2024-01-03] MEDS ORDERED: POTASSIUM CHLO20 ME4 PO (14:24)
[2024-01-03] MEDS ORDERED: MIDODRINE HCL5 M1 PO (14:24)
== END 2024-01-03 15:55 | disposition home or self-care (01) | DRG 312 ==
LOC: ED 23:20 → 4E 01-01 03:04 → EDHOLD 01-01 03:04 → 4E 01-01 14:39
PROVIDERS: Family Medicine; Internal Medicine; Student in an Organized Health Care Education/Training Program; ADMIT Student in an Organized Health Care Education/Training Program; ATTEND Student in an Organized Health Care Education/Training Program
DX: I95.1 Orthostatic hypotension (principal); E43 Unspecified severe protein-calorie malnutrition; I50.32 Chronic diastolic (congestive) heart failure; D61.818 Other pancytopenia; Z68.44 Body mass index [BMI] 60.0-69.9, adult; G89.4 Chronic pain syndrome; K31.84 Gastroparesis; I11.0 Hypertensive heart disease with heart failure; I25.10 Atherosclerotic heart disease of native coronary artery without angina pectoris; F32.A Depression, unspecified; E78.5 Hyperlipidemia, unspecified; M79.7 Fibromyalgia; K21.9 Gastro-esophageal reflux disease without esophagitis; E03.9 Hypothyroidism, unspecified; K74.60 Unspecified cirrhosis of liver; E11.43 Type 2 diabetes mellitus with diabetic autonomic (poly)neuropathy; M06.8A Other specified rheumatoid arthritis, other specified site; Z88.6 Allergy status to analgesic agent; Z88.0 Allergy status to penicillin; Z88.8 Allergy status to other drugs, medicaments and biological substances; Z91.09 Other allergy status, other than to drugs and biological substances; Z79.899 Other long term (current) drug therapy; Z79.01 Long term (current) use of anticoagulants; Z79.2 Long term (current) use of antibiotics; Z90.49 Acquired absence of other specified parts of digestive tract; Z95.1 Presence of aortocoronary bypass graft; Z98.84 Bariatric surgery status; Z90.710 Acquired absence of both cervix and uterus; Z82.49 Family history of ischemic heart disease and other diseases of the circulatory system; Z82.3 Family history of stroke; Z83.3 Family history of diabetes mellitus; Z81.8 Family history of other mental and behavioral disorders

== ENCOUNTER 2024-01-17 20:53 | Emergency (ER) | payer OTHER ==
[~2024-01-17] VITALS: Ht 167.6 cm; Wt 74.8 kg
[~2024-01-17 20:53] MED LIST changes: +MIDODRINE HCL5 M1 PO; +VENT7GM INH
[2024-01-17] MEDS ORDERED: SODIUM CHLORIDE 0.9% 1,000 ML IV ONE (21:40)
[2024-01-17 21:51] LABS: BASO % 0.9 % (0.0-1.0); EOS # 0.1 10*3/uL (0.0-0.4); EOS % 5.2 % (1.0-4.0); HEMATOCRIT 26.7 % (37.0-47.0); LYMPH # 0.6 10*3/uL (1.3-4.4); LYMPH % 23.9 % (27.0-41.0); MEAN CELL VOLUME 80.4 fl (81.0-99.0); MEAN CORPUSCULAR HGB 24.1 pg (27.0-31.0); MEAN PLATELET VOLUME 10.9 fl (9.6-12.3); MONO # 0.4 10*3/uL (0.1-1.0); MONO % 15.7 % (3.0-9.0); NEUT # 1.3 10*3/uL (2.3-7.9); NEUT % 54.3 % (47.0-73.0); PLATELET COUNT AUTOMATED 106 10*3/uL (130-400); RED BLOOD COUNT 3.32 10*6/uL (4.10-5.10); RED CELL DISTRI WIDTH 17.6 % (0-14.5); WHITE BLOOD COUNT 2.3 10*3/uL (4.8-10.8)
[2024-01-17 22:14] LABS: ALKALINE PHOSPHATASE 131 U/L (46-116); BUN 12 mg/dl (9-23); CHLORIDE 111 mmol/L (98-107); ETHYL ALCOHOL 3.6 mg/dl (<3); SGPT/ALT 18 U/L (5-49); TOTAL PROTEIN 4.8 gm/dL (6.0-8.0)
[2024-01-18 04:15] LABS: BILIRUBIN Negative (Negative); BLOOD Negative (Negative); CLARITY Turbid (Clear); COLOR Yellow (Yellow); GLUCOSE Negative (Negative); KETONE Trace (Negative); LEUKO ESTERASE 2+ (Negative); NITRITE Negative (Negative); PH 6.5 (4.5-8.0)
[2024-01-18 04:22] LABS: URINE AMPHETAMINES Negative (1000ng/ml); URINE BARBITURATES Negative (200ng/ml); URINE BENZODIAZEPINES Negative (200ng/ml); URINE CANNABINOIDS (THC) Negative (50ng/ml); URINE COCAINE Negative (300ng/ml); URINE METHADONE Negative (300ng/ml); URINE OPIATES Negative (300ng/ml); URINE PHENCYCLIDINE Negative (25ng/ml)
[2024-01-18 04:41] LABS: BACTERIA 4+
[2024-01-18 04:42] LABS: WBC 21-30 wbc/hpf (0-5)
[2024-01-18] MEDS ORDERED: CEPHALEXIN500 M1 PO (06:34)
[2024-01-18] MEDS ORDERED: CEPHALEXIN 500 MG CAP PO ONE (06:35)
[2024-01-19] MEDS ORDERED: OMNICEF300 MG PO (10:27)
== END 2024-01-18 07:29 | disposition home or self-care (01) ==
LOC: ED 20:53
PROVIDERS: Emergency Medicine
DX: T50.991A Poisoning by other drugs, medicaments and biological substances, accidental (unintentional), initial encounter (principal); N39.0 Urinary tract infection, site not specified; K21.9 Gastro-esophageal reflux disease without esophagitis; I25.2 Old myocardial infarction; F41.9 Anxiety disorder, unspecified; E78.00 Pure hypercholesterolemia, unspecified; J45.909 Unspecified asthma, uncomplicated; M79.7 Fibromyalgia; Z88.0 Allergy status to penicillin; Z88.6 Allergy status to analgesic agent; Z88.8 Allergy status to other drugs, medicaments and biological substances; Z90.49 Acquired absence of other specified parts of digestive tract; Z98.890 Other specified postprocedural states; Z90.710 Acquired absence of both cervix and uterus; Z98.51 Tubal ligation status; Y92.89 Other specified places as the place of occurrence of the external cause

== ENCOUNTER 2024-01-18 19:34 | Observation (INO) | payer OTHER ==
[~2024-01-18] VITALS: Ht 160 cm; Wt 73.1 kg
[~2024-01-18 19:34] MED LIST changes: +CEPHALEXIN500 M1 PO
[2024-01-18 19:45] VITALS: BP 114/53
[2024-01-18 20:10] LABS: BASO % 0.7 % (0.0-1.0); EOS # 0.1 10*3/uL (0.0-0.4); EOS % 4.9 % (1.0-4.0); HEMATOCRIT 27.8 % (37.0-47.0); LYMPH # 0.7 10*3/uL (1.3-4.4); LYMPH % 26.5 % (27.0-41.0); MEAN CELL VOLUME 79.9 fl (81.0-99.0); MEAN CORPUSCULAR HGB 24.1 pg (27.0-31.0); MEAN CORPUSCULAR HGB CONC 30.2 g/dl (33.0-37.0); MEAN PLATELET VOLUME 10.4 fl (9.6-12.3); MONO # 0.4 10*3/uL (0.1-1.0); MONO % 15.3 % (3.0-9.0); NEUT # 1.4 10*3/uL (2.3-7.9); NEUT % 52.2 % (47.0-73.0); PLATELET COUNT AUTOMATED 117 10*3/uL (130-400); RED BLOOD COUNT 3.48 10*6/uL (4.10-5.10); RED CELL DISTRI WIDTH 17.7 % (0-14.5); WHITE BLOOD COUNT 2.7 10*3/uL (4.8-10.8)
[2024-01-18 20:17] LABS: ACT PARTIAL THROMBO TIME 27.9 SECONDS (20.0-32.1)
[2024-01-18 20:21] LABS: BUN 12 mg/dl (9-23); CHLORIDE 110 mmol/L (98-107); POTASSIUM 3.2 mmol/L (3.4-5.1)
[2024-01-18] MEDS ORDERED: POTASSIUM CHLORIDE 20 MEQ TAB PO ONE (20:50)
[2024-01-18] MEDS ORDERED: Magnesium Hydroxide 30 ML UDC PO PRN (21:45)
[2024-01-18] MEDS ORDERED: BISACODYL 10 MG SUPP R PRN (21:45)
[2024-01-18] MEDS ORDERED: TEMAZEPAM 15 MG CAP PO PRN (21:45)
[2024-01-18] MEDS ORDERED: BISACODYL 5 MG TAB PO PRN (21:45)
[2024-01-18] MEDS ORDERED: Ondansetron Hydrochloride 4 MG/2 ML VIAL IV PRN (21:45)
[2024-01-18] MEDS ORDERED: MORPHINE Sulfate 2 MG/ML SYR IV PRN (21:45)
[2024-01-18] MEDS ORDERED: Pantoprazole Sodium 40 MG TAB PO PRN (21:55)
[2024-01-18] MEDS ORDERED: ATORVASTATIN CALCIUM 40 MG TABLET PO SCH (22:05)
[2024-01-18 23:30] VITALS: BP 111/47
[2024-01-19 06:49] LABS: BASO % 0.4 % (0.0-1.0); EOS # 0.1 10*3/uL (0.0-0.4); EOS % 5.2 % (1.0-4.0); HEMATOCRIT 26.3 % (37.0-47.0); LYMPH # 0.8 10*3/uL (1.3-4.4); LYMPH % 34.3 % (27.0-41.0); MEAN CELL VOLUME 80.7 fl (81.0-99.0); MEAN CORPUSCULAR HGB 23.9 pg (27.0-31.0); MEAN CORPUSCULAR HGB CONC 29.7 g/dl (33.0-37.0); MEAN PLATELET VOLUME 10.4 fl (9.6-12.3); MONO # 0.3 10*3/uL (0.1-1.0); MONO % 13.3 % (3.0-9.0); NEUT # 1.1 10*3/uL (2.3-7.9); NEUT % 46.8 % (47.0-73.0); PLATELET COUNT AUTOMATED 109 10*3/uL (130-400); RED BLOOD COUNT 3.26 10*6/uL (4.10-5.10); RED CELL DISTRI WIDTH 17.7 % (0-14.5); WHITE BLOOD COUNT 2.3 10*3/uL (4.8-10.8)
[2024-01-19 07:19] LABS: ALKALINE PHOSPHATASE 122 U/L (46-116); BUN 12 mg/dl (9-23); CHLORIDE 113 mmol/L (98-107); CHOLESTEROL 73 mg/dL (<200); FREE T4 1.05 ng/dl (0.89-1.76); LDL CHOLESTEROL 45 mg/dL (9-159); POTASSIUM 3.6 mmol/L (3.4-5.1); SGPT/ALT 16 U/L (5-49); TOTAL PROTEIN 4.4 gm/dL (6.0-8.0); TRIGLYCERIDES 41 mg/dl (<150)
[2024-01-19 08:00] VITALS: BP 128/50
[2024-01-19] MEDS ORDERED: Ceftriaxone Sodium 1 GM,IV 1 EA in SYRINGE INFUSION 10 ML IV SCH (10:00)
[2024-01-19] MEDS ORDERED: Enoxaparin Sodium 40 MG/0.4 ML SYR SC SCH (10:00)
[2024-01-19] MEDS ORDERED: ASPIRIN ENTERIC COATED 81 MG TAB PO SCH (10:00)
[2024-01-19] MEDS ORDERED: Clopidogrel Hydrogen Sulfate 75 MG TAB PO SCH (10:00)
[2024-01-19] MEDS ORDERED: OMNICEF300 MG PO (10:27)
== END 2024-01-19 12:35 | disposition home or self-care (01) ==
LOC: ED 19:34 → 4E 21:08 → EDHOLD 21:08 → 4E 22:12
PROVIDERS: Nurse Practitioner; Student in an Organized Health Care Education/Training Program; ADMIT Internal Medicine; ATTEND Internal Medicine
DX: R07.89 Other chest pain (principal); I25.10 Atherosclerotic heart disease of native coronary artery without angina pectoris; I11.0 Hypertensive heart disease with heart failure; I50.32 Chronic diastolic (congestive) heart failure; E11.9 Type 2 diabetes mellitus without complications; E78.5 Hyperlipidemia, unspecified; M79.7 Fibromyalgia; K21.9 Gastro-esophageal reflux disease without esophagitis; E03.9 Hypothyroidism, unspecified; M06.9 Rheumatoid arthritis, unspecified; E87.8 Other disorders of electrolyte and fluid balance, not elsewhere classified; D69.6 Thrombocytopenia, unspecified; D50.9 Iron deficiency anemia, unspecified; E87.6 Hypokalemia; E83.51 Hypocalcemia; G89.4 Chronic pain syndrome; F32.9 Major depressive disorder, single episode, unspecified; K22.70 Barrett's esophagus without dysplasia; E05.00 Thyrotoxicosis with diffuse goiter without thyrotoxic crisis or storm; R65.10 Systemic inflammatory response syndrome (SIRS) of non-infectious origin without acute organ dysfunction; E43 Unspecified severe protein-calorie malnutrition; R94.30 Abnormal result of cardiovascular function study, unspecified; Z79.899 Other long term (current) drug therapy; Z95.1 Presence of aortocoronary bypass graft; Z79.84 Long term (current) use of oral hypoglycemic drugs; Z79.82 Long term (current) use of aspirin

== ENCOUNTER 2024-02-22 20:23 | Emergency (ER) | payer MEDICARE ==
[~2024-02-22] VITALS: Ht 160 cm; Wt 69.9 kg
[~2024-02-22 20:23] MED LIST changes: +OMNICEF300 MG PO
[2024-02-22 21:05] LABS: BASO % 0.8 % (0.0-1.0); EOS # 0.1 10*3/uL (0.0-0.4); EOS % 3.7 % (1.0-4.0); HEMATOCRIT 34.7 % (37.0-47.0); MEAN CELL VOLUME 83.6 fl (81.0-99.0); MEAN CORPUSCULAR HGB 25.8 pg (27.0-31.0); MEAN CORPUSCULAR HGB CONC 30.8 g/dl (33.0-37.0); MEAN PLATELET VOLUME 9.8 fl (9.6-12.3); MONO # 0.5 10*3/uL (0.1-1.0); MONO % 13.9 % (3.0-9.0); NEUT # 1.8 10*3/uL (2.3-7.9); NEUT % 51.6 % (47.0-73.0); PLATELET COUNT AUTOMATED 128 10*3/uL (130-400); RED BLOOD COUNT 4.15 10*6/uL (4.10-5.10); RED CELL DISTRI WIDTH 22.2 % (0-14.5); WHITE BLOOD COUNT 3.5 10*3/uL (4.8-10.8)
[2024-02-22 21:23] LABS: BUN 10 mg/dl (9-23); CHLORIDE 112 mmol/L (98-107); POTASSIUM 3.6 mmol/L (3.4-5.1)
[2024-02-22] MEDS ORDERED: Lidocaine Hydrochloride 15 ML UDC PO STA (21:34)
[2024-02-22] MEDS ORDERED: MG-AL HYDROXIDE/SIMETICONE 30 ML UDC PO STA (21:34)
[2024-02-22] MEDS ORDERED: Dicyclomine Hydrochloride 20 MG/10 ML OSYR PO STA (21:34)
[2024-02-22] MEDS ORDERED: PEPCID40 MG PO (22:09)
== END 2024-02-22 22:21 | disposition home or self-care (01) ==
LOC: ED 20:23
PROVIDERS: Nurse Practitioner Family
DX: K21.9 Gastro-esophageal reflux disease without esophagitis (principal); D72.818 Other decreased white blood cell count; I25.10 Atherosclerotic heart disease of native coronary artery without angina pectoris; F32.A Depression, unspecified; E78.5 Hyperlipidemia, unspecified; M79.7 Fibromyalgia; E03.9 Hypothyroidism, unspecified; I11.0 Hypertensive heart disease with heart failure; I50.9 Heart failure, unspecified; E11.9 Type 2 diabetes mellitus without complications; Z88.0 Allergy status to penicillin; Z88.6 Allergy status to analgesic agent; Z88.8 Allergy status to other drugs, medicaments and biological substances; Z79.899 Other long term (current) drug therapy; Z79.82 Long term (current) use of aspirin; Z90.49 Acquired absence of other specified parts of digestive tract; Z95.1 Presence of aortocoronary bypass graft; Z98.84 Bariatric surgery status; Z98.51 Tubal ligation status; Z90.710 Acquired absence of both cervix and uterus; Z87.891 Personal history of nicotine dependence

== ENCOUNTER 2024-03-19 00:15 | Emergency (ER) | payer MEDICARE ==
[~2024-03-19] VITALS: Ht 160 cm; Wt 78.2 kg
[~2024-03-19 00:15] MED LIST changes: +CONSTULOSE10 GM/151 PO; +PEPCID40 MG PO; +PROZAC20 MG PO; +VIT D3-VIT K21 EACH PO
[2024-03-19 01:26] LABS: BASO % 0.2 % (0.0-1.0); EOS # 0.2 10*3/uL (0.0-0.4); HEMATOCRIT 22.2 % (37.0-47.0); MEAN CELL VOLUME 92.1 fl (81.0-99.0); MEAN CORPUSCULAR HGB 29.9 pg (27.0-31.0); MEAN CORPUSCULAR HGB CONC 32.4 g/dl (33.0-37.0); MEAN PLATELET VOLUME 10.8 fl (9.6-12.3); MONO # 0.7 10*3/uL (0.1-1.0); MONO % 15.7 % (3.0-9.0); NEUT # 2.6 10*3/uL (2.3-7.9); NEUT % 59.5 % (47.0-73.0); PLATELET COUNT AUTOMATED 112 10*3/uL (130-400); RED BLOOD COUNT 2.41 10*6/uL (4.10-5.10); RED CELL DISTRI WIDTH 18.2 % (0-14.5); WHITE BLOOD COUNT 4.4 10*3/uL (4.8-10.8)
[2024-03-19 01:35] LABS: BUN 11 mg/dl (9-23); CHLORIDE 106 mmol/L (98-107); POTASSIUM 3.2 mmol/L (3.4-5.1)
[2024-03-19 01:48] LABS: BILIRUBIN 1+ (Negative); BLOOD Negative (Negative); CLARITY Clear (Clear); COLOR Dark Yellow (Yellow); GLUCOSE Negative (Negative); KETONE Trace (Negative); LEUKO ESTERASE Trace (Negative); NITRITE Negative (Negative); PH 5.5 (4.5-8.0); SPECIFIC GRAVITY 1.025 (1.001-1.030); UROBILINOGEN 0.2 E.U./dl (0.0-1.0)
[2024-03-19 01:57] LABS: EPITHELIAL CELLS 16-20; RBC 0-2 rbc/hpf (0-2)
[2024-03-19 01:58] LABS: BACTERIA 1+; MUCOUS 1+
[2024-03-19] MEDS ORDERED: LEVOFLOXACIN750 M2 PO (02:07)
== END 2024-03-19 02:29 | disposition home or self-care (01) ==
LOC: ED 00:15
PROVIDERS: Internal Medicine
DX: N39.0 Urinary tract infection, site not specified (principal); J18.9 Pneumonia, unspecified organism; K21.9 Gastro-esophageal reflux disease without esophagitis; I25.2 Old myocardial infarction; F41.9 Anxiety disorder, unspecified; E78.00 Pure hypercholesterolemia, unspecified; J45.909 Unspecified asthma, uncomplicated; M79.7 Fibromyalgia; Z88.0 Allergy status to penicillin; Z88.6 Allergy status to analgesic agent; Z88.8 Allergy status to other drugs, medicaments and biological substances; Z90.49 Acquired absence of other specified parts of digestive tract; Z90.710 Acquired absence of both cervix and uterus; Z98.890 Other specified postprocedural states; Z95.5 Presence of coronary angioplasty implant and graft; Z72.0 Tobacco use

== ENCOUNTER 2024-03-22 11:58 | Observation (INO) | payer MEDICARE ==
[~2024-03-22] VITALS: Ht 160 cm; Wt 73.0 kg
[~2024-03-22 11:58] MED LIST changes: +LEVOFLOXACIN750 M2 PO
[2024-03-22 12:31] VITALS: BP 115/42
[2024-03-22 13:01] LABS: BASO % 0.3 % (0.0-1.0); EOS # 0.1 10*3/uL (0.0-0.4); EOS % 2.5 % (1.0-4.0); HEMATOCRIT 23.5 % (37.0-47.0); MEAN CELL VOLUME 89.7 fl (81.0-99.0); MEAN CORPUSCULAR HGB 27.9 pg (27.0-31.0); MEAN CORPUSCULAR HGB CONC 31.1 g/dl (33.0-37.0); MEAN PLATELET VOLUME 10.4 fl (9.6-12.3); MONO # 0.5 10*3/uL (0.1-1.0); MONO % 16.1 % (3.0-9.0); NEUT % 60.9 % (47.0-73.0); PLATELET COUNT AUTOMATED 123 10*3/uL (130-400); RED BLOOD COUNT 2.62 10*6/uL (4.10-5.10); RED CELL DISTRI WIDTH 18.4 % (0-14.5); WHITE BLOOD COUNT 3.2 10*3/uL (4.8-10.8)
[2024-03-22 13:26] LABS: BUN 6 mg/dl (9-23); CHLORIDE 101 mmol/L (98-107); POTASSIUM 2.5 mmol/L (3.4-5.1)
[2024-03-22 13:55] LABS: BILIRUBIN 1+ (Negative); BLOOD Negative (Negative); CLARITY Cloudy (Clear); COLOR Orange (Yellow); GLUCOSE Negative (Negative); KETONE Trace (Negative); LEUKO ESTERASE Negative (Negative); NITRITE Negative (Negative); PH 5.5 (4.5-8.0)
[2024-03-22 14:11] LABS: BACTERIA 1+; FINE GRANULAR CAST 0-2; MUCOUS 2+; RBC 0-2 rbc/hpf (0-2)
[2024-03-22] MEDS ORDERED: Ondansetron Hydrochloride 4 MG/2 ML VIAL IV PRN (14:25)
[2024-03-22] MEDS ORDERED: Albuterol Sulfate 2.5 MG/3 ML VIAL NEB PRN (14:40)
[2024-03-22] MEDS ORDERED: OXYCODONE HCL (IR) 5 MG TAB PO PRN (14:40)
[2024-03-22] MEDS ORDERED: IPRATROPIUM BROMIDE 0.5 MG/2.5 ML AMP NEB PRN (14:40)
[2024-03-22] MEDS ORDERED: FLUOROMETHOLONE 0.1% OPH PRN (14:40)
[2024-03-22] MEDS ORDERED: BUMETANIDE 1 MG TAB PO SCH (14:45)
[2024-03-22] MEDS ORDERED: POTASSIUM CHLORIDE 20 MEQ TAB PO ONE ×2 (14:55→16:00)
[2024-03-22] MEDS ORDERED: LINEZOLID 300 ML IV SCH ×2 (16:00→22:00)
[2024-03-22 16:50] VITALS: BP 132/33
[2024-03-22 17:51] LABS: BUN 6 mg/dl (9-23); CHLORIDE 100 mmol/L (98-107); POTASSIUM 3.1 mmol/L (3.4-5.1)
[2024-03-22] MEDS ORDERED: LACTULOSE 20 GM/30 ML UDC PO SCH (18:00)
[2024-03-22] MEDS ORDERED: BUMETANIDE 1 MG/4 ML VIAL IV SCH (18:00)
[2024-03-22 20:10] VITALS: BP 102/36
[2024-03-23] VITALS (7 sets, daily range): BP systolic 92–110; BP diastolic 32–48
[2024-03-23] MEDS ORDERED: Levothyroxine Sodium 125 MCG TAB PO SCH (06:00)
[2024-03-23 06:26] LABS: MEAN CELL VOLUME 88.2 fl (81.0-99.0); MEAN CORPUSCULAR HGB 28.2 pg (27.0-31.0); MEAN CORPUSCULAR HGB CONC 31.9 g/dl (33.0-37.0); MEAN PLATELET VOLUME 11.5 fl (9.6-12.3); PLATELET COUNT AUTOMATED 101 10*3/uL (130-400); RED BLOOD COUNT 2.38 10*6/uL (4.10-5.10); RED CELL DISTRI WIDTH 18.6 % (0-14.5); WHITE BLOOD COUNT 2.3 10*3/uL (4.8-10.8)
[2024-03-23 06:36] LABS: MANUAL DIFF REFLEX YES
[2024-03-23 07:18] LABS: BASOPHILS 2 % (0-1); OVALOCYTES FEW; PLATELET SUFFICIENCY LOW (NORMAL); POLYCHROMASIA SLIGHT; TOTAL CELLS COUNTED 100 #CELLS
[2024-03-23 07:19] LABS: BURR CELLS FEW
[2024-03-23 07:30] LABS: ALKALINE PHOSPHATASE 93 U/L (46-116); BUN 6 mg/dl (9-23); CHLORIDE 101 mmol/L (98-107); POTASSIUM 2.9 mmol/L (3.4-5.1); SGPT/ALT 24 U/L (5-49); TOTAL PROTEIN 3.8 gm/dL (6.0-8.0)
[2024-03-23] MEDS ORDERED: SODIUM CHLORIDE 0.9% 500 ML IV ONE (09:10)
[2024-03-23] MEDS ORDERED: Fluoxetine Hydrochloride 20 MG CAP PO SCH (10:00)
[2024-03-23] MEDS ORDERED: ASPIRIN, CHEWABLE 81 MG TAB PO SCH (10:00)
[2024-03-23] MEDS ORDERED: Clopidogrel Hydrogen Sulfate 75 MG TAB PO SCH (10:00)
[2024-03-23] MEDS ORDERED: Pantoprazole Sodium 40 MG TAB PO SCH ×2 (10:00)
[2024-03-23] MEDS ORDERED: POTASSIUM CHLORIDE 20 MEQ TAB PO ONE ×2 (11:00→12:00)
[2024-03-23] MEDS ORDERED: SUCRALFATE 1 GM TAB PO SCH (11:30)
[2024-03-23] MEDS ORDERED: POTASSIUM CHLO20 ME4 PO (13:33)
[2024-03-23] MEDS ORDERED: PANTOPRAZOLE SO40 MG PO (13:33)
[2024-03-23] MEDS ORDERED: BUMETANIDE1 MG PO (13:33)
[2024-03-23] MEDS ORDERED: Synthroid,Lev150 MCG PO (13:33)
[2024-03-23] MEDS ORDERED: Carafate1 GM PO (13:33)
[2024-03-23] MEDS ORDERED: ZYVOX600 MG PO (13:34)
[2024-03-23 13:54] LABS: EOS # 0.1 10*3/uL (0.0-0.4); EOS % 4.3 % (1.0-4.0); MEAN CELL VOLUME 89.6 fl (81.0-99.0); MEAN CORPUSCULAR HGB CONC 31.2 g/dl (33.0-37.0); MEAN PLATELET VOLUME 10.4 fl (9.6-12.3); MONO # 0.3 10*3/uL (0.1-1.0); MONO % 12.5 % (3.0-9.0); NEUT # 1.5 10*3/uL (2.3-7.9); NEUT % 62.5 % (47.0-73.0); PLATELET COUNT AUTOMATED 95 10*3/uL (130-400); RED BLOOD COUNT 2.79 10*6/uL (4.10-5.10); RED CELL DISTRI WIDTH 17.8 % (0-14.5); WHITE BLOOD COUNT 2.3 10*3/uL (4.8-10.8)
== END 2024-03-23 13:51 | disposition home or self-care (01) ==
LOC: ED 11:58 → EDHOLD 13:36
PROVIDERS: Internal Medicine; Student in an Organized Health Care Education/Training Program; ADMIT Internal Medicine; ATTEND Internal Medicine
DX: N30.00 Acute cystitis without hematuria (principal); E83.52 Hypercalcemia; E83.51 Hypocalcemia; D69.6 Thrombocytopenia, unspecified; D72.810 Lymphocytopenia; I11.0 Hypertensive heart disease with heart failure; I50.33 Acute on chronic diastolic (congestive) heart failure; E87.6 Hypokalemia; E89.0 Postprocedural hypothyroidism; E78.5 Hyperlipidemia, unspecified; K21.9 Gastro-esophageal reflux disease without esophagitis; K64.8 Other hemorrhoids; F33.41 Major depressive disorder, recurrent, in partial remission; E11.21 Type 2 diabetes mellitus with diabetic nephropathy; Z95.1 Presence of aortocoronary bypass graft; Z79.899 Other long term (current) drug therapy

== ENCOUNTER 2024-04-02 00:17 | Emergency (ER) | payer MEDICARE ==
[~2024-04-02] VITALS: Ht 160 cm; Wt 72.6 kg
[~2024-04-02 00:17] MED LIST changes: +Carafate1 GM PO; +Synthroid,Lev150 MCG PO; +ZYVOX600 MG PO
[2024-04-02 01:08] LABS: HEMATOCRIT 22.8 % (37.0-47.0); MEAN CELL VOLUME 90.1 fl (81.0-99.0); MEAN CORPUSCULAR HGB 27.7 pg (27.0-31.0); MEAN CORPUSCULAR HGB CONC 30.7 g/dl (33.0-37.0); MEAN PLATELET VOLUME 10.2 fl (9.6-12.3); RED BLOOD COUNT 2.53 10*6/uL (4.10-5.10); RED CELL DISTRI WIDTH 17.2 % (0-14.5)
[2024-04-02 01:18] LABS: MANUAL DIFF REFLEX YES; PLATELET COUNT AUTOMATED 37 10*3/uL (130-400)
[2024-04-02 01:30] LABS: BUN 12 mg/dl (9-23); CHLORIDE 105 mmol/L (98-107); POTASSIUM 3.5 mmol/L (3.4-5.1)
[2024-04-02 01:36] LABS: ATYPICAL LYMPHS 1 % (0-0); MICROCYTOSIS SLIGHT; OVALOCYTES FEW; PLATELET SUFFICIENCY LOW (NORMAL); TOTAL CELLS COUNTED 100 #CELLS
[2024-04-02] MEDS ORDERED: DERMABOND 1 EA APPL T ONE (03:10)
[2024-04-02] MEDS ORDERED: OXYCODONE HCL (IR) 5 MG TAB PO ONE (03:55)
== END 2024-04-02 05:43 | disposition home or self-care (01) ==
LOC: ED 00:17
PROVIDERS: Internal Medicine
DX: K52.1 Toxic gastroenteritis and colitis (principal); T36.8X5A Adverse effect of other systemic antibiotics, initial encounter; K21.9 Gastro-esophageal reflux disease without esophagitis; I25.2 Old myocardial infarction; F41.9 Anxiety disorder, unspecified; E78.00 Pure hypercholesterolemia, unspecified; J45.909 Unspecified asthma, uncomplicated; M79.7 Fibromyalgia; Z88.0 Allergy status to penicillin; Z88.6 Allergy status to analgesic agent; Z88.8 Allergy status to other drugs, medicaments and biological substances; Z90.49 Acquired absence of other specified parts of digestive tract; Z98.890 Other specified postprocedural states; Z90.710 Acquired absence of both cervix and uterus; Z95.5 Presence of coronary angioplasty implant and graft; Y92.89 Other specified places as the place of occurrence of the external cause

== ENCOUNTER → 2024-04-07 | Outpatient (CLI) | payer MEDICARE | END | disposition home or self-care (01) | LOC: WOUNDCARE 00:36 | PROVIDERS: ATTEND Nurse Practitioner Family | DX: R21 Rash and other nonspecific skin eruption (principal); R26.2 Difficulty in walking, not elsewhere classified; E43 Unspecified severe protein-calorie malnutrition; I11.0 Hypertensive heart disease with heart failure; I50.9 Heart failure, unspecified; I25.10 Atherosclerotic heart disease of native coronary artery without angina pectoris; E11.9 Type 2 diabetes mellitus without complications; E03.9 Hypothyroidism, unspecified; E78.5 Hyperlipidemia, unspecified; K21.9 Gastro-esophageal reflux disease without esophagitis; K74.60 Unspecified cirrhosis of liver; M79.7 Fibromyalgia; M06.9 Rheumatoid arthritis, unspecified; Z68.28 Body mass index [BMI] 28.0-28.9, adult; Z87.891 Personal history of nicotine dependence; Z95.1 Presence of aortocoronary bypass graft; Z90.49 Acquired absence of other specified parts of digestive tract; Z90.710 Acquired absence of both cervix and uterus; Z98.51 Tubal ligation status; Z98.890 Other specified postprocedural states; Z79.82 Long term (current) use of aspirin ==

== ENCOUNTER 2024-04-08 19:48 | Emergency (ER) | payer MEDICARE ==
[~2024-04-08] VITALS: Ht 160 cm; Wt 72.6 kg
[2024-04-08 20:45] LABS: BASO % 0.3 % (0.0-1.0); EOS # 0.2 10*3/uL (0.0-0.4); HEMATOCRIT 24.1 % (37.0-47.0); MEAN CORPUSCULAR HGB CONC 30.7 g/dl (33.0-37.0); MEAN PLATELET VOLUME 10.7 fl (9.6-12.3); MONO # 0.6 10*3/uL (0.1-1.0); MONO % 19.1 % (3.0-9.0); NEUT # 1.7 10*3/uL (2.3-7.9); NEUT % 56.1 % (47.0-73.0); PLATELET COUNT AUTOMATED 120 10*3/uL (130-400); RED BLOOD COUNT 2.74 10*6/uL (4.10-5.10); RED CELL DISTRI WIDTH 18.1 % (0-14.5)
[2024-04-08 21:04] LABS: ALKALINE PHOSPHATASE 139 U/L (46-116); BUN 7 mg/dl (9-23); CHLORIDE 107 mmol/L (98-107); POTASSIUM 3.2 mmol/L (3.4-5.1); SGPT/ALT 19 U/L (5-49); TOTAL PROTEIN 4.3 gm/dL (6.0-8.0)
[2024-04-08] MEDS ORDERED: Dexamethasone Sodium Phospha 20 MG/5 ML VIAL IM ONE (21:50)
[2024-04-08] MEDS ORDERED: Cyclobenzaprine Hydrochlorid 10 MG TAB PO ONE (21:55)
[2024-04-08] MEDS ORDERED: POTASSIUM CHLORIDE 20 MEQ TAB PO ONE (22:00)
== END 2024-04-08 22:09 | disposition home or self-care (01) ==
LOC: ED 19:48
PROVIDERS: Internal Medicine
DX: M54.6 Pain in thoracic spine (principal); R11.2 Nausea with vomiting, unspecified; K21.9 Gastro-esophageal reflux disease without esophagitis; I25.2 Old myocardial infarction; F41.9 Anxiety disorder, unspecified; E78.00 Pure hypercholesterolemia, unspecified; J45.909 Unspecified asthma, uncomplicated; M79.7 Fibromyalgia; Z88.0 Allergy status to penicillin; Z88.6 Allergy status to analgesic agent; Z88.8 Allergy status to other drugs, medicaments and biological substances; Z90.49 Acquired absence of other specified parts of digestive tract; Z90.710 Acquired absence of both cervix and uterus; Z98.890 Other specified postprocedural states; Z95.5 Presence of coronary angioplasty implant and graft

== ENCOUNTER 2024-04-15 00:09 | Emergency (ER) | payer MEDICARE ==
[~2024-04-15] VITALS: Ht 160 cm; Wt 72.6 kg
[2024-04-15 00:48] LABS: BASO % 0.6 % (0.0-1.0); EOS # 0.1 10*3/uL (0.0-0.4); EOS % 3.3 % (1.0-4.0); HEMATOCRIT 27.6 % (37.0-47.0); MEAN CELL VOLUME 89.6 fl (81.0-99.0); MEAN CORPUSCULAR HGB 26.3 pg (27.0-31.0); MEAN CORPUSCULAR HGB CONC 29.3 g/dl (33.0-37.0); MEAN PLATELET VOLUME 9.9 fl (9.6-12.3); MONO # 0.5 10*3/uL (0.1-1.0); MONO % 14.2 % (3.0-9.0); NEUT # 1.9 10*3/uL (2.3-7.9); NEUT % 56.7 % (47.0-73.0); PLATELET COUNT AUTOMATED 179 10*3/uL (130-400); RED BLOOD COUNT 3.08 10*6/uL (4.10-5.10); RED CELL DISTRI WIDTH 19.4 % (0-14.5); WHITE BLOOD COUNT 3.3 10*3/uL (4.8-10.8)
[2024-04-15 01:34] LABS: ALKALINE PHOSPHATASE 153 U/L (46-116); BUN 10 mg/dl (9-23); CHLORIDE 106 mmol/L (98-107); POTASSIUM 3.7 mmol/L (3.4-5.1); SGPT/ALT 22 U/L (5-49); TOTAL PROTEIN 4.9 gm/dL (6.0-8.0)
[2024-04-15] MEDS ORDERED: Cyclobenzaprine Hydrochlorid 10 MG TAB PO ONE (03:00)
[2024-04-15] MEDS ORDERED: Dexamethasone Sodium Phospha 20 MG/5 ML VIAL IM ONE (03:00)
[2024-04-15] MEDS ORDERED: CYCLOBENZAPRINE5 M3 PO (03:02)
[2024-04-17] MEDS ORDERED: ATORVASTATIN CA80 M1 PO (09:38)
[2024-04-17] MEDS ORDERED: LOPRESSOR25 MG PO (09:38)
== END 2024-04-15 03:06 | disposition home or self-care (01) ==
LOC: ED 00:09
PROVIDERS: Internal Medicine
DX: M54.50 Low back pain, unspecified (principal); K21.9 Gastro-esophageal reflux disease without esophagitis; I25.2 Old myocardial infarction; F41.9 Anxiety disorder, unspecified; E78.00 Pure hypercholesterolemia, unspecified; J45.909 Unspecified asthma, uncomplicated; M79.7 Fibromyalgia; Z88.0 Allergy status to penicillin; Z88.6 Allergy status to analgesic agent; Z88.8 Allergy status to other drugs, medicaments and biological substances; Z90.49 Acquired absence of other specified parts of digestive tract; Z98.890 Other specified postprocedural states; Z90.710 Acquired absence of both cervix and uterus; Z95.5 Presence of coronary angioplasty implant and graft

== ENCOUNTER 2024-04-29 16:51 | Inpatient (IN) | payer MEDICARE ==
[~2024-04-29] VITALS: Ht 160 cm; Wt 70.4 kg
[~2024-04-29 16:51] MED LIST changes: +ATORVASTATIN CA80 M1 PO; +LOPRESSOR25 MG PO; +Vibra-Tab100 MG PO
[2024-04-29 17:34] VITALS: BP 123/55
[2024-04-29] MEDS ORDERED: BISACODYL 5 MG TAB PO PRN (18:00)
[2024-04-29] MEDS ORDERED: BISACODYL 10 MG SUPP R PRN (18:00)
[2024-04-29] MEDS ORDERED: Magnesium Hydroxide 30 ML UDC PO PRN (18:00)
[2024-04-29] MEDS ORDERED: TEMAZEPAM 15 MG CAP PO PRN (18:00)
[2024-04-29] MEDS ORDERED: FUROSEMIDE 40 MG/4 ML VIAL IV ONE (18:10)
[2024-04-29] MEDS ORDERED: POTASSIUM CHLORIDE 20 MEQ TAB PO ONE ×2 (18:15→20:55)
[2024-04-29 18:20] VITALS: BP 120/51
[2024-04-29] MEDS ORDERED: NITROGLYCERIN 0.4 MG BOT SL PRN (19:40)
[2024-04-29 19:59] LABS: BUN 11 mg/dl (9-23); CHLORIDE 106 mmol/L (98-107)
[2024-04-29 20:20] VITALS: BP 117/48
[2024-04-29 20:45] VITALS: BP 117/48
[2024-04-29] MEDS ORDERED: MAGNESIUM SULFATE 50 ML IV ONE (20:55)
[2024-04-29] MEDS ORDERED: MORPHINE Sulfate 2 MG/ML SYR IV ONE (20:55)
[2024-04-29] MEDS ORDERED: ATORVASTATIN CALCIUM 80 MG TAB PO SCH (22:00)
[2024-04-30] VITALS (13 sets, daily range): BP systolic 94–148; BP diastolic 34–63
[2024-04-30] MEDS ORDERED: IPRATROPIUM BROMIDE 0.5 MG/2.5 ML AMP NEB PRN (00:20)
[2024-04-30] MEDS ORDERED: FLUOROMETHOLONE 0.1% OPH PRN (00:20)
[2024-04-30] MEDS ORDERED: Cyclobenzaprine Hydrochlorid 10 MG TAB PO PRN (00:20)
[2024-04-30] MEDS ORDERED: MG-AL HYDROXIDE/SIMETICONE 30 ML UDC PO STA (04:56)
[2024-04-30] MEDS ORDERED: Lidocaine Hydrochloride 15 ML UDC PO STA (04:56)
[2024-04-30] MEDS ORDERED: Dicyclomine Hydrochloride 20 MG/10 ML OSYR PO STA (04:56)
[2024-04-30 05:11] LABS: ALKALINE PHOSPHATASE 124 U/L (46-116); BUN 10 mg/dl (9-23); CHLORIDE 106 mmol/L (98-107); POTASSIUM 3.5 mmol/L (3.4-5.1); SGPT/ALT 25 U/L (5-49); TOTAL PROTEIN 4.5 gm/dL (6.0-8.0)
[2024-04-30] MEDS ORDERED: Levothyroxine Sodium 150 MCG TAB PO SCH (06:00)
[2024-04-30 06:19] LABS: BASO % 0.8 % (0.0-1.0); EOS # 0.2 10*3/uL (0.0-0.4); EOS % 7.3 % (1.0-4.0); HEMATOCRIT 23.3 % (37.0-47.0); MEAN CELL VOLUME 88.3 fl (81.0-99.0); MEAN CORPUSCULAR HGB 26.5 pg (27.0-31.0); MEAN PLATELET VOLUME 11.7 fl (9.6-12.3); MONO # 0.3 10*3/uL (0.1-1.0); MONO % 12.6 % (3.0-9.0); NEUT # 1.2 10*3/uL (2.3-7.9); NEUT % 50.2 % (47.0-73.0); PLATELET COUNT AUTOMATED 88 10*3/uL (130-400); RED BLOOD COUNT 2.64 10*6/uL (4.10-5.10); RED CELL DISTRI WIDTH 19.9 % (0-14.5); WHITE BLOOD COUNT 2.5 10*3/uL (4.8-10.8)
[2024-04-30] MEDS ORDERED: SUCRALFATE 1 GM TAB PO SCH (07:30)
[2024-04-30] MEDS ORDERED: Enoxaparin Sodium 40 MG/0.4 ML SYR SC SCH (10:00)
[2024-04-30] MEDS ORDERED: LACTULOSE 20 GM/30 ML UDC PO SCH (10:00)
[2024-04-30] MEDS ORDERED: Fluoxetine Hydrochloride 20 MG CAP PO SCH (10:00)
[2024-04-30] MEDS ORDERED: Pantoprazole Sodium 40 MG TAB PO SCH (10:00)
[2024-04-30] MEDS ORDERED: POTASSIUM CHLORIDE 20 MEQ TAB PO SCH (10:00)
[2024-04-30] MEDS ORDERED: Clopidogrel Hydrogen Sulfate 75 MG TAB PO SCH (10:00)
[2024-04-30] MEDS ORDERED: FUROSEMIDE 40 MG/4 ML VIAL IV SCH (10:00)
[2024-04-30] MEDS ORDERED: SPIRONOLACTONE 25 MG TAB PO SCH (10:00)
[2024-04-30] MEDS ORDERED: FAMOTIDINE 20 MG TAB PO SCH (10:00)
[2024-04-30] MEDS ORDERED: Metoprolol Tartrate 25 MG TAB PO SCH (10:00)
[2024-04-30] MEDS ORDERED: ASPIRIN ENTERIC COATED 81 MG TAB PO SCH (10:00)
[2024-04-30] MEDS ORDERED: ASPIRIN, CHEWABLE 81 MG TAB PO SCH (10:00)
[2024-04-30] MEDS ORDERED: SODIUM CHLORIDE 0.9% 500 ML IV SCH (10:40)
[2024-04-30 18:17] LABS: BASO % 0.4 % (0.0-1.0); EOS # 0.2 10*3/uL (0.0-0.4); EOS % 7.5 % (1.0-4.0); MEAN CELL VOLUME 90.6 fl (81.0-99.0); MEAN CORPUSCULAR HGB 26.9 pg (27.0-31.0); MEAN CORPUSCULAR HGB CONC 29.7 g/dl (33.0-37.0); MEAN PLATELET VOLUME 12.5 fl (9.6-12.3); MONO # 0.3 10*3/uL (0.1-1.0); MONO % 12.3 % (3.0-9.0); NEUT # 1.2 10*3/uL (2.3-7.9); NEUT % 53.4 % (47.0-73.0); PLATELET COUNT AUTOMATED 100 10*3/uL (130-400); RED CELL DISTRI WIDTH 18.4 % (0-14.5); WHITE BLOOD COUNT 2.3 10*3/uL (4.8-10.8)
[2024-05-01] VITALS: BP 106/43
[2024-05-01 05:33] LABS: BUN 9 mg/dl (9-23); CHLORIDE 109 mmol/L (98-107); POTASSIUM 4.4 mmol/L (3.4-5.1)
[2024-05-01 06:54] LABS: BASO % 0.8 % (0.0-1.0); EOS # 0.2 10*3/uL (0.0-0.4); HEMATOCRIT 28.2 % (37.0-47.0); MEAN CELL VOLUME 90.4 fl (81.0-99.0); MEAN CORPUSCULAR HGB 26.6 pg (27.0-31.0); MEAN CORPUSCULAR HGB CONC 29.4 g/dl (33.0-37.0); MEAN PLATELET VOLUME 12.1 fl (9.6-12.3); MONO # 0.3 10*3/uL (0.1-1.0); MONO % 13.2 % (3.0-9.0); NEUT # 1.2 10*3/uL (2.3-7.9); NEUT % 48.4 % (47.0-73.0); PLATELET COUNT AUTOMATED 94 10*3/uL (130-400); RED BLOOD COUNT 3.12 10*6/uL (4.10-5.10); RED CELL DISTRI WIDTH 18.7 % (0-14.5); WHITE BLOOD COUNT 2.5 10*3/uL (4.8-10.8)
[2024-05-01 08:00] VITALS: BP 100/43
[2024-05-01 12:00] VITALS: BP 110/36
[2024-05-01 16:00] VITALS: BP 103/38
[2024-05-01 20:00] VITALS: BP 105/44
[2024-05-02] VITALS: BP 108/47
[2024-05-02 05:06] LABS: HBsAG SCREEN Negative (Negative); HCV Ab Non Reactive (Non Reactive); HEP B CORE Ab, IgM Negative (Negative)
[2024-05-02 06:16] LABS: BASO % 0.4 % (0.0-1.0); EOS # 0.2 10*3/uL (0.0-0.4); EOS % 7.9 % (1.0-4.0); HEMATOCRIT 27.5 % (37.0-47.0); MEAN CELL VOLUME 91.1 fl (81.0-99.0); MEAN CORPUSCULAR HGB 26.8 pg (27.0-31.0); MEAN CORPUSCULAR HGB CONC 29.5 g/dl (33.0-37.0); MEAN PLATELET VOLUME 11.5 fl (9.6-12.3); MONO # 0.3 10*3/uL (0.1-1.0); MONO % 11.1 % (3.0-9.0); NEUT # 1.4 10*3/uL (2.3-7.9); NEUT % 54.4 % (47.0-73.0); PLATELET COUNT AUTOMATED 93 10*3/uL (130-400); RED BLOOD COUNT 3.02 10*6/uL (4.10-5.10); RED CELL DISTRI WIDTH 18.8 % (0-14.5); WHITE BLOOD COUNT 2.5 10*3/uL (4.8-10.8)
[2024-05-02 07:02] LABS: BUN 9 mg/dl (9-23); CHLORIDE 107 mmol/L (98-107); POTASSIUM 4.4 mmol/L (3.4-5.1)
[2024-05-02 08:00] VITALS: BP 115/45
[2024-05-02] MEDS ORDERED: IOHEXOL 350 MG/ML 100 ML VIAL IV ONE (08:23)
[2024-05-02] MEDS ORDERED: SODIUM CHLORIDE 0.9% 100 ML IV ONE (08:23)
[2024-05-02] MEDS ORDERED: FUROSEMIDE 40 MG TAB PO SCH (10:00)
[2024-05-02] MEDS ORDERED: ALDACTONE50 M1 PO (11:04)
[2024-05-02] MEDS ORDERED: LASIX40 MG PO (11:04)
== END 2024-05-02 12:45 | disposition home or self-care (01) | DRG 291 ==
LOC: ED 16:51 → 4E 17:40 → EDHOLD 17:40 → 4E 19:09
PROVIDERS: ADMIT Family Medicine; ATTEND Family Medicine
PROC: 30233N1 Transfusion of Nonautologous Red Blood Cells into Peripheral Vein, Percutaneous Approach (ICD-10-PCS; principal; 2024-04-30)
DX: I11.0 Hypertensive heart disease with heart failure (principal); E43 Unspecified severe protein-calorie malnutrition; I50.43 Acute on chronic combined systolic (congestive) and diastolic (congestive) heart failure; R18.8 Other ascites; I25.810 Atherosclerosis of coronary artery bypass graft(s) without angina pectoris; D61.818 Other pancytopenia; K76.6 Portal hypertension; K74.60 Unspecified cirrhosis of liver; D50.9 Iron deficiency anemia, unspecified; E87.6 Hypokalemia; E50.9 Vitamin A deficiency, unspecified; R74.01 Elevation of levels of liver transaminase levels; K31.84 Gastroparesis; K21.9 Gastro-esophageal reflux disease without esophagitis; E78.5 Hyperlipidemia, unspecified; M51.26 Other intervertebral disc displacement, lumbar region; M79.7 Fibromyalgia; E11.43 Type 2 diabetes mellitus with diabetic autonomic (poly)neuropathy; M06.9 Rheumatoid arthritis, unspecified; G89.4 Chronic pain syndrome; F32.9 Major depressive disorder, single episode, unspecified; K75.81 Nonalcoholic steatohepatitis (NASH); E89.0 Postprocedural hypothyroidism; I95.89 Other hypotension; I45.10 Unspecified right bundle-branch block; D69.6 Thrombocytopenia, unspecified; Z98.51 Tubal ligation status; Z95.1 Presence of aortocoronary bypass graft; Z90.710 Acquired absence of both cervix and uterus; Z90.49 Acquired absence of other specified parts of digestive tract; Z87.891 Personal history of nicotine dependence; Z82.49 Family history of ischemic heart disease and other diseases of the circulatory system; Z82.3 Family history of stroke; Z82.0 Family history of epilepsy and other diseases of the nervous system; Z83.3 Family history of diabetes mellitus; Z88.0 Allergy status to penicillin; Z88.6 Allergy status to analgesic agent; Z88.8 Allergy status to other drugs, medicaments and biological substances; Z79.82 Long term (current) use of aspirin; Z79.899 Other long term (current) drug therapy; Z68.27 Body mass index [BMI] 27.0-27.9, adult

== ENCOUNTER → 2024-05-10 | Outpatient (CLI) | payer MEDICARE ==
[~2024-05-10] MED LIST changes: +LASIX40 MG PO
[2024-05-10 16:59] LABS: BASO % 0.8 % (0.0-1.0); EOS # 0.2 10*3/uL (0.0-0.4); EOS % 6.3 % (1.0-4.0); MEAN CELL VOLUME 91.6 fl (81.0-99.0); MEAN CORPUSCULAR HGB 26.7 pg (27.0-31.0); MEAN CORPUSCULAR HGB CONC 29.2 g/dl (33.0-37.0); MONO # 0.3 10*3/uL (0.1-1.0); NEUT # 1.3 10*3/uL (2.3-7.9); NEUT % 51.8 % (47.0-73.0); PLATELET COUNT AUTOMATED 155 10*3/uL (130-400); RED BLOOD COUNT 3.93 10*6/uL (4.10-5.10); RED CELL DISTRI WIDTH 18.5 % (0-14.5); WHITE BLOOD COUNT 2.5 10*3/uL (4.8-10.8)
== END | disposition home or self-care (01) ==
LOC: RESCLI 00:52 → LAB 00:52 → RESCLI 04:54
PROVIDERS: Student in an Organized Health Care Education/Training Program; ATTEND Student in an Organized Health Care Education/Training Program
DX: K74.60 Unspecified cirrhosis of liver (principal); D64.9 Anemia, unspecified; I50.9 Heart failure, unspecified; K21.9 Gastro-esophageal reflux disease without esophagitis; F32.9 Major depressive disorder, single episode, unspecified; E03.9 Hypothyroidism, unspecified; I25.10 Atherosclerotic heart disease of native coronary artery without angina pectoris; E78.5 Hyperlipidemia, unspecified; K76.6 Portal hypertension; E55.9 Vitamin D deficiency, unspecified; M79.10 Myalgia, unspecified site; R06.02 Shortness of breath; H57.89 Other specified disorders of eye and adnexa; Z98.890 Other specified postprocedural states; Z88.0 Allergy status to penicillin; Z88.8 Allergy status to other drugs, medicaments and biological substances; Z79.899 Other long term (current) drug therapy

== ENCOUNTER 2024-05-14 19:24 | Emergency (ER) | payer MEDICARE ==
[~2024-05-14] VITALS: Ht 167.6 cm; Wt 77.1 kg
[2024-05-14] MEDS ORDERED: OXYCODONE HCL (IR) 5 MG TAB PO ONE (19:55)
== END 2024-05-14 21:47 | disposition home or self-care (01) ==
LOC: ED 19:24
DX: M25.512 Pain in left shoulder (principal); Z88.0 Allergy status to penicillin; Z88.6 Allergy status to analgesic agent; Z88.8 Allergy status to other drugs, medicaments and biological substances; Z79.899 Other long term (current) drug therapy; Z79.82 Long term (current) use of aspirin; I11.0 Hypertensive heart disease with heart failure; I50.9 Heart failure, unspecified; Z90.49 Acquired absence of other specified parts of digestive tract; Z95.5 Presence of coronary angioplasty implant and graft; Z98.84 Bariatric surgery status; Z90.710 Acquired absence of both cervix and uterus; Z90.89 Acquired absence of other organs; Z98.890 Other specified postprocedural states; Z87.891 Personal history of nicotine dependence; W18.39XA Other fall on same level, initial encounter; Y93.89 Activity, other specified; Y92.89 Other specified places as the place of occurrence of the external cause; Y99.8 Other external cause status

== ENCOUNTER 2024-05-16 00:15 | Emergency (ER) | payer MEDICARE ==
[~2024-05-16] VITALS: Ht 160 cm; Wt 63.5 kg
[2024-05-16] MEDS ORDERED: OXYCODONE HCL (IR) 5 MG TAB PO ONE (01:45)
== END 2024-05-16 01:58 | disposition home or self-care (01) ==
LOC: ED 00:15
DX: R07.81 Pleurodynia (principal); M25.512 Pain in left shoulder; K21.9 Gastro-esophageal reflux disease without esophagitis; I25.2 Old myocardial infarction; F41.9 Anxiety disorder, unspecified; E78.00 Pure hypercholesterolemia, unspecified; J45.909 Unspecified asthma, uncomplicated; M79.7 Fibromyalgia; Z88.0 Allergy status to penicillin; Z88.6 Allergy status to analgesic agent; Z88.8 Allergy status to other drugs, medicaments and biological substances; Z90.49 Acquired absence of other specified parts of digestive tract; Z98.890 Other specified postprocedural states; Z90.710 Acquired absence of both cervix and uterus; Z95.5 Presence of coronary angioplasty implant and graft; W19.XXXA Unspecified fall, initial encounter

== ENCOUNTER → 2024-06-19 | Outpatient (CLI) | payer MEDICARE | END | disposition home or self-care (01) | LOC: RESCLI 15:20 | PROVIDERS: ATTEND Internal Medicine | DX: G89.4 Chronic pain syndrome (principal); J44.9 Chronic obstructive pulmonary disease, unspecified; I25.10 Atherosclerotic heart disease of native coronary artery without angina pectoris; E78.5 Hyperlipidemia, unspecified; K21.9 Gastro-esophageal reflux disease without esophagitis; E55.9 Vitamin D deficiency, unspecified; M79.10 Myalgia, unspecified site; H57.89 Other specified disorders of eye and adnexa; F32.9 Major depressive disorder, single episode, unspecified; I50.9 Heart failure, unspecified; K76.6 Portal hypertension; E03.9 Hypothyroidism, unspecified; Z79.899 Other long term (current) drug therapy; Z88.0 Allergy status to penicillin; Z98.890 Other specified postprocedural states ==

== ENCOUNTER 2024-06-20 21:24 | Emergency (ER) | payer MEDICARE ==
[~2024-06-20] VITALS: Ht 160 cm; Wt 62.6 kg
[2024-06-20 22:00] LABS: BASO % 0.4 % (0.0-1.0); EOS # 0.1 10*3/uL (0.0-0.4); EOS % 3.8 % (1.0-4.0); HEMATOCRIT 28.4 % (37.0-47.0); MEAN CELL VOLUME 86.3 fl (81.0-99.0); MEAN CORPUSCULAR HGB 25.5 pg (27.0-31.0); MEAN CORPUSCULAR HGB CONC 29.6 g/dl (33.0-37.0); MEAN PLATELET VOLUME 10.8 fl (9.6-12.3); MONO # 0.4 10*3/uL (0.1-1.0); MONO % 14.7 % (3.0-9.0); NEUT # 1.4 10*3/uL (2.3-7.9); PLATELET COUNT AUTOMATED 106 10*3/uL (130-400); RED BLOOD COUNT 3.29 10*6/uL (4.10-5.10); WHITE BLOOD COUNT 2.7 10*3/uL (4.8-10.8)
[2024-06-20 22:18] LABS: ALKALINE PHOSPHATASE 109 U/L (46-116); BUN 10 mg/dl (9-23); CHLORIDE 113 mmol/L (98-107); LIPASE 31 U/L (12-53); POTASSIUM 4.5 mmol/L (3.4-5.1); SGPT/ALT 26 U/L (5-49); TOTAL PROTEIN 5.1 gm/dL (6.0-8.0)
[2024-06-21] MEDS ORDERED: Promethazine Hydrochloride 25 MG/ML VIAL IM ONE (00:40)
[2024-06-21] MEDS ORDERED: MEPERIDINE HYDROCHLORIDE 25 MG/1 ML VIAL IM ONE (00:40)
== END 2024-06-21 00:56 | disposition home or self-care (01) ==
LOC: ED 21:24
PROVIDERS: Internal Medicine
DX: K74.60 Unspecified cirrhosis of liver (principal); R19.7 Diarrhea, unspecified; D61.818 Other pancytopenia; E43 Unspecified severe protein-calorie malnutrition; E11.9 Type 2 diabetes mellitus without complications; Z79.82 Long term (current) use of aspirin; Z79.899 Other long term (current) drug therapy; Z88.0 Allergy status to penicillin; Z88.8 Allergy status to other drugs, medicaments and biological substances; Z90.49 Acquired absence of other specified parts of digestive tract; Z90.710 Acquired absence of both cervix and uterus; Z90.89 Acquired absence of other organs; Z98.51 Tubal ligation status; Z98.890 Other specified postprocedural states

== ENCOUNTER 2024-06-26 21:24 | Emergency (ER) | payer MEDICARE ==
[~2024-06-26] VITALS: Ht 160 cm; Wt 63.5 kg
[2024-06-26 22:05] LABS: BASO % 0.4 % (0.0-1.0); EOS # 0.1 10*3/uL (0.0-0.4); EOS % 4.9 % (1.0-4.0); HEMATOCRIT 27.5 % (37.0-47.0); MEAN CELL VOLUME 84.1 fl (81.0-99.0); MEAN CORPUSCULAR HGB 25.7 pg (27.0-31.0); MEAN CORPUSCULAR HGB CONC 30.5 g/dl (33.0-37.0); MEAN PLATELET VOLUME 10.6 fl (9.6-12.3); MONO # 0.4 10*3/uL (0.1-1.0); MONO % 15.6 % (3.0-9.0); NEUT # 1.4 10*3/uL (2.3-7.9); NEUT % 51.7 % (47.0-73.0); PLATELET COUNT AUTOMATED 95 10*3/uL (130-400); RED BLOOD COUNT 3.27 10*6/uL (4.10-5.10); RED CELL DISTRI WIDTH 17.4 % (0-14.5); WHITE BLOOD COUNT 2.6 10*3/uL (4.8-10.8)
[2024-06-26 22:33] LABS: ALKALINE PHOSPHATASE 113 U/L (46-116); BUN 10 mg/dl (9-23); CHLORIDE 114 mmol/L (98-107); POTASSIUM 3.4 mmol/L (3.4-5.1); SGPT/ALT 24 U/L (5-49)
[2024-06-26] MEDS ORDERED: MEPERIDINE HYDROCHLORIDE 25 MG/1 ML VIAL IM ONE (23:25)
[2024-06-26] MEDS ORDERED: Promethazine Hydrochloride 25 MG/ML VIAL IM ONE (23:25)
== END 2024-06-26 23:44 | disposition home or self-care (01) ==
LOC: ED 21:24
PROVIDERS: Internal Medicine
DX: R10.11 Right upper quadrant pain (principal); E43 Unspecified severe protein-calorie malnutrition; D61.818 Other pancytopenia; R06.02 Shortness of breath; K21.9 Gastro-esophageal reflux disease without esophagitis; I25.2 Old myocardial infarction; F41.9 Anxiety disorder, unspecified; E78.00 Pure hypercholesterolemia, unspecified; Z68.1 Body mass index [BMI] 19.9 or less, adult; J45.909 Unspecified asthma, uncomplicated; M79.7 Fibromyalgia; Z87.891 Personal history of nicotine dependence; Z88.0 Allergy status to penicillin; Z88.6 Allergy status to analgesic agent; Z88.8 Allergy status to other drugs, medicaments and biological substances; Z90.49 Acquired absence of other specified parts of digestive tract; Z98.890 Other specified postprocedural states; Z90.710 Acquired absence of both cervix and uterus

== ENCOUNTER → 2024-06-28 | Outpatient (CLI) | payer MEDICARE | END | disposition home or self-care (01) | LOC: RESCLI 15:44 | PROVIDERS: ATTEND Internal Medicine | DX: F32.9 Major depressive disorder, single episode, unspecified (principal); J44.9 Chronic obstructive pulmonary disease, unspecified; I25.10 Atherosclerotic heart disease of native coronary artery without angina pectoris; E78.5 Hyperlipidemia, unspecified; K21.9 Gastro-esophageal reflux disease without esophagitis; E55.9 Vitamin D deficiency, unspecified; M79.10 Myalgia, unspecified site; H57.89 Other specified disorders of eye and adnexa; I50.9 Heart failure, unspecified; K76.6 Portal hypertension; E03.9 Hypothyroidism, unspecified; M25.512 Pain in left shoulder; Z79.899 Other long term (current) drug therapy; Z98.890 Other specified postprocedural states; Z88.0 Allergy status to penicillin; Z88.8 Allergy status to other drugs, medicaments and biological substances ==

== ENCOUNTER 2024-07-06 21:08 | Emergency (ER) | payer MEDICARE ==
[~2024-07-06] VITALS: Ht 160 cm; Wt 64.4 kg
[2024-07-06] MEDS ORDERED: Ondansetron Hydrochloride 4 MG TAB SL ONE (21:55)
[2024-07-06 22:03] LABS: BASO % 0.7 % (0.0-1.0); EOS # 0.2 10*3/uL (0.0-0.4); EOS % 5.4 % (1.0-4.0); HEMATOCRIT 29.2 % (37.0-47.0); MEAN CELL VOLUME 85.6 fl (81.0-99.0); MEAN CORPUSCULAR HGB 24.9 pg (27.0-31.0); MEAN CORPUSCULAR HGB CONC 29.1 g/dl (33.0-37.0); MEAN PLATELET VOLUME 11.9 fl (9.6-12.3); MONO # 0.4 10*3/uL (0.1-1.0); NEUT # 1.3 10*3/uL (2.3-7.9); NEUT % 45.8 % (47.0-73.0); PLATELET COUNT AUTOMATED 131 10*3/uL (130-400); RED BLOOD COUNT 3.41 10*6/uL (4.10-5.10); RED CELL DISTRI WIDTH 18.3 % (0-14.5); WHITE BLOOD COUNT 2.8 10*3/uL (4.8-10.8)
[2024-07-06 22:22] LABS: ALKALINE PHOSPHATASE 141 U/L (46-116); BUN 13 mg/dl (9-23); CHLORIDE 112 mmol/L (98-107); LIPASE 33 U/L (12-53); SGPT/ALT 21 U/L (5-49); TOTAL PROTEIN 5.4 gm/dL (6.0-8.0)
[2024-07-06] MEDS ORDERED: MEPERIDINE HYDROCHLORIDE 25 MG/1 ML VIAL IM ONE (22:40)
[2024-07-06] MEDS ORDERED: Promethazine Hydrochloride 25 MG/ML VIAL IM ONE (22:40)
== END 2024-07-06 22:56 | disposition home or self-care (01) ==
LOC: ED 21:08
PROVIDERS: Internal Medicine
DX: G89.29 Other chronic pain (principal); R10.13 Epigastric pain; R74.01 Elevation of levels of liver transaminase levels; D61.818 Other pancytopenia; E43 Unspecified severe protein-calorie malnutrition; R19.7 Diarrhea, unspecified; Z88.0 Allergy status to penicillin; Z88.6 Allergy status to analgesic agent; Z88.8 Allergy status to other drugs, medicaments and biological substances; Z79.899 Other long term (current) drug therapy; Z79.82 Long term (current) use of aspirin; Z90.49 Acquired absence of other specified parts of digestive tract; Z98.890 Other specified postprocedural states; Z98.84 Bariatric surgery status; Z90.710 Acquired absence of both cervix and uterus; Z87.891 Personal history of nicotine dependence

== ENCOUNTER 2024-07-11 20:25 | Emergency (ER) | payer MEDICARE ==
[~2024-07-11] VITALS: Ht 160 cm; Wt 64.4 kg
== END 2024-07-12 01:38 | disposition home or self-care (01) ==
LOC: ED 20:25
DX: S20.229A Contusion of unspecified back wall of thorax, initial encounter (principal); I11.0 Hypertensive heart disease with heart failure; I50.9 Heart failure, unspecified; E11.9 Type 2 diabetes mellitus without complications; E78.00 Pure hypercholesterolemia, unspecified; Z79.82 Long term (current) use of aspirin; Z79.899 Other long term (current) drug therapy; Z88.6 Allergy status to analgesic agent; Z88.1 Allergy status to other antibiotic agents; Z88.0 Allergy status to penicillin; Z88.8 Allergy status to other drugs, medicaments and biological substances; Z90.49 Acquired absence of other specified parts of digestive tract; Z90.710 Acquired absence of both cervix and uterus; Z90.89 Acquired absence of other organs; Z95.1 Presence of aortocoronary bypass graft; Z98.51 Tubal ligation status; Z98.890 Other specified postprocedural states; W18.39XA Other fall on same level, initial encounter; Y93.01 Activity, walking, marching and hiking; Y92.89 Other specified places as the place of occurrence of the external cause; Y99.8 Other external cause status

== ENCOUNTER → 2024-07-12 | Outpatient (CLI) | payer MEDICARE | END | disposition home or self-care (01) | LOC: RESCLI 12:50 | PROVIDERS: ATTEND Student in an Organized Health Care Education/Training Program | DX: G89.4 Chronic pain syndrome (principal); J44.9 Chronic obstructive pulmonary disease, unspecified; I25.10 Atherosclerotic heart disease of native coronary artery without angina pectoris; E78.5 Hyperlipidemia, unspecified; K21.9 Gastro-esophageal reflux disease without esophagitis; E55.9 Vitamin D deficiency, unspecified; F32.9 Major depressive disorder, single episode, unspecified; M79.10 Myalgia, unspecified site; H57.89 Other specified disorders of eye and adnexa; I50.9 Heart failure, unspecified; K76.6 Portal hypertension; E03.9 Hypothyroidism, unspecified; Z79.899 Other long term (current) drug therapy; Z88.0 Allergy status to penicillin; Z98.890 Other specified postprocedural states ==

== ENCOUNTER 2024-07-16 21:22 | Inpatient (IN) | payer MEDICARE ==
[~2024-07-16] VITALS: Ht 160 cm; Wt 68.2 kg
[2024-07-16 21:39] VITALS: BP 145/41
[2024-07-16 22:00] LABS: BASO % 0.3 % (0.0-1.0); EOS # 0.1 10*3/uL (0.0-0.4); EOS % 3.8 % (1.0-4.0); HEMATOCRIT 28.4 % (37.0-47.0); MEAN CELL VOLUME 84.8 fl (81.0-99.0); MEAN CORPUSCULAR HGB 24.8 pg (27.0-31.0); MEAN CORPUSCULAR HGB CONC 29.2 g/dl (33.0-37.0); MEAN PLATELET VOLUME 10.8 fl (9.6-12.3); MONO # 0.5 10*3/uL (0.1-1.0); MONO % 13.9 % (3.0-9.0); NEUT # 1.8 10*3/uL (2.3-7.9); NEUT % 52.1 % (47.0-73.0); PLATELET COUNT AUTOMATED 113 10*3/uL (130-400); RED BLOOD COUNT 3.35 10*6/uL (4.10-5.10); WHITE BLOOD COUNT 3.5 10*3/uL (4.8-10.8)
[2024-07-16 22:18] LABS: ALKALINE PHOSPHATASE 123 U/L (46-116); BUN 16 mg/dl (9-23); CHLORIDE 109 mmol/L (98-107); POTASSIUM 3.7 mmol/L (3.4-5.1); SGPT/ALT 35 U/L (5-49); TOTAL PROTEIN 5.3 gm/dL (6.0-8.0)
[2024-07-16 22:20] LABS: ACT PARTIAL THROMBO TIME 26.5 SECONDS (20.0-32.1)
[2024-07-16 22:42] VITALS: BP 139/46
[2024-07-17 00:01] VITALS: BP 142/51
[2024-07-17] MEDS ORDERED: FUROSEMIDE 20 MG/2 ML VIAL IV ONE (01:30)
[2024-07-17] MEDS ORDERED: BISACODYL 5 MG TAB PO PRN (01:50)
[2024-07-17] MEDS ORDERED: Ondansetron Hydrochloride 4 MG/2 ML VIAL IV PRN (01:50)
[2024-07-17] MEDS ORDERED: ACETAMINOPHEN 650 MG SUPP R PRN (01:50)
[2024-07-17] MEDS ORDERED: ACETAMINOPHEN 325 MG TAB PO PRN (01:50)
[2024-07-17] MEDS ORDERED: Magnesium Hydroxide 30 ML UDC PO PRN (01:50)
[2024-07-17] MEDS ORDERED: BISACODYL 10 MG SUPP R PRN (01:50)
[2024-07-17] MEDS ORDERED: MORPHINE Sulfate 2 MG/ML SYR IV PRN (01:55)
[2024-07-17] MEDS ORDERED: ASPIRIN 325 MG ENTERIC COATED PO ONE (01:55)
[2024-07-17] MEDS ORDERED: DEXTROSE 10 % IN WATER 250 ML IV PRN (02:50)
[2024-07-17 04:20] VITALS: BP 121/52
[2024-07-17] MEDS ORDERED: FUROSEMIDE 20 MG/2 ML VIAL IV SCH (06:00)
[2024-07-17 06:42] LABS: BASO % 0.4 % (0.0-1.0); EOS # 0.2 10*3/uL (0.0-0.4); EOS % 6.7 % (1.0-4.0); HEMATOCRIT 28.4 % (37.0-47.0); MEAN CELL VOLUME 84.3 fl (81.0-99.0); MEAN CORPUSCULAR HGB 25.2 pg (27.0-31.0); MEAN CORPUSCULAR HGB CONC 29.9 g/dl (33.0-37.0); MEAN PLATELET VOLUME 10.2 fl (9.6-12.3); MONO # 0.4 10*3/uL (0.1-1.0); MONO % 14.2 % (3.0-9.0); NEUT # 1.2 10*3/uL (2.3-7.9); NEUT % 46.1 % (47.0-73.0); PLATELET COUNT AUTOMATED 94 10*3/uL (130-400); RED BLOOD COUNT 3.37 10*6/uL (4.10-5.10); RED CELL DISTRI WIDTH 19.2 % (0-14.5); WHITE BLOOD COUNT 2.7 10*3/uL (4.8-10.8)
[2024-07-17] MEDS ORDERED: INSULIN LISPRO 1 UNIT/0.01 ML SQ SCH (07:30)
[2024-07-17 07:39] LABS: ALKALINE PHOSPHATASE 108 U/L (46-116); BUN 14 mg/dl (9-23); CHLORIDE 110 mmol/L (98-107); POTASSIUM 3.6 mmol/L (3.4-5.1); SGPT/ALT 32 U/L (5-49); TOTAL PROTEIN 4.9 gm/dL (6.0-8.0)
[2024-07-17 08:00] VITALS: BP 130/50
[2024-07-17] MEDS ORDERED: Enoxaparin Sodium 40 MG/0.4 ML SYR SC SCH (10:00)
[2024-07-17] MEDS ORDERED: Metoprolol Tartrate 25 MG TAB PO SCH (10:00)
[2024-07-17 12:00] VITALS: BP 117/48
[2024-07-17 16:00] VITALS: BP 123/45
[2024-07-17] MEDS ORDERED: ISOSORBIDE MONONITRATE 30 MG TAB PO SCH (17:15)
[2024-07-17 19:57] VITALS: BP 100/40; BP 93/42
[2024-07-17] MEDS ORDERED: ATORVASTATIN CALCIUM 80 MG TAB PO SCH (22:00)
[2024-07-18] VITALS: BP 100/52; BP 100/92; BP 115/52
[2024-07-18 05:30] VITALS: BP 113/50
[2024-07-18 08:00] VITALS: BP 106/44
[2024-07-18 09:18] LABS: BASO % 0.7 % (0.0-1.0); EOS # 0.2 10*3/uL (0.0-0.4); EOS % 6.4 % (1.0-4.0); MEAN CELL VOLUME 84.3 fl (81.0-99.0); MEAN CORPUSCULAR HGB CONC 29.7 g/dl (33.0-37.0); MEAN PLATELET VOLUME 11.4 fl (9.6-12.3); MONO # 0.4 10*3/uL (0.1-1.0); MONO % 13.1 % (3.0-9.0); NEUT # 1.7 10*3/uL (2.3-7.9); NEUT % 57.3 % (47.0-73.0); PLATELET COUNT AUTOMATED 121 10*3/uL (130-400); RED BLOOD COUNT 3.44 10*6/uL (4.10-5.10)
[2024-07-18 09:41] LABS: BUN 14 mg/dl (9-23); CHLORIDE 109 mmol/L (98-107); POTASSIUM 3.7 mmol/L (3.4-5.1)
[2024-07-18] MEDS ORDERED: ASPIRIN, CHEWABLE 81 MG TAB PO SCH (10:00)
[2024-07-18 12:00] VITALS: BP 115/45
[2024-07-18] MEDS ORDERED: Albuterol Sulfate 2.5 MG/3 ML VIAL NEB PRN (15:00)
[2024-07-18] MEDS ORDERED: IPRATROPIUM BROMIDE 0.5 MG/2.5 ML AMP NEB PRN (15:00)
[2024-07-18] MEDS ORDERED: FLUOROMETHOLONE 0.1% OPH PRN (15:00)
[2024-07-18] MEDS ORDERED: Albuterol Sulf/Ipratropium 3 ML VIAL NEB PRN (15:05)
[2024-07-18 16:00] VITALS: BP 117/44
[2024-07-18] MEDS ORDERED: LACTULOSE 20 GM/30 ML UDC PO SCH (18:00)
[2024-07-18] MEDS ORDERED: FAMOTIDINE 20 MG TAB PO SCH (22:00)
[2024-07-19] MEDS ORDERED: Pantoprazole Sodium 40 MG TAB PO SCH (06:00)
[2024-07-19] MEDS ORDERED: Levothyroxine Sodium 150 MCG TAB PO SCH (06:00)
[2024-07-19] MEDS ORDERED: FLUoxetine Hydrochloride 20 MG CAP PO SCH (10:00)
[2024-07-19] MEDS ORDERED: SPIRONOLACTONE 25 MG TAB PO SCH (10:00)
[2024-07-19] MEDS ORDERED: Cholecalciferol 2,000 UNIT TABLET (50 MCG) PO SCH (10:00)
== END 2024-07-18 20:00 | disposition short-term general hospital (02) | DRG 302 ==
LOC: ED 21:22 → EDHOLD 07-17 01:40 → 4E 07-17 01:40 → EDHOLD 07-17 01:40 → 4E 07-17 03:47
PROVIDERS: Emergency Medicine; Internal Medicine; Student in an Organized Health Care Education/Training Program; ADMIT Family Medicine; ATTEND Family Medicine
DX: I25.110 Atherosclerotic heart disease of native coronary artery with unstable angina pectoris (principal); E43 Unspecified severe protein-calorie malnutrition; I50.33 Acute on chronic diastolic (congestive) heart failure; D61.818 Other pancytopenia; K76.6 Portal hypertension; D69.6 Thrombocytopenia, unspecified; R74.01 Elevation of levels of liver transaminase levels; E89.0 Postprocedural hypothyroidism; E87.8 Other disorders of electrolyte and fluid balance, not elsewhere classified; K74.60 Unspecified cirrhosis of liver; G89.4 Chronic pain syndrome; E78.5 Hyperlipidemia, unspecified; K31.84 Gastroparesis; E11.43 Type 2 diabetes mellitus with diabetic autonomic (poly)neuropathy; I45.10 Unspecified right bundle-branch block; M06.9 Rheumatoid arthritis, unspecified; E05.00 Thyrotoxicosis with diffuse goiter without thyrotoxic crisis or storm; K21.9 Gastro-esophageal reflux disease without esophagitis; I11.0 Hypertensive heart disease with heart failure; Z90.710 Acquired absence of both cervix and uterus; Z98.51 Tubal ligation status; Z82.49 Family history of ischemic heart disease and other diseases of the circulatory system; Z82.3 Family history of stroke; Z82.0 Family history of epilepsy and other diseases of the nervous system; Z88.0 Allergy status to penicillin; Z88.6 Allergy status to analgesic agent; Z88.1 Allergy status to other antibiotic agents; Z79.899 Other long term (current) drug therapy; Z90.49 Acquired absence of other specified parts of digestive tract; Z79.82 Long term (current) use of aspirin; Z79.51 Long term (current) use of inhaled steroids; Z68.26 Body mass index [BMI] 26.0-26.9, adult

== ENCOUNTER 2024-07-28 00:07 | Emergency (ER) | payer MEDICARE ==
[~2024-07-28] VITALS: Ht 160 cm; Wt 65.8 kg
[2024-07-28] MEDS ORDERED: traMADol Hydrochloride 50 MG TAB PO ONE (01:15)
== END 2024-07-28 01:33 | disposition home or self-care (01) ==
LOC: ED 00:07
DX: M62.830 Muscle spasm of back (principal); M54.50 Low back pain, unspecified; Z88.0 Allergy status to penicillin; Z88.6 Allergy status to analgesic agent; Z88.8 Allergy status to other drugs, medicaments and biological substances; Z79.82 Long term (current) use of aspirin; Z79.899 Other long term (current) drug therapy; Z95.5 Presence of coronary angioplasty implant and graft; Z90.49 Acquired absence of other specified parts of digestive tract; Z90.710 Acquired absence of both cervix and uterus; X50.0XXA Overexertion from strenuous movement or load, initial encounter; Y93.89 Activity, other specified; Y92.89 Other specified places as the place of occurrence of the external cause; Y99.8 Other external cause status

== ENCOUNTER 2024-07-31 23:32 | Emergency (ER) | payer MEDICARE ==
[~2024-07-31] VITALS: Ht 165.1 cm; Wt 63.5 kg
[2024-07-31 23:57] LABS: BASO % 0.7 % (0.0-1.0); EOS # 0.2 10*3/uL (0.0-0.4); EOS % 6.6 % (1.0-4.0); HEMATOCRIT 28.3 % (37.0-47.0); MEAN CORPUSCULAR HGB 25.2 pg (27.0-31.0); MEAN CORPUSCULAR HGB CONC 30.4 g/dl (33.0-37.0); MEAN PLATELET VOLUME 11.3 fl (9.6-12.3); MONO # 0.3 10*3/uL (0.1-1.0); MONO % 11.3 % (3.0-9.0); NEUT # 1.4 10*3/uL (2.3-7.9); NEUT % 49.3 % (47.0-73.0); PLATELET COUNT AUTOMATED 110 10*3/uL (130-400); RED BLOOD COUNT 3.41 10*6/uL (4.10-5.10); RED CELL DISTRI WIDTH 19.2 % (0-14.5); WHITE BLOOD COUNT 2.7 10*3/uL (4.8-10.8)
[2024-08-01 00:18] LABS: ALKALINE PHOSPHATASE 151 U/L (46-116); BUN 12 mg/dl (9-23); CHLORIDE 104 mmol/L (98-107); POTASSIUM 3.1 mmol/L (3.4-5.1); SGPT/ALT 24 U/L (5-49); TOTAL PROTEIN 5.3 gm/dL (6.0-8.0)
[2024-08-01] MEDS ORDERED: MEPERIDINE HYDROCHLORIDE 25 MG/1 ML VIAL IM ONE (02:00)
[2024-08-01] MEDS ORDERED: Promethazine Hydrochloride 25 MG/ML VIAL IM ONE (02:05)
[2024-08-01] MEDS ORDERED: POTASSIUM CHLORIDE 20 MEQ TAB PO ONE (02:10)
== END 2024-08-01 02:35 | disposition home or self-care (01) ==
LOC: ED 23:32
PROVIDERS: Internal Medicine
DX: R07.89 Other chest pain (principal); R73.9 Hyperglycemia, unspecified; E87.6 Hypokalemia; D61.818 Other pancytopenia; E43 Unspecified severe protein-calorie malnutrition; N18.31 Chronic kidney disease, stage 3a; R06.02 Shortness of breath; I25.10 Atherosclerotic heart disease of native coronary artery without angina pectoris; Z88.0 Allergy status to penicillin; Z88.6 Allergy status to analgesic agent; Z88.8 Allergy status to other drugs, medicaments and biological substances; Z79.899 Other long term (current) drug therapy; Z79.82 Long term (current) use of aspirin; Z90.49 Acquired absence of other specified parts of digestive tract; Z98.890 Other specified postprocedural states; Z90.711 Acquired absence of uterus with remaining cervical stump; Z87.891 Personal history of nicotine dependence

== ENCOUNTER 2024-08-03 16:53 | Emergency (ER) | payer MEDICARE ==
[~2024-08-03] VITALS: Ht 160 cm; Wt 65.5 kg
== END 2024-08-03 20:56 | disposition home or self-care (01) ==
LOC: ED 16:53
DX: S20.212A Contusion of left front wall of thorax, initial encounter (principal); F41.9 Anxiety disorder, unspecified; E78.00 Pure hypercholesterolemia, unspecified; K21.9 Gastro-esophageal reflux disease without esophagitis; J45.909 Unspecified asthma, uncomplicated; Z79.82 Long term (current) use of aspirin; Z79.899 Other long term (current) drug therapy; Z88.0 Allergy status to penicillin; Z88.6 Allergy status to analgesic agent; Z88.8 Allergy status to other drugs, medicaments and biological substances; Z90.49 Acquired absence of other specified parts of digestive tract; Z90.89 Acquired absence of other organs; Z98.51 Tubal ligation status; Z98.890 Other specified postprocedural states; W10.8XXA Fall (on) (from) other stairs and steps, initial encounter; Y93.89 Activity, other specified; Y92.89 Other specified places as the place of occurrence of the external cause; Y99.8 Other external cause status

== ENCOUNTER → 2024-08-04 | Outpatient (CLI) | payer MEDICARE | END | disposition home or self-care (01) | LOC: RESCLI 14:14 | PROVIDERS: ATTEND Internal Medicine | DX: G89.4 Chronic pain syndrome (principal); R07.1 Chest pain on breathing; Z79.899 Other long term (current) drug therapy; Z79.82 Long term (current) use of aspirin; Z98.890 Other specified postprocedural states; Z88.0 Allergy status to penicillin; Z88.8 Allergy status to other drugs, medicaments and biological substances ==

== ENCOUNTER 2024-08-30 18:02 | Emergency (ER) | payer MEDICARE ==
[~2024-08-30] VITALS: Ht 160 cm
[2024-08-30] MEDS ORDERED: MORPHINE Sulfate 2 MG/ML SYR IV ONE (20:10)
[2024-08-30 21:04] LABS: BASO % 0.7 % (0.0-1.0); EOS # 0.2 10*3/uL (0.0-0.4); EOS % 5.6 % (1.0-4.0); HEMATOCRIT 27.4 % (37.0-47.0); MEAN CELL VOLUME 86.2 fl (81.0-99.0); MEAN CORPUSCULAR HGB 25.5 pg (27.0-31.0); MEAN CORPUSCULAR HGB CONC 29.6 g/dl (33.0-37.0); MEAN PLATELET VOLUME 11.1 fl (9.6-12.3); MONO # 0.4 10*3/uL (0.1-1.0); MONO % 13.9 % (3.0-9.0); NEUT # 1.3 10*3/uL (2.3-7.9); PLATELET COUNT AUTOMATED 114 10*3/uL (130-400); RED BLOOD COUNT 3.18 10*6/uL (4.10-5.10); RED CELL DISTRI WIDTH 19.6 % (0-14.5); WHITE BLOOD COUNT 2.7 10*3/uL (4.8-10.8)
[2024-08-30 21:19] LABS: ACT PARTIAL THROMBO TIME 27.6 SECONDS (20.0-32.1)
[2024-08-30 21:24] LABS: BUN 12 mg/dl (9-23); CHLORIDE 110 mmol/L (98-107)
[2024-08-30] MEDS ORDERED: HYDROCODONE-AC1 EAC1 PO (22:27)
== END 2024-08-30 22:43 | disposition home or self-care (01) ==
LOC: ED 18:02
PROVIDERS: Nurse Practitioner Family
DX: S22.32XA Fracture of one rib, left side, initial encounter for closed fracture (principal); D53.9 Nutritional anemia, unspecified; D72.818 Other decreased white blood cell count; E03.9 Hypothyroidism, unspecified; E11.9 Type 2 diabetes mellitus without complications; E78.00 Pure hypercholesterolemia, unspecified; K21.9 Gastro-esophageal reflux disease without esophagitis; F41.9 Anxiety disorder, unspecified; Z79.82 Long term (current) use of aspirin; Z79.899 Other long term (current) drug therapy; Z88.0 Allergy status to penicillin; Z88.6 Allergy status to analgesic agent; Z88.8 Allergy status to other drugs, medicaments and biological substances; W18.39XA Other fall on same level, initial encounter; Y93.89 Activity, other specified; Y92.89 Other specified places as the place of occurrence of the external cause; Y99.8 Other external cause status

== ENCOUNTER 2024-09-07 22:31 | Emergency (ER) | payer MEDICARE ==
[~2024-09-07] VITALS: Ht 157.5 cm; Wt 65.8 kg
[2024-09-07] MEDS ORDERED: Acetaminophen/Hydrocodone 5 MG/325 MG TABLET PO ONE (22:45)
== END 2024-09-07 23:09 | disposition home or self-care (01) ==
LOC: ED 22:31
DX: R07.81 Pleurodynia (principal); Z88.0 Allergy status to penicillin; Z88.8 Allergy status to other drugs, medicaments and biological substances; Z88.6 Allergy status to analgesic agent; Z79.899 Other long term (current) drug therapy; Z79.82 Long term (current) use of aspirin; Z90.49 Acquired absence of other specified parts of digestive tract; Z98.61 Coronary angioplasty status; Z98.84 Bariatric surgery status; Z90.711 Acquired absence of uterus with remaining cervical stump; Z87.891 Personal history of nicotine dependence

== ENCOUNTER 2024-09-12 19:31 | Emergency (ER) | payer MEDICARE ==
[~2024-09-12] VITALS: Ht 162.5 cm; Wt 63.5 kg
[2024-09-13] MEDS ORDERED: AVPAK AZITHROM250 MG PO (14:52)
== END 2024-09-12 21:07 | disposition home or self-care (01) ==
LOC: ED 19:31
DX: B34.9 Viral infection, unspecified (principal); F41.9 Anxiety disorder, unspecified; K21.9 Gastro-esophageal reflux disease without esophagitis; Z20.822 Contact with and (suspected) exposure to COVID-19; Z79.82 Long term (current) use of aspirin; Z79.899 Other long term (current) drug therapy; Z88.0 Allergy status to penicillin; Z88.6 Allergy status to analgesic agent; Z88.8 Allergy status to other drugs, medicaments and biological substances; Z90.49 Acquired absence of other specified parts of digestive tract; Z90.89 Acquired absence of other organs; Z90.710 Acquired absence of both cervix and uterus; Z98.51 Tubal ligation status; Z98.890 Other specified postprocedural states

== ENCOUNTER 2024-09-13 13:42 | Emergency (ER) | payer MEDICARE ==
[~2024-09-13] VITALS: Ht 160 cm; Wt 65.8 kg
[2024-09-13] MEDS ORDERED: AZITHROMYCIN 250 MG TAB PO ONE (14:45)
[2024-09-13] MEDS ORDERED: AVPAK AZITHROM250 MG PO (14:52)
[2024-09-15] MEDS ORDERED: LEVOTHYROXINE125 MCG PO (19:40)
[2024-09-15] MEDS ORDERED: DULOXETINE HCL30 MG PO (19:40)
[2024-09-15] MEDS ORDERED: FUROSEMIDE20 M1 PO (19:41)
== END 2024-09-13 15:10 | disposition home or self-care (01) ==
LOC: ED 13:42
DX: J18.9 Pneumonia, unspecified organism (principal); E78.00 Pure hypercholesterolemia, unspecified; K21.9 Gastro-esophageal reflux disease without esophagitis; F41.9 Anxiety disorder, unspecified; J45.909 Unspecified asthma, uncomplicated; Z79.82 Long term (current) use of aspirin; Z79.899 Other long term (current) drug therapy; Z88.0 Allergy status to penicillin; Z88.6 Allergy status to analgesic agent; Z88.8 Allergy status to other drugs, medicaments and biological substances; Z90.49 Acquired absence of other specified parts of digestive tract; Z90.710 Acquired absence of both cervix and uterus; Z98.51 Tubal ligation status; Z98.890 Other specified postprocedural states

== ENCOUNTER 2024-09-25 02:11 | Emergency (ER) | payer MEDICARE ==
[~2024-09-25] VITALS: Ht 160 cm; Wt 65.8 kg
[~2024-09-25 02:11] MED LIST changes: +AVPAK AZITHROM250 MG PO; +DULOXETINE HCL30 MG PO; +FUROSEMIDE20 M1 PO
[2024-09-25 03:13] LABS: HEMATOCRIT 25.5 % (37.0-47.0); MEAN CELL VOLUME 83.1 fl (81.0-99.0); MEAN CORPUSCULAR HGB 24.8 pg (27.0-31.0); MEAN CORPUSCULAR HGB CONC 29.8 g/dl (33.0-37.0); MEAN PLATELET VOLUME 11.2 fl (9.6-12.3); RED BLOOD COUNT 3.07 10*6/uL (4.10-5.10); RED CELL DISTRI WIDTH 18.6 % (0-14.5); WHITE BLOOD COUNT 4.4 10*3/uL (4.8-10.8)
[2024-09-25 03:18] LABS: MANUAL DIFF REFLEX YES; PLATELET COUNT AUTOMATED 112 10*3/uL (130-400)
[2024-09-25 03:31] LABS: PLATELET SUFFICIENCY LOW (NORMAL); TOTAL CELLS COUNTED 100 #CELLS
[2024-09-25 03:32] LABS: BURR CELLS FEW; OVALOCYTES FEW
[2024-09-25 03:33] LABS: POLYCHROMASIA SLIGHT
[2024-09-25 03:34] LABS: SCHISTOCYTES FEW
[2024-09-25 03:36] LABS: BUN 14 mg/dl (9-23); CHLORIDE 106 mmol/L (98-107); CPK 74 U/L (34-171); POTASSIUM 3.5 mmol/L (3.4-5.1)
[2024-09-25] MEDS ORDERED: FUROSEMIDE 40 MG TAB PO ONE (03:50)
[2024-09-25] MEDS ORDERED: LASIX20 MG PO (03:51)
[2024-09-28] MEDS ORDERED: HYDROCODONE-AC1 EAC1 PO (00:49)
== END 2024-09-25 04:01 | disposition home or self-care (01) ==
LOC: ED 02:11
PROVIDERS: Emergency Medicine
DX: I87.2 Venous insufficiency (chronic) (peripheral) (principal); D64.9 Anemia, unspecified; D61.818 Other pancytopenia; I50.9 Heart failure, unspecified; K21.9 Gastro-esophageal reflux disease without esophagitis; E78.00 Pure hypercholesterolemia, unspecified; F41.9 Anxiety disorder, unspecified; Z79.82 Long term (current) use of aspirin; Z79.899 Other long term (current) drug therapy; Z88.0 Allergy status to penicillin; Z88.1 Allergy status to other antibiotic agents; Z88.8 Allergy status to other drugs, medicaments and biological substances; Z90.49 Acquired absence of other specified parts of digestive tract; Z90.710 Acquired absence of both cervix and uterus; Z98.51 Tubal ligation status; Z98.890 Other specified postprocedural states

== ENCOUNTER → 2024-09-27 | Outpatient (CLI) | payer MEDICARE ==
[~2024-09-27] MED LIST changes: +LASIX20 MG PO
== END | disposition home or self-care (01) ==
LOC: RESCLI 01:32
PROVIDERS: ATTEND Internal Medicine
DX: I11.0 Hypertensive heart disease with heart failure (principal); I50.9 Heart failure, unspecified; I25.10 Atherosclerotic heart disease of native coronary artery without angina pectoris; E78.5 Hyperlipidemia, unspecified; J45.901 Unspecified asthma with (acute) exacerbation; E55.9 Vitamin D deficiency, unspecified; K76.6 Portal hypertension; E03.9 Hypothyroidism, unspecified; J18.9 Pneumonia, unspecified organism; F32.9 Major depressive disorder, single episode, unspecified; K21.9 Gastro-esophageal reflux disease without esophagitis; R07.1 Chest pain on breathing; Z79.899 Other long term (current) drug therapy; Z98.890 Other specified postprocedural states; Z88.0 Allergy status to penicillin

== ENCOUNTER → 2024-10-18 | Outpatient (CLI) | payer MEDICARE ==
[~2024-10-18] MED LIST changes: +Meclizine25 MG PO; +Ondansetron4 MG PO
[2024-10-18 16:02] LABS: MEAN CELL VOLUME 84.2 fl (81.0-99.0); MEAN CORPUSCULAR HGB 24.3 pg (27.0-31.0); NUCLEATED RED BLOOD CELL 0.0 % (0.0-0.0); NUCLEATED RED BLOOD CELL 0.0 10*3/uL (0.0-0.0); PLATELET COUNT AUTOMATED 40 10*3/uL (130-400); RED CELL DISTRI WIDTH 20.2 % (0-14.5)
[2024-10-18 16:04] LABS: MANUAL DIFF REFLEX YES
[2024-10-18 16:12] LABS: PLATELET SUFFICIENCY LOW (NORMAL)
== END | disposition home or self-care (01) ==
LOC: RESCLI 00:44
PROVIDERS: ATTEND Internal Medicine
DX: E55.9 Vitamin D deficiency, unspecified (principal); I11.0 Hypertensive heart disease with heart failure; I50.9 Heart failure, unspecified; G89.4 Chronic pain syndrome; Z00.00 Encounter for general adult medical examination without abnormal findings; J45.901 Unspecified asthma with (acute) exacerbation; E03.9 Hypothyroidism, unspecified; K76.9 Liver disease, unspecified; F32.9 Major depressive disorder, single episode, unspecified; H57.89 Other specified disorders of eye and adnexa; E78.5 Hyperlipidemia, unspecified; M79.10 Myalgia, unspecified site; K29.70 Gastritis, unspecified, without bleeding

== ENCOUNTER 2024-10-23 23:22 | Emergency (ER) | payer MEDICARE ==
[~2024-10-23] VITALS: Ht 160 cm; Wt 63.5 kg
[~2024-10-23 23:22] MED LIST changes: -Meclizine25 MG PO; -Ondansetron4 MG PO
[2024-10-24] MEDS ORDERED: Meclizine25 MG PO (00:10)
[2024-10-24] MEDS ORDERED: Ondansetron Hydrochloride 4 MG TAB PO ONE (00:10)
[2024-10-24] MEDS ORDERED: Ondansetron4 MG PO (00:10)
== END 2024-10-24 00:24 | disposition home or self-care (01) ==
LOC: ED 23:22
DX: R42 Dizziness and giddiness (principal); H53.8 Other visual disturbances; R11.0 Nausea; I50.9 Heart failure, unspecified; J45.909 Unspecified asthma, uncomplicated; I25.10 Atherosclerotic heart disease of native coronary artery without angina pectoris; Z88.0 Allergy status to penicillin; Z88.8 Allergy status to other drugs, medicaments and biological substances; Z88.6 Allergy status to analgesic agent; Z79.82 Long term (current) use of aspirin; Z79.899 Other long term (current) drug therapy; Z90.49 Acquired absence of other specified parts of digestive tract; Z98.61 Coronary angioplasty status; Z90.711 Acquired absence of uterus with remaining cervical stump; Z87.891 Personal history of nicotine dependence

== ENCOUNTER 2024-10-29 09:02 | Emergency (ER) | payer MEDICARE ==
[~2024-10-29] VITALS: Ht 160 cm; Wt 65.8 kg
[~2024-10-29 09:02] MED LIST changes: +Meclizine25 MG PO; +Ondansetron4 MG PO
[2024-10-29] MEDS ORDERED: Ondansetron Hydrochloride 4 MG/2 ML VIAL IV ONE (09:25)
[2024-10-29] MEDS ORDERED: diphenhydrAMINE hydrochloride 50 MG/ML VIAL IV ONE (09:25)
[2024-10-29] MEDS ORDERED: Metoclopramide Hydrochloride 10 MG/2 ML VIAL IV ONE (09:25)
[2024-10-29] MEDS ORDERED: SODIUM CHLORIDE 0.9% 500 ML IV ONE (09:25)
[2024-10-29 09:45] LABS: BASO # 0.0 10*3/uL (0.0-0.1); BASO % 0.3 % (0.0-1.0); EOS # 0.1 10*3/uL (0.0-0.4); EOS % 2.4 % (1.0-4.0); MEAN CELL VOLUME 82.4 fl (81.0-99.0); MEAN CORPUSCULAR HGB 23.7 pg (27.0-31.0); MEAN PLATELET VOLUME 10.6 fl (9.6-12.3); MONO # 0.4 10*3/uL (0.1-1.0); MONO % 12.8 % (3.0-9.0); NEUT # 2.0 10*3/uL (2.3-7.9); NEUT % 67.9 % (47.0-73.0); NUCLEATED RED BLOOD CELL 0.0 % (0.0-0.0); NUCLEATED RED BLOOD CELL 0.0 10*3/uL (0.0-0.0); PLATELET COUNT AUTOMATED 127 10*3/uL (130-400); RED CELL DISTRI WIDTH 20.2 % (0-14.5)
[2024-10-29 10:09] LABS: BUN 14 mg/dl (9-23); CPK 40 U/L (34-171); SGPT/ALT 20 U/L (5-49)
[2024-10-29] MEDS ORDERED: MAGNESIUM SULFATE 50 ML IV ONE (10:35)
[2024-10-29] MEDS ORDERED: POTASSIUM CHLORIDE IN WATER 100 ML IV ONE (10:35)
[2024-10-29] MEDS ORDERED: POTASSIUM CHLO20 ME3 PO (12:08)
[2024-10-29] MEDS ORDERED: REGLAN10 M1 PO (12:08)
== END 2024-10-29 13:15 | disposition home or self-care (01) ==
LOC: ED 09:02
PROVIDERS: Emergency Medicine
DX: A08.4 Viral intestinal infection, unspecified (principal); D64.9 Anemia, unspecified; R11.10 Vomiting, unspecified; E87.6 Hypokalemia; K29.70 Gastritis, unspecified, without bleeding; Z98.890 Other specified postprocedural states; Z98.84 Bariatric surgery status; Z90.710 Acquired absence of both cervix and uterus; Z88.0 Allergy status to penicillin; Z88.6 Allergy status to analgesic agent; Z88.8 Allergy status to other drugs, medicaments and biological substances; Z88.5 Allergy status to narcotic agent

== ENCOUNTER 2024-11-04 21:24 | Emergency (ER) | payer MEDICARE ==
[~2024-11-04] VITALS: Ht 160 cm; Wt 64.4 kg
[~2024-11-04 21:24] MED LIST changes: +POTASSIUM CHLO20 ME3 PO
[2024-11-04] MEDS ORDERED: Promethazine Hydrochloride 25 MG/ML VIAL IM ONE (21:50)
== END 2024-11-04 22:00 | disposition home or self-care (01) ==
LOC: ED 21:24
DX: G89.29 Other chronic pain (principal); M54.50 Low back pain, unspecified; Z88.0 Allergy status to penicillin; Z88.6 Allergy status to analgesic agent; Z88.8 Allergy status to other drugs, medicaments and biological substances; Z79.899 Other long term (current) drug therapy; Z79.82 Long term (current) use of aspirin; Z90.49 Acquired absence of other specified parts of digestive tract; Z98.61 Coronary angioplasty status; Z90.711 Acquired absence of uterus with remaining cervical stump; Z98.84 Bariatric surgery status; Z87.891 Personal history of nicotine dependence

== ENCOUNTER 2024-11-10 19:05 | Emergency (ER) | payer MEDICARE ==
[~2024-11-10] VITALS: Ht 160 cm; Wt 65.8 kg
[2024-11-10 21:23] LABS: BASO # 0.0 10*3/uL (0.0-0.1); BASO % 0.5 % (0.0-1.0); EOS # 0.1 10*3/uL (0.0-0.4); EOS % 4.1 % (1.0-4.0); MEAN CELL VOLUME 83.4 fl (81.0-99.0); MEAN CORPUSCULAR HGB 23.7 pg (27.0-31.0); MEAN PLATELET VOLUME 11.5 fl (9.6-12.3); MONO # 0.3 10*3/uL (0.1-1.0); MONO % 15.7 % (3.0-9.0); NEUT # 1.2 10*3/uL (2.3-7.9); NEUT % 53.9 % (47.0-73.0); NUCLEATED RED BLOOD CELL 0.0 % (0.0-0.0); NUCLEATED RED BLOOD CELL 0.0 10*3/uL (0.0-0.0); PLATELET COUNT AUTOMATED 95 10*3/uL (130-400); RED CELL DISTRI WIDTH 18.9 % (0-14.5)
[2024-11-10 21:38] LABS: BUN 10 mg/dl (9-23); SGPT/ALT 18 U/L (5-49)
[2024-11-11] MEDS ORDERED: OXYCODONE HCL (IR) 5 MG TAB PO ONE (02:00)
== END 2024-11-11 02:41 | disposition home or self-care (01) ==
LOC: ED 19:05
PROVIDERS: Emergency Medicine
DX: K52.9 Noninfective gastroenteritis and colitis, unspecified (principal); R10.32 Left lower quadrant pain; E11.9 Type 2 diabetes mellitus without complications; E78.00 Pure hypercholesterolemia, unspecified; I11.0 Hypertensive heart disease with heart failure; I50.9 Heart failure, unspecified; J45.909 Unspecified asthma, uncomplicated; I25.10 Atherosclerotic heart disease of native coronary artery without angina pectoris; F32.A Depression, unspecified; E78.5 Hyperlipidemia, unspecified; M79.7 Fibromyalgia; K21.9 Gastro-esophageal reflux disease without esophagitis; E03.9 Hypothyroidism, unspecified; Z88.0 Allergy status to penicillin; Z88.6 Allergy status to analgesic agent; Z79.899 Other long term (current) drug therapy; Z79.82 Long term (current) use of aspirin; Z90.49 Acquired absence of other specified parts of digestive tract; Z98.890 Other specified postprocedural states; Z87.891 Personal history of nicotine dependence

== ENCOUNTER 2024-11-11 17:55 | Emergency (ER) | payer MEDICARE ==
[~2024-11-11] VITALS: Ht 167.6 cm; Wt 65.8 kg
[2024-11-11] MEDS ORDERED: Ondansetron Hydrochloride 4 MG/2 ML VIAL IV ONE (18:20)
[2024-11-11 18:40] LABS: BASO # 0.0 10*3/uL (0.0-0.1); BASO % 0.3 % (0.0-1.0); EOS # 0.1 10*3/uL (0.0-0.4); EOS % 2.4 % (1.0-4.0); MEAN CELL VOLUME 84.4 fl (81.0-99.0); MEAN CORPUSCULAR HGB 24.0 pg (27.0-31.0); MEAN PLATELET VOLUME 11.9 fl (9.6-12.3); MONO # 0.5 10*3/uL (0.1-1.0); MONO % 16.8 % (3.0-9.0); NEUT # 1.6 10*3/uL (2.3-7.9); NEUT % 54.9 % (47.0-73.0); NUCLEATED RED BLOOD CELL 0.0 % (0.0-0.0); NUCLEATED RED BLOOD CELL 0.0 10*3/uL (0.0-0.0); PLATELET COUNT AUTOMATED 109 10*3/uL (130-400); RED CELL DISTRI WIDTH 19.1 % (0-14.5)
[2024-11-11 18:58] LABS: BUN 9 mg/dl (9-23)
== END 2024-11-11 19:20 | disposition home or self-care (01) ==
LOC: ED 17:55
PROVIDERS: Emergency Medicine
DX: R10.84 Generalized abdominal pain (principal); R53.1 Weakness; I11.0 Hypertensive heart disease with heart failure; I50.9 Heart failure, unspecified; K21.9 Gastro-esophageal reflux disease without esophagitis; M79.7 Fibromyalgia; E78.5 Hyperlipidemia, unspecified; Z90.710 Acquired absence of both cervix and uterus; Z90.49 Acquired absence of other specified parts of digestive tract; Z88.1 Allergy status to other antibiotic agents; Z88.0 Allergy status to penicillin; Z88.8 Allergy status to other drugs, medicaments and biological substances

== ENCOUNTER 2024-11-12 20:09 | Emergency (ER) | payer MEDICARE ==
[~2024-11-12] VITALS: Ht 165.1 cm; Wt 77.1 kg
[2024-11-12 22:01] LABS: BASO # 0.0 10*3/uL (0.0-0.1); BASO % 0.3 % (0.0-1.0); EOS # 0.1 10*3/uL (0.0-0.4); EOS % 2.4 % (1.0-4.0); MEAN CELL VOLUME 83.6 fl (81.0-99.0); MEAN CORPUSCULAR HGB 23.4 pg (27.0-31.0); MEAN PLATELET VOLUME 10.6 fl (9.6-12.3); MONO # 0.5 10*3/uL (0.1-1.0); MONO % 15.6 % (3.0-9.0); NEUT # 2.0 10*3/uL (2.3-7.9); NEUT % 60.4 % (47.0-73.0); NUCLEATED RED BLOOD CELL 0.0 % (0.0-0.0); NUCLEATED RED BLOOD CELL 0.0 10*3/uL (0.0-0.0); PLATELET COUNT AUTOMATED 91 10*3/uL (130-400); RED CELL DISTRI WIDTH 19.1 % (0-14.5)
[2024-11-12 22:25] LABS: BUN 10 mg/dl (9-23)
[2024-11-13] MEDS ORDERED: OXYCODONE HCL (IR) 5 MG TAB PO ONE (01:15)
== END 2024-11-13 01:04 | disposition home or self-care (01) ==
LOC: ED 20:09
PROVIDERS: Emergency Medicine
DX: R19.7 Diarrhea, unspecified (principal); K21.9 Gastro-esophageal reflux disease without esophagitis; E78.00 Pure hypercholesterolemia, unspecified; F41.9 Anxiety disorder, unspecified; E11.9 Type 2 diabetes mellitus without complications; I10 Essential (primary) hypertension; Z79.82 Long term (current) use of aspirin; Z79.899 Other long term (current) drug therapy; Z88.0 Allergy status to penicillin; Z88.6 Allergy status to analgesic agent; Z88.8 Allergy status to other drugs, medicaments and biological substances; Z90.49 Acquired absence of other specified parts of digestive tract; Z90.710 Acquired absence of both cervix and uterus; Z90.89 Acquired absence of other organs; Z98.890 Other specified postprocedural states

== ENCOUNTER → 2024-11-16 | Outpatient (CLI) | payer MEDICARE ==
[~2024-11-16] MED LIST changes: +CEFADROXIL500 M1 PO
[2024-11-16 16:35] LABS: MEAN CELL VOLUME 83.0 fl (81.0-99.0); MEAN CORPUSCULAR HGB 23.1 pg (27.0-31.0); MEAN PLATELET VOLUME 11.4 fl (9.6-12.3); NUCLEATED RED BLOOD CELL 0.0 % (0.0-0.0); NUCLEATED RED BLOOD CELL 0.0 10*3/uL (0.0-0.0); PLATELET COUNT AUTOMATED 115 10*3/uL (130-400); RED CELL DISTRI WIDTH 19.1 % (0-14.5); RETICULOCYTE % 1.96 % (0.50-2.50)
[2024-11-16 16:36] LABS: MANUAL DIFF REFLEX YES
[2024-11-16 16:41] LABS: PLATELET SUFFICIENCY LOW (NORMAL)
== END | disposition home or self-care (01) ==
LOC: RESCLI 14:44 → LAB 14:44
PROVIDERS: ATTEND Family Medicine
DX: D64.9 Anemia, unspecified (principal)

== ENCOUNTER 2024-11-17 20:31 | Emergency (ER) | payer MEDICARE ==
[~2024-11-17] VITALS: Ht 160 cm; Wt 65.8 kg
[~2024-11-17 20:31] MED LIST changes: -CEFADROXIL500 M1 PO
[2024-11-17 21:45] LABS: BASO # 0.0 10*3/uL (0.0-0.1); BASO % 0.7 % (0.0-1.0); EOS # 0.1 10*3/uL (0.0-0.4); EOS % 4.1 % (1.0-4.0); MEAN CELL VOLUME 83.9 fl (81.0-99.0); MEAN CORPUSCULAR HGB 23.5 pg (27.0-31.0); MEAN PLATELET VOLUME 10.6 fl (9.6-12.3); MONO # 0.4 10*3/uL (0.1-1.0); MONO % 14.5 % (3.0-9.0); NEUT # 1.5 10*3/uL (2.3-7.9); NEUT % 51.8 % (47.0-73.0); NUCLEATED RED BLOOD CELL 0.0 % (0.0-0.0); NUCLEATED RED BLOOD CELL 0.0 10*3/uL (0.0-0.0); PLATELET COUNT AUTOMATED 102 10*3/uL (130-400); RED CELL DISTRI WIDTH 19.1 % (0-14.5)
[2024-11-17 22:14] LABS: BUN 11 mg/dl (9-23); SGPT/ALT 16 U/L (5-49)
[2024-11-17 23:40] LABS: BILIRUBIN 1+ (Negative); BLOOD 1+ (Negative); CLARITY Cloudy (Clear); COLOR Dark Yellow (Yellow); KETONE Trace (Negative); LEUKO ESTERASE 1+ (Negative); NITRITE Negative (Negative); PH 5.5 (4.5-8.0); SPECIFIC GRAVITY 1.025 (1.001-1.030); UROBILINOGEN 1.0 E.U./dl (0.0-1.0)
[2024-11-18 00:11] LABS: EPITHELIAL CELLS 16-20
[2024-11-18 00:12] LABS: BACTERIA 2+
[2024-11-18] MEDS ORDERED: CARAFATE1 GM/10 ML PO (02:11)
[2024-11-18] MEDS ORDERED: CEFADROXIL500 M1 PO (02:11)
[2024-11-18] MEDS ORDERED: OXYCODONE HCL (IR) 10 MG TABLET PO ONE (02:15)
== END 2024-11-18 02:27 | disposition home or self-care (01) ==
LOC: ED 20:31
PROVIDERS: Emergency Medicine
DX: E11.649 Type 2 diabetes mellitus with hypoglycemia without coma (principal); K29.70 Gastritis, unspecified, without bleeding; N39.0 Urinary tract infection, site not specified; E78.00 Pure hypercholesterolemia, unspecified; I25.10 Atherosclerotic heart disease of native coronary artery without angina pectoris; I25.2 Old myocardial infarction; I11.0 Hypertensive heart disease with heart failure; I50.9 Heart failure, unspecified; F32.A Depression, unspecified; K21.9 Gastro-esophageal reflux disease without esophagitis; E03.9 Hypothyroidism, unspecified; M06.9 Rheumatoid arthritis, unspecified; Z88.0 Allergy status to penicillin; Z88.6 Allergy status to analgesic agent; Z88.8 Allergy status to other drugs, medicaments and biological substances; Z79.899 Other long term (current) drug therapy; Z79.82 Long term (current) use of aspirin; Z90.49 Acquired absence of other specified parts of digestive tract; Z90.711 Acquired absence of uterus with remaining cervical stump; Z87.891 Personal history of nicotine dependence

== ENCOUNTER 2024-11-20 18:18 | Emergency (ER) | payer MEDICARE ==
[~2024-11-20 18:18] MED LIST changes: +CEFADROXIL500 M1 PO
[2024-11-20] MEDS ORDERED: PREDNISONE50 MG PO (19:21)
[2024-11-20 19:37] LABS: BASO # 0.0 10*3/uL (0.0-0.1); BASO % 0.4 % (0.0-1.0); EOS # 0.2 10*3/uL (0.0-0.4); EOS % 4.2 % (1.0-4.0); MEAN CELL VOLUME 87.5 fl (81.0-99.0); MEAN CORPUSCULAR HGB 23.7 pg (27.0-31.0); MEAN PLATELET VOLUME 12.8 fl (9.6-12.3); MONO # 0.6 10*3/uL (0.1-1.0); MONO % 13.4 % (3.0-9.0); NEUT # 2.4 10*3/uL (2.3-7.9); NEUT % 51.9 % (47.0-73.0); NUCLEATED RED BLOOD CELL 0.0 % (0.0-0.0); NUCLEATED RED BLOOD CELL 0.0 10*3/uL (0.0-0.0); PLATELET COUNT AUTOMATED 139 10*3/uL (130-400); RED CELL DISTRI WIDTH 18.8 % (0-14.5)
[2024-11-20 20:04] LABS: BUN 7 mg/dl (9-23)
[2024-12-01] MEDS ORDERED: ATORVASTATIN CA80 M1 PO (12:27)
== END 2024-11-20 20:26 | disposition home or self-care (01) ==
LOC: ED 18:18
PROVIDERS: Nurse Practitioner Family
DX: E16.2 Hypoglycemia, unspecified (principal); M06.9 Rheumatoid arthritis, unspecified; Z98.890 Other specified postprocedural states; Z90.710 Acquired absence of both cervix and uterus; Z98.84 Bariatric surgery status; Z90.49 Acquired absence of other specified parts of digestive tract; Z88.0 Allergy status to penicillin; Z88.8 Allergy status to other drugs, medicaments and biological substances; Z88.5 Allergy status to narcotic agent

== ENCOUNTER 2024-11-23 12:38 | Emergency (ER) | payer MEDICARE ==
[~2024-11-23] VITALS: Ht 167.6 cm; Wt 63.5 kg
[2024-11-23] MEDS ORDERED: FAMOTIDINE 50 ML IV ONE (13:10)
[2024-11-23] MEDS ORDERED: SUCRALFATE 1 GM TAB PO ONE (13:10)
[2024-11-23] MEDS ORDERED: SODIUM CHLORIDE 0.9% 1,000 ML IV ONE (13:10)
[2024-11-23 13:37] LABS: BASO # 0.0 10*3/uL (0.0-0.1); BASO % 0.5 % (0.0-1.0); EOS # 0.1 10*3/uL (0.0-0.4); EOS % 2.5 % (1.0-4.0); MEAN CELL VOLUME 82.5 fl (81.0-99.0); MEAN CORPUSCULAR HGB 22.9 pg (27.0-31.0); MEAN PLATELET VOLUME 10.4 fl (9.6-12.3); MONO # 0.6 10*3/uL (0.1-1.0); MONO % 14.3 % (3.0-9.0); NEUT # 2.8 10*3/uL (2.3-7.9); NEUT % 62.3 % (47.0-73.0); NUCLEATED RED BLOOD CELL 0.0 % (0.0-0.0); NUCLEATED RED BLOOD CELL 0.0 10*3/uL (0.0-0.0); PLATELET COUNT AUTOMATED 114 10*3/uL (130-400); RED CELL DISTRI WIDTH 18.6 % (0-14.5)
[2024-11-23 13:57] LABS: BUN 9 mg/dl (9-23)
[2024-11-23] MEDS ORDERED: PEPCID20 MG PO (14:10)
== END 2024-11-23 14:06 | disposition home or self-care (01) ==
LOC: ED 12:38
PROVIDERS: Emergency Medicine
DX: K21.9 Gastro-esophageal reflux disease without esophagitis (principal); R07.2 Precordial pain; I11.0 Hypertensive heart disease with heart failure; I50.9 Heart failure, unspecified; E78.5 Hyperlipidemia, unspecified; J45.909 Unspecified asthma, uncomplicated; F41.9 Anxiety disorder, unspecified; Z79.82 Long term (current) use of aspirin; Z79.899 Other long term (current) drug therapy; Z88.0 Allergy status to penicillin; Z88.6 Allergy status to analgesic agent; Z88.8 Allergy status to other drugs, medicaments and biological substances; Z90.49 Acquired absence of other specified parts of digestive tract; Z98.890 Other specified postprocedural states

== ENCOUNTER 2024-12-08 22:37 | Emergency (ER) | payer MEDICARE ==
[~2024-12-08] VITALS: Ht 160 cm; Wt 68.0 kg
[~2024-12-08 22:37] MED LIST changes: +PEPCID20 MG PO
[2024-12-08] MEDS ORDERED: SODIUM CHLORIDE 0.9% 1,000 ML IV ONE (23:30)
[2024-12-08 23:56] LABS: BASO # 0.0 10*3/uL (0.0-0.1); BASO % 0.9 % (0.0-1.0); EOS # 0.2 10*3/uL (0.0-0.4); EOS % 5.3 % (1.0-4.0); MEAN CELL VOLUME 83.1 fl (81.0-99.0); MEAN CORPUSCULAR HGB 23.8 pg (27.0-31.0); MEAN PLATELET VOLUME 10.2 fl (9.6-12.3); MONO # 0.5 10*3/uL (0.1-1.0); MONO % 14.9 % (3.0-9.0); NEUT # 1.7 10*3/uL (2.3-7.9); NEUT % 52.5 % (47.0-73.0); NUCLEATED RED BLOOD CELL 0.0 % (0.0-0.0); NUCLEATED RED BLOOD CELL 0.0 10*3/uL (0.0-0.0); PLATELET COUNT AUTOMATED 73 10*3/uL (130-400); RED CELL DISTRI WIDTH 20.3 % (0-14.5)
[2024-12-09 00:14] LABS: BUN 7 mg/dl (9-23); SGPT/ALT 18 U/L (5-49)
[2024-12-09] MEDS ORDERED: POTASSIUM CHLORIDE 20 MEQ TAB PO ONE (00:40)
== END 2024-12-09 01:55 | disposition home or self-care (01) ==
LOC: ED 22:37
DX: E87.6 Hypokalemia (principal); G89.29 Other chronic pain; R10.31 Right lower quadrant pain; R10.32 Left lower quadrant pain; M79.7 Fibromyalgia; J45.909 Unspecified asthma, uncomplicated; I25.10 Atherosclerotic heart disease of native coronary artery without angina pectoris; F32.A Depression, unspecified; E78.5 Hyperlipidemia, unspecified; I10 Essential (primary) hypertension; K21.9 Gastro-esophageal reflux disease without esophagitis; E03.9 Hypothyroidism, unspecified; M06.9 Rheumatoid arthritis, unspecified; Z88.0 Allergy status to penicillin; Z88.6 Allergy status to analgesic agent; Z88.8 Allergy status to other drugs, medicaments and biological substances; Z79.899 Other long term (current) drug therapy; Z79.82 Long term (current) use of aspirin; Z90.49 Acquired absence of other specified parts of digestive tract; Z98.61 Coronary angioplasty status; Z98.84 Bariatric surgery status; Z90.710 Acquired absence of both cervix and uterus; Z87.891 Personal history of nicotine dependence

== ENCOUNTER 2024-12-15 19:58 | Emergency (ER) | payer MEDICARE ==
[~2024-12-15] VITALS: Ht 160 cm; Wt 68.0 kg
[2024-12-15] MEDS ORDERED: OXYCODONE HCL (IR) 5 MG TAB PO ONE (21:55)
[2024-12-15] MEDS ORDERED: METHOCARBAMOL 750 MG TAB PO ONE (21:55)
[2024-12-15 22:17] LABS: BASO # 0.0 10*3/uL (0.0-0.1); BASO % 0.5 % (0.0-1.0); EOS # 0.2 10*3/uL (0.0-0.4); EOS % 3.9 % (1.0-4.0); MEAN CELL VOLUME 82.4 fl (81.0-99.0); MEAN CORPUSCULAR HGB 23.7 pg (27.0-31.0); MEAN PLATELET VOLUME 11.2 fl (9.6-12.3); MONO # 0.6 10*3/uL (0.1-1.0); MONO % 14.9 % (3.0-9.0); NEUT # 2.1 10*3/uL (2.3-7.9); NEUT % 54.1 % (47.0-73.0); NUCLEATED RED BLOOD CELL 0.0 % (0.0-0.0); NUCLEATED RED BLOOD CELL 0.0 10*3/uL (0.0-0.0); PLATELET COUNT AUTOMATED 113 10*3/uL (130-400); RED CELL DISTRI WIDTH 20.4 % (0-14.5)
[2024-12-15 22:33] LABS: BUN 9 mg/dl (9-23)
[2024-12-15] MEDS ORDERED: METHOCARBAMOL500 M1 PO (23:25)
== END 2024-12-15 23:52 | disposition home or self-care (01) ==
LOC: ED 19:58
PROVIDERS: Nurse Practitioner Family
DX: M54.50 Low back pain, unspecified (principal); R07.89 Other chest pain; I25.10 Atherosclerotic heart disease of native coronary artery without angina pectoris; G89.29 Other chronic pain; Z88.0 Allergy status to penicillin; Z88.6 Allergy status to analgesic agent; Z88.8 Allergy status to other drugs, medicaments and biological substances; Z79.899 Other long term (current) drug therapy; Z79.82 Long term (current) use of aspirin; Z90.49 Acquired absence of other specified parts of digestive tract; Z98.890 Other specified postprocedural states; Z90.710 Acquired absence of both cervix and uterus; Z90.89 Acquired absence of other organs; Z87.891 Personal history of nicotine dependence

== ENCOUNTER → 2024-12-27 | Outpatient (CLI) | payer MEDICARE ==
[~2024-12-27] MED LIST changes: +TRAMADOL HCL50 MG PO
[2024-12-27 15:19] LABS: BASO # 0.0 10*3/uL (0.0-0.1); BASO % 0.5 % (0.0-1.0); EOS # 0.1 10*3/uL (0.0-0.4); EOS % 2.7 % (1.0-4.0); MEAN CELL VOLUME 84.2 fl (81.0-99.0); MEAN CORPUSCULAR HGB 24.0 pg (27.0-31.0); MEAN PLATELET VOLUME 11.0 fl (9.6-12.3); MONO # 0.4 10*3/uL (0.1-1.0); MONO % 12.0 % (3.0-9.0); NEUT # 2.2 10*3/uL (2.3-7.9); NEUT % 60.9 % (47.0-73.0); NUCLEATED RED BLOOD CELL 0.0 % (0.0-0.0); NUCLEATED RED BLOOD CELL 0.0 10*3/uL (0.0-0.0); PLATELET COUNT AUTOMATED 136 10*3/uL (130-400); RED CELL DISTRI WIDTH 19.8 % (0-14.5)
[2024-12-27 15:57] LABS: BUN 7 mg/dl (9-23); SGPT/ALT 39 U/L (5-49)
== END | disposition home or self-care (01) ==
LOC: RESCLI 13:50 → LAB 13:50
PROVIDERS: ATTEND Family Medicine
DX: R19.7 Diarrhea, unspecified (principal); I11.0 Hypertensive heart disease with heart failure; I50.9 Heart failure, unspecified; E03.9 Hypothyroidism, unspecified; I25.10 Atherosclerotic heart disease of native coronary artery without angina pectoris; J44.9 Chronic obstructive pulmonary disease, unspecified; K21.9 Gastro-esophageal reflux disease without esophagitis; K74.60 Unspecified cirrhosis of liver; G62.9 Polyneuropathy, unspecified; Z79.899 Other long term (current) drug therapy; Z98.890 Other specified postprocedural states; Z88.0 Allergy status to penicillin

== ENCOUNTER 2025-01-17 16:28 | Emergency (ER) | payer MEDICARE ==
[~2025-01-17] VITALS: Ht 160 cm; Wt 66.7 kg
[~2025-01-17 16:28] MED LIST changes: -TRAMADOL HCL50 MG PO
[2025-01-17 17:08] LABS: BASO # 0.0 10*3/uL (0.0-0.1); BASO % 0.6 % (0.0-1.0); EOS # 0.1 10*3/uL (0.0-0.4); EOS % 3.6 % (1.0-4.0); MEAN CELL VOLUME 83.6 fl (81.0-99.0); MEAN CORPUSCULAR HGB 24.1 pg (27.0-31.0); MEAN PLATELET VOLUME 11.6 fl (9.6-12.3); MONO # 0.3 10*3/uL (0.1-1.0); MONO % 10.1 % (3.0-9.0); NEUT # 2.1 10*3/uL (2.3-7.9); NEUT % 67.5 % (47.0-73.0); NUCLEATED RED BLOOD CELL 0.0 % (0.0-0.0); NUCLEATED RED BLOOD CELL 0.0 10*3/uL (0.0-0.0); PLATELET COUNT AUTOMATED 85 10*3/uL (130-400); RED CELL DISTRI WIDTH 20.4 % (0-14.5)
[2025-01-17 17:30] LABS: BUN 11 mg/dl (9-23)
[2025-01-17 18:16] LABS: BILIRUBIN Negative (Negative); BLOOD Negative (Negative); CLARITY Clear (Clear); COLOR Yellow (Yellow); KETONE Negative (Negative); LEUKO ESTERASE Negative (Negative); NITRITE Negative (Negative); PH 5.5 (4.5-8.0); SPECIFIC GRAVITY 1.010 (1.001-1.030); UROBILINOGEN 1.0 E.U./dl (0.0-1.0)
[2025-01-17 18:41] LABS: BACTERIA TRACE; HYALINE CAST 0-2; MUCOUS 1+; RBC 0-2 rbc/hpf (0-2)
[2025-01-17] MEDS ORDERED: TRAMADOL HCL50 MG PO (18:47)
[2025-01-17] MEDS ORDERED: ZITHROMAX250 MG PO (18:47)
[2025-01-27] MEDS ORDERED: MUCUS RELIEF E600 MG PO (12:00)
[2025-01-27] MEDS ORDERED: VIBRA-TAB100 MG PO (12:00)
== END 2025-01-17 18:58 | disposition home or self-care (01) ==
LOC: ED 16:28
PROVIDERS: Emergency Medicine
DX: J02.0 Streptococcal pharyngitis (principal); M54.9 Dorsalgia, unspecified; D61.818 Other pancytopenia; R05.9 Cough, unspecified; K21.9 Gastro-esophageal reflux disease without esophagitis; I25.2 Old myocardial infarction; F41.9 Anxiety disorder, unspecified; E78.00 Pure hypercholesterolemia, unspecified; Z90.49 Acquired absence of other specified parts of digestive tract; Z90.710 Acquired absence of both cervix and uterus; Z98.890 Other specified postprocedural states; Z98.84 Bariatric surgery status; Z88.0 Allergy status to penicillin; Z88.8 Allergy status to other drugs, medicaments and biological substances; Z20.822 Contact with and (suspected) exposure to COVID-19

== ENCOUNTER 2025-01-20 21:51 | Emergency (ER) | payer MEDICARE ==
[~2025-01-20] VITALS: Ht 160 cm; Wt 66.7 kg
[~2025-01-20 21:51] MED LIST changes: +TRAMADOL HCL50 MG PO
[2025-01-20 22:49] LABS: BASO # 0.0 10*3/uL (0.0-0.1); BASO % 0.3 % (0.0-1.0); EOS # 0.2 10*3/uL (0.0-0.4); EOS % 5.6 % (1.0-4.0); MEAN CELL VOLUME 83.7 fl (81.0-99.0); MEAN CORPUSCULAR HGB 24.7 pg (27.0-31.0); MEAN PLATELET VOLUME 10.9 fl (9.6-12.3); MONO # 0.5 10*3/uL (0.1-1.0); MONO % 17.7 % (3.0-9.0); NEUT # 1.7 10*3/uL (2.3-7.9); NEUT % 54.5 % (47.0-73.0); NUCLEATED RED BLOOD CELL 0.0 % (0.0-0.0); NUCLEATED RED BLOOD CELL 0.0 10*3/uL (0.0-0.0); PLATELET COUNT AUTOMATED 80 10*3/uL (130-400); RED CELL DISTRI WIDTH 20.3 % (0-14.5)
[2025-01-20 22:57] LABS: ACT PARTIAL THROMBO TIME 30.1 SECONDS (20.0-32.1)
[2025-01-20 23:09] LABS: BUN 11 mg/dl (9-23)
[2025-01-27] MEDS ORDERED: MUCUS RELIEF E600 MG PO (12:00)
[2025-01-27] MEDS ORDERED: VIBRA-TAB100 MG PO (12:00)
== END 2025-01-21 01:17 | disposition home or self-care (01) ==
LOC: ED 21:51
PROVIDERS: Internal Medicine
DX: R60.0 Localized edema (principal); R06.02 Shortness of breath; I50.9 Heart failure, unspecified; Z88.0 Allergy status to penicillin; Z88.8 Allergy status to other drugs, medicaments and biological substances; Z79.82 Long term (current) use of aspirin; Z79.899 Other long term (current) drug therapy; Z90.49 Acquired absence of other specified parts of digestive tract; Z98.84 Bariatric surgery status; Z98.890 Other specified postprocedural states; Z90.710 Acquired absence of both cervix and uterus; Z87.891 Personal history of nicotine dependence

== ENCOUNTER 2025-02-05 17:09 | Emergency (ER) | payer MEDICARE ==
[~2025-02-05] VITALS: Ht 160 cm; Wt 71.2 kg
[~2025-02-05 17:09] MED LIST changes: +MUCUS RELIEF E600 MG PO; +VIBRA-TAB100 MG PO
[2025-02-05] MEDS ORDERED: FUROSEMIDE 40 MG/4 ML VIAL IV ONE (17:50)
[2025-02-05 18:34] LABS: MEAN CELL VOLUME 83.0 fl (81.0-99.0); MEAN CORPUSCULAR HGB 24.1 pg (27.0-31.0); MEAN PLATELET VOLUME 11.1 fl (9.6-12.3); NUCLEATED RED BLOOD CELL 0.0 % (0.0-0.0); NUCLEATED RED BLOOD CELL 0.0 10*3/uL (0.0-0.0); PLATELET COUNT AUTOMATED 75 10*3/uL (130-400); RED CELL DISTRI WIDTH 19.4 % (0-14.5)
[2025-02-05 18:46] LABS: BUN 8 mg/dl (9-23)
[2025-02-05 19:32] LABS: MANUAL DIFF REFLEX YES
[2025-02-05 19:41] LABS: PLATELET SUFFICIENCY LOW (NORMAL)
== END 2025-02-05 19:32 | disposition home or self-care (01) ==
LOC: ED 17:09
PROVIDERS: Emergency Medicine
DX: R60.0 Localized edema (principal); I87.2 Venous insufficiency (chronic) (peripheral); K21.9 Gastro-esophageal reflux disease without esophagitis; I25.2 Old myocardial infarction; F41.9 Anxiety disorder, unspecified; E78.00 Pure hypercholesterolemia, unspecified; Z90.49 Acquired absence of other specified parts of digestive tract; Z90.710 Acquired absence of both cervix and uterus; Z98.84 Bariatric surgery status; Z88.0 Allergy status to penicillin; Z88.1 Allergy status to other antibiotic agents; Z88.8 Allergy status to other drugs, medicaments and biological substances; Z98.890 Other specified postprocedural states

== ENCOUNTER → 2025-02-06 | Outpatient (CLI) | payer MEDICARE | END | disposition home or self-care (01) | LOC: RESCLI 01:01 | PROVIDERS: ATTEND Student in an Organized Health Care Education/Training Program | DX: R60.0 Localized edema (principal); I11.0 Hypertensive heart disease with heart failure; I50.9 Heart failure, unspecified; J44.9 Chronic obstructive pulmonary disease, unspecified; E53.8 Deficiency of other specified B group vitamins; E03.9 Hypothyroidism, unspecified; I25.10 Atherosclerotic heart disease of native coronary artery without angina pectoris; K21.9 Gastro-esophageal reflux disease without esophagitis; K74.60 Unspecified cirrhosis of liver; G62.9 Polyneuropathy, unspecified; Z79.899 Other long term (current) drug therapy; Z87.891 Personal history of nicotine dependence; Z98.890 Other specified postprocedural states ==

== ENCOUNTER 2025-02-22 21:43 | Emergency (ER) | payer MEDICARE ==
[~2025-02-22] VITALS: Ht 160 cm; Wt 64.4 kg
[2025-02-23 00:06] LABS: BASO # 0.0 10*3/uL (0.0-0.1); BASO % 0.6 % (0.0-1.0); EOS # 0.1 10*3/uL (0.0-0.4); EOS % 4.1 % (1.0-4.0); MEAN CELL VOLUME 83.3 fl (81.0-99.0); MEAN CORPUSCULAR HGB 24.1 pg (27.0-31.0); MEAN PLATELET VOLUME 11.9 fl (9.6-12.3); MONO # 0.3 10*3/uL (0.1-1.0); MONO % 9.4 % (3.0-9.0); NEUT # 2.1 10*3/uL (2.3-7.9); NEUT % 60.5 % (47.0-73.0); NUCLEATED RED BLOOD CELL 0.0 % (0.0-0.0); NUCLEATED RED BLOOD CELL 0.0 10*3/uL (0.0-0.0); PLATELET COUNT AUTOMATED 110 10*3/uL (130-400); RED CELL DISTRI WIDTH 19.9 % (0-14.5)
[2025-02-23 00:23] LABS: BUN 12 mg/dl (9-23)
[2025-02-23 01:24] LABS: BILIRUBIN Negative (Negative); BLOOD Negative (Negative); CLARITY Clear (Clear); COLOR Yellow (Yellow); KETONE Negative (Negative); LEUKO ESTERASE Negative (Negative); NITRITE Negative (Negative); PH 7.0 (4.5-8.0); SPECIFIC GRAVITY <= 1.005 (1.001-1.030); UROBILINOGEN 0.2 E.U./dl (0.0-1.0)
[2025-02-23 02:01] LABS: BACTERIA 1+
[2025-02-23] MEDS ORDERED: OXYCODONE HCL (IR) 5 MG TAB PO ONE (02:50)
[2025-03-01] MEDS ORDERED: KRISTALOSE20 GM PO (12:43)
== END 2025-02-23 03:07 | disposition home or self-care (01) ==
LOC: ED 21:43
PROVIDERS: Emergency Medicine
DX: R10.9 Unspecified abdominal pain (principal); K21.9 Gastro-esophageal reflux disease without esophagitis; E03.9 Hypothyroidism, unspecified; I10 Essential (primary) hypertension; I25.2 Old myocardial infarction; F41.9 Anxiety disorder, unspecified; E78.00 Pure hypercholesterolemia, unspecified; J45.909 Unspecified asthma, uncomplicated; Z90.49 Acquired absence of other specified parts of digestive tract; Z90.710 Acquired absence of both cervix and uterus; Z98.890 Other specified postprocedural states; Z88.0 Allergy status to penicillin; Z88.8 Allergy status to other drugs, medicaments and biological substances; Z98.84 Bariatric surgery status

== ENCOUNTER 2025-03-05 22:24 | Emergency (ER) | payer MEDICARE ==
[~2025-03-05] VITALS: Wt 64.4 kg
[2025-03-05 23:33] LABS: BASO # 0.0 10*3/uL (0.0-0.1); BASO % 0.8 % (0.0-1.0); EOS # 0.2 10*3/uL (0.0-0.4); EOS % 5.1 % (1.0-4.0); MEAN CELL VOLUME 85.4 fl (81.0-99.0); MEAN CORPUSCULAR HGB 25.4 pg (27.0-31.0); MEAN PLATELET VOLUME 12.1 fl (9.6-12.3); MONO # 0.6 10*3/uL (0.1-1.0); MONO % 16.1 % (3.0-9.0); NEUT # 2.1 10*3/uL (2.3-7.9); NEUT % 52.5 % (47.0-73.0); NUCLEATED RED BLOOD CELL 0.0 % (0.0-0.0); NUCLEATED RED BLOOD CELL 0.0 10*3/uL (0.0-0.0); PLATELET COUNT AUTOMATED 117 10*3/uL (130-400); RED CELL DISTRI WIDTH 20.8 % (0-14.5)
[2025-03-05 23:48] LABS: BUN 6 mg/dl (9-23)
[2025-03-05] MEDS ORDERED: BUMETANIDE 1 MG TAB PO ONE (23:55)
[2025-03-05] MEDS ORDERED: Promethazine Hydrochloride 25 MG/ML VIAL IM ONE (23:55)
== END 2025-03-06 00:34 | disposition home or self-care (01) ==
LOC: ED 22:24
PROVIDERS: Internal Medicine
DX: R60.0 Localized edema (principal); D61.818 Other pancytopenia; K21.9 Gastro-esophageal reflux disease without esophagitis; I25.2 Old myocardial infarction; F41.9 Anxiety disorder, unspecified; E78.00 Pure hypercholesterolemia, unspecified; Z98.84 Bariatric surgery status; Z90.49 Acquired absence of other specified parts of digestive tract; Z90.710 Acquired absence of both cervix and uterus; Z98.890 Other specified postprocedural states; Z88.0 Allergy status to penicillin; Z88.8 Allergy status to other drugs, medicaments and biological substances

== ENCOUNTER → 2025-03-05 | Outpatient (CLI) | payer MEDICARE ==
[~2025-03-05] MED LIST changes: +KRISTALOSE20 GM PO
== END | disposition home or self-care (01) ==
LOC: RESCLI
PROVIDERS: ATTEND Internal Medicine
DX: R60.9 Edema, unspecified (principal); I25.10 Atherosclerotic heart disease of native coronary artery without angina pectoris; E55.9 Vitamin D deficiency, unspecified; F32.9 Major depressive disorder, single episode, unspecified; H57.89 Other specified disorders of eye and adnexa; R42 Dizziness and giddiness; J45.901 Unspecified asthma with (acute) exacerbation; R11.0 Nausea; R60.0 Localized edema; E53.8 Deficiency of other specified B group vitamins; I10 Essential (primary) hypertension; J44.9 Chronic obstructive pulmonary disease, unspecified; K21.9 Gastro-esophageal reflux disease without esophagitis; K74.60 Unspecified cirrhosis of liver; G62.9 Polyneuropathy, unspecified; E03.9 Hypothyroidism, unspecified; Z79.899 Other long term (current) drug therapy; Z79.82 Long term (current) use of aspirin; Z88.0 Allergy status to penicillin

== ENCOUNTER → 2025-03-09 | Outpatient (CLI) | payer MEDICARE ==
[2025-03-09 11:30] LABS: BUN 10 mg/dl (9-23)
== END | disposition home or self-care (01) ==
LOC: LAB 09:44
PROVIDERS: ATTEND Family Medicine
DX: R60.9 Edema, unspecified (principal)

== ENCOUNTER 2025-03-14 20:21 | Emergency (ER) | payer MEDICARE ==
[~2025-03-14] VITALS: Ht 233.6 cm; Wt 72.1 kg
[2025-03-14] MEDS ORDERED: ZITHROMAX250 MG PO (23:02)
[2025-03-14] MEDS ORDERED: MEDROL DOSEPAK4 MG PO (23:02)
[2025-03-14] MEDS ORDERED: OXYCODONE HCL (IR) 5 MG TAB PO ONE (23:05)
[2025-03-14] MEDS ORDERED: AZITHROMYCIN 250 MG TAB PO ONE (23:05)
== END 2025-03-14 23:27 | disposition home or self-care (01) ==
LOC: ED 20:21
DX: J98.4 Other disorders of lung (principal); K21.9 Gastro-esophageal reflux disease without esophagitis; I25.2 Old myocardial infarction; F41.9 Anxiety disorder, unspecified; E78.00 Pure hypercholesterolemia, unspecified; M79.7 Fibromyalgia; J45.909 Unspecified asthma, uncomplicated; Z90.49 Acquired absence of other specified parts of digestive tract; Z90.710 Acquired absence of both cervix and uterus; Z98.84 Bariatric surgery status; Z88.0 Allergy status to penicillin; Z88.8 Allergy status to other drugs, medicaments and biological substances; Z98.890 Other specified postprocedural states; Z20.822 Contact with and (suspected) exposure to COVID-19

== ENCOUNTER 2025-03-20 11:35 | Emergency (ER) | payer MEDICARE ==
[~2025-03-20] VITALS: Ht 160 cm; Wt 73.5 kg
[2025-03-20] MEDS ORDERED: FUROSEMIDE 40 MG/4 ML VIAL IV ONE (12:25)
[2025-03-20 13:28] LABS: BASO # 0.0 10*3/uL (0.0-0.1); BASO % 0.2 % (0.0-1.0); EOS # 0.1 10*3/uL (0.0-0.4); EOS % 2.4 % (1.0-4.0); MEAN CELL VOLUME 84.4 fl (81.0-99.0); MEAN CORPUSCULAR HGB 24.2 pg (27.0-31.0); MEAN PLATELET VOLUME 10.1 fl (9.6-12.3); MONO # 0.5 10*3/uL (0.1-1.0); MONO % 10.2 % (3.0-9.0); NEUT # 2.9 10*3/uL (2.3-7.9); NEUT % 62.1 % (47.0-73.0); NUCLEATED RED BLOOD CELL 0.0 % (0.0-0.0); NUCLEATED RED BLOOD CELL 0.0 10*3/uL (0.0-0.0); PLATELET COUNT AUTOMATED 117 10*3/uL (130-400); RED CELL DISTRI WIDTH 21.2 % (0-14.5)
[2025-03-20 13:51] LABS: BUN 9 mg/dl (9-23); CPK 72 U/L (34-171)
== END 2025-03-20 15:51 | disposition home or self-care (01) ==
LOC: ED 11:35
PROVIDERS: Emergency Medicine
DX: R60.0 Localized edema (principal); E03.9 Hypothyroidism, unspecified; K21.9 Gastro-esophageal reflux disease without esophagitis; I25.2 Old myocardial infarction; F41.9 Anxiety disorder, unspecified; E78.00 Pure hypercholesterolemia, unspecified; Z98.84 Bariatric surgery status; Z90.49 Acquired absence of other specified parts of digestive tract; Z90.710 Acquired absence of both cervix and uterus; Z98.890 Other specified postprocedural states; Z88.0 Allergy status to penicillin; Z88.8 Allergy status to other drugs, medicaments and biological substances

== ENCOUNTER 2025-03-25 19:11 | Emergency (ER) | payer MEDICARE ==
[~2025-03-25] VITALS: Ht 160 cm; Wt 72.6 kg
[2025-03-25 20:31] LABS: BASO # 0.0 10*3/uL (0.0-0.1); BASO % 0.5 % (0.0-1.0); EOS # 0.2 10*3/uL (0.0-0.4); EOS % 3.9 % (1.0-4.0); MEAN CELL VOLUME 83.4 fl (81.0-99.0); MEAN CORPUSCULAR HGB 24.1 pg (27.0-31.0); MEAN PLATELET VOLUME 10.3 fl (9.6-12.3); MONO # 0.7 10*3/uL (0.1-1.0); MONO % 16.6 % (3.0-9.0); NEUT # 2.4 10*3/uL (2.3-7.9); NEUT % 55.6 % (47.0-73.0); NUCLEATED RED BLOOD CELL 0.0 % (0.0-0.0); NUCLEATED RED BLOOD CELL 0.0 10*3/uL (0.0-0.0); PLATELET COUNT AUTOMATED 106 10*3/uL (130-400); RED CELL DISTRI WIDTH 21.2 % (0-14.5)
[2025-03-25 20:53] LABS: BUN 11 mg/dl (9-23)
[2025-03-25 21:26] LABS: BILIRUBIN Negative (Negative); BLOOD Negative (Negative); CLARITY Clear (Clear); COLOR Orange (Yellow); KETONE Trace (Negative); LEUKO ESTERASE Trace (Negative); NITRITE Negative (Negative); PH 5.5 (4.5-8.0); SPECIFIC GRAVITY 1.025 (1.001-1.030); UROBILINOGEN 1.0 E.U./dl (0.0-1.0)
[2025-03-25 22:07] LABS: MUCOUS 2+; YEAST TRACE
[2025-03-25] MEDS ORDERED: GLYCERIN 1 SUPP SUPP R ONE (23:20)
[2025-03-25] MEDS ORDERED: BISACODYL 10 MG SUPP R ONE (23:30)
== END 2025-03-25 23:17 | disposition home or self-care (01) ==
LOC: ED 19:11
PROVIDERS: Internal Medicine
DX: K59.00 Constipation, unspecified (principal); Z88.0 Allergy status to penicillin; Z88.6 Allergy status to analgesic agent; Z88.8 Allergy status to other drugs, medicaments and biological substances; Z79.82 Long term (current) use of aspirin; Z79.899 Other long term (current) drug therapy; Z90.49 Acquired absence of other specified parts of digestive tract; Z98.61 Coronary angioplasty status; Z98.84 Bariatric surgery status; Z90.710 Acquired absence of both cervix and uterus

== ENCOUNTER → 2025-03-27 | Outpatient (CLI) | payer MEDICARE ==
[~2025-03-27] MED LIST changes: +ELIQUIS5 M1 PO; +LACTULOSE10 GM/151 PO
== END | disposition home or self-care (01) ==
LOC: RESCLI 13:14
PROVIDERS: ATTEND Internal Medicine
DX: I82.401 Acute embolism and thrombosis of unspecified deep veins of right lower extremity (principal); D64.9 Anemia, unspecified; K21.9 Gastro-esophageal reflux disease without esophagitis; K74.60 Unspecified cirrhosis of liver; E03.9 Hypothyroidism, unspecified; I25.10 Atherosclerotic heart disease of native coronary artery without angina pectoris; J44.9 Chronic obstructive pulmonary disease, unspecified; J45.901 Unspecified asthma with (acute) exacerbation; E55.9 Vitamin D deficiency, unspecified; G62.9 Polyneuropathy, unspecified; R60.0 Localized edema; E53.8 Deficiency of other specified B group vitamins; M54.30 Sciatica, unspecified side; Z79.899 Other long term (current) drug therapy; I11.0 Hypertensive heart disease with heart failure; I50.9 Heart failure, unspecified

== ENCOUNTER 2025-03-28 01:53 | Emergency (ER) | payer MEDICARE ==
[2025-03-28] VITALS (8 sets, daily range): BP systolic 117–139; BP diastolic 41–55
[~2025-03-28] VITALS: Wt 73.9 kg
[~2025-03-28 01:53] MED LIST changes: -ELIQUIS5 M1 PO; -LACTULOSE10 GM/151 PO
[2025-03-28 02:32] LABS: MEAN CELL VOLUME 83.6 fl (81.0-99.0); MEAN CORPUSCULAR HGB 24.5 pg (27.0-31.0); MEAN PLATELET VOLUME 11.4 fl (9.6-12.3); NUCLEATED RED BLOOD CELL 0.0 % (0.0-0.0); NUCLEATED RED BLOOD CELL 0.0 10*3/uL (0.0-0.0); PLATELET COUNT AUTOMATED 104 10*3/uL (130-400); RED CELL DISTRI WIDTH 21.4 % (0-14.5)
[2025-03-28 02:42] LABS: MANUAL DIFF REFLEX YES
[2025-03-28 02:52] LABS: BUN 13 mg/dl (9-23)
[2025-03-28 02:56] LABS: PLATELET SUFFICIENCY LOW (NORMAL)
[2025-03-28] MEDS ORDERED: SODIUM CHLORIDE 0.9% 100 ML IV ONE (04:48)
[2025-03-28] MEDS ORDERED: MAGNESIUM CITRATE 296 ML BOT PO ONE (06:00)
== END 2025-03-28 06:12 | disposition home or self-care (01) ==
LOC: ED 01:53
PROVIDERS: Internal Medicine
DX: D64.9 Anemia, unspecified (principal); K59.00 Constipation, unspecified; R10.84 Generalized abdominal pain; K21.9 Gastro-esophageal reflux disease without esophagitis; I25.2 Old myocardial infarction; F41.9 Anxiety disorder, unspecified; E78.00 Pure hypercholesterolemia, unspecified; Z90.49 Acquired absence of other specified parts of digestive tract; Z90.710 Acquired absence of both cervix and uterus; Z98.84 Bariatric surgery status; Z98.890 Other specified postprocedural states; Z88.0 Allergy status to penicillin; Z88.8 Allergy status to other drugs, medicaments and biological substances

== ENCOUNTER 2025-04-02 17:15 | Inpatient (IN) | payer MEDICARE ==
[~2025-04-02] VITALS: Ht 160 cm; Wt 72.3 kg
[2025-04-02 17:35] VITALS: BP 143/43
[2025-04-02 19:35] VITALS: BP 127/40
[2025-04-02 20:09] LABS: BASO # 0.0 10*3/uL (0.0-0.1); BASO % 0.8 % (0.0-1.0); EOS # 0.2 10*3/uL (0.0-0.4); EOS % 4.3 % (1.0-4.0); MEAN CELL VOLUME 88.7 fl (81.0-99.0); MEAN CORPUSCULAR HGB 26.3 pg (27.0-31.0); MEAN PLATELET VOLUME 10.0 fl (9.6-12.3); MONO # 0.4 10*3/uL (0.1-1.0); MONO % 9.7 % (3.0-9.0); NEUT # 2.3 10*3/uL (2.3-7.9); NEUT % 63.0 % (47.0-73.0); NUCLEATED RED BLOOD CELL 0.0 % (0.0-0.0); NUCLEATED RED BLOOD CELL 0.0 10*3/uL (0.0-0.0); PLATELET COUNT AUTOMATED 86 10*3/uL (130-400); RED CELL DISTRI WIDTH 22.6 % (0-14.5)
[2025-04-02 20:31] LABS: BUN 10 mg/dl (9-23); SGPT/ALT 34 U/L (5-49)
[2025-04-02 20:34] VITALS: BP 127/61
[2025-04-02 22:40] VITALS: BP 124/56
[2025-04-03] VITALS (7 sets, daily range): BP systolic 126–137; BP diastolic 50–70
[2025-04-03] MEDS ORDERED: LACTULOSE 20 GM/30 ML UDC PO ONE (01:55)
[2025-04-03] MEDS ORDERED: Ondansetron Hydrochloride 4 MG/2 ML VIAL IV ONE (03:50)
[2025-04-03] MEDS ORDERED: HYDROmorphONE Hydrochloride 0.5 MG/0.5 ML SYRINGE IV ONE (03:50)
[2025-04-03] MEDS ORDERED: Ondansetron Hydrochloride 4 MG/2 ML VIAL IV PRN (04:30)
[2025-04-03] MEDS ORDERED: ACETAMINOPHEN 325 MG TAB PO PRN (04:30)
[2025-04-03] MEDS ORDERED: ACETAMINOPHEN 650 MG SUPP R PRN (04:30)
[2025-04-03] MEDS ORDERED: BISACODYL 10 MG SUPP R PRN (04:30)
[2025-04-03] MEDS ORDERED: BISACODYL 5 MG TAB PO PRN (04:30)
[2025-04-03] MEDS ORDERED: ELIQUIS5 M1 PO (04:40)
[2025-04-03 06:07] LABS: BASO # 0.0 10*3/uL (0.0-0.1); BASO % 0.6 % (0.0-1.0); EOS # 0.2 10*3/uL (0.0-0.4); EOS % 4.5 % (1.0-4.0); MEAN CELL VOLUME 89.3 fl (81.0-99.0); MEAN CORPUSCULAR HGB 26.8 pg (27.0-31.0); MEAN PLATELET VOLUME 11.3 fl (9.6-12.3); MONO # 0.4 10*3/uL (0.1-1.0); MONO % 10.4 % (3.0-9.0); NEUT # 2.1 10*3/uL (2.3-7.9); NEUT % 61.5 % (47.0-73.0); NUCLEATED RED BLOOD CELL 0.0 % (0.0-0.0); NUCLEATED RED BLOOD CELL 0.0 10*3/uL (0.0-0.0); PLATELET COUNT AUTOMATED 78 10*3/uL (130-400); RED CELL DISTRI WIDTH 23.0 % (0-14.5)
[2025-04-03 06:51] LABS: BUN 8 mg/dl (9-23); LDL CHOLESTEROL 47 mg/dL (9-159); SGPT/ALT 31 U/L (5-49)
[2025-04-03] MEDS ORDERED: LACTULOSE10 GM/151 PO (08:13)
[2025-04-03] MEDS ORDERED: CYCLOBENZAPRINE5 M3 PO (08:15)
[2025-04-03] MEDS ORDERED: BENZONATATE 100 MG CAP PO PRN (08:30)
[2025-04-03] MEDS ORDERED: FUROSEMIDE 20 MG TAB PO PRN (08:35)
[2025-04-03] MEDS ORDERED: LACTULOSE 20 GM/30 ML UDC PO SCH ×3 (10:00→18:00)
[2025-04-03] MEDS ORDERED: METOPROLOL SUCCINATE XR 25 MG TAB PO SCH (10:00)
[2025-04-03] MEDS ORDERED: APIXABAN 5 MG TAB PO SCH ×2 (10:00→22:00)
[2025-04-03] MEDS ORDERED: LIDOCAINE 4% PATCH T ONE (23:10)
[2025-04-04] VITALS: BP 133/52
[2025-04-04 06:51] LABS: BASO # 0.0 10*3/uL (0.0-0.1); BASO % 1.0 % (0.0-1.0); EOS # 0.2 10*3/uL (0.0-0.4); EOS % 6.6 % (1.0-4.0); MEAN CORPUSCULAR HGB 25.1 pg (27.0-31.0); MEAN PLATELET VOLUME 10.5 fl (9.6-12.3); MONO # 0.4 10*3/uL (0.1-1.0); MONO % 12.2 % (3.0-9.0); NEUT # 1.6 10*3/uL (2.3-7.9); NEUT % 52.1 % (47.0-73.0); NUCLEATED RED BLOOD CELL 0.0 % (0.0-0.0); NUCLEATED RED BLOOD CELL 0.0 10*3/uL (0.0-0.0); PLATELET COUNT AUTOMATED 78 10*3/uL (130-400); RED CELL DISTRI WIDTH 22.7 % (0-14.5)
[2025-04-04 06:52] LABS: MEAN CELL VOLUME 85.7 fl (81.0-99.0)
[2025-04-04 06:54] LABS: BUN 8 mg/dl (9-23); SGPT/ALT 31 U/L (5-49)
[2025-04-04 08:00] VITALS: BP 112/50
[2025-04-04] MEDS ORDERED: LACTULOSE10 GM/151 PO (11:47)
[2025-04-04] MEDS ORDERED: Menthol/Zinc Oxide 4 GM THIN T PRN (12:10)
[2025-04-04] MEDS ORDERED: Menthol/Zinc Oxide 4 GM THIN T SCH (22:00)
== END 2025-04-04 12:30 | disposition home or self-care (01) | DRG 441 ==
LOC: ED 17:15 → EDHOLD 04-03 03:35 → 5E 04-03 03:50 → EDHOLD 04-03 03:50 → 5E 04-03 04:14
PROVIDERS: Internal Medicine; Student in an Organized Health Care Education/Training Program; ADMIT Student in an Organized Health Care Education/Training Program; ATTEND Student in an Organized Health Care Education/Training Program
DX: K76.82 Hepatic encephalopathy (principal); E43 Unspecified severe protein-calorie malnutrition; D61.818 Other pancytopenia; I50.32 Chronic diastolic (congestive) heart failure; K76.6 Portal hypertension; E72.20 Disorder of urea cycle metabolism, unspecified; R09.A2 Foreign body sensation, throat; E05.00 Thyrotoxicosis with diffuse goiter without thyrotoxic crisis or storm; E89.0 Postprocedural hypothyroidism; I48.91 Unspecified atrial fibrillation; F31.9 Bipolar disorder, unspecified; I25.10 Atherosclerotic heart disease of native coronary artery without angina pectoris; E78.5 Hyperlipidemia, unspecified; I10 Essential (primary) hypertension; K21.9 Gastro-esophageal reflux disease without esophagitis; M79.7 Fibromyalgia; K74.60 Unspecified cirrhosis of liver; M06.9 Rheumatoid arthritis, unspecified; J44.89 Other specified chronic obstructive pulmonary disease; D72.819 Decreased white blood cell count, unspecified; E87.8 Other disorders of electrolyte and fluid balance, not elsewhere classified; R73.9 Hyperglycemia, unspecified; E80.6 Other disorders of bilirubin metabolism; Z88.0 Allergy status to penicillin; Z88.8 Allergy status to other drugs, medicaments and biological substances; Z90.710 Acquired absence of both cervix and uterus; Z98.51 Tubal ligation status; Z90.49 Acquired absence of other specified parts of digestive tract; Z83.3 Family history of diabetes mellitus; Z82.3 Family history of stroke; Z79.01 Long term (current) use of anticoagulants; Z68.28 Body mass index [BMI] 28.0-28.9, adult